=== PATIENT | male | born 1930 | race Caucasian/White ===

== ENCOUNTER 2017-11-06 22:22 | Inpatient (IN) ==
[2017-11-06 22:55] LABS: ABG Base Excess 6 mEq/L (-2 to 3); ABG HCO3 38 mEq/L (21-27); ABG Oxygen Saturation 98 % (95-98); ABG PCO2 87 mmHg (35-45); ABG PH 7.25 pH Units (7.32-7.45); ABG PO2 126 mmHg (85-104); ABG TCO2 40 mEq/L (20-26); Blood Gas PEEP 6 cm H2O
--- NOTE | 2017-11-06 22:56 | Emergency Department Note ---
Disposition Clinical Impression: Acute and chronic respiratory failure with hypercapnia, Elevated troponin CHF exacerbation Qualifiers: Heart failure type: unspecified Qualified Code(s): I50.9 - Heart failure, unspecified Hypotension Qualifiers: Hypotension type: unspecified hypotension type Qualified Code(s): I95.9 - Hypotension, unspecified Disposition: Admitted As Inpatient Condition: Critical Time of Disposition: 02:23 General Adult HPI - General Chief complaint: ED Shortness of Breath/Dyspnea Time Seen by Provider: 11/06/17 22:25 Source: patient, family (Daughter), EMS Limitations: altered mental status Nursing Notes Reviewed: Yes Vital Signs Reviewed: Yes - History of Present Illness HPI Narrative: 87-year-old male presents to the emergency department via EMS for respiratory distress. Patient's daughter and granddaughter are at bedside to assist with history. Patient's a transfer from the [place] for respiratory distress and altered mental status requiring BiPAP. Patient was initially cooperative with the BiPAP. Arterial blood gas 7.2 with a CO2 of 90. Patients currently living with daughter who is present in states that he has been having increased worker breathing over the past 24 hours. Any exertion make some winded. Of note his was admitted yesterday for CHF exacerbation. Per the family patient has history of congestive heart failure but has not been officially diagnosed. No COPD are lung issues noted. 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 On initial valuation patient is hard to arouse but is ventilating well with the BiPAP. His respirations rate is at 8. Family reports no recent fever, cough, fall or trauma. No recent new medications. Pain Scale: 0 - Related Data Home Medications Medication Instructions Recorded Confirmed Aspirin 81 mg PO DAILY 04/09/17 10/26/17 Cholecalciferol (D-3) [Vitamin D] 1,000 unit PO DAILY 04/09/17 10/26/17 Cyanocobalamin (B-12) [Vitamin B12] 1,000 mcg PO DAILY 04/09/17 10/26/17 Donepezil [Aricept] 5 mg PO DAILY 04/09/17 10/26/17 hydroCHLOROthiazide 25 mg PO DAILY 04/09/17 10/26/17 [Hydrochlorothiazide] Previous Rx's Medication Instructions Recorded Amoxicillin/Clavulanate [Augmentin] 500 mg PO TID #32 tablet 10/26/17 Allergies Allergy/AdvReac Type Severity Reaction Status Date / Time No Known Allergies Allergy Verified 10/26/17 18:20 Review of Systems: As Per HPI Limitations: ROS unobtainable due to patients medical condition Past Medical History - Past Medical History Source: old records reviewed, obtained from family Medical history: Reports: CHF, CVA, dementia, hypertension Surgical history: Reports: no surgical history Psychiatric history: Reports: no psych history - Social History Smoking Status: Former smoker Smokeless Tobacco Status: No Alcohol use: Reports: none Drug use: Reports: none Physical Exam - General Limitations: altered mental status General appearance: in distress (respiratory), other (Patient is laying lateral recumbent in a position, he awakens to some stimulation) - Head Head exam: atraumatic, normocephalic, normal inspection - Eye Eye exam: Present: normal appearance, PERRL, EOMI - ENT ENT exam: normal exam, normal oropharynx, mucous membranes dry - Neck Neck exam: Present: normal inspection, full ROM, trachea midline - Chest Chest inspection: Present: normal inspection, symmetric chest wall rise - Respiratory Respiratory exam: Present: respiratory distress, accessory muscle use, prolonged expiratory phase - Cardiovascular Cardiovascular exam: Present: regular rate, normal rhythm, normal heart sounds - Abdominal Exam Abdominal exam: Present: soft, Non-Tender, normal bowel sounds. Absent: tenderness, distention, guarding, rebound, rigidity - Male exam: Present: other (Garcia catheter in place, present on arrival) - Extremities Exam Extremities exam: Present: normal inspection, full ROM, pedal edema (+3 pitting) . Absent: tenderness - Skin Skin exam: Present: warm, dry, intact, normal color. Absent: rash, cyanosis, diaphoresis Course - Reevaluation(s) Reevaluation #1: Repeat ABG shows a respiratory acidosis 7.2 with the elevated CO2 86. Reports of prior pH 7.2 with CO2 of 90 roughly 2 hours ago. Patient has been on BiPAP firm up this time. He will require invasive ventilation intubation. Discussed with family at bedside who are in agreement with this plan. [facility]. Indwelling catheters in place with over 1 L of urine. Patient is fluid overloaded on examination with +3 pitting edema bilaterally. Time: 23:04 Reevaluation #2: His respiratory acidosis has corrected with invasive ventilation. Troponin elevated 0.04 likely secondary to his fluid overload state and demand ischemia. EKG does not reveal any acute ischemic changes. His BNP is significantly elevated 1300 to suggest the picture of CHF exacerbation given his clinical picture of fluid overload. Patients currently being sedated with propofol and fentanyl. His blood pressure continues to be on the hypotensive side. Will continue to cautiously sedate him while monitoring his hemodynamics. No leukocytosis. Chest x-ray shows endotracheal tube in appropriate placement. Lactate 1.4. At this time his respiratory distress is likely secondary to CO2 retention and CHF exacerbation. Patient will require admission to the intensive care unit. Time: 02:18 Reevaluation #3: Suspect hypotension secondary to propofol sedation. After 500 mL normal saline fluid bolus his pressure has minimally increased to systolic 80's. A central line was placed them urgently in the right femoral vein for pressor support. Patient remains in stable condition. - Consultations Consultation #1: Spoke with on-call hospitalist leora Rey to admit to the intensive care unit for acute on chronic hyper [place], respiratory failure, elevated troponin, CHF exacerbation and hypotension.. Patient clinically does not appear like pneumonia since he does not have a leukocytosis or fever. However given his respiratory failure and ICU admission will empirically treated with antibiotics per hospitalist request. Patient has been more hypotensive with propofol sedation of note he is also has put out over 2 L of urine output. Will give him a small 500 mL fluid bolus to help with his blood pressure as we titrate his propofol sedation. Time: 02:36 Vital Signs Temperature 98.4 F 11/06/17 22:25 Pulse Rate 100 11/06/17 22:25 Respiratory Rate 17 11/06/17 22:25 Blood Pressure 105/63 11/06/17 22:25 O2 Sat by Pulse Oximetry 91 11/06/17 22:25 Temperature 98.4 F 11/06/17 22:25 Pulse Rate 70 11/07/17 03:30 Respiratory Rate 18 11/07/17 03:30 Blood Pressure 85/55 11/07/17 03:30 O2 Sat by Pulse Oximetry 100 11/07/17 03:30 Oxygen Delivery Oxygen Delivery Ventilator Procedures - Central Line Placement Right Femoral Central Line Inserted*: Yes Central Line Catheter Replacement*: No Central Line Insertion: emergent Procedural Pause: verify patient name and date of , timeout performed per policy, kayla and assess the site, assemble equipment and verify supplies, perform hand hygiene During the Procedure: clinician is wearing sterile gloves, cap, mask,& gown during insertion, sterile field and sterile technique are maintained, patient's face is covered with drape or mask and wearing a cap, everyone in room is wearing a mask Central Line Prep: Chlorhexidine scrub Prep the Procedure Site: apply chloraprep to the skin using a back and forth scrubbing motion, apply chloraprep for 30 seconds (upper body), 1-2 min ( femoral sites), allow prep to dry, drape the patient with a full body drape Local Anesthetic: lidocaine 1% Amount of anesthesia used (mL): 3 Ultrasound Used for Placement: Yes Central Line Lumen Inserted: triple Post Procedure: sutured in place, good blood return, all ports aspirated, flushed, capped, sterile dressing applied, guide wire removed and visualized, dressing is dated Patient Tolerated Procedure: well, no complications Complications: none Name of Clinician Inserting Central Line: Domenic Mullins, Clinician Assisting/Completing Checklist: Dr. Maximiliano Ontiveros Date: 11/07/17 Time: 03:45 - Intubation Time out performed: Yes sedative: Etomidate Mg Given: 15 paralytic: Rocuronium Mg Given: 50 Laryngoscope: Steph ET Tube Size: 7.5 ET Tube Uncuffed: No Tube Secured Depth (cm): 21 Tube Secured Location: lips Tube Placement Confirmation: visualized tube passing through cords, equal breath sounds bilaterally, no breath sounds over epigastrium, confirmation by capnometry Patient Tolerated Procedure: well, no complications Intubation Complications: none Medical Decision Making - [facility] Narrative Medical decision making narrative: Patient was discussed with my attending physician who agrees with ED management and final disposition. They independently evaluated the patient. Please refer to their attestation to this encounter for additional information. This note was generated by [employer] voice recognition software and as a result grammatical or spelling errors may occur using this program. - Medical Records Medical records reviewed: Yes I reviewed the patient's medical records. - Lab Data Lab results reviewed: Yes I reviewed the patient's lab results. Result diagrams: 11/07/17 00:46 11/06/17 22:51 Lab Results 11/06/17 11/06/17 11/06/17 Range/Units 22:50 22:51 22:51 WBC (4.3-11.1) K/mcL RBC (4.19-5.50) M/mcL Hgb (12.9-16.9) g/dL Hct (37.5-50.1) % MCV (83.0-100.0) fL MCH (28.0-33.3) pg MCHC (31.6-35.5) g/dL RDW (11.5-14.5) % Plt Count (140-400) K/mcL MPV (9.4-12.4) fL Immature Gran % (0-4) % Seg Neutrophils % % Lymphocytes % % Monocytes % % Eosinophils % % Basophils % % Neutrophils # (1.6-8.9) K/mcL Lymphocytes # (0.6-4.6) K/mcL Monocytes # (0.0-1.3) K/mcL Eosinophils # (0.0-0.6) K/mcL Basophils # (0.0-0.2) K/mcL PT 10.3 (9.4-12.1) Seconds INR 1.0 APTT 25.8 L (26.0-36.0) Seconds Sample Site ABG pH 7.25 L (7.32-7.45) pH Units ABG pCO2 87 H* (35-45) mmHg ABG pO2 126 H (85-104) mmHg ABG HCO3 38 H (21-27) mEq/L ABG Total CO2 40 H (20-26) mEq/L ABG O2 Saturation 98 (95-98) % ABG Base Excess 6 H (-2 to 3) mEq/L Respiration Rate O2 Delivery Device BiPAP Blood Gas Modality Inspired O2 50.0 (1-15=lpm [id number]=%) Tidal Volume cc PEEP 6 cm H2O Sodium 145 (136-145) mEq/L Potassium 4.7 (3.5-5.1) mEq/L Chloride 102 (98-107) mEq/L Carbon Dioxide 34 H (23-29) mEq/L BUN 36 H (8-23) mg/dL Creatinine 1.26 (0.70-1.30) mg/dL Est GFR ( Amer) > 60 (> 60) Est GFR (Non-Af Amer) 54 L (> 60) BUN/Creatinine Ratio 29 H (6-26) Glucose 110 H (70-105) mg/dL Calculated Osmolality 309 H (280-300) Lactic Acid (0.5-2.2) mmol/L Calcium 9.9 (8.6-10.3) mg/dL Troponin I 0.05 H* (< 0.04) ng/mL B-Natriuretic Peptide (Less than 100) pg/mL 11/06/17 11/07/17 11/07/17 Range/Units 22:51 00:04 00:44 WBC (4.3-11.1) K/mcL RBC (4.19-5.50) M/mcL Hgb (12.9-16.9) g/dL Hct (37.5-50.1) % MCV (83.0-100.0) fL MCH (28.0-33.3) pg MCHC (31.6-35.5) g/dL RDW (11.5-14.5) % Plt Count (140-400) K/mcL MPV (9.4-12.4) fL Immature Gran % (0-4) % Seg Neutrophils % % Lymphocytes % % Monocytes % % Eosinophils % % Basophils % % Neutrophils # (1.6-8.9) K/mcL Lymphocytes # (0.6-4.6) K/mcL Monocytes # (0.0-1.3) K/mcL Eosinophils # (0.0-0.6) K/mcL Basophils # (0.0-0.2) K/mcL PT (9.4-12.1) Seconds INR APTT (26.0-36.0) Seconds Sample Site R Radial ABG pH 7.51 H D (7.32-7.45) pH Units ABG pCO2 42 D (35-45) mmHg ABG pO2 52 L D (85-104) mmHg ABG HCO3 33 H (21-27) mEq/L ABG Total CO2 34 H (20-26) mEq/L ABG O2 Saturation 89 L (95-98) % ABG Base Excess 9 H (-2 to 3) mEq/L Respiration Rate 18 O2 Delivery Device Adult Vent Blood Gas Modality VC Inspired O2 100.0 (1-15=lpm sn65-620=%) Tidal Volume 450 cc PEEP 5 cm H2O Sodium (136-145) mEq/L Potassium (3.5-5.1) mEq/L Chloride (98-107) mEq/L Carbon Dioxide (23-29) mEq/L BUN (8-23) mg/dL Creatinine (0.70-1.30) mg/dL Est GFR ( Amer) (> 60) Est GFR (Non-Af Amer) (> 60) BUN/Creatinine Ratio (6-26) Glucose (70-105) mg/dL Calculated Osmolality (280-300) Lactic Acid 1.4 (0.5-2.2) mmol/L Calcium (8.6-10.3) mg/dL Troponin I (< 0.04) ng/mL B-Natriuretic Peptide 1353 H (Less than 100) pg/mL 11/07/17 Range/Units 00:46 WBC 7.5 (4.3-11.1) K/mcL RBC 4.95 (4.19-5.50) M/mcL Hgb 13.9 (12.9-16.9) g/dL Hct 46.5 (37.5-50.1) % MCV 93.9 (83.0-100.0) fL MCH 28.1 (28.0-33.3) pg MCHC 29.9 L (31.6-35.5) g/dL RDW 15.2 H (11.5-14.5) % Plt Count 173 (140-400) K/mcL MPV 10.9 (9.4-12.4) fL Immature Gran % 0.4 (0-4) % Seg Neutrophils % 80.9 % Lymphocytes % 8.7 % Monocytes % 8.0 % Eosinophils % 1.3 % Basophils % 0.7 % Neutrophils # 6.1 (1.6-8.9) K/mcL Lymphocytes # 0.7 (0.6-4.6) K/mcL Monocytes # 0.6 (0.0-1.3) K/mcL Eosinophils # 0.1 (0.0-0.6) K/mcL Basophils # 0.1 (0.0-0.2) K/mcL PT (9.4-12.1) Seconds INR APTT (26.0-36.0) Seconds Sample Site ABG pH (7.32-7.45) pH Units ABG pCO2 (35-45) mmHg ABG pO2 (85-104) mmHg ABG HCO3 (21-27) mEq/L ABG Total CO2 (20-26) mEq/L ABG O2 Saturation (95-98) % ABG Base Excess (-2 to 3) mEq/L Respiration Rate O2 Delivery Device Blood Gas Modality Inspired O2 (1-15=lpm ux42-224=%) Tidal Volume cc PEEP cm H2O Sodium (136-145) mEq/L Potassium (3.5-5.1) mEq/L Chloride (98-107) mEq/L Carbon Dioxide (23-29) mEq/L BUN (8-23) mg/dL Creatinine (0.70-1.30) mg/dL Est GFR ( Amer) (> 60) Est GFR (Non-Af Amer) (> 60) BUN/Creatinine Ratio (6-26) Glucose (70-105) mg/dL Calculated Osmolality (280-300) Lactic Acid (0.5-2.2) mmol/L Calcium (8.6-10.3) mg/dL Troponin I (< 0.04) ng/mL B-Natriuretic Peptide (Less than 100) pg/mL - Radiology Data Radiology results reviewed: Yes I reviewed the patient's radiology results. Chest X-Ray 11/06/17 22:51 IMPRESSION: 1. The endotracheal tube tip is 6 cm above the teodoro. 2. Bibasilar atelectasis or pneumonia. D/ / Graeme Tirado MD / Graeme Tirado MD Interpreting Provider: Graeme Tirado MD - EKG Data EKG #1 EKG attestation: Yes I reviewed and interpreted this EKG. EKG results narrative: EKG performed 2258 normal sinus rhythm 94 bpm, right axis deviation with right bundle branch block QRS 138, no ST elevation or depression, T-wave inversion seen through septal leads. Compared to prior EKG performed 10/26/2017 shows similar consistent findings of sinus rhythm with right bundle branch block in T- wave abnormality. No acute ischemic changes.
[2017-11-06] MEDS ORDERED: Lacri-Lube 3.5 GM TUBE BOTH EYES PRN (23:30)
[2017-11-06] MEDS: FentaNYL (PF) 1,000 MCG in 0.9 % Sodium Chloride 80 ML IVC SCH (23:59)
[2017-11-07] MEDS: Lacri-Lube 3.5 GM TUBE BOTH EYES SCH ×8 (00:01→22:25)
[2017-11-07] MEDS ORDERED: *HR* Rocuronium Bromide 50 MG/5 ML VIAL IVP ONE ×2 (00:11→00:19)
[2017-11-07] MEDS ORDERED: *HR* Etomidate 20 MG/10 ML AMPUL IVP ONE (00:19)
[2017-11-07 00:21] LABS: Prothrombin Time 10.3 Seconds (9.4-12.1)
--- NOTE | 2017-11-07 00:22 | Emergency Department Note ---
Disposition Clinical Impression: Acute and chronic respiratory failure with hypercapnia, CHF exacerbation, Elevated troponin, Hypotension Disposition: Admitted As Inpatient Condition: Critical General Adult HPI - General Chief complaint: ED Shortness of Breath/Dyspnea Time Seen by Provider: 11/06/17 22:25 Source: patient, family (Daughter), EMS Limitations: altered mental status Nursing Notes Reviewed: Yes Vital Signs Reviewed: Yes - History of Present Illness Pain Scale: 0 - Related Data Home Medications Medication Instructions Recorded Confirmed Aspirin 81 mg PO DAILY 04/09/17 10/26/17 Cholecalciferol (D-3) [Vitamin D] 1,000 unit PO DAILY 04/09/17 10/26/17 Cyanocobalamin (B-12) [Vitamin B12] 1,000 mcg PO DAILY 04/09/17 10/26/17 Donepezil [Aricept] 5 mg PO DAILY 04/09/17 10/26/17 hydroCHLOROthiazide 25 mg PO DAILY 04/09/17 10/26/17 [Hydrochlorothiazide] Previous Rx's Medication Instructions Recorded Amoxicillin/Clavulanate [Augmentin] 500 mg PO TID #32 tablet 10/26/17 Allergies Allergy/AdvReac Type Severity Reaction Status Date / Time No Known Allergies Allergy Verified 10/26/17 18:20 Past Medical History - Past Medical History Medical history: Reports: CHF, CVA, dementia, hypertension Surgical history: Reports: no surgical history Psychiatric history: Reports: no psych history - Social History Smoking Status: Former smoker Smokeless Tobacco Status: No Alcohol use: Reports: none Drug use: Reports: none Physical Exam - General Limitations: altered mental status General appearance: in distress (respiratory), other (Patient is laying lateral recumbent in a position, he awakens to some stimulation) Course Vital Signs Temperature 98.4 F 11/06/17 22:25 Pulse Rate 100 11/06/17 22:25 Respiratory Rate 17 11/06/17 22:25 Blood Pressure 105/63 11/06/17 22:25 O2 Sat by Pulse Oximetry 91 11/06/17 22:25 Temperature 98.4 F 11/06/17 22:25 Pulse Rate 70 11/07/17 03:30 Respiratory Rate 18 11/07/17 03:30 Blood Pressure 85/55 11/07/17 03:30 O2 Sat by Pulse Oximetry 100 11/07/17 03:30 Oxygen Delivery Oxygen Delivery Ventilator Medical Decision Making - Lab Data Result diagrams: 11/07/17 00:46 11/06/17 22:51 Lab Results 11/06/17 11/06/17 11/06/17 Range/Units 22:50 22:51 22:51 WBC (4.3-11.1) K/mcL RBC (4.19-5.50) M/mcL Hgb (12.9-16.9) g/dL Hct (37.5-50.1) % MCV (83.0-100.0) fL MCH (28.0-33.3) pg MCHC (31.6-35.5) g/dL RDW (11.5-14.5) % Plt Count (140-400) K/mcL MPV (9.4-12.4) fL Immature Gran % (0-4) % Seg Neutrophils % % Lymphocytes % % Monocytes % % Eosinophils % % Basophils % % Neutrophils # (1.6-8.9) K/mcL Lymphocytes # (0.6-4.6) K/mcL Monocytes # (0.0-1.3) K/mcL Eosinophils # (0.0-0.6) K/mcL Basophils # (0.0-0.2) K/mcL PT 10.3 (9.4-12.1) Seconds INR 1.0 APTT 25.8 L (26.0-36.0) Seconds Sample Site ABG pH 7.25 L (7.32-7.45) pH Units ABG pCO2 87 H* (35-45) mmHg ABG pO2 126 H (85-104) mmHg ABG HCO3 38 H (21-27) mEq/L ABG Total CO2 40 H (20-26) mEq/L ABG O2 Saturation 98 (95-98) % ABG Base Excess 6 H (-2 to 3) mEq/L Respiration Rate O2 Delivery Device BiPAP Blood Gas Modality Inspired O2 50.0 (1-15=lpm qi13-334=%) Tidal Volume cc PEEP 6 cm H2O Sodium 145 (136-145) mEq/L Potassium 4.7 (3.5-5.1) mEq/L Chloride 102 (98-107) mEq/L Carbon Dioxide 34 H (23-29) mEq/L BUN 36 H (8-23) mg/dL Creatinine 1.26 (0.70-1.30) mg/dL Est GFR ( Amer) > 60 (> 60) Est GFR (Non-Af Amer) 54 L (> 60) BUN/Creatinine Ratio 29 H (6-26) Glucose 110 H (70-105) mg/dL Calculated Osmolality 309 H (280-300) Lactic Acid (0.5-2.2) mmol/L Calcium 9.9 (8.6-10.3) mg/dL Troponin I 0.05 H* (< 0.04) ng/mL B-Natriuretic Peptide (Less than 100) pg/mL 11/06/17 11/07/17 11/07/17 Range/Units 22:51 00:04 00:44 WBC (4.3-11.1) K/mcL RBC (4.19-5.50) M/mcL Hgb (12.9-16.9) g/dL Hct (37.5-50.1) % MCV (83.0-100.0) fL MCH (28.0-33.3) pg MCHC (31.6-35.5) g/dL RDW (11.5-14.5) % Plt Count (140-400) K/mcL MPV (9.4-12.4) fL Immature Gran % (0-4) % Seg Neutrophils % % Lymphocytes % % Monocytes % % Eosinophils % % Basophils % % Neutrophils # (1.6-8.9) K/mcL Lymphocytes # (0.6-4.6) K/mcL Monocytes # (0.0-1.3) K/mcL Eosinophils # (0.0-0.6) K/mcL Basophils # (0.0-0.2) K/mcL PT (9.4-12.1) Seconds INR APTT (26.0-36.0) Seconds Sample Site R Radial ABG pH 7.51 H D (7.32-7.45) pH Units ABG pCO2 42 D (35-45) mmHg ABG pO2 52 L D (85-104) mmHg ABG HCO3 33 H (21-27) mEq/L ABG Total CO2 34 H (20-26) mEq/L ABG O2 Saturation 89 L (95-98) % ABG Base Excess 9 H (-2 to 3) mEq/L Respiration Rate 18 O2 Delivery Device Adult Vent Blood Gas Modality VC Inspired O2 100.0 (1-15=lpm dr23-316=%) Tidal Volume 450 cc PEEP 5 cm H2O Sodium (136-145) mEq/L Potassium (3.5-5.1) mEq/L Chloride (98-107) mEq/L Carbon Dioxide (23-29) mEq/L BUN (8-23) mg/dL Creatinine (0.70-1.30) mg/dL Est GFR ( Amer) (> 60) Est GFR (Non-Af Amer) (> 60) BUN/Creatinine Ratio (6-26) Glucose (70-105) mg/dL Calculated Osmolality (280-300) Lactic Acid 1.4 (0.5-2.2) mmol/L Calcium (8.6-10.3) mg/dL Troponin I (< 0.04) ng/mL B-Natriuretic Peptide 1353 H (Less than 100) pg/mL 11/07/17 Range/Units 00:46 WBC 7.5 (4.3-11.1) K/mcL RBC 4.95 (4.19-5.50) M/mcL Hgb 13.9 (12.9-16.9) g/dL Hct 46.5 (37.5-50.1) % MCV 93.9 (83.0-100.0) fL MCH 28.1 (28.0-33.3) pg MCHC 29.9 L (31.6-35.5) g/dL RDW 15.2 H (11.5-14.5) % Plt Count 173 (140-400) K/mcL MPV 10.9 (9.4-12.4) fL Immature Gran % 0.4 (0-4) % Seg Neutrophils % 80.9 % Lymphocytes % 8.7 % Monocytes % 8.0 % Eosinophils % 1.3 % Basophils % 0.7 % Neutrophils # 6.1 (1.6-8.9) K/mcL Lymphocytes # 0.7 (0.6-4.6) K/mcL Monocytes # 0.6 (0.0-1.3) K/mcL Eosinophils # 0.1 (0.0-0.6) K/mcL Basophils # 0.1 (0.0-0.2) K/mcL PT (9.4-12.1) Seconds INR APTT (26.0-36.0) Seconds Sample Site ABG pH (7.32-7.45) pH Units ABG pCO2 (35-45) mmHg ABG pO2 (85-104) mmHg ABG HCO3 (21-27) mEq/L ABG Total CO2 (20-26) mEq/L ABG O2 Saturation (95-98) % ABG Base Excess (-2 to 3) mEq/L Respiration Rate O2 Delivery Device Blood Gas Modality Inspired O2 (1-15=lpm yt94-313=%) Tidal Volume cc PEEP cm H2O Sodium (136-145) mEq/L Potassium (3.5-5.1) mEq/L Chloride (98-107) mEq/L Carbon Dioxide (23-29) mEq/L BUN (8-23) mg/dL Creatinine (0.70-1.30) mg/dL Est GFR ( Amer) (> 60) Est GFR (Non-Af Amer) (> 60) BUN/Creatinine Ratio (6-26) Glucose (70-105) mg/dL Calculated Osmolality (280-300) Lactic Acid (0.5-2.2) mmol/L Calcium (8.6-10.3) mg/dL Troponin I (< 0.04) ng/mL B-Natriuretic Peptide (Less than 100) pg/mL Critical Care Time Critical Care Time: Yes Total Critical Care Time: 60 Attestation: Critical care performed: Time is exclusive of separately billable procedures. Time includes: direct patient care, patient reassessment, coordination of patient care, interpretation of data (laboratory data, radiology data, and respiratory data), review of patient's medical records, medical consultation and documentation of patient care. Procedures included in critical care time: Procedures excluded from critical care time: Endotracheal intubation, right femoral central line placement Attestation Statement - Attestation Attestation: I, Maximiliano Ontiveros MD, personally evaluated this patient and discussed their management with the resident physician. I reviewed the resident's note and agree with the documented findings, medical decision making, and plan of care. 87-year-old male transferred from the [facility] urgent care for congestive heart failure. No prior history of CHF. Patient has a history of dementia. He has been living with his daughter for about the past week. His he was also living with the daughter was admitted to the hospital here a few days ago. Apparently patient has not been taking his medications like he is supposed to. Over the past few days and reports he has had marked increased swelling of his feet and ankles and increased shortness of breath, especially with exertion. No complaints of chest pain. No fever. He has had some increased cough. Family apparently took him to the [facility] today for an appointment some lab work and was sent to their urgent care because of an elevated potassium. He was noted to have a low oxygen saturation and was placed on oxygen and afterwards began to become less responsive. He is placed on BiPAP. ABG obtained and showed a pH of 7.24 and PCO2 was unrelieved about 90. On arrival here vital signs are stable. Patient lying on his right side. He does respond to some verbal questions and answers some questions but then at times he does not respond. He will not follow commands. Repeat ABG obtained and showed a persistent hypercapnia with PCO2 of 86. On examination there is no cyanosis or diaphoresis. Breath sounds are decreased bilaterally with some dependent rales. No wheezes noted. Heart regular. Abdomen soft with present bowel sounds. There is 3+ pitting edema of the lower extremities bilaterally. Patient was intubated orally by Dr. Mullins on first attempt without difficulty or complication. After intubation patient developed some hypotension. A right femoral vein central line was placed by Dr. Mullins under my direct supervision without difficulty or complication. The hospitalist, Dr. Hopkins, was consulted and accepted admission of the patient.
[2017-11-07 00:23] LABS: Activated Partial Thrombo Time 25.8 Seconds (26.0-36.0)
[2017-11-07 00:37] LABS: BUN/Creatinine Ratio 29 (6-26); Blood Urea Nitrogen 36 mg/dL (8-23); Calcium 9.9 mg/dL (8.6-10.3); Carbon Dioxide 34 mEq/L (23-29); Chloride 102 mEq/L (98-107); Glucose 110 mg/dL (70-105); Osmolality,Calculated 309 (280-300); Potassium 4.7 mEq/L (3.5-5.1); Sodium 145 mEq/L (136-145); eGFR For African Americans > 60 (> 60); eGFR For Non-African Americans 54 (> 60)
[2017-11-07 00:47] LABS: Troponin I 0.05 ng/mL (< 0.04)
[2017-11-07 00:49] LABS: ABG Base Excess 9 mEq/L (-2 to 3); ABG HCO3 33 mEq/L (21-27); ABG Oxygen Saturation 89 % (95-98); ABG PCO2 42 mmHg (35-45); ABG PH 7.51 pH Units (7.32-7.45); ABG PO2 52 mmHg (85-104); ABG TCO2 34 mEq/L (20-26); Blood Gas Modality VC; Blood Gas PEEP 5 cm H2O; Blood Gas Respiration Rate 18; Blood Gas VT 450 cc
[2017-11-07 00:53] LABS: Basophils # 0.1 K/mcL (0.0-0.2); Basophils % 0.7 %; Eosinophils # 0.1 K/mcL (0.0-0.6); Eosinophils % 1.3 %; Hematocrit 46.5 % (37.5-50.1); Hemoglobin 13.9 g/dL (12.9-16.9); Immature Granulocytes % 0.4 % (0-4); Lymphocytes # 0.7 K/mcL (0.6-4.6); Lymphocytes % 8.7 %; Mean Corpuscular HGB Conc 29.9 g/dL (31.6-35.5); Mean Corpuscular Hemoglobin 28.1 pg (28.0-33.3); Mean Corpuscular Volume 93.9 fL (83.0-100.0); Mean Platelet Volume 10.9 fL (9.4-12.4); Monocytes # 0.6 K/mcL (0.0-1.3); Neutrophils # 6.1 K/mcL (1.6-8.9); Platelet Count 173 K/mcL (140-400); Red Blood Count 4.95 M/mcL (4.19-5.50); Red Cell Distribution Width 15.2 % (11.5-14.5); Segmented Neutrophils % 80.9 %
[2017-11-07] MEDS ORDERED: Aspirin 81 MG TAB.CHEW PO STA (01:23)
[2017-11-07] MEDS ORDERED: Piperacillin/Tazobactam 3.375 GM in Water for inj. (sterile) 20 ML IVP ONE (02:29)
[2017-11-07] MEDS ORDERED: 0.9 % Sodium Chloride 500 ML IVC ONE (02:34)
[2017-11-07] MEDS ORDERED: *HR* Midazolam HCl 2 MG/2 ML VIAL IVP ONE (03:05)
[2017-11-07] MEDS ORDERED: *HR* Midazolam HCl 2 MG/2 ML VIAL ONE (03:06)
[2017-11-07] MEDS: Dexmedetomidine HCl 400 MCG/100 ML MLS IVC SCH ×2 (03:11→05:16)
[2017-11-07] MEDS: Norepinephrine 4 MG in D5% in Water 250 ML IVC SCH (04:39)
[2017-11-07] MEDS ORDERED: Lacri-Lube 3.5 GM TUBE BOTH EYES PRN (04:42)
[2017-11-07] MEDS ORDERED: Naloxone 0.4 MG/ML INJ IVP PRN (04:42)
[2017-11-07] MEDS ORDERED: 0.9 % Sodium Chloride 1,000 ML IVC SCH (04:45)
[2017-11-07] MEDS ORDERED: Vancomycin (wt based) 1,000 MG VIAL IVPB SCH (05:00)
--- NOTE | 2017-11-07 05:07 | Internal Med History&Physical ---
Date of Encounter: 11/07/17 Time of Encounter: 04:58 Internal Medicine - H&P: HPI Chief complaint: respiratory failure Admitted From: Emergency Dept Plans for Post Hospital Care: Home History of present illness: Mr. Doran is a 87 year old male who presents the ER this evening in respiratory distress and respiratory failure. He was sent by the [place] urgent care with respiratory distress and failure. He presented to the urgent care earlier in the evening complaining of shortness of breath, altered mental status , and impending respiratory arrest. He was placed on BiPAP and brought to our ER by squad. Upon arrival to ER, patient was in severe distress and was seen by ER staff immediately. Because of severe respiratory distress and failure, he was intubated emergently and stabilized in the ER. I was then contacted to admit patient to ICU. During my discussion with the ER staff, I noted his blood pressure was rather low and I was concerned about pneumonia and sepsis. ER staff felt the patient likely had CHF. However, he has never had any formal diagnosis of CHF. Given his respiratory acidosis and respiratory failure, I was concerned that he may have developed pneumonia wth subsequent sepsis. Furthermore, he was quite hypotensive when they contacted me. Initial thoughts were that blood pressures was low due to sedation which was certainly possible. Nonetheless, I requested patient be stabilized and started on antibiotics for possible pneumonia and sepsis. Per my request, ER staff did place a central line in the right groin and Levophed was initiated to maintain stable hemodynamics. He was then transferred to the ICU. Upon my assessment of the patient in the ICU, he is sedated and responds to loud vocal stimuli and painful stimuli. History is unobtainable from patient at this time. There are no family members present. [facility]. There is no mention of any cardiac history, especially CHF. According to [place] urgent care notes, he presented there with significant respiratory distress and altered mental status. There are no reports of fevers , chills, vomiting, or diarrhea. No further history could be obtained. Past Med Surg Social Fam HX - Past Medical History Source: old records reviewed, other [facility] Medical history: CVA, dementia, hypertension Psychiatric history: no psych history - Past Surgical History Surgical History: no surgical history - Social History Smoking Status: Former smoker Smokeless Tobacco Status: No Alcohol use: none Drug use: none Current living situation: Home, With Family Activity Level: Independent ambulation - Family History Mother History Unknown: Yes Father History Unknown: Yes Internal Medicine - H&P: Meds Aspirin 81 mg PO DAILY 04/09/17 [History] Cholecalciferol (D-3) [Vitamin D] 1,000 unit PO DAILY 04/09/17 [History] Cyanocobalamin (B-12) [Vitamin B12] 1,000 mcg PO DAILY 04/09/17 [History] Donepezil [Aricept] 10 mg PO DAILY 04/09/17 [History] hydroCHLOROthiazide [Hydrochlorothiazide] 25 mg PO DAILY 04/09/17 [History] Amoxicillin/Clavulanate [Augmentin] 500 mg PO TID #32 tablet 10/26/17 [Rx] Lisinopril [Zestril] 10 mg PO DAILY 11/07/17 [History] 3 Allergy/AdvReac Type Severity Reaction Status Date / Time No Known Allergies Allergy Verified 10/26/17 18:20 ROS unobtainable: due to endotracheal tube - Constitutional Vitals: Temp Pulse Resp BP Pulse Ox 98.4 F 75 18 98/64 98 11/06/17 22:25 11/07/17 04:12 11/07/17 03:58 11/07/17 04:12 11/07/17 04:12 Exam: intubated, sedated, responds to painful and loud vocal stimuli - Head Head exam: Present: atraumatic, normal inspection Additional comments: ETT in place - Eye Eye exam: Present: normal appearance. Absent: scleral icterus - ENT ENT exam: Present: mucous membranes dry, normal exam, normal oropharynx - Neck Neck exam general surgery: Present: full ROM, supple. Absent: lymphadenopathy, tenderness, nuchal rigidity, thyromegaly - Respiratory Respiratory exam: Present: rales (right>left base), respiratory distress, rhonchi, tachypnea. Absent: chest wall tenderness, CTAB, wheezes - Cardiovascular Cardiovascular exam: Present: irregular rhythm, +S1, +S2. Absent: diastolic murmur, JVD, systolic murmur - GI/Abdominal GI/Abdominal exam: Present: normal bowel sounds, soft. Absent: guarding, hepatomegaly, pulsatile mass, rebound, splenomegaly, tenderness - Extremities Exam Extremities exam: Present: full ROM, joint swelling, pedal edema (2-3+), warm, radial pulses palpable and symmetrical. Absent: calf tenderness, cyanotic, normal capillary refill, mottling - Back Exam Back exam: Absent: CVA tenderness (L), CVA tenderness (R) - Neurological Exam Additional comments: sedated; responds to loud verbal and painful stimuli - Psychiatric Additional comments: sedated; unable to assess - Skin Skin exam: Present: dry, warm. Absent: rash Internal Med - H&P Results - Labs CBC & Chem 7: 11/07/17 00:46 11/06/17 22:51 - EKG Data -: EKG Interpreted by Myself - EKG Data Prior EKG available for review: no EKG comments: 11/07/17 05:12 NSR; RBBB; RAD - Diagnostic Studies Chest x-ray Status: image reviewed by me (ETT in place; Bibasilar infiltrates, R > L) - Assessment and plan (1) Acute and chronic respiratory failure with hypercapnia Current Visit: Yes Status: Acute Assessment and plan: 1. Patient intubated and sedated. 2. Mechanical ventilation, repeat ABG in a few hours. 3. Consult Pulmonology to assist with and assume care in the ICU. 4. Will schedule aerosols. Total of 55 minutes thus far assessing and caring for critically ill patient. (2) Sepsis Current Visit: Yes Status: Acute Assessment and plan: 1. Will continue IVF, trend lactate, and monitor hemodynamics closely. 2. Levophed initiated for hemodynamic instability. 3. Lung is most likely source. Will treat with IV Vancomycin, Zosyn, and Levaquin, Qualifiers: Sepsis type: sepsis due to unspecified organism Qualified Code(s): A41.9 - Sepsis, unspecified organism (3) Elevated troponin Current Visit: Yes Status: Acute Assessment and plan: 1. Likely due to demand ischemia from respiratory failure. 2. Will trend troponins, order ECHO, and monitor I/O and fluid balance. 3. Consult cardiology if troponinis climb. (4) DVT prophylaxis Current Visit: Yes Status: Acute Assessment and plan: 1. Heparin SQ.
[2017-11-07] MEDS: Piperacillin/Tazobactam 3.375 GM in 0.9 % Sodium Chloride Mini Bag 100 ML IVPB SCH ×3 (05:13→23:51)
[2017-11-07] MEDS: *HR* Heparin 5,000 UNIT/ML VIAL SQ SCH ×2 (05:18→17:12)
[2017-11-07 05:54] LABS: ABG Base Excess 9 mEq/L (-2 to 3); ABG HCO3 33 mEq/L (21-27); ABG Oxygen Saturation 99 % (95-98); ABG PCO2 43 mmHg (35-45); ABG PO2 145 mmHg (85-104); ABG TCO2 35 mEq/L (20-26); Blood Gas Modality VC; Blood Gas PEEP 5 cm H2O; Blood Gas Respiration Rate 14; Blood Gas VT 450 cc
[2017-11-07] MEDS: Pantoprazole 40 MG VIAL IVP SCH (07:43)
[2017-11-07] MEDS: Aspirin 81 MG TAB.CHEW PO SCH (07:43)
[2017-11-07] MEDS: Levofloxacin 750 MG/150 ML 750 MG/150 ML BAG IVPB SCH (07:43)
[2017-11-07] MEDS: Chlorhexidine Rinse 15 ML MOUTHWASH MM SCH ×2 (07:45→20:05)
[2017-11-07] MEDS ORDERED: Furosemide 20 MG/2 ML VIAL IVP ONE ×2 (07:48→10:08)
--- NOTE | 2017-11-07 07:49 | Pulmonology Progress Note ---
<[email or web address] M - Last Filed: 11/07/17 08:53> Date of Encounter: 11/07/17 Objective PUL Vital signs: Last Vital Signs Temp 98.0 F 11/07/17 07:57 Pulse 84 11/07/17 08:00 Resp 14 11/07/17 08:00 BP 80/51 11/07/17 08:00 Pulse Ox 99 11/07/17 08:00 Ventilator Settings Ventilator Settings: Ventilator Settings, Last 8 Hours Ventilator Mode A/C Ventilator Mode A/C Ventilator Mode A/C Ventilator Mode A/C Ventilator Tidal Volume 450 Setting Ventilator Tidal Volume 450 Setting Ventilator Tidal Volume 450 Setting Ventilator Tidal Volume 450 Setting Ventilator Tidal Volume 450 Setting Ventilator Tidal Volume 450 Setting Ventilator Tidal Volume 450 Setting Ventilator Respiratory Rate 14 Setting Ventilator Respiratory Rate 14 Setting Ventilator Respiratory Rate 14 Setting Ventilator Respiratory Rate 14 Setting Ventilator Respiratory Rate 14 Setting Ventilator Respiratory Rate 18 Setting Ventilator Respiratory Rate 18 Setting Actual Respiratory Rate 14 Actual Respiratory Rate 14 Actual Respiratory Rate 14 Actual Respiratory Rate 18 Positive End Expiratory 5 Pressure Positive End Expiratory 5 Pressure Positive End Expiratory 5 Pressure Positive End Expiratory 5 Pressure Positive End Expiratory 5 Pressure Positive End Expiratory 5 Pressure Positive End Expiratory 5 Pressure Peak Inspiratory Airway 28 Pressure Peak Inspiratory Airway 35 Pressure Peak Inspiratory Airway 37 Pressure Peak Inspiratory Airway 26 Pressure Results - Laboratory Findings CBC and BMP: 11/07/17 00:46 11/06/17 22:51 ABG ABG pH 7.50 pH Units (7.32-7.45) H 11/07/17 08:14 ABG pCO2 47 mmHg (35-45) H 11/07/17 08:14 ABG pO2 93 mmHg (85-104) D 11/07/17 08:14 ABG O2 Saturation 98 % (95-98) 11/07/17 08:14 PT/INR, D-dimer PT 10.3 Seconds (9.4-12.1) 11/06/17 22:51 Abnormal lab findings: Abnormal lab results MCHC 29.9 g/dL (31.6-35.5) L 11/07/17 00:46 RDW 15.2 % (11.5-14.5) H 11/07/17 00:46 APTT 25.8 Seconds (26.0-36.0) L 11/06/17 22:51 ABG pH 7.50 pH Units (7.32-7.45) H 11/07/17 08:14 ABG pCO2 47 mmHg (35-45) H 11/07/17 08:14 ABG HCO3 37 mEq/L (21-27) H 11/07/17 08:14 ABG Total CO2 38 mEq/L (20-26) H 11/07/17 08:14 ABG Base Excess 12 mEq/L (-2 to 3) H 11/07/17 08:14 Carbon Dioxide 34 mEq/L (23-29) H 11/06/17 22:51 BUN 36 mg/dL (8-23) H 11/06/17 22:51 Est GFR (Non-Af Amer) 54 (> 60) L 11/06/17 22:51 BUN/Creatinine Ratio 29 (6-26) H 11/06/17 22:51 Glucose 110 mg/dL (70-105) H 11/06/17 22:51 Calculated Osmolality 309 (280-300) H 11/06/17 22:51 Troponin I 0.06 ng/mL (< 0.04) H* 11/07/17 05:58 B-Natriuretic Peptide 1353 pg/mL (Less than 100) H 11/06/17 22:51 Urine Clarity Cloudy (Clear) A 11/07/17 08:00 Urine Blood Large (Negative) H 11/07/17 08:00 Ur Leukocyte Esterase Large (Negative) H 11/07/17 08:00 Urine Microscopic RBC 30-50 per hpf (0-3) H 11/07/17 08:00 Urine Microscopic WBC 50-100 per hpf (0-3) H 11/07/17 08:00 Ur Squamous Epith Cells Many per lpf (None-Few) H 11/07/17 08:00 - Clinical Findings Intake & Output: Intake & Output 11/06/17 11/07/17 11/07/17 23:59 07:59 15:59 Intake Total 993 / 1051 Output Total 1000 / 1000 Balance - Weight 68.7 kg Consult Discharge Plan - Plan [facility]Primary Care Provider[facility] - - Attending Attestation I examined this patient and my medical decision-making was reviewed with the Resident Physician. I agree with the documented findings, disposition and treatment plan as described except to the extent set forth below. Patient seen and examined. Labs, radiology, chart personally reviewed. Agree with resident's history and physical, assessment, plan with following comments: [employer]: Patient does not follows commands, patient is on sedation and it will be very challenging with his underlying mental status and dementia regarding cooperation with the staff and safety to himself. Pulmonary: Acceptable oxygenation and ventilation. Vent setting was changed due to abnormal ABG and would have follow-up ABG to make sure his alkalosis is being corrected. Cardiovascular: Patient in shock which could be multifactorial, however I feel it is most likely cardiac and reviewed echocardiogram before officially been read by fur sorter and there is evidence of enlarged right ventricle which could be secondary to pulmonary hypertension which I suspect could be group 2 and/or group 3. I feel there is evidence of volume overload and will stop IV and try diuresis. GI: Nutrition per dietary and GI prophylaxis per routine Heme: DVT prophylaxis per routine ID: Continue antibiotics and plan to de-escalation Renal; urine out put and renal funtion reviewed Endorcine: blood glucose is monitored Lines: all lines checked and no evidence of infections Skin: skin care to prevent pressure ulcers per nursing routine care I spent 40 min of Critical Care time with this patient. It involved decision making of high complexity to assess, manipulate, and support vital organ system failure and/or to prevent further life threatening deterioration of the patient' s condition. The time involved in the performance of separately reportable procedures was not counted toward critical care time. <Andrea Quijano - Last Filed: 11/07/17 12:02> Date of Encounter: 11/07/17 Time of Encounter: 07:49 Assessment and Plan (1) Acute and chronic respiratory failure with hypercapnia Current Visit: Yes Status: Acute Etiology is likely multifactorial. Patient has concerning signs symptoms of congestive heart failure. Patient also is a potential for aspiration risk giving his history of dementia. Patient will be treated with broad-spectrum antibiotics and as well as intermittent diuretics as the patient's lactate was not significantly elevated. 1. Patient intubated and sedated-no plans for extubation today. 2. Mechanical ventilation 3. Lasix 20 mg IV 1 and titrate per patient response. May need to escalate pressor requirement 4. Will schedule aerosols. 5. Continue with broad-spectrum antibiotics until patient's respiratory symptoms improved (2) CHF exacerbation Current Visit: Yes Status: Acute Patient's overall clinical exam appears to be fluid overloaded. Review the record showed there is no recent echo. Patient also has an elevated BNP and chest x-ray findings consistent with congestive heart failure. PLAN -Echo pending -Lasix 20mg IV with bolus dosing per patient response -Strict I's and O's Qualifiers: Heart failure type: unspecified Qualified Code(s): I50.9 - Heart failure, unspecified (3) Elevated troponin Current Visit: Yes Status: Acute 1. Likely due to demand ischemia from respiratory failure. 2. Will trend troponins, order ECHO, and monitor I/O and fluid balance. 3. Consult cardiology if troponinis climb. (4) Sepsis Current Visit: Yes Status: Acute Possible source in the lungs, given the patient's respiratory status. Patient is receiving broad-spectrum antibiotics. Patient also has a urine which did not show any evidence of bacteria. 1. Will continue IVF, trend lactate, and monitor hemodynamics closely. 2. Levophed initiated for hemodynamic instability. Lactate is normal. May need to escalate pressor dose given volume overload and fluid status. 3. Lung is most likely source. Will treat with IV Vancomycin, Zosyn, and Levaquin, Qualifiers: Sepsis type: sepsis due to unspecified organism Qualified Code(s): A41.9 - Sepsis, unspecified organism (5) DVT prophylaxis Current Visit: Yes Status: Acute Subcutaneous heparin Subjective Principal diagnosis: Respiratory failure, Congestive heart failure Interval history: Patient was admitted overnight concerns for acute on chronic respiratory failure. Etiology is multifactorial. Patient remains mechanically ventilated. No family at bedside provided history however the family was contacted and appears the patient has not been taking his diuretics. Patient does have a history of baseline dementia. Patient remains on broad-spectrum antibiotics given his respiratory distress and critical illness. Objective PUL Vital signs: Last Vital Signs Temp 98.4 F 11/07/17 05:00 Pulse 60 11/07/17 07:00 Resp 14 11/07/17 07:00 BP 86/51 11/07/17 07:00 Pulse Ox 98 11/07/17 07:00 General appearance: other (Mechanically ventilated, sedated) Eyes: nonicteric ENT: other (Intubation tube in place) Effort: other (Mechanically ventilated) Cardiovascular: regular rate and rhythm Gastrointestinal: normoactive bowel sounds, non-distended Integumentary: normal Extremities: edema, anasarca Musculoskeletal: no deformities unable to assess due to mental status Ventilator Settings Ventilator Settings: Ventilator Settings, Last 8 Hours Ventilator Mode A/C Ventilator Mode A/C Ventilator Mode A/C Ventilator Tidal Volume 450 Setting Ventilator Tidal Volume 450 Setting Ventilator Tidal Volume 450 Setting Ventilator Tidal Volume 450 Setting Ventilator Tidal Volume 450 Setting Ventilator Tidal Volume 450 Setting Ventilator Respiratory Rate 14 Setting Ventilator Respiratory Rate 14 Setting Ventilator Respiratory Rate 14 Setting Ventilator Respiratory Rate 14 Setting Ventilator Respiratory Rate 18 Setting Ventilator Respiratory Rate 18 Setting Actual Respiratory Rate 14 Actual Respiratory Rate 14 Actual Respiratory Rate 18 Positive End Expiratory 5 Pressure Positive End Expiratory 5 Pressure Positive End Expiratory 5 Pressure Positive End Expiratory 5 Pressure Positive End Expiratory 5 Pressure Positive End Expiratory 5 Pressure Peak Inspiratory Airway 35 Pressure Peak Inspiratory Airway 37 Pressure Peak Inspiratory Airway 26 Pressure Results - Laboratory Findings CBC and BMP: 11/07/17 00:46 11/06/17 22:51 ABG ABG pH 7.50 pH Units (7.32-7.45) H 11/07/17 05:51 ABG pCO2 43 mmHg (35-45) 11/07/17 05:51 ABG pO2 145 mmHg (85-104) H D 11/07/17 05:51 ABG O2 Saturation 99 % (95-98) H 11/07/17 05:51 PT/INR, D-dimer PT 10.3 Seconds (9.4-12.1) 11/06/17 22:51 Abnormal lab findings: Abnormal lab results MCHC 29.9 g/dL (31.6-35.5) L 11/07/17 00:46 RDW 15.2 % (11.5-14.5) H 11/07/17 00:46 APTT 25.8 Seconds (26.0-36.0) L 11/06/17 22:51 ABG pH 7.50 pH Units (7.32-7.45) H 11/07/17 05:51 ABG pO2 145 mmHg (85-104) H D 11/07/17 05:51 ABG HCO3 33 mEq/L (21-27) H 11/07/17 05:51 ABG Total CO2 35 mEq/L (20-26) H 11/07/17 05:51 ABG O2 Saturation 99 % (95-98) H 11/07/17 05:51 ABG Base Excess 9 mEq/L (-2 to 3) H 11/07/17 05:51 Carbon Dioxide 34 mEq/L (23-29) H 11/06/17 22:51 BUN 36 mg/dL (8-23) H 11/06/17 22:51 Est GFR (Non-Af Amer) 54 (> 60) L 11/06/17 22:51 BUN/Creatinine Ratio 29 (6-26) H 11/06/17 22:51 Glucose 110 mg/dL (70-105) H 11/06/17 22:51 Calculated Osmolality 309 (280-300) H 11/06/17 22:51 Troponin I 0.06 ng/mL (< 0.04) H* 11/07/17 05:58 B-Natriuretic Peptide 1353 pg/mL (Less than 100) H 11/06/17 22:51 - Diagnostic Findings Chest x-ray: report reviewed, image reviewed - Clinical Findings Intake & Output: Intake & Output 11/06/17 11/06/17 11/07/17 15:59 23:59 07:59 Intake Total 993 / 1051 Output Total 950 / 950 Balance 43 / 101 Weight 68.7 kg
[2017-11-07 08:17] LABS: ABG Base Excess 12 mEq/L (-2 to 3); ABG HCO3 37 mEq/L (21-27); ABG Oxygen Saturation 98 % (95-98); ABG PCO2 47 mmHg (35-45); ABG PO2 93 mmHg (85-104); ABG TCO2 38 mEq/L (20-26); Blood Gas Modality PRVC; Blood Gas PEEP 5 cm H2O; Blood Gas Respiration Rate 14; Blood Gas VT 450 cc
[2017-11-07 08:35] LABS: Bilirubin,Urine Negative (Negative); Blood,Urine Large (Negative); Clarity,Urine Cloudy (Clear); Color,Urine Yellow (Yellow); Glucose,Urine (UA) Normal (Normal); Ketones,Urine Negative (Negative); Leukocyte Esterase,Urine Large (Negative); Nitrite,Urine Negative (Negative); Protein,Urine Trace mg/dL (Neg-Trace); Specific Gravity,Urine 1.025 (1.010-1.025); Urobilinogen,Urine Normal (Normal)
[2017-11-07 08:37] LABS: Bacteria,Urine None Seen per hpf (None-Few); Hyaline Casts,Urine Few per lpf (None-Few); RBC,Urine 30-50 per hpf (0-3); Squamous Epithelial Cell,Urine Many per lpf (None-Few); WBC,Urine 50-100 per hpf (0-3)
[2017-11-07] MEDS ORDERED: Chlorhexidine Rinse 15 ML MOUTHWASH MM SCH (09:00)
[2017-11-07] MEDS: Budesonide/Formoterol 160/4.5 MDI IH SCH ×2 (11:08→19:40)
--- NOTE | 2017-11-07 12:06 | Pulmonology Consult Note ---
<Andrea Quijano - Last Filed: 11/07/17 12:03> Date of Encounter: 11/07/17 Time of Encounter: 07:30 Assessment and Plan (1) Acute and chronic respiratory failure with hypercapnia Current Visit: Yes Status: Acute Etiology is likely multifactorial. Patient has concerning signs symptoms of congestive heart failure. Patient also is a potential for aspiration risk giving his history of dementia. Patient will be treated with broad-spectrum antibiotics and as well as intermittent diuretics as the patient's lactate was not significantly elevated. 1. Patient intubated and sedated-no plans for extubation today. 2. Mechanical ventilation 3. Lasix 20 mg IV 1 and titrate per patient response. May need to escalate pressor requirement 4. Will schedule aerosols. 5. Continue with broad-spectrum antibiotics until patient's respiratory symptoms improved (2) CHF exacerbation Current Visit: Yes Status: Acute Patient's overall clinical exam appears to be fluid overloaded. Review the record showed there is no recent echo. Patient also has an elevated BNP and chest x-ray findings consistent with congestive heart failure. PLAN -Echo pending -Lasix 20mg IV with bolus dosing per patient response -Strict I's and O's Qualifiers: Heart failure type: unspecified Qualified Code(s): I50.9 - Heart failure, unspecified (3) Elevated troponin Current Visit: Yes Status: Acute 1. Likely due to demand ischemia from respiratory failure. 2. Will trend troponins, order ECHO, and monitor I/O and fluid balance. 3. Consult cardiology if troponinis climb. (4) Sepsis Current Visit: Yes Status: Acute Possible source in the lungs, given the patient's respiratory status. Patient is receiving broad-spectrum antibiotics. Patient also has a urine which did not show any evidence of bacteria. 1. Will continue IVF, trend lactate, and monitor hemodynamics closely. 2. Levophed initiated for hemodynamic instability. Lactate is normal. May need to escalate pressor dose given volume overload and fluid status. 3. Lung is most likely source. Will treat with IV Vancomycin, Zosyn, and Levaquin, Qualifiers: Sepsis type: sepsis due to unspecified organism Qualified Code(s): A41.9 - Sepsis, unspecified organism (6) DVT prophylaxis Current Visit: Yes Status: Acute Subcutaneous heparin History of Present Illness Consult date: 05/12/18 Requesting physician: Tank Hopkins Reason for consult: other (Sepsis, ventilator management, pneumonia) Chief complaint: Respiratory distress History of present illness: 87-year-old male persists for evaluation to the ER for concerns of respiratory distress and failure. Patient was seen at the [facility]. Patient does have a history of congestive heart failure. Patient did appear volume overloaded per ER staff however was also secondary concerns of possible pneumonia and sepsis. Patient does have baseline dementia and concerns for aspiration. Patient is not able to provide a history given his current condition. There is no family at bedside. History provided via chart review. Patient was placed on broad- spectrum antibiotics with sepsis protocols initiated. Patient was requiring some vasopressor support. Past Med Surg Social Fam HX - Past Medical History Medical history: CHF, CVA, dementia, hypertension Psychiatric history: no psych history - Past Surgical History Surgical History: no surgical history - Social History Smoking Status: Former smoker Smokeless Tobacco Status: No Alcohol use: none Drug use: none - Family History Mother History Unknown: Yes Father History Unknown: Yes Medications and Allergies Aspirin 81 mg PO DAILY 04/09/17 [History] Cholecalciferol (D-3) [Vitamin D] 1,000 unit PO DAILY 04/09/17 [History] Cyanocobalamin (B-12) [Vitamin B12] 1,000 mcg PO DAILY 04/09/17 [History] Donepezil [Aricept] 10 mg PO DAILY 04/09/17 [History] hydroCHLOROthiazide [Hydrochlorothiazide] 25 mg PO DAILY 04/09/17 [History] Amoxicillin/Clavulanate [Augmentin] 500 mg PO TID #32 tablet 10/26/17 [Rx] Lisinopril [Zestril] 10 mg PO DAILY 11/07/17 [History] 3 Allergy/AdvReac Type Severity Reaction Status Date / Time No Known Allergies Allergy Verified 10/26/17 18:20 ROS unobtainable: due to endotracheal tube, due to mental status All Systems: The remainder of the systems were reviewed and are negative Physical Examination Vital Signs: Vital Signs, Last 4 Hours Pulse Resp BP Pulse Ox 11/07/17 11:00 53 12 90/56 99 11/07/17 10:00 52 12 87/60 98 11/07/17 09:00 55 12 87/60 97 General appearance: other (Sedated and mechanically ventilated, appears comfortable) Eyes: nonicteric ENT: oropharynx moist, other (Endotracheal tube in place) Effort: other (Mechanically ventilated with mechanical breath sounds) Cardiovascular: regular rate and rhythm Gastrointestinal: normoactive bowel sounds, non-distended Integumentary: normal Extremities: edema Musculoskeletal: no deformities unable to assess due to mental status Ventilator Settings Ventilator Settings: Ventilator Settings, Last 8 Hours Ventilator Mode A/C Ventilator Mode A/C Ventilator Mode A/C Ventilator Mode A/C Ventilator Mode A/C Ventilator Mode A/C Ventilator Mode A/C Ventilator Tidal Volume 450 Setting Ventilator Tidal Volume 450 Setting Ventilator Tidal Volume 450 Setting Ventilator Tidal Volume 450 Setting Ventilator Tidal Volume 450 Setting Ventilator Tidal Volume 450 Setting Ventilator Tidal Volume 450 Setting Ventilator Tidal Volume 450 Setting Ventilator Tidal Volume 450 Setting Ventilator Tidal Volume 450 Setting Ventilator Tidal Volume 450 Setting Ventilator Tidal Volume 450 Setting Ventilator Respiratory Rate 12 Setting Ventilator Respiratory Rate 12 Setting Ventilator Respiratory Rate 12 Setting Ventilator Respiratory Rate 12 Setting Ventilator Respiratory Rate 14 Setting Ventilator Respiratory Rate 14 Setting Ventilator Respiratory Rate 14 Setting Ventilator Respiratory Rate 14 Setting Ventilator Respiratory Rate 14 Setting Ventilator Respiratory Rate 14 Setting Ventilator Respiratory Rate 14 Setting Ventilator Respiratory Rate 18 Setting Actual Respiratory Rate 12 Actual Respiratory Rate 12 Actual Respiratory Rate 12 Actual Respiratory Rate 12 Actual Respiratory Rate 14 Actual Respiratory Rate 14 Actual Respiratory Rate 14 Actual Respiratory Rate 14 Positive End Expiratory 5 Pressure Positive End Expiratory 5 Pressure Positive End Expiratory 5 Pressure Positive End Expiratory 5 Pressure Positive End Expiratory 5 Pressure Positive End Expiratory 5 Pressure Positive End Expiratory 5 Pressure Positive End Expiratory 5 Pressure Positive End Expiratory 5 Pressure Positive End Expiratory 5 Pressure Positive End Expiratory 5 Pressure Peak Inspiratory Airway 24 Pressure Peak Inspiratory Airway 25 Pressure Peak Inspiratory Airway 25 Pressure Peak Inspiratory Airway 28 Pressure Peak Inspiratory Airway 28 Pressure Peak Inspiratory Airway 33 Pressure Peak Inspiratory Airway 35 Pressure Peak Inspiratory Airway 37 Pressure Results - Laboratory Findings CBC and BMP: 11/07/17 00:46 11/06/17 22:51 ABG ABG pH 7.50 pH Units (7.32-7.45) H 11/07/17 08:14 ABG pCO2 47 mmHg (35-45) H 11/07/17 08:14 ABG pO2 93 mmHg (85-104) D 11/07/17 08:14 ABG O2 Saturation 98 % (95-98) 11/07/17 08:14 PT/INR, D-dimer PT 10.3 Seconds (9.4-12.1) 11/06/17 22:51 Abnormal lab findings: Abnormal lab results MCHC 29.9 g/dL (31.6-35.5) L 11/07/17 00:46 RDW 15.2 % (11.5-14.5) H 11/07/17 00:46 APTT 25.8 Seconds (26.0-36.0) L 11/06/17 22:51 ABG pH 7.50 pH Units (7.32-7.45) H 11/07/17 08:14 ABG pCO2 47 mmHg (35-45) H 11/07/17 08:14 ABG HCO3 37 mEq/L (21-27) H 11/07/17 08:14 ABG Total CO2 38 mEq/L (20-26) H 11/07/17 08:14 ABG Base Excess 12 mEq/L (-2 to 3) H 11/07/17 08:14 Carbon Dioxide 34 mEq/L (23-29) H 11/06/17 22:51 BUN 36 mg/dL (8-23) H 11/06/17 22:51 Est GFR (Non-Af Amer) 54 (> 60) L 11/06/17 22:51 BUN/Creatinine Ratio 29 (6-26) H 11/06/17 22:51 Glucose 110 mg/dL (70-105) H 11/06/17 22:51 Calculated Osmolality 309 (280-300) H 11/06/17 22:51 Troponin I 0.06 ng/mL (< 0.04) H* 11/07/17 09:50 B-Natriuretic Peptide 1353 pg/mL (Less than 100) H 11/06/17 22:51 Urine Clarity Cloudy (Clear) A 11/07/17 08:00 Urine Blood Large (Negative) H 11/07/17 08:00 Ur Leukocyte Esterase Large (Negative) H 11/07/17 08:00 Urine Microscopic RBC 30-50 per hpf (0-3) H 11/07/17 08:00 Urine Microscopic WBC 50-100 per hpf (0-3) H 11/07/17 08:00 Ur Squamous Epith Cells Many per lpf (None-Few) H 11/07/17 08:00 - Clinical Findings Intake & Output: Intake & Output 11/06/17 11/07/17 11/07/17 23:59 07:59 15:59 Intake Total 993 / 1051 527 / 527 Output Total 1000 / 1000 1050 / 1050 Balance -7 / 51 -523 / -523 Weight 68.7 kg 69.1 kg Consult Discharge Plan - Plan [facility] Care Provider[facility] - <Yousuf Ortega - Last Filed: 11/09/17 08:08> Date of Encounter: 11/09/17 All Systems: The remainder of the systems were reviewed and are negative Physical Examination Vital Signs: Vital Signs, Last 4 Hours Temp Pulse Resp BP Pulse Ox 11/09/17 07:58 23 103/71 92 11/09/17 07:42 98.2 F 11/09/17 07:39 96 34 103/71 92 11/09/17 06:18 28 129/72 96 11/09/17 05:50 61 12 103/49 97 11/09/17 05:00 62 12 108/53 97 Ventilator Settings Ventilator Settings: Ventilator Settings, Last 8 Hours Ventilator Mode VC+ Ventilator Mode VC+ Ventilator Mode VC+ Ventilator Mode VC+ Ventilator Mode VC+ Ventilator Mode VC+ Ventilator Mode VC+ Ventilator Tidal Volume 450 Setting Ventilator Tidal Volume 450 Setting Ventilator Tidal Volume 450 Setting Ventilator Tidal Volume 450 Setting Ventilator Tidal Volume 450 Setting Ventilator Tidal Volume 450 Setting Ventilator Tidal Volume 450 Setting Ventilator Tidal Volume 450 Setting Ventilator Respiratory Rate 12 Setting Ventilator Respiratory Rate 12 Setting Ventilator Respiratory Rate 12 Setting Ventilator Respiratory Rate 12 Setting Ventilator Respiratory Rate 12 Setting Ventilator Respiratory Rate 12 Setting Ventilator Respiratory Rate 12 Setting Ventilator Respiratory Rate 12 Setting Actual Respiratory Rate 29 Actual Respiratory Rate 30 Actual Respiratory Rate 12 Actual Respiratory Rate 12 Actual Respiratory Rate 12 Actual Respiratory Rate 12 Actual Respiratory Rate 12 Actual Respiratory Rate 12 Actual Respiratory Rate 12 Positive End Expiratory 5 Pressure Positive End Expiratory 5 Pressure Positive End Expiratory 5 Pressure Positive End Expiratory 5 Pressure Positive End Expiratory 5 Pressure Positive End Expiratory 5 Pressure Positive End Expiratory 5 Pressure Positive End Expiratory 5 Pressure Positive End Expiratory 5 Pressure Positive End Expiratory 5 Pressure Peak Inspiratory Airway 13 Pressure Peak Inspiratory Airway 13 Pressure Peak Inspiratory Airway 12 Pressure Peak Inspiratory Airway 21 Pressure Peak Inspiratory Airway 21 Pressure Peak Inspiratory Airway 21 Pressure Peak Inspiratory Airway 21 Pressure Peak Inspiratory Airway 21 Pressure Peak Inspiratory Airway 23 Pressure Results - Laboratory Findings CBC and BMP: 11/09/17 03:15 11/09/17 03:15 ABG ABG pH 7.39 pH Units (7.32-7.45) 11/09/17 05:11 ABG pCO2 65 mmHg (35-45) H 11/09/17 05:11 ABG pO2 92 mmHg (85-104) 11/09/17 05:11 ABG O2 Saturation 97 % (95-98) 11/09/17 05:11 PT/INR, D-dimer PT 14.0 Seconds (9.4-12.1) H 11/08/17 04:00 Abnormal lab findings: Abnormal lab results WBC 12.0 K/mcL (4.3-11.1) H 11/09/17 03:15 RBC 4.14 M/mcL (4.19-5.50) L 11/09/17 03:15 Hgb 12.0 g/dL (12.9-16.9) L 11/09/17 03:15 Hct 36.7 % (37.5-50.1) L 11/09/17 03:15 RDW 14.8 % (11.5-14.5) H 11/09/17 03:15 Plt Count 126 K/mcL (140-400) L 11/09/17 03:15 Neutrophils # 10.6 K/mcL (1.6-8.9) H 11/09/17 03:15 Lymphocytes # 0.5 K/mcL (0.6-4.6) L 11/09/17 03:15 PT 14.0 Seconds (9.4-12.1) H 11/08/17 04:00 APTT 25.8 Seconds (26.0-36.0) L 11/06/17 22:51 ABG pCO2 65 mmHg (35-45) H 11/09/17 05:11 ABG HCO3 39 mEq/L (21-27) H 11/09/17 05:11 ABG Total CO2 41 mEq/L (20-26) H 11/09/17 05:11 ABG Base Excess 12 mEq/L (-2 to 3) H 11/09/17 05:11 Potassium 3.4 mEq/L (3.5-5.1) L 11/09/17 03:15 Carbon Dioxide 34 mEq/L (23-29) H 11/09/17 03:15 BUN 26 mg/dL (8-23) H 11/09/17 03:15 Est GFR (Non-Af Amer) 56 (> 60) L 11/09/17 03:15 Calculated Osmolality 304 (280-300) H 11/09/17 03:15 Calcium 8.4 mg/dL (8.6-10.3) L 11/09/17 03:15 Venous Ioniz Calcium 1.07 mmol/L (1.15-1.35) L 11/08/17 10:08 Troponin I 0.06 ng/mL (< 0.04) H* 11/07/17 09:50 B-Natriuretic Peptide 1353 pg/mL (Less than 100) H 11/06/17 22:51 Urine Clarity Cloudy (Clear) A 11/07/17 08:00 Urine Blood Large (Negative) H 11/07/17 08:00 Ur Leukocyte Esterase Large (Negative) H 11/07/17 08:00 Urine Microscopic RBC 30-50 per hpf (0-3) H 11/07/17 08:00 Urine Microscopic WBC 50-100 per hpf (0-3) H 11/07/17 08:00 Ur Squamous Epith Cells Many per lpf (None-Few) H 11/07/17 08:00 Vancomycin Trough 11 mcg/mL (5-10) H 11/09/17 03:15 - Microbiology Findings Microbiology Findings: Microbiology, Last 48 Hours 11/07/17 20:20 Sputum Culture - Preliminary Sputum 11/07/17 06:00 Blood Culture - Preliminary Central Venous Catheter No growth. - Clinical Findings Intake & Output: Intake & Output 11/08/17 11/09/17 11/09/17 23:59 07:59 15:59 Intake Total 497 / 497 300 / 300 Output Total 575 / 575 250 / 250 Balance -78 / -78 50 / 50 Weight 66.8 kg 68.7 kg - Attending Attestation There is a consult and progress note for this patient, this is the consult. I examined this patient and my medical decision-making was reviewed with the Resident Physician. I agree with the documented findings, disposition and treatment plan as described except to the extent set forth below. Patient seen and examined. Labs, radiology, chart personally reviewed. Agree with resident's history and physical, assessment, plan with following comments: PUMPER BREWERY: Patient does not follows commands, patient is on sedation and it will be very challenging with his underlying mental status and dementia regarding cooperation with the staff and safety to himself. Pulmonary: Acceptable oxygenation and ventilation. Vent setting was changed due to abnormal ABG and would have follow-up ABG to make sure his alkalosis is being corrected. Cardiovascular: Patient in shock which could be multifactorial, however I feel it is most likely cardiac and reviewed echocardiogram before officially been read by blood donor unit assistant and there is evidence of enlarged right ventricle which could be secondary to pulmonary hypertension which I suspect could be group 2 and/or group 3. I feel there is evidence of volume overload and will stop IV and try diuresis. GI: Nutrition per dietary and GI prophylaxis per routine Heme: DVT prophylaxis per routine ID: Continue antibiotics and plan to de-escalation Renal; urine out put and renal funtion reviewed Endorcine: blood glucose is monitored Lines: all lines checked and no evidence of infections Skin: skin care to prevent pressure ulcers per nursing routine care I spent 40 min of Critical Care time with this patient. It involved decision making of high complexity to assess, manipulate, and support vital organ system failure and/or to prevent further life threatening deterioration of the patient' s condition. The time involved in the performance of separately reportable procedures was not counted toward critical care time.
[2017-11-07] MEDS: FentaNYL (PF) 1,000 MCG in 0.9 % Sodium Chloride 80 ML IVC SCH (17:29)
[2017-11-07] MEDS ORDERED: *HR* Dextrose 50 % in Water (Syg) 50 ML SYRINGE ONE (23:46)
[2017-11-07] MEDS: *HR* Dextrose 50 % in Water (Syg) 50 ML SYRINGE IVP PRN (23:51)
[2017-11-08] MEDS: Norepinephrine 4 MG in D5% in Water 250 ML IVC SCH ×2 (02:27→21:57)
[2017-11-08 03:35] LABS: Basophils % 0.2 %; Eosinophils # 0.1 K/mcL (0.0-0.6); Eosinophils % 0.3 %; Hematocrit 40.4 % (37.5-50.1); Hemoglobin 12.7 g/dL (12.9-16.9); Immature Granulocytes % 0.6 % (0-4); Immature Platelets 5.5 % (1.1-6.1); Lymphocytes # 0.7 K/mcL (0.6-4.6); Lymphocytes % 3.8 %; Mean Corpuscular HGB Conc 31.4 g/dL (31.6-35.5); Mean Corpuscular Hemoglobin 28.2 pg (28.0-33.3); Mean Corpuscular Volume 89.8 fL (83.0-100.0); Mean Platelet Volume 10.5 fL (9.4-12.4); Monocytes # 0.8 K/mcL (0.0-1.3); Monocytes % 4.6 %; Neutrophils # 15.8 K/mcL (1.6-8.9); Platelet Count 164 K/mcL (140-400); Red Cell Distribution Width 14.7 % (11.5-14.5); Segmented Neutrophils % 90.5 %
[2017-11-08 04:00] LABS: INR 1.3
[2017-11-08 04:10] LABS: BUN/Creatinine Ratio 26 (6-26); Blood Urea Nitrogen 29 mg/dL (8-23); Calcium 8.4 mg/dL (8.6-10.3); Carbon Dioxide 36 mEq/L (23-29); Chloride 103 mEq/L (98-107); Glucose 92 mg/dL (70-105); Magnesium 1.8 mg/dL (1.6-2.6); Osmolality,Calculated 307 (280-300); Potassium 3.6 mEq/L (3.5-5.1); Sodium 146 mEq/L (136-145); eGFR For African Americans > 60 (> 60); eGFR For Non-African Americans > 60 (> 60)
[2017-11-08 04:15] LABS: ABG Base Excess 11 mEq/L (-2 to 3); ABG HCO3 37 mEq/L (21-27); ABG Oxygen Saturation 94 % (95-98); ABG PCO2 58 mmHg (35-45); ABG PH 7.42 pH Units (7.32-7.45); ABG PO2 72 mmHg (85-104); ABG TCO2 39 mEq/L (20-26); Blood Gas Modality ASSIST CONTROL; Blood Gas PEEP 5 cm H2O; Blood Gas Respiration Rate 12; Blood Gas VT 450 cc
[2017-11-08] MEDS: Dexmedetomidine HCl 400 MCG/100 ML MLS IVC SCH ×3 (04:19→10:28)
[2017-11-08] MEDS: Lacri-Lube 3.5 GM TUBE BOTH EYES SCH ×6 (04:19→23:34)
[2017-11-08] MEDS: FentaNYL (PF) 1,000 MCG in 0.9 % Sodium Chloride 80 ML IVC SCH ×2 (04:28→18:33)
[2017-11-08] MEDS: *HR* Heparin 5,000 UNIT/ML VIAL SQ SCH ×2 (04:31→16:59)
--- NOTE | 2017-11-08 06:59 | Pulmonology Progress Note ---
<Andrea Quijano - Last Filed: 11/08/17 10:19> Date of Encounter: 11/08/17 Time of Encounter: 10:19 Assessment and Plan (1) Acute and chronic respiratory failure with hypercapnia Current Visit: Yes Status: Acute Etiology is likely multifactorial. Patient has concerning signs symptoms of congestive heart failure. Patient also is a potential for aspiration risk giving his history of dementia. Patient will be treated with broad-spectrum antibiotics and as well as intermittent diuretics as the patient's lactate was not significantly elevated. Copious secretions noted. Patient was placed on CPAP this morning. Patient was off sedation. Patient is very tachypnea with increasing oxygen requirements. Patient appeared agitated. Given the patient' s work of breathing with pressor requirements patient is not a candidate for extubation at this time. Prior to extubation a more in-depth discussion needs to involve the family regarding goals of care. Patient responded well to bolus dosing of Lasix yesterday. Will continue with bolus dosage of Lasix to keep the patient net negative today. 1. Patient intubated and sedated-no plans for extubation today. 2. Mechanical ventilation 3. Lasix 20 mg IV 1 and titrate per patient response. May need to escalate pressor requirement 4. Will schedule aerosols. 5. Continue with broad-spectrum antibiotics until patient's respiratory symptoms improved 6. Sputum culture as well as blood cultures are pending. (2) CHF exacerbation Current Visit: Yes Status: Acute Echo shows an EF of 55-60% with RV pressure volume overload. Severe pulmonary hypertension. Patient also has an elevated BNP and chest x-ray findings consistent with congestive heart failure. PLAN -respiratory support as above. -Lasix 20mg IV with bolus dosing per patient response -Strict I's and O's Qualifiers: Heart failure type: unspecified Qualified Code(s): I50.9 - Heart failure, unspecified (3) Elevated troponin Current Visit: Yes Status: Acute 1. Likely due to demand ischemia from respiratory failure-adynamic troponins 2. monitor I/O and fluid balance, echo as above 3. Consult cardiology if troponinis climb. (4) Sepsis Current Visit: Yes Status: Acute Possible source in the lungs, given the patient's respiratory status. Patient is receiving broad-spectrum antibiotics. Patient also has a urine which did not show any evidence of bacteria. 1. Patient was fluid resuscitated and now is requiring some intermittent diuresis given the patient's severe RV failure. 2. Levophed initiated for hemodynamic instability. Lactate is normal. May need to escalate pressor dose given volume overload and fluid status. 3. Lung is most likely source. Will treat with IV Vancomycin, Zosyn, and Levaquin-copious secretions Qualifiers: Sepsis type: sepsis due to unspecified organism Qualified Code(s): A41.9 - Sepsis, unspecified organism (5) Leukocytosis Current Visit: Yes Status: Acute White count of 17.5 from 7.5. Likely related the patient's overwhelming sepsis. Patient is on broad-spectrum antibiotics. Patient does not have risk factors for ESBL. Trend for hyper or hypothermia. Qualifiers: Leukocytosis type: unspecified Qualified Code(s): D72.829 - Elevated white blood cell count, unspecified (6) DVT prophylaxis Current Visit: Yes Status: Acute Subcutaneous heparin Subjective Principal diagnosis: Respiratory failure, Congestive heart failure Interval history: Patient was admitted for acute on chronic respiratory failure. Etiology is multifactorial. Patient remains mechanically ventilated. No family at bedside provided history however the family was contacted and appears the patient has not been taking his diuretics. Patient does have a history of baseline dementia. Patient remains on broad-spectrum antibiotics given his respiratory distress and critical illness. Overnight, the patient's pressor requirement had decreased. Patient was given intermittent dosing of Lasix yesterday with that negative urine output for the day. No family at bedside. Patient is off sedation, CPAP, appears alert with tachypnea and agitation. Copious secretions Objective PUL Vital signs: Last Vital Signs Temp 99.1 F 11/08/17 03:30 Pulse 77 11/08/17 06:00 Resp 12 11/08/17 06:00 BP 90/55 11/08/17 06:00 Pulse Ox 92 11/08/17 06:00 General appearance: agitated, other Eyes: nonicteric ENT: oropharynx moist Neck: supple Effort: very labored (Oxidation on CPAP) Auscultation: bilateral: rhonchi Cardiovascular: other (Tachycardic) Gastrointestinal: normoactive bowel sounds, non-distended Integumentary: normal Extremities: no cyanosis Musculoskeletal: no deformities unable to assess due to mental status Ventilator Settings Ventilator Settings: Ventilator Settings, Last 8 Hours Ventilator Mode A/C Ventilator Mode A/C Ventilator Mode VC+ Ventilator Mode A/C Ventilator Mode A/C Ventilator Mode A/C Ventilator Mode A/C Ventilator Mode A/C Ventilator Mode A/C Ventilator Tidal Volume 450 Setting Ventilator Tidal Volume 450 Setting Ventilator Tidal Volume 450 Setting Ventilator Tidal Volume 450 Setting Ventilator Tidal Volume 450 Setting Ventilator Tidal Volume 450 Setting Ventilator Tidal Volume 450 Setting Ventilator Tidal Volume 450 Setting Ventilator Tidal Volume 450 Setting Ventilator Tidal Volume 450 Setting Ventilator Tidal Volume 450 Setting Ventilator Tidal Volume 450 Setting Ventilator Respiratory Rate 12 Setting Ventilator Respiratory Rate 12 Setting Ventilator Respiratory Rate 12 Setting Ventilator Respiratory Rate 12 Setting Ventilator Respiratory Rate 12 Setting Ventilator Respiratory Rate 12 Setting Ventilator Respiratory Rate 12 Setting Ventilator Respiratory Rate 12 Setting Ventilator Respiratory Rate 12 Setting Ventilator Respiratory Rate 12 Setting Ventilator Respiratory Rate 12 Setting Ventilator Respiratory Rate 12 Setting Actual Respiratory Rate 12 Actual Respiratory Rate 12 Actual Respiratory Rate 12 Positive End Expiratory 5 Pressure Positive End Expiratory 5 Pressure Positive End Expiratory 5 Pressure Positive End Expiratory 5 Pressure Positive End Expiratory 5 Pressure Positive End Expiratory 5 Pressure Positive End Expiratory 5 Pressure Positive End Expiratory 5 Pressure Positive End Expiratory 5 Pressure Positive End Expiratory 5 Pressure Positive End Expiratory 5 Pressure Positive End Expiratory 5 Pressure Peak Inspiratory Airway 22 Pressure Peak Inspiratory Airway 27 Pressure Peak Inspiratory Airway 23 Pressure Results - Laboratory Findings CBC and BMP: 11/08/17 03:30 11/08/17 02:45 ABG ABG pH 7.42 pH Units (7.32-7.45) 11/08/17 04:12 ABG pCO2 58 mmHg (35-45) H 11/08/17 04:12 ABG pO2 72 mmHg (85-104) L 11/08/17 04:12 ABG O2 Saturation 94 % (95-98) L 11/08/17 04:12 PT/INR, D-dimer PT 14.0 Seconds (9.4-12.1) H 11/08/17 04:00 Abnormal lab findings: Abnormal lab results WBC 17.5 K/mcL (4.3-11.1) H D 11/08/17 03:30 Hgb 12.7 g/dL (12.9-16.9) L 11/08/17 03:30 MCHC 31.4 g/dL (31.6-35.5) L 11/08/17 03:30 RDW 14.7 % (11.5-14.5) H 11/08/17 03:30 Neutrophils # 15.8 K/mcL (1.6-8.9) H 11/08/17 03:30 PT 14.0 Seconds (9.4-12.1) H 11/08/17 04:00 APTT 25.8 Seconds (26.0-36.0) L 11/06/17 22:51 ABG pCO2 58 mmHg (35-45) H 11/08/17 04:12 ABG pO2 72 mmHg (85-104) L 11/08/17 04:12 ABG HCO3 37 mEq/L (21-27) H 11/08/17 04:12 ABG Total CO2 39 mEq/L (20-26) H 11/08/17 04:12 ABG O2 Saturation 94 % (95-98) L 11/08/17 04:12 ABG Base Excess 11 mEq/L (-2 to 3) H 11/08/17 04:12 Sodium 146 mEq/L (136-145) H 11/08/17 02:45 Carbon Dioxide 36 mEq/L (23-29) H 11/08/17 02:45 BUN 29 mg/dL (8-23) H 11/08/17 02:45 Calculated Osmolality 307 (280-300) H 11/08/17 02:45 Calcium 8.4 mg/dL (8.6-10.3) L 11/08/17 02:45 Troponin I 0.06 ng/mL (< 0.04) H* 11/07/17 09:50 B-Natriuretic Peptide 1353 pg/mL (Less than 100) H 11/06/17 22:51 Urine Clarity Cloudy (Clear) A 11/07/17 08:00 Urine Blood Large (Negative) H 11/07/17 08:00 Ur Leukocyte Esterase Large (Negative) H 11/07/17 08:00 Urine Microscopic RBC 30-50 per hpf (0-3) H 11/07/17 08:00 Urine Microscopic WBC 50-100 per hpf (0-3) H 11/07/17 08:00 Ur Squamous Epith Cells Many per lpf (None-Few) H 11/07/17 08:00 - Microbiology Findings Microbiology Findings: Microbiology, Last 48 Hours 11/07/17 06:00 Blood Culture - Preliminary Central Venous Catheter No growth. 11/07/17 20:20 Sputum Culture - Preliminary Sputum - Clinical Findings Intake & Output: Intake & Output 11/07/17 11/07/17 11/08/17 15:59 23:59 07:59 Intake Total 575 / 575 249 / 249 687 / 687 Output Total 1700 / 1700 900 / 900 230 / 230 Balance -1125 / -1125 -651 / -651 457 / 457 Weight 69.1 kg 67.2 kg Consult Discharge Plan - Plan [facility]errals: [facility] [Primary Care Provider[facility] - <Ailyn Barboza - Last Filed: 11/08/17 22:44> Date of Encounter: 11/08/17 Objective PUL Vital signs: Last Vital Signs Temp 97.7 F 11/08/17 19:17 Pulse 60 11/08/17 21:55 Resp 12 11/08/17 21:57 BP 124/65 11/08/17 21:57 Pulse Ox 98 11/08/17 21:57 Ventilator Settings Ventilator Settings: Ventilator Settings, Last 8 Hours Ventilator Mode VC+ Ventilator Mode VC+ Ventilator Mode VC+ Ventilator Tidal Volume 450 Setting Ventilator Tidal Volume 450 Setting Ventilator Tidal Volume 450 Setting Ventilator Tidal Volume 450 Setting Ventilator Tidal Volume 450 Setting Ventilator Tidal Volume 450 Setting Ventilator Tidal Volume 450 Setting Ventilator Tidal Volume 450 Setting Ventilator Tidal Volume 450 Setting Ventilator Tidal Volume 450 Setting Ventilator Tidal Volume 450 Setting Ventilator Respiratory Rate 12 Setting Ventilator Respiratory Rate 12 Setting Ventilator Respiratory Rate 12 Setting Ventilator Respiratory Rate 12 Setting Ventilator Respiratory Rate 12 Setting Ventilator Respiratory Rate 12 Setting Ventilator Respiratory Rate 12 Setting Ventilator Respiratory Rate 12 Setting Ventilator Respiratory Rate 12 Setting Ventilator Respiratory Rate 12 Setting Ventilator Respiratory Rate 12 Setting Actual Respiratory Rate 12 Actual Respiratory Rate 12 Actual Respiratory Rate 12 Actual Respiratory Rate 12 Actual Respiratory Rate 12 Actual Respiratory Rate 12 Actual Respiratory Rate 12 Actual Respiratory Rate 12 Actual Respiratory Rate 12 Actual Respiratory Rate 12 Actual Respiratory Rate 12 Positive End Expiratory 5 Pressure Positive End Expiratory 5 Pressure Positive End Expiratory 5 Pressure Positive End Expiratory 5 Pressure Positive End Expiratory 5 Pressure Positive End Expiratory 5 Pressure Positive End Expiratory 5 Pressure Positive End Expiratory 5 Pressure Positive End Expiratory 5 Pressure Positive End Expiratory 5 Pressure Positive End Expiratory 5 Pressure Peak Inspiratory Airway 23 Pressure Peak Inspiratory Airway 22 Pressure Peak Inspiratory Airway 22 Pressure Peak Inspiratory Airway 22 Pressure Peak Inspiratory Airway 22 Pressure Peak Inspiratory Airway 26 Pressure Peak Inspiratory Airway 26 Pressure Peak Inspiratory Airway 26 Pressure Peak Inspiratory Airway 24 Pressure Peak Inspiratory Airway 25 Pressure Peak Inspiratory Airway 24 Pressure Results - Laboratory Findings CBC and BMP: 11/08/17 03:30 11/08/17 02:45 ABG ABG pH 7.42 pH Units (7.32-7.45) 11/08/17 04:12 ABG pCO2 58 mmHg (35-45) H 11/08/17 04:12 ABG pO2 72 mmHg (85-104) L 11/08/17 04:12 ABG O2 Saturation 94 % (95-98) L 11/08/17 04:12 PT/INR, D-dimer PT 14.0 Seconds (9.4-12.1) H 11/08/17 04:00 Abnormal lab findings: Abnormal lab results WBC 17.5 K/mcL (4.3-11.1) H D 11/08/17 03:30 Hgb 12.7 g/dL (12.9-16.9) L 11/08/17 03:30 MCHC 31.4 g/dL (31.6-35.5) L 11/08/17 03:30 RDW 14.7 % (11.5-14.5) H 11/08/17 03:30 Neutrophils # 15.8 K/mcL (1.6-8.9) H 11/08/17 03:30 PT 14.0 Seconds (9.4-12.1) H 11/08/17 04:00 APTT 25.8 Seconds (26.0-36.0) L 11/06/17 22:51 ABG pCO2 58 mmHg (35-45) H 11/08/17 04:12 ABG pO2 72 mmHg (85-104) L 11/08/17 04:12 ABG HCO3 37 mEq/L (21-27) H 11/08/17 04:12 ABG Total CO2 39 mEq/L (20-26) H 11/08/17 04:12 ABG O2 Saturation 94 % (95-98) L 11/08/17 04:12 ABG Base Excess 11 mEq/L (-2 to 3) H 11/08/17 04:12 Sodium 146 mEq/L (136-145) H 11/08/17 02:45 Carbon Dioxide 36 mEq/L (23-29) H 11/08/17 02:45 BUN 29 mg/dL (8-23) H 11/08/17 02:45 Calculated Osmolality 307 (280-300) H 11/08/17 02:45 Calcium 8.4 mg/dL (8.6-10.3) L 11/08/17 02:45 Venous Ioniz Calcium 1.07 mmol/L (1.15-1.35) L 11/08/17 10:08 Troponin I 0.06 ng/mL (< 0.04) H* 11/07/17 09:50 B-Natriuretic Peptide 1353 pg/mL (Less than 100) H 11/06/17 22:51 Urine Clarity Cloudy (Clear) A 11/07/17 08:00 Urine Blood Large (Negative) H 11/07/17 08:00 Ur Leukocyte Esterase Large (Negative) H 11/07/17 08:00 Urine Microscopic RBC 30-50 per hpf (0-3) H 11/07/17 08:00 Urine Microscopic WBC 50-100 per hpf (0-3) H 11/07/17 08:00 Ur Squamous Epith Cells Many per lpf (None-Few) H 11/07/17 08:00 - Microbiology Findings Microbiology Findings: Microbiology, Last 48 Hours 11/07/17 06:00 Blood Culture - Preliminary Central Venous Catheter No growth. 11/07/17 20:20 Sputum Culture - Preliminary Sputum - Clinical Findings Intake & Output: Intake & Output 11/08/17 11/08/17 11/08/17 07:59 15:59 23:59 Intake Total 787 / 787 100 / 100 497 / 497 Output Total 230 / 230 625 / 625 450 / 450 Balance 557 / 557 -525 / -525 47 / 47 - Attending Attestation I saw and evaluated this patient and my medical decision-making was reviewed with the Resident Physician. I agree with the documented findings, disposition and treatment plan as described except to the extent set forth below. We independently had [id number] contact with the patient I 35 minutes spent of Critical Care time with this patient. It involved decision making of high complexity to assess, manipulate, and support vital organ system failure and/or to prevent further life threatening deterioration of the patient's condition. The time involved in the performance of separately reportable procedures was not counted toward critical care time. Patient seen and examined at bedside Labs, radiology, chart personally reviewed. Management was reviewed during multidisciplinary critical care rounds. PLUMBING INSTRUCTOR: Patient is intubated and in minimal sedation doesnt follow commands patient has underlying dementia Pulm: Patient has acceptable oxygenation concern for some aspiration pneumonia . Cards:Patient still in shock most likely due to sepsis . ECHO cor pulmonae will need diuresis before extubation . Before diuresis monitor levophed use . FEN-GI: Nutrition per recs Renal:Labs reviewed ID:To continue deescalating broad spectrum antibiotics Heme/Onc:DVT prophylaxis per Endo: Glucose Monitored Integ/MSK: Skin Care per routine ICU Nursing Protocol to prevent ulcers. Lines: All lines examined without evidence of infection : Dispo: Criticaly ill CODE:Full Code
[2017-11-08] MEDS: Aspirin 81 MG TAB.CHEW PO SCH (08:13)
[2017-11-08] MEDS: Piperacillin/Tazobactam 3.375 GM in 0.9 % Sodium Chloride Mini Bag 100 ML IVPB SCH ×3 (08:13→23:34)
[2017-11-08] MEDS: Chlorhexidine Rinse 15 ML MOUTHWASH MM SCH ×2 (08:13→19:57)
[2017-11-08] MEDS: Pantoprazole 40 MG VIAL IVP SCH (08:13)
[2017-11-08 10:12] LABS: VBG Ionized Calcium 1.07 mmol/L (1.15-1.35)
[2017-11-08] MEDS ORDERED: Furosemide 20 MG/2 ML VIAL IVP ONE (10:24)
[2017-11-08 10:28] LABS: Magnesium 1.7 mg/dL (1.6-2.6); Phosphorous 4.3 mg/dL (2.7-4.5)
[2017-11-08] MEDS: Budesonide/Formoterol 160/4.5 MDI IH SCH ×2 (11:38→19:57)
[2017-11-08] MEDS: *HR* Dextrose 50 % in Water (Syg) 50 ML SYRINGE IVP PRN (18:37)
[2017-11-09 03:24] LABS: Basophils % 0.2 %; Eosinophils # 0.2 K/mcL (0.0-0.6); Eosinophils % 1.3 %; Hematocrit 36.7 % (37.5-50.1); Immature Granulocytes % 0.7 % (0-4); Lymphocytes # 0.5 K/mcL (0.6-4.6); Lymphocytes % 4.5 %; Mean Corpuscular HGB Conc 32.7 g/dL (31.6-35.5); Mean Corpuscular Volume 88.6 fL (83.0-100.0); Mean Platelet Volume 10.9 fL (9.4-12.4); Monocytes # 0.6 K/mcL (0.0-1.3); Monocytes % 5.1 %; Neutrophils # 10.6 K/mcL (1.6-8.9); Platelet Count 126 K/mcL (140-400); Red Blood Count 4.14 M/mcL (4.19-5.50); Red Cell Distribution Width 14.8 % (11.5-14.5); Segmented Neutrophils % 88.2 %
[2017-11-09 03:51] LABS: BUN/Creatinine Ratio 21 (6-26); Blood Urea Nitrogen 26 mg/dL (8-23); Calcium 8.4 mg/dL (8.6-10.3); Carbon Dioxide 34 mEq/L (23-29); Chloride 104 mEq/L (98-107); Glucose 89 mg/dL (70-105); Osmolality,Calculated 304 (280-300); Potassium 3.4 mEq/L (3.5-5.1); Sodium 145 mEq/L (136-145); eGFR For African Americans > 60 (> 60); eGFR For Non-African Americans 56 (> 60)
[2017-11-09 03:52] LABS: Phosphorous 4.1 mg/dL (2.7-4.5)
[2017-11-09] MEDS: Lacri-Lube 3.5 GM TUBE BOTH EYES SCH ×6 (04:16→23:45)
[2017-11-09] MEDS: FentaNYL (PF) 1,000 MCG in 0.9 % Sodium Chloride 80 ML IVC SCH ×2 (04:17→17:41)
[2017-11-09 05:14] LABS: ABG Base Excess 12 mEq/L (-2 to 3); ABG HCO3 39 mEq/L (21-27); ABG Oxygen Saturation 97 % (95-98); ABG PCO2 65 mmHg (35-45); ABG PH 7.39 pH Units (7.32-7.45); ABG PO2 92 mmHg (85-104); ABG TCO2 41 mEq/L (20-26); Blood Gas Modality PRVC; Blood Gas PEEP 5 cm H2O; Blood Gas Respiration Rate 12; Blood Gas VT 450 cc
[2017-11-09] MEDS: *HR* Heparin 5,000 UNIT/ML VIAL SQ SCH ×2 (05:15→16:36)
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
[2017-11-09] MEDS: Pantoprazole 40 MG VIAL IVP SCH (07:39)
[2017-11-09] MEDS: Piperacillin/Tazobactam 3.375 GM in 0.9 % Sodium Chloride Mini Bag 100 ML IVPB SCH ×3 (07:39→23:44)
[2017-11-09] MEDS: Levofloxacin 750 MG/150 ML 750 MG/150 ML BAG IVPB SCH (07:39)
[2017-11-09] MEDS: Aspirin 81 MG TAB.CHEW PO SCH (07:40)
[2017-11-09] MEDS: Chlorhexidine Rinse 15 ML MOUTHWASH MM SCH ×2 (07:40→21:06)
[2017-11-09] MEDS: Dexmedetomidine HCl 400 MCG/100 ML MLS IVC SCH ×2 (08:17→23:46)
[2017-11-09] MEDS ORDERED: Aminoglycoside Consult 1 EACH MC ONE (08:21)
[2017-11-09] MEDS ORDERED: *HR* Rocuronium Bromide 100 MG/10 ML VIAL IVC ONE (09:08)
[2017-11-09] MEDS ORDERED: Potassium Chloride Elixir 20 MEQ/15 ML UDC PO PRN (09:30)
--- NOTE | 2017-11-09 11:03 | Palliative - Consult Note ---
Date of Encounter: 11/09/17 Time of Encounter: 11:00 - Assessment and Plan (1) Dyspnea Current Visit: Yes Status: Acute Assessment and plan: Treatment for pneumonia continues with IV atb/brochodilators. Monitor Qualifiers: Dyspnea type: unspecified Qualified Code(s): R06.00 - Dyspnea, unspecified (2) Generalized pain Current Visit: Yes Status: Acute Assessment and plan: On Fentanyl drip per ICU protocol. Monitor. (3) Anxiety Current Visit: Yes Status: Acute Assessment and plan: Propofol had to be restarted, as pt too anxious with Precedex. Titrate per ICU protocol and monitor. (4) Counseling regarding advanced care planning and goals of care Current Visit: Yes Status: Acute Assessment and plan: Met with , who is currently a patient here at hospital. She states they have been for 60 yrs and share 3 daughters. He also has one other daughter from previous relationship. Patient has no advanced directives in place. He is cared for by the Red team at the [place]. Utilized no DME's at home according to . Updated her on 's clinical status, and discussed some decisions that need made in the near future including code status, and when he is extubated, the matter of reintubation if he does poorly. Explained that with his dementia, it is difficult at times to wean off the ventilator. Patient's does not want to make any decisions without discussing with her children. I left my contact information, and she stated she would have her daughter call me to try and set up meeting time. (5) Acute and chronic respiratory failure with hypercapnia Current Visit: Yes Status: Acute (6) CHF exacerbation Current Visit: Yes Status: Acute Qualifiers: Heart failure type: unspecified Qualified Code(s): I50.9 - Heart failure, unspecified Palliative-CN HPI - Data of Consult Requesting Physician: Tank Hopkins MD [facility] Care Provider[facility] - Consult Narrative History of present illness: Mr. Doran is a 87 year old male Who was sent to [place] from the [facility] for increasing respiratory distress and failure. [place] records indicate that he came to ER a few weeks ago and was prescribed antibiotic, however, did not take this medicationt. He is currently intubated and sedated, and no family is present. Information taken from staff and medical records. He is currently receiving treatment for Right Heart failure, possible pneumonia and respiratory failure. Patient has history of dementia. UPon review of [place] records, his [place] is present here is the hospital. He resides in [facility] , and she lives in the house. 3 daughters. I do not see any advanced directives on file. He is on the red team at [place], and does not appear to have service connected disability. Palliative was consulted to assist in goals of care, code status discussion and symptom management. CC: Tank Hopkins MD Past Med Surg Social Fam HX - Past Medical History Medical history: CHF, CVA, dementia, hypertension Psychiatric history: no psych history - Past Surgical History Surgical History: no surgical history - Social History Smoking Status: Former smoker Smokeless Tobacco Status: No Alcohol use: none Drug use: none - Family History Mother History Unknown: Yes Father History Unknown: Yes Medications and Allergies Aspirin 81 mg PO DAILY 04/09/17 [History] Cholecalciferol (D-3) [Vitamin D] 1,000 unit PO DAILY 04/09/17 [History] Cyanocobalamin (B-12) [Vitamin B12] 1,000 mcg PO DAILY 04/09/17 [History] Donepezil [Aricept] 5 mg PO DAILY 04/09/17 [History] hydroCHLOROthiazide [Hydrochlorothiazide] 25 mg PO DAILY 04/09/17 [History] Lisinopril [Zestril] 5 mg PO DAILY 11/07/17 [History] Albuterol Sulfate [Albuterol Inhaler] 2 puff IH QID PRN 11/09/17 [History] 3 Allergy/AdvReac Type Severity Reaction Status Date / Time No Known Allergies Allergy Verified 10/26/17 18:20 ROS unobtainable: due to endotracheal tube Palliative Care-Exam - Constitutional Vitals: Temp Pulse Resp BP Pulse Ox 98.2 F 57 12 129/70 99 11/09/17 07:42 11/09/17 10:11 11/09/17 10:11 11/09/17 10:11 11/09/17 10:11 General appearance: Present: no acute distress - Head Head Exam: Present: normal inspection, normocephalic - Eye Eye exam: Present: normal appearance - Respiratory Additional comments: Breath sounds course. Remains on vent. - Cardiovascular Cardiovascular exam: Present: +S1, +S2 - GI/Abdominal Exam GI/Abdominal exam: Present: normal bowel sounds, soft - Catheter Type: Urethral (Garcia) - Extremities Exam Extremities exam: Present: normal capillary refill, normal inspection Additional comments: Bilateral hands edematous - Neurological Exam Additional comments: Sedated on ventilator - Skin Skin exam: Present: dry, pallor, warm Internal Medicine - CN: Reslt - Labs CBC & Chem 7: 11/09/17 03:15 11/09/17 03:15 Labs: Short CBC 11/09/17 Range/Units 03:15 WBC 12.0 H (4.3-11.1) K/mcL Hgb 12.0 L (12.9-16.9) g/dL Hct 36.7 L (37.5-50.1) % Plt Count 126 L (140-400) K/mcL Neutrophils # 10.6 H (1.6-8.9) K/mcL BMP 11/09/17 03:15 Sodium 145 Potassium 3.4 L Chloride 104 Carbon Dioxide 34 H BUN 26 H Creatinine 1.22 Glucose 89 Calcium 8.4 L - ABG Interpretation ABG results: ABG ABG pH 7.39 pH Units (7.32-7.45) 11/09/17 05:11 ABG pCO2 65 mmHg (35-45) H 11/09/17 05:11 ABG pO2 92 mmHg (85-104) 11/09/17 05:11 ABG O2 Saturation 97 % (95-98) 11/09/17 05:11 PT/INR, D-dimer PT 14.0 Seconds (9.4-12.1) H 11/08/17 04:00 - Impressions Impressions Chest X-Ray 11/08/17 20:32 IMPRESSION: Nasogastric tube tip is proximal to the gastroesophageal junction and must be advanced prior to use. Endotracheal tube tip is in the expected location. Increasing pleuroparenchymal disease the left lung base. D/ / Desmond Rob MD / Desmond Rob MD Interpreting Provider: Desmond Rob MD X-Ray 11/09/17 02:47 IMPRESSION: 1. Enteric tube is in the stomach though has been retracted since the prior exam. The tip lies at the level of the proximal gastric body. 2. Stable left lung base consolidation. D/ / 11/09/2017 07:44:42 Mitch Riddle MD / emilio Interpreting Provider: Mitch Riddle MD Consult Discharge Plan - Plan Referrals: [facility] [Primary Care Provider] - Palliative Quality Palliative Quality: Screen for Code Status: NA (awaiting to speak with family ) , Screen for Goals of Care: NA, Screen for Pain: NA, If Pain Regimen Started, Initiate Bowel Regimen: NA, Screen for Nausea/Vomitting: NA Code Status: 11/07/17 04:42 Resuscitation Status: Active [RES] Routine Comment: Resuscitation Status: Full Code
[2017-11-09] MEDS: predniSONE 20 MG TABLET PO SCH (11:38)
[2017-11-09] MEDS: Budesonide/Formoterol 160/4.5 MDI IH SCH ×2 (11:39→21:53)
--- NOTE | 2017-11-09 13:12 | Electrocardiograph Report ---
[address] [address] Test Date: 2017-11-06 Pat Name: Fred Doran Department: 103 Room: [facility] Gender: M Hand Iii Cutter: LRS : 1930 Requested By: Domenic Mullins Order Number: [id number] Reading MD: Josias Zacarias Measurements Intervals [place] Rate: 94 P: 78 [place]: 169 QRS: 131 QRSD: 138 T: 41 QT: 363 QTc: 415 Interpretive Statements SINUS RHYTHM LEFT ATRIAL ENLARGEMENT MARKED RIGHT AXIS DEVIATION RIGHT BUNDLE BRANCH BLOCK Electronically Signed On 11-09-2017 9:04:21 EDT by Josias Zacarias
[2017-11-09] MEDS: Norepinephrine 4 MG in D5% in Water 250 ML IVC SCH (23:46)
[2017-11-10] MEDS: FentaNYL (PF) 1,000 MCG in 0.9 % Sodium Chloride 80 ML IVC SCH (03:19)
[2017-11-10] MEDS: Lacri-Lube 3.5 GM TUBE BOTH EYES SCH ×3 (03:24→21:28)
[2017-11-10 04:45] LABS: ABG Base Excess 10 mEq/L (-2 to 3); ABG HCO3 36 mEq/L (21-27); ABG Oxygen Saturation 96 % (95-98); ABG PCO2 59 mmHg (35-45); ABG PO2 85 mmHg (85-104); ABG TCO2 38 mEq/L (20-26); Blood Gas Modality VC; Blood Gas PEEP 5 cm H2O; Blood Gas Respiration Rate 12; Blood Gas VT 450 cc
[2017-11-10] MEDS: *HR* Heparin 5,000 UNIT/ML VIAL SQ SCH ×2 (05:24→17:56)
[2017-11-10 05:28] LABS: BUN/Creatinine Ratio 27 (6-26); Blood Urea Nitrogen 28 mg/dL (8-23); Calcium 8.4 mg/dL (8.6-10.3); Carbon Dioxide 32 mEq/L (23-29); Chloride 103 mEq/L (98-107); Glucose 145 mg/dL (70-105); Osmolality,Calculated 302 (280-300); Potassium 3.8 mEq/L (3.5-5.1); Sodium 142 mEq/L (136-145); eGFR For African Americans > 60 (> 60); eGFR For Non-African Americans > 60 (> 60)
[2017-11-10] MEDS: Budesonide/Formoterol 160/4.5 MDI IH SCH ×2 (07:16→20:54)
[2017-11-10] MEDS: Piperacillin/Tazobactam 3.375 GM in 0.9 % Sodium Chloride Mini Bag 100 ML IVPB SCH (08:17)
[2017-11-10] MEDS: Pantoprazole 40 MG VIAL IVP SCH (08:18)
[2017-11-10] MEDS: Chlorhexidine Rinse 15 ML MOUTHWASH MM SCH (08:18)
[2017-11-10] MEDS: Aspirin 81 MG TAB.CHEW PO SCH (08:18)
[2017-11-10] MEDS: predniSONE 20 MG TABLET PO SCH (08:18)
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
--- NOTE | 2017-11-10 10:41 | Palliative Progress Note ---
Date of Encounter: 11/10/17 Time of Encounter: 10:35 - Assessment and plan (1) Dyspnea Current Visit: Yes Status: Acute Assessment and plan: Tolerating CPAP trial this am. Remains on IV atb/bronchodilators. Monitor Qualifiers: Dyspnea type: unspecified Qualified Code(s): R06.00 - Dyspnea, unspecified (2) Generalized pain Current Visit: Yes Status: Acute Assessment and plan: Remains on IV Fentanyl per ICU protocol. (3) Anxiety Current Visit: Yes Status: Acute (4) Counseling regarding advanced care planning and goals of care Current Visit: Yes Status: Acute Assessment and plan: Family to be here this afternoon around 1400 and will be meeting with pt and family in her room. (5) Acute and chronic respiratory failure with hypercapnia Current Visit: Yes Status: Acute (6) CHF exacerbation Current Visit: Yes Status: Acute Qualifiers: Heart failure type: unspecified Qualified Code(s): I50.9 - Heart failure, unspecified - Time Spent With Patient Total time spent is greater than 50% in coordination of care (as documented) at patient's floor/unit and/or counseling patient: - Subjective Interval history: Patient awake and alert, pt sedation is off other than Precedex. He has been tolerating CPAP trial that started around 730 this am. Becomes agitated and restless when disturbed. Does follow simple commands. No family present at my visit, and are expected in this afternoon. - Constitutional Vitals: Abnormal lab results WBC 12.0 K/mcL (4.3-11.1) H 11/09/17 03:15 RBC 4.14 M/mcL (4.19-5.50) L 11/09/17 03:15 Hgb 12.0 g/dL (12.9-16.9) L 11/09/17 03:15 Hct 36.7 % (37.5-50.1) L 11/09/17 03:15 RDW 14.8 % (11.5-14.5) H 11/09/17 03:15 Plt Count 126 K/mcL (140-400) L 11/09/17 03:15 Neutrophils # 10.6 K/mcL (1.6-8.9) H 11/09/17 03:15 Lymphocytes # 0.5 K/mcL (0.6-4.6) L 11/09/17 03:15 PT 14.0 Seconds (9.4-12.1) H 11/08/17 04:00 APTT 25.8 Seconds (26.0-36.0) L 11/06/17 22:51 ABG pCO2 59 mmHg (35-45) H 11/10/17 04:39 ABG HCO3 36 mEq/L (21-27) H 11/10/17 04:39 ABG Total CO2 38 mEq/L (20-26) H 11/10/17 04:39 ABG Base Excess 10 mEq/L (-2 to 3) H 11/10/17 04:39 Carbon Dioxide 32 mEq/L (23-29) H 11/10/17 04:00 BUN 28 mg/dL (8-23) H 11/10/17 04:00 BUN/Creatinine Ratio 27 (6-26) H 11/10/17 04:00 Glucose 145 mg/dL (70-105) H 11/10/17 04:00 POC Glucose 128 mg/dL (70-99) H 11/09/17 23:38 Calculated Osmolality 302 (280-300) H 11/10/17 04:00 Calcium 8.4 mg/dL (8.6-10.3) L 11/10/17 04:00 Venous Ioniz Calcium 1.07 mmol/L (1.15-1.35) L 11/08/17 10:08 Troponin I 0.06 ng/mL (< 0.04) H* 11/07/17 09:50 B-Natriuretic Peptide 1353 pg/mL (Less than 100) H 11/06/17 22:51 Urine Clarity Cloudy (Clear) A 11/07/17 08:00 Urine Blood Large (Negative) H 11/07/17 08:00 Ur Leukocyte Esterase Large (Negative) H 11/07/17 08:00 Urine Microscopic RBC 30-50 per hpf (0-3) H 11/07/17 08:00 Urine Microscopic WBC 50-100 per hpf (0-3) H 11/07/17 08:00 Ur Squamous Epith Cells Many per lpf (None-Few) H 11/07/17 08:00 Vancomycin Trough 11 mcg/mL (5-10) H 11/09/17 03:15 General appearance: Present: no acute distress - Respiratory Additional comments: Breath sounds course. Remains on ventilator. - Cardiovascular Cardiovascular exam: Present: tachycardia - GI/Abdominal GI/Abdominal exam: Present: distended, soft - Extremities Exam Extremities exam: Present: normal capillary refill, normal inspection - Neurological Exam Additional comments: Opens eyes when spoken to. Follows simple commands. Becomes restless and agitated when disturbed. - Psychiatric Psychiatric exam: Present: anxious - Skin Skin exam: Present: dry, pallor, warm Palliative Quality Palliative Quality: Screen for Code Status: NA (awaiting to speak with family ) , Screen for Goals of Care: NA, Screen for Pain: NA, If Pain Regimen Started, Initiate Bowel Regimen: NA, Screen for Nausea/Vomitting: NA Code Status: 11/07/17 04:42 Resuscitation Status: Active [RES] Routine Comment: Resuscitation Status: Full Code - Labs CBC & Chem 7: 11/09/17 03:15 11/10/17 04:00 Labs: Laboratory Results - last 24 hr 11/09/17 11/09/17 11/09/17 11:25 18:13 23:38 Sample Site ABG pH ABG pCO2 ABG pO2 ABG HCO3 ABG Total CO2 ABG O2 Saturation ABG Base Excess Gilson Test Respiration Rate O2 Delivery Device Blood Gas Modality Inspired O2 Tidal Volume PEEP Sodium Potassium Chloride Carbon Dioxide BUN Creatinine Est GFR ( Amer) Est GFR (Non-Af Amer) BUN/Creatinine Ratio Glucose POC Glucose 97 116 H 128 H Calculated Osmolality Calcium 11/10/17 11/10/17 04:00 04:39 Sample Site R Radial ABG pH 7.40 ABG pCO2 59 H ABG pO2 85 ABG HCO3 36 H ABG Total CO2 38 H ABG O2 Saturation 96 ABG Base Excess 10 H Gilson Test N/A Respiration Rate 12 O2 Delivery Device Adult Vent Blood Gas Modality VC Inspired O2 50.0 Tidal Volume 450 PEEP 5 Sodium 142 Potassium 3.8 Chloride 103 Carbon Dioxide 32 H BUN 28 H Creatinine 1.05 Est GFR ( Amer) > 60 Est GFR (Non-Af Amer) > 60 BUN/Creatinine Ratio 27 H Glucose 145 H POC Glucose Calculated Osmolality 302 H Calcium 8.4 L - Impressions Impressions KUB X-Ray 11/09/17 02:47 IMPRESSION: 1. Enteric tube is in the stomach though has been retracted since the prior exam. The tip lies at the level of the proximal gastric body. 2. Stable left lung base consolidation. D/ / 11/09/2017 07:44:42 Mitch Riddle MD / [email or web address] Interpreting Provider: Mitch Riddle MD - ABG Interpretation ABG results: ABG ABG pH 7.40 pH Units (7.32-7.45) 11/10/17 04:39 ABG pCO2 59 mmHg (35-45) H 11/10/17 04:39 ABG pO2 85 mmHg (85-104) 11/10/17 04:39 ABG O2 Saturation 96 % (95-98) 11/10/17 04:39 PT/INR, D-dimer PT 14.0 Seconds (9.4-12.1) H 11/08/17 04:00 Consult Discharge Plan - Plan [facility]errals: [facility] [Primary Care Provider[facility] -
--- NOTE | 2017-11-10 15:10 | Event Note ---
Date of Encounter: 11/10/17 Time of Encounter: 14:50 50 min family meeting with , 4 daughters (Jessica Asencio, Abigail Hernandez, Christal Sutherland, and Mary Doran), 3 grandchildren and sister n law regarding goals of care. Updated on clinical status. Discussed code status at length. , with family support, transitioned to DNRCC-Arrest and desires no CPR/ Defib for cardiac arrest. Discussed reintubation after extubation, and family is divided. Patient's desires to have some time to consider. 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 Family informed that pt may be extubated soon, and unless states otherwise, he would be reintubated. Family verbalized understanding. Some family members asking if his can visit him. Told them they would need to speak with her physician for clearance, that I was not aware of her medical condition and if she was stable enough to leave the room. They verbalized understanding. Above meeting results d/w Dr. Castellano and Dr. Aranda. Will f/u in am.
[2017-11-10] MEDS: Dexmedetomidine HCl 400 MCG/100 ML MLS IVC SCH (23:31)
[2017-11-11 05:05] LABS: Hematocrit 37.6 % (37.5-50.1); Hemoglobin 11.8 g/dL (12.9-16.9); Immature Granulocytes % 0.6 % (0-4); Lymphocytes # 0.4 K/mcL (0.6-4.6); Mean Corpuscular HGB Conc 31.4 g/dL (31.6-35.5); Mean Corpuscular Volume 89.3 fL (83.0-100.0); Mean Platelet Volume 11.6 fL (9.4-12.4); Monocytes # 0.5 K/mcL (0.0-1.3); Monocytes % 6.4 %; Neutrophils # 6.1 K/mcL (1.6-8.9); Platelet Count 130 K/mcL (140-400); Red Blood Count 4.21 M/mcL (4.19-5.50); Red Cell Distribution Width 15.2 % (11.5-14.5)
[2017-11-11] MEDS: *HR* Heparin 5,000 UNIT/ML VIAL SQ SCH ×2 (05:11→18:03)
[2017-11-11] MEDS: Norepinephrine 4 MG in D5% in Water 250 ML IVC SCH (05:11)
[2017-11-11] MEDS: Dexmedetomidine HCl 400 MCG/100 ML MLS IVC SCH (05:11)
[2017-11-11 05:23] LABS: BUN/Creatinine Ratio 31 (6-26); Blood Urea Nitrogen 27 mg/dL (8-23); Calcium 8.8 mg/dL (8.6-10.3); Carbon Dioxide 34 mEq/L (23-29); Chloride 108 mEq/L (98-107); Glucose 115 mg/dL (70-105); Osmolality,Calculated 312 (280-300); Potassium 4.1 mEq/L (3.5-5.1); Sodium 148 mEq/L (136-145); eGFR For African Americans > 60 (> 60); eGFR For Non-African Americans > 60 (> 60)
[2017-11-11] MEDS: Budesonide/Formoterol 160/4.5 MDI IH SCH ×2 (07:39→20:44)
[2017-11-11] MEDS: Pantoprazole 40 MG VIAL IVP SCH (08:36)
[2017-11-11] MEDS: Levofloxacin 750 MG/150 ML 750 MG/150 ML BAG IVPB SCH (08:37)
[2017-11-11] MEDS: predniSONE 20 MG TABLET PO SCH (08:51)
[2017-11-11] MEDS: Aspirin 81 MG TAB.CHEW PO SCH (08:52)
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
[2017-11-11] MEDS: Chlorhexidine Rinse 15 ML MOUTHWASH MM SCH (09:18)
[2017-11-11] MEDS: Lacri-Lube 3.5 GM TUBE BOTH EYES SCH ×2 (09:18→09:27)
[2017-11-11] MEDS ORDERED: predniSONE 10 MG TABLET PO SCH (10:45)
--- NOTE | 2017-11-11 10:56 | Palliative Progress Note ---
Date of Encounter: 11/11/17 Time of Encounter: 09:50 - Assessment and plan (1) Dyspnea Current Visit: Yes Status: Acute Assessment and plan: Extubated and oxygen currently at 4LPM. Continues with treatment for pneumonia. Qualifiers: Dyspnea type: unspecified Qualified Code(s): R06.00 - Dyspnea, unspecified (2) Generalized pain Current Visit: Yes Status: Acute (3) Anxiety Current Visit: Yes Status: Acute Assessment and plan: Remains on precedex per ICU protocol (4) Counseling regarding advanced care planning and goals of care Current Visit: Yes Status: Acute Assessment and plan: D/W [place] who is in 2NE30 this am. She is aware he has been extubated. Re -discussed code status, and she has decided she does not want him reintubated if he fails from respiratory standpoint. Code status transitioned to DNR/DNI. Awaiting speech eval. Delirium an issue. Will continue to follow. (5) Acute and chronic respiratory failure with hypercapnia Current Visit: Yes Status: Acute (6) CHF exacerbation Current Visit: Yes Status: Acute Qualifiers: Heart failure type: unspecified Qualified Code(s): I50.9 - Heart failure, unspecified - Time Spent With Patient Total time spent is greater than 50% in coordination of care (as documented) at patient's floor/unit and/or counseling patient: - Subjective Interval history: Patient successfully extubated yesterday . Was on 10L oxygen - has been weaned down to 4LPM. He was agitated and pulled out central line and IV's last pm. Currently sleeping on Precedex and slept through my assessment. - Constitutional Vitals: Abnormal lab results Hgb 11.8 g/dL (12.9-16.9) L 11/11/17 04:08 MCHC 31.4 g/dL (31.6-35.5) L 11/11/17 04:08 RDW 15.2 % (11.5-14.5) H 11/11/17 04:08 Plt Count 130 K/mcL (140-400) L 11/11/17 04:08 Lymphocytes # 0.4 K/mcL (0.6-4.6) L 11/11/17 04:08 PT 14.0 Seconds (9.4-12.1) H 11/08/17 04:00 APTT 25.8 Seconds (26.0-36.0) L 11/06/17 22:51 ABG pCO2 59 mmHg (35-45) H 11/10/17 04:39 ABG HCO3 36 mEq/L (21-27) H 11/10/17 04:39 ABG Total CO2 38 mEq/L (20-26) H 11/10/17 04:39 ABG Base Excess 10 mEq/L (-2 to 3) H 11/10/17 04:39 Sodium 148 mEq/L (136-145) H 11/11/17 04:08 Chloride 108 mEq/L (98-107) H 11/11/17 04:08 Carbon Dioxide 34 mEq/L (23-29) H 11/11/17 04:08 BUN 27 mg/dL (8-23) H 11/11/17 04:08 BUN/Creatinine Ratio 31 (6-26) H 11/11/17 04:08 Glucose 115 mg/dL (70-105) H 11/11/17 04:08 Calculated Osmolality 312 (280-300) H 11/11/17 04:08 Venous Ioniz Calcium 1.07 mmol/L (1.15-1.35) L 11/08/17 10:08 Troponin I 0.06 ng/mL (< 0.04) H* 11/07/17 09:50 B-Natriuretic Peptide 1353 pg/mL (Less than 100) H 11/06/17 22:51 Urine Clarity Cloudy (Clear) A 11/07/17 08:00 Urine Blood Large (Negative) H 11/07/17 08:00 Ur Leukocyte Esterase Large (Negative) H 11/07/17 08:00 Urine Microscopic RBC 30-50 per hpf (0-3) H 11/07/17 08:00 Urine Microscopic WBC 50-100 per hpf (0-3) H 11/07/17 08:00 Ur Squamous Epith Cells Many per lpf (None-Few) H 11/07/17 08:00 Vancomycin Trough 11 mcg/mL (5-10) H 11/09/17 03:15 General appearance: Present: no acute distress - Respiratory Respiratory exam: Present: decreased breath sounds, CTAB - Cardiovascular Cardiovascular exam: Present: +S1, +S2 - GI/Abdominal GI/Abdominal exam: Present: normal bowel sounds, soft - Additional comments: Garcia with clear yellow urine - Extremities Exam Extremities exam: Present: normal capillary refill, normal inspection - Neurological Exam Additional comments: Currently sedated. - Skin Skin exam: Present: dry, pallor, warm Palliative Quality Palliative Quality: Screen for Code Status: NA (awaiting to speak with family ) , Screen for Goals of Care: NA, Screen for Pain: NA, If Pain Regimen Started, Initiate Bowel Regimen: NA, Screen for Nausea/Vomitting: NA Code Status: 11/07/17 04:42 Resuscitation Status: Active [RES] Routine Comment: Resuscitation Status: DNR-Comfort Care-Arrest Resuscitation Status: Active [RES] Routine Comment: Resuscitation Status: Full Code 11/11/17 09:46 DNR [Resuscitation Status: Active] [RES] Routine Comment: Resuscitation Status: [id number] - Labs CBC & Chem 7: 11/11/17 04:08 11/11/17 04:08 Labs: Laboratory Results - last 24 hr 11/10/17 11/10/17 11/10/17 11:05 17:19 23:30 WBC RBC Hgb Hct MCV MCH MCHC RDW Plt Count MPV Immature Gran % Seg Neutrophils % Lymphocytes % Monocytes % Eosinophils % Basophils % Neutrophils # Lymphocytes # Monocytes # Eosinophils # Basophils # Sodium Potassium Chloride Carbon Dioxide BUN Creatinine Est GFR ( Amer) Est GFR (Non-Af Amer) BUN/Creatinine Ratio Glucose POC Glucose 124 H 116 H 96 Calculated Osmolality Calcium 11/11/17 11/11/17 04:08 04:08 WBC 7.0 RBC 4.21 Hgb 11.8 L Hct 37.6 MCV 89.3 MCH 28.0 MCHC 31.4 L RDW 15.2 H Plt Count 130 L MPV 11.6 Immature Gran % 0.6 Seg Neutrophils % 87.0 Lymphocytes % 6.0 Monocytes % 6.4 Eosinophils % 0.0 Basophils % 0.0 Neutrophils # 6.1 Lymphocytes # 0.4 L Monocytes # 0.5 Eosinophils # 0.0 Basophils # 0.0 Sodium 148 H Potassium 4.1 Chloride 108 H Carbon Dioxide 34 H BUN 27 H Creatinine 0.86 Est GFR ( Amer) > 60 Est GFR (Non-Af Amer) > 60 BUN/Creatinine Ratio 31 H Glucose 115 H POC Glucose Calculated Osmolality 312 H Calcium 8.8 - ABG Interpretation ABG results: ABG ABG pH 7.40 pH Units (7.32-7.45) 11/10/17 04:39 ABG pCO2 59 mmHg (35-45) H 11/10/17 04:39 ABG pO2 85 mmHg (85-104) 11/10/17 04:39 ABG O2 Saturation 96 % (95-98) 11/10/17 04:39 PT/INR, D-dimer PT 14.0 Seconds (9.4-12.1) H 11/08/17 04:00 Consult Discharge Plan - Plan [facility]errals: [facility] [Primary Care Provider] -
[2017-11-11] MEDS ORDERED: Potassium Chloride Elixir 20 MEQ/15 ML UDC PO PRN (15:15)
[2017-11-11] MEDS ORDERED: *HR* Dextrose 50 % in Water (Syg) 50 ML SYRINGE IVP PRN (15:15)
[2017-11-11] MEDS ORDERED: Naloxone 0.4 MG/ML INJ IVP PRN (15:15)
[2017-11-12 05:15] LABS: Eosinophils # 0.1 K/mcL (0.0-0.6); Eosinophils % 1.9 %; Hematocrit 37.7 % (37.5-50.1); Hemoglobin 11.8 g/dL (12.9-16.9); Immature Granulocytes % 0.4 % (0-4); Lymphocytes # 0.7 K/mcL (0.6-4.6); Lymphocytes % 14.2 %; Mean Corpuscular HGB Conc 31.3 g/dL (31.6-35.5); Mean Corpuscular Hemoglobin 28.4 pg (28.0-33.3); Mean Corpuscular Volume 90.6 fL (83.0-100.0); Mean Platelet Volume 11.1 fL (9.4-12.4); Monocytes # 0.5 K/mcL (0.0-1.3); Monocytes % 10.9 %; Neutrophils # 3.5 K/mcL (1.6-8.9); Platelet Count 134 K/mcL (140-400); Red Blood Count 4.16 M/mcL (4.19-5.50); Red Cell Distribution Width 14.9 % (11.5-14.5); Segmented Neutrophils % 72.6 %
[2017-11-12] MEDS: *HR* Heparin 5,000 UNIT/ML VIAL SQ SCH ×2 (05:21→18:40)
[2017-11-12 05:36] LABS: BUN/Creatinine Ratio 31 (6-26); Blood Urea Nitrogen 26 mg/dL (8-23); Calcium 8.9 mg/dL (8.6-10.3); Carbon Dioxide 36 mEq/L (23-29); Chloride 104 mEq/L (98-107); Glucose 84 mg/dL (70-105); Osmolality,Calculated 300 (280-300); Potassium 3.8 mEq/L (3.5-5.1); Sodium 143 mEq/L (136-145); eGFR For African Americans > 60 (> 60); eGFR For Non-African Americans > 60 (> 60)
[2017-11-12] MEDS ORDERED: Pantoprazole 40 MG VIAL IVP SCH (09:00)
[2017-11-12] MEDS ORDERED: Levofloxacin 750 MG/150 ML 750 MG/150 ML BAG IVPB SCH (09:00)
--- NOTE | 2017-11-12 09:07 | Palliative Progress Note ---
Date of Encounter: 11/12/17 Time of Encounter: 09:00 - Assessment and plan (1) Dyspnea Current Visit: Yes Status: Acute Assessment and plan: Improved with treatment for pneumonia. Continue with supportive oxygen/aerosols /antibiotics. Qualifiers: Dyspnea type: unspecified Qualified Code(s): R06.00 - Dyspnea, unspecified (2) Generalized pain Current Visit: Yes Status: Acute (3) Anxiety Current Visit: Yes Status: Acute (4) Counseling regarding advanced care planning and goals of care Current Visit: Yes Status: Acute Assessment and plan: Patient mentation greatly improved. Assisted up in chair with assistance. Ate 100% of breakfast. May still benefit from rehab - , is in hospital. They were staying with daughter prior to admission. REGAN Watson following. (5) Acute and chronic respiratory failure with hypercapnia Current Visit: Yes Status: Acute (6) CHF exacerbation Current Visit: Yes Status: Acute Qualifiers: Heart failure type: unspecified Qualified Code(s): I50.9 - Heart failure, unspecified - Time Spent With Patient Total time spent is greater than 50% in coordination of care (as documented) at patient's floor/unit and/or counseling patient: - Subjective Interval history: Patient much more alert and oriented today. Appropriate with conversations - spoke with his daughter on phone. Knows his is in hospital and wants to go visit her. Denies pain, states he is breathing ok but some cyanosis noted with exertion. Oxygen currently at 4LPM. Has attempted to pull workman out multiple times and feels need to void. - Constitutional Vitals: Abnormal lab results RBC 4.16 M/mcL (4.19-5.50) L 11/12/17 04:51 Hgb 11.8 g/dL (12.9-16.9) L 11/12/17 04:51 MCHC 31.3 g/dL (31.6-35.5) L 11/12/17 04:51 RDW 14.9 % (11.5-14.5) H 11/12/17 04:51 Plt Count 134 K/mcL (140-400) L 11/12/17 04:51 PT 14.0 Seconds (9.4-12.1) H 11/08/17 04:00 APTT 25.8 Seconds (26.0-36.0) L 11/06/17 22:51 ABG pCO2 59 mmHg (35-45) H 11/10/17 04:39 ABG HCO3 36 mEq/L (21-27) H 11/10/17 04:39 ABG Total CO2 38 mEq/L (20-26) H 11/10/17 04:39 ABG Base Excess 10 mEq/L (-2 to 3) H 11/10/17 04:39 Carbon Dioxide 36 mEq/L (23-29) H 11/12/17 04:51 BUN 26 mg/dL (8-23) H 11/12/17 04:51 BUN/Creatinine Ratio 31 (6-26) H 11/12/17 04:51 POC Glucose 108 mg/dL (70-99) H 11/11/17 11:55 Venous Ioniz Calcium 1.07 mmol/L (1.15-1.35) L 11/08/17 10:08 Troponin I 0.06 ng/mL (< 0.04) H* 11/07/17 09:50 B-Natriuretic Peptide 1353 pg/mL (Less than 100) H 11/06/17 22:51 Urine Clarity Cloudy (Clear) A 11/07/17 08:00 Urine Blood Large (Negative) H 11/07/17 08:00 Ur Leukocyte Esterase Large (Negative) H 11/07/17 08:00 Urine Microscopic RBC 30-50 per hpf (0-3) H 11/07/17 08:00 Urine Microscopic WBC 50-100 per hpf (0-3) H 11/07/17 08:00 Ur Squamous Epith Cells Many per lpf (None-Few) H 11/07/17 08:00 Vancomycin Trough 11 mcg/mL (5-10) H 11/09/17 03:15 General appearance: Present: no acute distress - Respiratory Respiratory exam: Present: decreased breath sounds - Cardiovascular Cardiovascular exam: Present: irregular rhythm, tachycardia - GI/Abdominal GI/Abdominal exam: Present: normal bowel sounds, soft - Extremities Exam Additional comments: Cyanosis noted with exertion. - Neurological Exam Neurological exam: Present: alert Additional comments: Oriented to name and place. - Skin Skin exam: Present: dry, warm Palliative Quality Palliative Quality: Screen for Code Status: NA (awaiting to speak with family ) , Screen for Goals of Care: NA, Screen for Pain: NA, If Pain Regimen Started, Initiate Bowel Regimen: NA, Screen for Nausea/Vomitting: NA Code Status: 11/07/17 04:42 Resuscitation Status: Active [RES] Routine Comment: Resuscitation Status: DNR-Comfort Care-Arrest Resuscitation Status: Active [RES] Routine Comment: Resuscitation Status: Full Code 11/11/17 09:46 DNR [Resuscitation Status: Active] [RES] Routine Comment: Resuscitation Status: [id number] - Labs CBC & Chem 7: 11/12/17 04:51 11/12/17 04:51 Labs: Laboratory Results - last 24 hr 11/11/17 11/11/17 11/12/17 06:02 11:55 04:51 WBC 4.9 RBC 4.16 L Hgb 11.8 L Hct 37.7 MCV 90.6 MCH 28.4 MCHC 31.3 L RDW 14.9 H Plt Count 134 L MPV 11.1 Immature Gran % 0.4 Seg Neutrophils % 72.6 Lymphocytes % 14.2 Monocytes % 10.9 Eosinophils % 1.9 Basophils % 0.0 Neutrophils # 3.5 Lymphocytes # 0.7 Monocytes # 0.5 Eosinophils # 0.1 Basophils # 0.0 Sodium Potassium Chloride Carbon Dioxide BUN Creatinine Est GFR ( Amer) Est GFR (Non-Af Amer) BUN/Creatinine Ratio Glucose POC Glucose 103 H 108 H Calculated Osmolality Calcium 11/12/17 04:51 WBC RBC Hgb Hct MCV MCH MCHC RDW Plt Count MPV Immature Gran % Seg Neutrophils % Lymphocytes % Monocytes % Eosinophils % Basophils % Neutrophils # Lymphocytes # Monocytes # Eosinophils # Basophils # Sodium 143 Potassium 3.8 Chloride 104 Carbon Dioxide 36 H BUN 26 H Creatinine 0.84 Est GFR ( Amer) > 60 Est GFR (Non-Af Amer) > 60 BUN/Creatinine Ratio 31 H Glucose 84 POC Glucose Calculated Osmolality 300 Calcium 8.9 - ABG Interpretation ABG results: ABG ABG pH 7.40 pH Units (7.32-7.45) 11/10/17 04:39 ABG pCO2 59 mmHg (35-45) H 11/10/17 04:39 ABG pO2 85 mmHg (85-104) 11/10/17 04:39 ABG O2 Saturation 96 % (95-98) 11/10/17 04:39 PT/INR, D-dimer PT 14.0 Seconds (9.4-12.1) H 11/08/17 04:00 Consult Discharge Plan - Plan [facility]errals: [facility] [Primary Care Provider] -
[2017-11-12] MEDS: Budesonide/Formoterol 160/4.5 MDI IH SCH ×2 (11:02→19:42)
[2017-11-12] MEDS: predniSONE 10 MG TABLET PO SCH (11:26)
[2017-11-12] MEDS: Aspirin 81 MG TAB.CHEW PO SCH (11:26)
[2017-11-12] MEDS: levoFLOXacin 500 MG TABLET PO SCH (13:12)
--- NOTE | 2017-11-12 15:49 | Internal Med Progress Note ---
Date of Encounter: 11/12/17 Time of Encounter: 12:00 - Assessment and plan (1) Sepsis Current Visit: Yes Status: Acute Assessment and plan: Due to PNA improved switched to PO abx Qualifiers: Sepsis type: sepsis due to unspecified organism Qualified Code(s): A41.9 - Sepsis, unspecified organism (2) Pneumonia Current Visit: Yes Status: Acute Assessment and plan: Mostly bacterial cont empirical abx Qualifiers: Pneumonia type: due to unspecified organism Laterality: bilateral Qualified Code(s): J18.9 - Pneumonia, unspecified organism (3) COPD exacerbation Current Visit: Yes Status: Acute (4) Acute and chronic respiratory failure with hypercapnia Current Visit: Yes Status: Acute Assessment and plan: s/p extubation on 11/10/17 Currently doing well on 4 lit NC O2 He does have acute on chronic hypoxic resp failure too cont Duoneb PRN Cont tapering steroids (5) Acute and chronic respiratory failure with hypoxia Current Visit: Yes Status: Acute (6) Elevated troponin Current Visit: Yes Status: Acute Assessment and plan: Likely due to demand ischemia with respiratory failure resolved Reviewed 2 D Echo (7) Acute pulmonary edema Current Visit: Yes Status: Acute Assessment and plan: due to PNA resolved (8) DVT prophylaxis Current Visit: Yes Status: Acute Assessment and plan: on SQ Heparin (9) Physical deconditioning Current Visit: Yes Status: Acute Assessment and plan: PT /OT eval done recommend ECF transfer will d/c to SNF in AM - Time Spent With Patient Total time spent is greater than 50% in coordination of care (as documented) at patient's floor/unit and/or counseling patient: - Subjective Interval history: Mr. Doran is a 87 year old male who presents the [place] urgent care with SOB, CRONIN and respiratory failure. He presented to the urgent care earlier in the evening complaining of shortness of breath, altered mental status, and impending respiratory arrest. He was placed on BiPAP and brought to our ER by squad. Upon arrival to ER, because of severe respiratory distress and failure, he was intubated and stabilized in the ER. Pt was admitted into ICU initially and started him on empirical abx. he was also required vasopressors initially. He got extubated on 11/10/17. He was continued on abx Levaquin and steroids. Pt was transferred to [facility] for further care. Now pt is alert, awake,demented and oriented to self only. Denied any CP. Currently on 4 lit O2. - Constitutional Vitals: Temp Pulse Resp BP Pulse Ox 98.7 F 102 18 107/62 98 11/12/17 12:31 11/12/17 12:31 11/12/17 12:31 11/12/17 12:31 11/12/17 12:31 General appearance: Present: A&O X 1, no acute distress, answers questions appropriately - Head Head exam: Present: atraumatic, normal inspection - Respiratory Respiratory exam: Present: decreased breath sounds, wheezes (mild). Absent: rales, respiratory distress, rhonchi - Cardiovascular Cardiovascular exam: Present: RRR, +S1, +S2. Absent: tachycardia - GI/Abdominal GI/Abdominal exam: Present: normal bowel sounds, soft. Absent: rebound, rigid, tenderness - Extremities Exam Extremities exam: Absent: calf tenderness, pedal edema, tenderness - Back Exam Back exam: Absent: CVA tenderness (L), CVA tenderness (R) - Neurological Exam Neurological exam: Present: alert, oriented X3 - Psychiatric Additional comments: demented Internal Medicine: Result - Labs CBC & Chem 7: 11/12/17 04:51 11/12/17 04:51 Labs: Short CBC 11/12/17 Range/Units 04:51 WBC 4.9 (4.3-11.1) K/mcL Hgb 11.8 L (12.9-16.9) g/dL Hct 37.7 (37.5-50.1) % Plt Count 134 L (140-400) K/mcL Neutrophils # 3.5 (1.6-8.9) K/mcL BMP 11/12/17 04:51 Sodium 143 Potassium 3.8 Chloride 104 Carbon Dioxide 36 H BUN 26 H Creatinine 0.84 Glucose 84 Calcium 8.9 - ABG Interpretation ABG results: ABG ABG pH 7.40 pH Units (7.32-7.45) 11/10/17 04:39 ABG pCO2 59 mmHg (35-45) H 11/10/17 04:39 ABG pO2 85 mmHg (85-104) 11/10/17 04:39 ABG O2 Saturation 96 % (95-98) 11/10/17 04:39 PT/INR, D-dimer PT 14.0 Seconds (9.4-12.1) H 11/08/17 04:00 Consult Discharge Plan - Plan [facility]errals: [facility] [Primary Care Provider] - (working on a placement)
[2017-11-13 05:29] LABS: Basophils % 0.2 %; Eosinophils % 0.2 %; Hematocrit 34.9 % (37.5-50.1); Hemoglobin 11.2 g/dL (12.9-16.9); Immature Granulocytes % 0.5 % (0-4); Lymphocytes # 0.5 K/mcL (0.6-4.6); Lymphocytes % 12.3 %; Mean Corpuscular HGB Conc 32.1 g/dL (31.6-35.5); Mean Corpuscular Hemoglobin 29.2 pg (28.0-33.3); Mean Corpuscular Volume 91.1 fL (83.0-100.0); Mean Platelet Volume 11.3 fL (9.4-12.4); Monocytes # 0.5 K/mcL (0.0-1.3); Monocytes % 10.8 %; Neutrophils # 3.2 K/mcL (1.6-8.9); Platelet Count 124 K/mcL (140-400); Red Blood Count 3.83 M/mcL (4.19-5.50); Red Cell Distribution Width 14.9 % (11.5-14.5)
[2017-11-13 05:45] LABS: BUN/Creatinine Ratio 31 (6-26); Blood Urea Nitrogen 25 mg/dL (8-23); Calcium 8.6 mg/dL (8.6-10.3); Carbon Dioxide 36 mEq/L (23-29); Chloride 107 mEq/L (98-107); Glucose 110 mg/dL (70-105); Osmolality,Calculated 309 (280-300); Sodium 147 mEq/L (136-145); eGFR For African Americans > 60 (> 60); eGFR For Non-African Americans > 60 (> 60)
[2017-11-13] MEDS: *HR* Heparin 5,000 UNIT/ML VIAL SQ SCH ×2 (06:31→19:10)
[2017-11-13] MEDS: Budesonide/Formoterol 160/4.5 MDI IH SCH ×2 (07:40→20:45)
[2017-11-13] MEDS: Aspirin 81 MG TAB.CHEW PO SCH (10:57)
[2017-11-13] MEDS: predniSONE 10 MG TABLET PO SCH (10:57)
[2017-11-13] MEDS: levoFLOXacin 500 MG TABLET PO SCH (10:57)
--- NOTE | 2017-11-13 10:57 | Palliative Progress Note ---
Date of Encounter: 11/13/17 Time of Encounter: 10:15 - Assessment and plan (1) Dyspnea Current Visit: Yes Status: Acute Assessment and plan: Improved with treating pneumonia. Oxygen saturation 98% on 3L NC. Continue supportive oxygen and antibiotics. Patient is now on PO Levaquin. Qualifiers: Dyspnea type: unspecified Qualified Code(s): R06.00 - Dyspnea, unspecified (2) Sepsis Current Visit: Yes Status: Acute Assessment and plan: WBC decreased to 4.2. VSS. Patient on Levaquin PO. Qualifiers: Sepsis type: sepsis due to unspecified organism Qualified Code(s): A41.9 - Sepsis, unspecified organism (3) Counseling regarding advanced care planning and goals of care Current Visit: Yes Status: Acute Assessment and plan: Patient mentation greatly improved. Ate 65% of dinner and the majority of breakfast, during assessment. PT/OT recommend SNF for continued rehab at discharge. remains admitted to hospital at this time. Patient and family wished for patient to be transferred to [facility] on discharge; however, [facility] refused d/t insurance criteria issue. REGAN Ford working to resolve placement issue. (4) Generalized pain Current Visit: Yes Status: Acute (5) Anxiety Current Visit: Yes Status: Acute Assessment and plan: Patient denies anxiety during assessment; no overt s/s of anxiety present. (6) Acute and chronic respiratory failure with hypercapnia Current Visit: Yes Status: Acute - Time Spent With Patient Total time spent is greater than 50% in coordination of care (as documented) at patient's floor/unit and/or counseling patient: - Subjective Interval history: Patient sitting up in bed eating breakfast upon arrival. Patient is alert and oriented to person only. Denies pain, anxiety, nausea, and dyspnea during assessment. No vomiting reported. Patient reports he spilled some of his yogurt ; assisted Primary RN to change patient's brief. Patient was unable to remember patient's admitted to hospital. - Constitutional Vitals: Abnormal lab results WBC 4.2 K/mcL (4.3-11.1) L 11/13/17 05:10 RBC 3.83 M/mcL (4.19-5.50) L 11/13/17 05:10 Hgb 11.2 g/dL (12.9-16.9) L 11/13/17 05:10 Hct 34.9 % (37.5-50.1) L 11/13/17 05:10 RDW 14.9 % (11.5-14.5) H 11/13/17 05:10 Plt Count 124 K/mcL (140-400) L 11/13/17 05:10 Lymphocytes # 0.5 K/mcL (0.6-4.6) L 11/13/17 05:10 PT 14.0 Seconds (9.4-12.1) H 11/08/17 04:00 APTT 25.8 Seconds (26.0-36.0) L 11/06/17 22:51 ABG pCO2 59 mmHg (35-45) H 11/10/17 04:39 ABG HCO3 36 mEq/L (21-27) H 11/10/17 04:39 ABG Total CO2 38 mEq/L (20-26) H 11/10/17 04:39 ABG Base Excess 10 mEq/L (-2 to 3) H 11/10/17 04:39 Sodium 147 mEq/L (136-145) H 11/13/17 05:10 Carbon Dioxide 36 mEq/L (23-29) H 11/13/17 05:10 BUN 25 mg/dL (8-23) H 11/13/17 05:10 BUN/Creatinine Ratio 31 (6-26) H 11/13/17 05:10 Glucose 110 mg/dL (70-105) H 11/13/17 05:10 POC Glucose 108 mg/dL (70-99) H 11/11/17 11:55 Calculated Osmolality 309 (280-300) H 11/13/17 05:10 Venous Ioniz Calcium 1.07 mmol/L (1.15-1.35) L 11/08/17 10:08 Troponin I 0.06 ng/mL (< 0.04) H* 11/07/17 09:50 B-Natriuretic Peptide 1353 pg/mL (Less than 100) H 11/06/17 22:51 Urine Clarity Cloudy (Clear) A 11/07/17 08:00 Urine Blood Large (Negative) H 11/07/17 08:00 Ur Leukocyte Esterase Large (Negative) H 11/07/17 08:00 Urine Microscopic RBC 30-50 per hpf (0-3) H 11/07/17 08:00 Urine Microscopic WBC 50-100 per hpf (0-3) H 11/07/17 08:00 Ur Squamous Epith Cells Many per lpf (None-Few) H 11/07/17 08:00 Vancomycin Trough 11 mcg/mL (5-10) H 11/09/17 03:15 General appearance: Present: cooperative, no acute distress - Head Head exam: Present: atraumatic, normal inspection - Eye Eye exam: Present: EOMI, normal appearance, PERRL. Absent: periorbital swelling , periorbital tenderness Pupils: Present: normal accommodation, PERRL - ENT ENT exam: Present: mucous membranes moist, normal external ear exam - Neck Neck exam: Present: full ROM, normal inspection - Respiratory Respiratory exam: Present: CTAB. Absent: accessory muscle use, respiratory distress - Cardiovascular Cardiovascular exam: Present: +S1, +S2 - GI/Abdominal GI/Abdominal exam: Present: normal bowel sounds, soft. Absent: tenderness - Rectal Rectal exam: Present: normal inspection - exam: Present: normal inspection. Absent: circumcision - Extremities Exam Extremities exam: Present: normal capillary refill, normal inspection. Absent: pedal edema - Neurological Exam Neurological exam: Present: alert, altered, strengths equal and symetr throughout. Absent: oriented X3 - Psychiatric Psychiatric exam: Present: normal affect, normal mood - Skin Skin exam: Present: dry, intact, normal color Palliative Quality Palliative Quality: Screen for Code Status: Yes (Established), Screen for Goals of Care: Yes (Plan to d/c to rehab), Screen for Pain: Yes, If Pain Regimen Started, Initiate Bowel Regimen: NA, Screen for Nausea/Vomitting: Yes Code Status: 11/07/17 04:42 Resuscitation Status: Active [RES] Routine Comment: Resuscitation Status: DNR-Comfort Care-Arrest Resuscitation Status: Active [RES] Routine Comment: Resuscitation Status: Full Code 11/11/17 09:46 DNR [Resuscitation Status: Active] [RES] Routine Comment: Resuscitation Status: [id number]-[id number]-[id number] - Labs CBC & Chem 7: 11/13/17 05:10 11/13/17 05:10 Labs: Laboratory Results - last 24 hr 11/13/17 11/13/17 05:10 05:10 WBC 4.2 L RBC 3.83 L Hgb 11.2 L Hct 34.9 L MCV 91.1 MCH 29.2 MCHC 32.1 RDW 14.9 H Plt Count 124 L MPV 11.3 Immature Gran % 0.5 Seg Neutrophils % 76.0 Lymphocytes % 12.3 Monocytes % 10.8 Eosinophils % 0.2 Basophils % 0.2 Neutrophils # 3.2 Lymphocytes # 0.5 L Monocytes # 0.5 Eosinophils # 0.0 Basophils # 0.0 Sodium 147 H Potassium 4.0 Chloride 107 Carbon Dioxide 36 H BUN 25 H Creatinine 0.81 Est GFR ( Amer) > 60 Est GFR (Non-Af Amer) > 60 BUN/Creatinine Ratio 31 H Glucose 110 H Calculated Osmolality 309 H Calcium 8.6 - ABG Interpretation ABG results: ABG ABG pH 7.40 pH Units (7.32-7.45) 11/10/17 04:39 ABG pCO2 59 mmHg (35-45) H 11/10/17 04:39 ABG pO2 85 mmHg (85-104) 11/10/17 04:39 ABG O2 Saturation 96 % (95-98) 11/10/17 04:39 PT/INR, D-dimer PT 14.0 Seconds (9.4-12.1) H 11/08/17 04:00 Consult Discharge Plan - Plan [facility]errals: [facility] [Primary Care Provider] - (working on a placement)
[2017-11-13] MEDS ORDERED: D5% in Water 1,000 ML IVC SCH (15:15)
--- NOTE | 2017-11-13 15:16 | Internal Med Progress Note ---
Date of Encounter: 11/13/17 Time of Encounter: 15:09 - Assessment and plan (1) Sepsis Current Visit: Yes Status: Acute Assessment and plan: Due to PNA improved switched to PO abx Qualifiers: Sepsis type: sepsis due to unspecified organism Qualified Code(s): A41.9 - Sepsis, unspecified organism (2) Pneumonia Current Visit: Yes Status: Acute Assessment and plan: Mostly bacterial cont empirical abx Qualifiers: Pneumonia type: due to unspecified organism Laterality: bilateral Qualified Code(s): J18.9 - Pneumonia, unspecified organism (3) Hypernatremia Current Visit: Yes Status: Acute Assessment and plan: Slightly elevated Na noticed mostly due to dehydration will give 1 lit D5 Water @ 75cc/hr (4) COPD exacerbation Current Visit: Yes Status: Acute Assessment and plan: started tapering steroids (5) Acute and chronic respiratory failure with hypercapnia Current Visit: Yes Status: Acute Assessment and plan: s/p extubation on 11/10/17 Currently doing well on 3 lit NC O2 He does have acute on chronic hypoxic resp failure too cont Duoneb PRN Cont tapering steroids (6) Acute and chronic respiratory failure with hypoxia Current Visit: Yes Status: Acute (7) Elevated troponin Current Visit: Yes Status: Acute Assessment and plan: Likely due to demand ischemia with respiratory failure resolved Reviewed 2 D Echo (8) Acute pulmonary edema Current Visit: Yes Status: Acute Assessment and plan: due to PNA resolved (9) DVT prophylaxis Current Visit: Yes Status: Acute Assessment and plan: on SQ Heparin (10) Physical deconditioning Current Visit: Yes Status: Acute Assessment and plan: PT /OT eval done recommend ECF transfer However family refused to send him to ECF wanted to take him home with home health services - Time Spent With Patient Total time spent is greater than 50% in coordination of care (as documented) at patient's floor/unit and/or counseling patient: - Subjective Interval history: Mr. Doran is a 87 year old male who presents the [place] urgent care with SOB, CRONIN and respiratory failure. He presented to the urgent care earlier in the evening complaining of shortness of breath, altered mental status, and impending respiratory arrest. He was placed on BiPAP and brought to our ER by squad. Upon arrival to ER, because of severe respiratory distress and failure, he was intubated and stabilized in the ER. Pt was admitted into ICU initially and started him on empirical abx. he was also required vasopressors initially. He got extubated on 11/10/17. He was continued on abx Levaquin and steroids. Pt was transferred to [facility] for further care. Now pt is alert, awake,demented and oriented to self only. Denied any CP. Currently on 3 lit O2. - Constitutional Vitals: Temp Pulse Resp BP Pulse Ox 97.7 F 103 16 139/83 91 11/13/17 11:04 11/13/17 11:04 11/13/17 11:04 11/13/17 11:04 11/13/17 11:04 General appearance: Present: A&O X 1, no acute distress, answers questions appropriately - Head Head exam: Present: atraumatic, normal inspection - Neck Neck exam general surgery: Present: supple - Respiratory Respiratory exam: Present: decreased breath sounds. Absent: rales, respiratory distress, rhonchi, wheezes - Cardiovascular Cardiovascular exam: Present: RRR, +S1, +S2. Absent: tachycardia - GI/Abdominal GI/Abdominal exam: Present: normal bowel sounds, soft. Absent: rebound, rigid, tenderness - Extremities Exam Extremities exam: Absent: calf tenderness, pedal edema, tenderness - Back Exam Back exam: Absent: CVA tenderness (L), CVA tenderness (R) - Neurological Exam Neurological exam: Present: alert, oriented X3 - Psychiatric Psychiatric exam: Present: normal affect, normal mood - Skin Skin exam: Absent: rash Internal Medicine: Result - Labs CBC & Chem 7: 11/13/17 05:10 11/13/17 05:10 Labs: Short CBC 11/13/17 Range/Units 05:10 WBC 4.2 L (4.3-11.1) K/mcL Hgb 11.2 L (12.9-16.9) g/dL Hct 34.9 L (37.5-50.1) % Plt Count 124 L (140-400) K/mcL Neutrophils # 3.2 (1.6-8.9) K/mcL BMP 11/13/17 05:10 Sodium 147 H Potassium 4.0 Chloride 107 Carbon Dioxide 36 H BUN 25 H Creatinine 0.81 Glucose 110 H Calcium 8.6 - ABG Interpretation ABG results: ABG ABG pH 7.40 pH Units (7.32-7.45) 11/10/17 04:39 ABG pCO2 59 mmHg (35-45) H 11/10/17 04:39 ABG pO2 85 mmHg (85-104) 11/10/17 04:39 ABG O2 Saturation 96 % (95-98) 11/10/17 04:39 PT/INR, D-dimer PT 14.0 Seconds (9.4-12.1) H 11/08/17 04:00 Consult Discharge Plan - Plan Referrals: [facility] [Primary Care Provider] - (working on a placement)
[2017-11-14] MEDS: *HR* Heparin 5,000 UNIT/ML VIAL SQ SCH (05:28)
[2017-11-14 06:05] LABS: BUN/Creatinine Ratio 33 (6-26); Blood Urea Nitrogen 23 mg/dL (8-23); Calcium 8.7 mg/dL (8.6-10.3); Carbon Dioxide 35 mEq/L (23-29); Chloride 106 mEq/L (98-107); Glucose 103 mg/dL (70-105); Magnesium 2.4 mg/dL (1.6-2.6); Osmolality,Calculated 300 (280-300); Sodium 143 mEq/L (136-145); eGFR For African Americans > 60 (> 60); eGFR For Non-African Americans > 60 (> 60)
[2017-11-14] MEDS: Budesonide/Formoterol 160/4.5 MDI IH SCH (07:58)
[2017-11-14] MEDS: Aspirin 81 MG TAB.CHEW PO SCH (08:32)
[2017-11-14] MEDS: predniSONE 10 MG TABLET PO SCH (08:32)
[2017-11-14] MEDS: levoFLOXacin 500 MG TABLET PO SCH (08:32)
--- NOTE | 2017-11-14 11:07 | Discharge Summary ---
- NOTES TO OUTPATIENT PROVIDER Notes to Outpatient Provider: f/u with PCP in one week. Stop taking HCTZ Date of Encounter: 11/14/17 Time of Encounter: 11:05 - Discharge Diagnosis (1) Sepsis Priority: Primary Status: Acute Qualifiers: Sepsis type: sepsis due to unspecified organism Qualified Code(s): A41.9 - Sepsis, unspecified organism (2) Pneumonia Priority: Primary Status: Acute Qualifiers: Pneumonia type: due to unspecified organism Laterality: bilateral Qualified Code(s): J18.9 - Pneumonia, unspecified organism (3) Hypernatremia Priority: Secondary Status: Acute (4) COPD exacerbation Priority: Secondary Status: Acute (5) Acute and chronic respiratory failure with hypercapnia Priority: Secondary Status: Acute (6) Acute and chronic respiratory failure with hypoxia Priority: Secondary Status: Acute (7) Elevated troponin Priority: Secondary Status: Acute (8) Acute pulmonary edema Priority: Secondary Status: Acute (9) DVT prophylaxis Priority: Secondary Status: Acute (10) Physical deconditioning Priority: Secondary Status: Acute Hospital course: Mr. Doran is a 87 year old male who presents the [place] urgent care with SOB, CRONIN and respiratory failure. He presented to the urgent care earlier in the evening complaining of shortness of breath, altered mental status, and impending respiratory arrest. He was placed on BiPAP and brought to our ER by squad. Upon arrival to ER, because of severe respiratory distress and failure, he was intubated and stabilized in the ER. Pt was admitted into ICU initially and started him on empirical abx. he was also required vasopressors initially. He got extubated on 11/10/17. He was continued on abx Levaquin and steroids. Pt was transferred to [facility] for further care. Now pt is alert, awake,demented and oriented to self only. Denied any CP. Currently on 3 lit O2. He was evaluated by PT / OT who recommend ECF placement, however pt's family do not want to send him to ECF for PT / OT. They wanted to take him with home health services. So will d/c him home in stable condition today. - Time Spent with Patient Total time spent providing and/or coordinating discharge services: - Discharge Medications Prescriptions: Budesonide/Formoterol 160/4.5 [Symbicort 160/4.5] 2 puff IH BIDR #1 inhaler predniSONE [PredniSONE] 20 mg PO DAILY #6 tablet Home Medications: Aspirin 81 mg PO DAILY 04/09/17 [History] Cholecalciferol (D-3) [Vitamin D] 1,000 unit PO DAILY 04/09/17 [History] Cyanocobalamin (B-12) [Vitamin B12] 1,000 mcg PO DAILY 04/09/17 [History] Donepezil [Aricept] 5 mg PO DAILY 04/09/17 [History] Lisinopril [Zestril] 5 mg PO DAILY 11/07/17 [History] Albuterol Sulfate [Albuterol Inhaler] 2 puff IH QID PRN 11/09/17 [History] Budesonide/Formoterol 160/4.5 [Symbicort 160/4.5] 2 puff IH BIDR #1 inhaler [Rx] Omeprazole [PriLOSEC] 40 mg PO DAILY@0730 capsule. 11/14/17 [Rx] predniSONE [PredniSONE] 20 mg PO DAILY #6 tablet 11/14/17 [Rx] Allergies/Adverse Reactions: 3 Allergy/AdvReac Type Severity Reaction Status Date / Time No Known Allergies Allergy Verified 10/26/17 18:20 Date of admission: 11/07/17 02:50 Primary care physician: PCP MEEK Consults: 11/07/17 05:23 Consult to Pulmonology [CONS] Routine Consulting Provider: [facility] Reason for Consult: ICU care Call Completed: No 11/09/17 10:32 Consult to Palliative Care [CONS] Routine Comment: Consulting Provider: Palliative Care Sherrie Reason for Consult: goals of care Call Completed: Yes 11/12/17 09:17 Consult to Occupational Therapy [CONS] Routine Comment: Evaluate, develop and implement POC Reason for Consult: eval for rehab Does patient have active BEDREST order?: No Is patient medically & hemodynamically stable?: Yes Consult to Physical Therapy [CONS] Routine Comment: Evaluate, develop and implement POC Reason for Consult: eval for rehab Does patient have active BEDREST order?: No Is patient medically & hemodynamically stable?: Yes - Constitutional Vitals: Temp Pulse Resp BP Pulse Ox 98.1 F 93 16 120/71 95 11/14/17 07:20 11/14/17 07:20 11/14/17 07:20 11/14/17 07:20 11/14/17 10:41 General appearance: Present: A&O X 1, no acute distress, answers questions appropriately - Head Head exam: Present: atraumatic, normal inspection - Neck Neck exam general surgery: Present: supple - Respiratory Respiratory exam: Present: decreased breath sounds. Absent: rales, respiratory distress, rhonchi, wheezes - Cardiovascular Cardiovascular exam: Present: RRR, +S1, +S2. Absent: tachycardia - GI/Abdominal GI/Abdominal exam: Present: normal bowel sounds, soft. Absent: rebound, rigid, tenderness - Extremities Exam Extremities exam: Absent: calf tenderness, pedal edema, tenderness - Back Exam Back exam: Absent: CVA tenderness (L), CVA tenderness (R) - Neurological Exam Neurological exam: Present: alert - Psychiatric Additional comments: Demented - Patient Status Disposition: Home Health Service Condition: Good Overall status at discharge: patient is back to baseline - Discharge Instructions Follow Up With: [facility] [[facility] Care Provider[facility] - (working on a placement) - Diet and Activity Activity: increase activity as tolerated, wear oxygen at all times (3 lit) Diet: low salt diet
[2017-11-14 11:11] VITALS: BP 144/79
== END 2017-11-14 14:25 | disposition home health service (06) | DRG 871 ==
LOC: EMEROO 22:22 → ICNU 11-07 02:50 → 2ANU 11-11 20:27
PROVIDERS: ADMIT Pediatrics; ATTEND Pediatrics

== ENCOUNTER 2018-04-28 22:04 | Inpatient (IN) ==
[2018-04-28] MEDS ORDERED: Isovue-370 500 ML INFUS..BTL IV ONE (22:12)
[2018-04-28 22:46] LABS: Basophils % 0.5 %; Eosinophils # 0.4 K/mcL (0.0-0.6); Eosinophils % 4.3 %; Hematocrit 42.2 % (37.5-50.1); Hemoglobin 12.7 g/dL (12.9-16.9); Immature Granulocytes % 0.4 % (0-4); Lymphocytes # 1.2 K/mcL (0.6-4.6); Lymphocytes % 14.9 %; Mean Corpuscular HGB Conc 30.1 g/dL (31.6-35.5); Mean Corpuscular Hemoglobin 29.2 pg (28.0-33.3); Monocytes # 1.2 K/mcL (0.0-1.3); Monocytes % 14.8 %; Neutrophils # 5.4 K/mcL (1.6-8.9); Platelet Count 214 K/mcL (140-400); Red Blood Count 4.35 M/mcL (4.19-5.50); Red Cell Distribution Width 12.6 % (11.5-14.5); Segmented Neutrophils % 65.1 %
[2018-04-28 23:09] LABS: Calcium 9.2 mg/dL (8.6-10.3); Potassium 4.9 mEq/L (3.5-5.1)
[2018-04-28 23:14] LABS: Troponin I 0.05 ng/mL (< 0.04)
--- NOTE | 2018-04-28 23:37 | Emergency Department Note ---
Disposition Clinical Impression: Pneumonia, Tachycardia, Sepsis Disposition: Admitted As Inpatient Condition: Fair General Adult HPI - General Chief complaint: ED Chest Pain Stated complaint: high heart rate Time Seen by Provider: 04/28/18 22:12 Source: patient, EMS Limitations: no limitations - History of Present Illness Pain Scale: 0 - Related Data Home Medications Medication Instructions Recorded Confirmed RX: Aspirin 81 mg PO DAILY 04/09/17 04/29/18 RX: Cholecalciferol (D-3) [Vitamin 1,000 unit PO DAILY 04/09/17 04/29/18 D] RX: Cyanocobalamin (B-12) [Vitamin 1,000 mcg PO DAILY 04/09/17 04/29/18 B12] RX: Donepezil [Aricept] 5 mg PO DAILY 04/09/17 04/29/18 RX: Lisinopril [Zestril] 5 mg PO DAILY 11/07/17 04/29/18 RX: Albuterol Sulfate [Albuterol 2 puff IH QID PRN 11/09/17 04/29/18 Inhaler] Ipratropium/Albuterol Neb [Duoneb] 3 ml IH Q6HR PRN 04/29/18 04/29/18 Isosorbide MONOnitrate (24 HR) 30 mg PO DAILY 04/29/18 04/29/18 [Imdur] Melatonin [Melatin] 9 mg PO HS 04/29/18 04/29/18 Potassium Chloride [Klor-Con 10] 10 meq PO BID 04/29/18 04/29/18 RX: Terazosin [Hytrin] 1 mg PO HS 04/29/18 04/29/18 RX: hydroCHLOROthiazide 25 mg PO DAILY 04/29/18 04/29/18 [Hydrochlorothiazide] Previous Rx's Medication Instructions Recorded RX: Budesonide/Formoterol 160/4.5 2 puff IH BIDR #1 inhaler 11/14/17 [Symbicort 160/4.5] Furosemide [Lasix] 40 mg PO DAILY #5 tablet 11/15/17 Allergies Allergy/AdvReac Type Severity Reaction Status Date / Time No Known Allergies Allergy Verified 04/29/18 13:33 Past Medical History - Past Medical History Medical history: Reports: CHF, CVA, dementia, hypertension Surgical history: Reports: no surgical history Psychiatric history: Reports: no psych history - Social History Smoking Status: Former smoker Smokeless Tobacco Status: No Alcohol use: Reports: none Drug use: Reports: none Physical Exam - General Limitations: no limitations Course Vital Signs Temperature 98.3 F 04/28/18 22:05 Pulse Rate 133 04/28/18 22:05 Respiratory Rate 24 04/28/18 22:05 Blood Pressure 104/61 04/28/18 22:05 O2 Sat by Pulse Oximetry 94 04/28/18 22:05 Temperature 98.3 F 04/28/18 22:05 Pulse Rate 129 04/29/18 04:42 Respiratory Rate 22 04/29/18 04:42 Blood Pressure 97/55 04/29/18 04:42 O2 Sat by Pulse Oximetry 96 04/29/18 04:42 Oxygen Delivery Oxygen Delivery Nasal Cannula Medical Decision Making - Lab Data Result diagrams: 04/30/18 00:43 04/30/18 00:43 Lab Results 04/28/18 04/28/18 04/28/18 Range/Units 21:25 21:25 21:25 WBC 8.3 (4.3-11.1) K/mcL RBC 4.35 (4.19-5.50) M/mcL Hgb 12.7 L (12.9-16.9) g/dL Hct 42.2 (37.5-50.1) % MCV 97.0 (83.0-100.0) fL MCH 29.2 (28.0-33.3) pg MCHC 30.1 L (31.6-35.5) g/dL RDW 12.6 (11.5-14.5) % Plt Count 214 (140-400) K/mcL MPV 11.0 (9.4-12.4) fL Immature Gran % 0.4 (0-4) % Seg Neutrophils % 65.1 % Lymphocytes % 14.9 % Monocytes % 14.8 % Eosinophils % 4.3 % Basophils % 0.5 % Neutrophils # 5.4 (1.6-8.9) K/mcL Lymphocytes # 1.2 (0.6-4.6) K/mcL Monocytes # 1.2 (0.0-1.3) K/mcL Eosinophils # 0.4 (0.0-0.6) K/mcL Basophils # 0.0 (0.0-0.2) K/mcL Sodium 139 (136-145) mEq/L Potassium 4.9 (3.5-5.1) mEq/L Chloride 97 L (98-107) mEq/L Carbon Dioxide 33 H (23-29) mEq/L BUN 26 H (8-23) mg/dL Creatinine 1.67 H (0.70-1.30) mg/dL Est GFR ( Amer) 48 L (> 60) Est GFR (Non-Af Amer) 39 L (> 60) BUN/Creatinine Ratio 16 (6-26) Glucose 89 (70-105) mg/dL Calculated Osmolality 292 (280-300) Lactic Acid 2.0 (0.5-2.2) mmol/L Calcium 9.2 (8.6-10.3) mg/dL Troponin I 0.05 H* (< 0.04) ng/mL B-Natriuretic Peptide (Less than 100) pg/mL Urine Color (Yellow) Urine Clarity (Clear) Urine pH (5.0-8.0) pH Units Ur Specific [place] (1.010-1.025) Urine Protein (Neg-Trace) mg/dL Urine Glucose (UA) (Normal) mg/dL Urine Ketones (Negative) mg/dL Urine Blood (Negative) Urine Nitrite (Negative) Urine Bilirubin (Negative) Urine Urobilinogen (Normal) mg/dL Ur Leukocyte Esterase (Negative) Urine Microscopic RBC (0-3) per hpf Urine Microscopic WBC (0-3) per hpf Ur Squamous Epith Cells (None-Few) per lpf Urine Bacteria (None-Few) per hpf WBC Casts (None Seen) per lpf Ur Culture Indicated? (NO) 04/28/18 04/29/18 04/29/18 Range/Units 21:25 00:22 00:59 WBC (4.3-11.1) K/mcL RBC (4.19-5.50) M/mcL Hgb (12.9-16.9) g/dL Hct (37.5-50.1) % MCV (83.0-100.0) fL MCH (28.0-33.3) pg MCHC (31.6-35.5) g/dL RDW (11.5-14.5) % Plt Count (140-400) K/mcL MPV (9.4-12.4) fL Immature Gran % (0-4) % Seg Neutrophils % % Lymphocytes % % Monocytes % % Eosinophils % % Basophils % % Neutrophils # (1.6-8.9) K/mcL Lymphocytes # (0.6-4.6) K/mcL Monocytes # (0.0-1.3) K/mcL Eosinophils # (0.0-0.6) K/mcL Basophils # (0.0-0.2) K/mcL Sodium (136-145) mEq/L Potassium (3.5-5.1) mEq/L Chloride (98-107) mEq/L Carbon Dioxide (23-29) mEq/L BUN (8-23) mg/dL Creatinine (0.70-1.30) mg/dL Est GFR ( Amer) (> 60) Est GFR (Non-Af Amer) (> 60) BUN/Creatinine Ratio (6-26) Glucose (70-105) mg/dL Calculated Osmolality (280-300) Lactic Acid 1.8 (0.5-2.2) mmol/L Calcium (8.6-10.3) mg/dL Troponin I (< 0.04) ng/mL B-Natriuretic Peptide 134 H (Less than 100) pg/mL Urine Color Dark Yellow (Yellow) Urine Clarity Cloudy A (Clear) Urine pH 5.5 (5.0-8.0) pH Units Ur Specific [place] 1.006 L (1.010-1.025) Urine Protein 100 H (Neg-Trace) mg/dL Urine Glucose (UA) Normal (Normal) mg/dL Urine Ketones Trace H (Negative) mg/dL Urine Blood Small H (Negative) Urine Nitrite Negative (Negative) Urine Bilirubin Small H (Negative) Urine Urobilinogen Normal (Normal) mg/dL Ur Leukocyte Esterase Negative (Negative) Urine Microscopic RBC 5-15 H (0-3) per hpf Urine Microscopic WBC 5-15 H (0-3) per hpf Ur Squamous Epith Cells Many H (None-Few) per lpf Urine Bacteria None Seen (None-Few) per hpf WBC Casts Moderate H (None Seen) per lpf Ur Culture Indicated? NO (NO) Attestation Statement - Attestation Attestation: I examined this patient and my medical decision-making was reviewed with the Resident Physician. I agree with the documented findings, disposition and treatment plan as described except to the extent set forth below. Findings consistent with possible pulmonary embolism. Despite the somewhat low GFR and acute kidney injury and I do have a strong gestalt for pulmonary embolism given hypoxia, tachycardia, right bundle branch block on EKG, elevated cardiac biomarkers as well as elevated BNP. The patient will undergo CT scan, IV hydration, admission the hospital for further management. Due to patient compliance we cannot obtain a CAT scan. He was not able to sit still. We will get Haldol and proceed with getting the CAT scan. Despite findings of acute kidney injury in moderate we low GFR would proceed with CAT scan and IV hydration as he does have right bundle-branch block as well as heart strain and erratic findings on laboratory analyses. I cannot exclude pulmonary embolus him. We will proceed with treatment of possible pneumonitis given findings on chest x-ray. Antibiotics as well as blood cultures will be sent. I would continue with gentle hydration in the event this does represent sepsis. Lactate was checked and was normal. Patient will be signed out to Dr. Morales and subsequently admitted to the hospital. If CAT scan cannot be obtained and will be discussion with the hospitalist him about empiric heparinization.
[2018-04-29] MEDS ORDERED: Haloperidol Lactate 5 MG/ML VIAL IVP ONE (00:49)
[2018-04-29] MEDS ORDERED: Cefepime HCl 2,000 MG in 0.9 % Sodium Chloride Mini Bag 100 ML IVPB STA (00:50)
[2018-04-29] MEDS ORDERED: Levofloxacin 750 MG/150 ML 750 MG/150 ML BAG IVPB ONE (00:51)
--- NOTE | 2018-04-29 00:54 | Emergency Department Note ---
Disposition Clinical Impression: Tachycardia Pneumonia Qualifiers: Pneumonia type: due to unspecified organism Laterality: left Lung location: lower lobe of lung Qualified Code(s): J18.1 - Lobar pneumonia, unspecified organism Sepsis Qualifiers: Sepsis type: sepsis due to unspecified organism Qualified Code(s): A41.9 - Sepsis, unspecified organism Disposition: Admitted As Inpatient Condition: Fair General Adult HPI - General Chief complaint: ED Chest Pain Stated complaint: high heart rate Time Seen by Provider: 04/28/18 22:12 Source: patient, EMS Mode of arrival: EMS Limitations: no limitations Nursing Notes Reviewed: Yes Vital Signs Reviewed: Yes - History of Present Illness HPI Narrative: Patient is an 87-year-old male that was transferred from the NH for evaluation of tachycardia, hypotension, hypoxia as well as an elevated d-dimer. Patient has a past medical history of COPD, dementia, TIA, CVA, and hypertension. On arrival the patient is sitting up in bed very talkative denies any complaints at this time. No family present at this time to obtain further history. Patient has a history of dementia therefore history obtained is not completely reliable. According to squad patient received 1.5L normal saline en route. Pain Scale: 0 - Related Data Home Medications Medication Instructions Recorded Confirmed Aspirin 81 mg PO DAILY 04/09/17 04/29/18 Cholecalciferol (D-3) [Vitamin D] 1,000 unit PO DAILY 04/09/17 04/29/18 Cyanocobalamin (B-12) [Vitamin B12] 1,000 mcg PO DAILY 04/09/17 04/29/18 Donepezil [Aricept] 5 mg PO DAILY 04/09/17 04/29/18 Lisinopril [Zestril] 5 mg PO DAILY 11/07/17 04/29/18 Albuterol Sulfate [Albuterol 2 puff IH QID PRN 11/09/17 04/29/18 Inhaler] Ipratropium/Albuterol Neb [Duoneb] 3 ml IH Q6HR PRN 04/29/18 04/29/18 Isosorbide MONOnitrate (24 HR) 30 mg PO DAILY 04/29/18 04/29/18 [Imdur] Melatonin [Melatin] 9 mg PO HS 04/29/18 04/29/18 Potassium Chloride [Klor-Con 10] 10 meq PO BID 04/29/18 04/29/18 Terazosin [Hytrin] 1 mg PO HS 04/29/18 04/29/18 hydroCHLOROthiazide 25 mg PO DAILY 04/29/18 04/29/18 [Hydrochlorothiazide] Previous Rx's Medication Instructions Recorded Budesonide/Formoterol 160/4.5 2 puff IH BIDR #1 inhaler 11/14/17 [Symbicort 160/4.5] Furosemide [Lasix] 40 mg PO DAILY #5 tablet 11/15/17 Allergies Allergy/AdvReac Type Severity Reaction Status Date / Time No Known Allergies Allergy Verified 04/29/18 13:33 Limitations: ROS unobtainable due to patients medical condition Past Medical History - Past Medical History Medical history: Reports: CHF, CVA, dementia, hypertension Surgical history: Reports: no surgical history Psychiatric history: Reports: no psych history - Social History Smoking Status: Former smoker Smokeless Tobacco Status: No Alcohol use: Reports: none Drug use: Reports: none Physical Exam - General Limitations: no limitations, altered mental status (Dementia. Alert and talkative, pleasant, answers to questions are inconsistent. ) General appearance: alert, in no apparent distress - Head Head exam: atraumatic, normocephalic, normal inspection - Eye Eye exam: Present: normal appearance - ENT ENT exam: normal exam, normal oropharynx, mucous membranes dry - Neck Neck exam: Present: normal inspection, full ROM, trachea midline - Chest Chest inspection: Present: normal inspection, symmetric chest wall rise. Absent: tenderness - Respiratory Respiratory exam: Present: normal lung sounds bilaterally. Absent: respiratory distress, wheezes, accessory muscle use - Cardiovascular Cardiovascular exam: Present: normal rhythm, tachycardia, normal heart sounds, +S1, +S2 - Abdominal Exam Abdominal exam: Present: soft, Non-Tender, normal bowel sounds - Extremities Exam Extremities exam: Present: normal inspection, full ROM, normal capillary refill. Absent: tenderness, pedal edema, calf tenderness - Back Exam Back exam: Present: normal inspection. Absent: full ROM, tenderness - Neurological Exam Neurological exam: Present: alert - Psychiatric Psychiatric exam: Present: normal affect, normal mood - Skin Skin exam: Present: warm, dry, intact, normal color Course Course Narrative: Arrival the patient is sitting up and very talkative in his bed and appears to be in good spirits. He is tachycardic in the 130s and blood pressure is diffic ult to obtain however when obtained appropriately his BP was normotensive at 107/72. Saturation is 1 her percent on 3 L. The family is now present at bedside and they state that he has a history of COPD in which she is on 4 L chronically at home. Suspected the patient is hypoxic at this time. Given his elevated d-dimer and his tachycardia plan is time is for him to undergo evaluation for a pulmonary embolism in which we will obtain basic labs and patient will have a CT of the chest. According to the patient's family he is also been having increased productive cough with sputum production. Family states that the patient has CHF and is on a Lasix pill twice a day. Due to the patient has not been complaining of any shortness of breath or chest pain, however they state that the patient has been acting more confused than his normal baseline. Denies any fevers. Patient will also undergo workup for possible infection concerning signs for possible pneumonia causing the patient to have worsening mental status and tachycardia. - Reevaluation(s) Reevaluation #1: Patient's lab work is returned she does have a very mild elevation in his troponin at 0.05 as well as an elevation of his creatinine at 1.6. Possibly due to poor renal perfusion secondary to infection versus ulnar embolism. Patient had blood cultures taken and he will be initiated on empiric coverage for pneumonia. We attempted CTA of the chest, however the patient was not remaining still for the study so he required 5 mg of Haldol. We will attempt to CT the patient's chest additional time and search for pulmonary embolism. The meantime he will be signed out to the night team which plan at this time is to obtain the CTA of the chest and if that is unobtainable then patient will be admitted and treated empirically for pulmonary embolism as well as pneumonia. Patient r eceived 1.5L normal saline prior to arrival. Considering patient has Hx of CHF and is on lasix we will judiciously hydrate the patient. Will give him one more 500ml bolus at this time. Time: 01:20 Vital Signs Temperature 98.3 F 04/28/18 22:05 Pulse Rate 133 04/28/18 22:05 Respiratory Rate 24 04/28/18 22:05 Blood Pressure 104/61 04/28/18 22:05 O2 Sat by Pulse Oximetry 94 10/31/18 22:05 Temperature 97.8 F 05/01/18 12:31 Pulse Rate 134 05/01/18 15:28 Respiratory Rate 18 05/01/18 12:31 Blood Pressure 110/66 05/01/18 15:28 O2 Sat by Pulse Oximetry 90 05/01/18 15:28 Oxygen Delivery Oxygen Delivery Room Air Medical Decision Making - Medical Records Medical records reviewed: Yes I reviewed the patient's medical records. - Lab Data Lab results reviewed: Yes I reviewed the patient's lab results. Result diagrams: 04/30/18 00:43 04/30/18 00:43 Lab Results 04/28/18 04/28/18 04/28/18 Range/Units 21:25 21:25 21:25 WBC 8.3 (4.3-11.1) K/mcL RBC 4.35 (4.19-5.50) M/mcL Hgb 12.7 L (12.9-16.9) g/dL Hct 42.2 (37.5-50.1) % MCV 97.0 (83.0-100.0) fL MCH 29.2 (28.0-33.3) pg MCHC 30.1 L (31.6-35.5) g/dL RDW 12.6 (11.5-14.5) % Plt Count 214 (140-400) K/mcL MPV 11.0 (9.4-12.4) fL Immature Gran % 0.4 (0-4) % Seg Neutrophils % 65.1 % Lymphocytes % 14.9 % Monocytes % 14.8 % Eosinophils % 4.3 % Basophils % 0.5 % Neutrophils # 5.4 (1.6-8.9) K/mcL Lymphocytes # 1.2 (0.6-4.6) K/mcL Monocytes # 1.2 (0.0-1.3) K/mcL Eosinophils # 0.4 (0.0-0.6) K/mcL Basophils # 0.0 (0.0-0.2) K/mcL Sodium 139 (136-145) mEq/L Potassium 4.9 (3.5-5.1) mEq/L Chloride 97 L (98-107) mEq/L Carbon Dioxide 33 H (23-29) mEq/L BUN 26 H (8-23) mg/dL Creatinine 1.67 H (0.70-1.30) mg/dL Est GFR ( Amer) 48 L (> 60) Est GFR (Non-Af Amer) 39 L (> 60) BUN/Creatinine Ratio 16 (6-26) Glucose 89 (70-105) mg/dL Calculated Osmolality 292 (280-300) Lactic Acid 2.0 (0.5-2.2) mmol/L Calcium 9.2 (8.6-10.3) mg/dL Troponin I 0.05 H* (< 0.04) ng/mL B-Natriuretic Peptide (Less than 100) pg/mL Urine Color (Yellow) Urine Clarity (Clear) Urine pH (5.0-8.0) pH Units Ur Specific [place] (1.010-1.025) Urine Protein (Neg-Trace) mg/dL Urine Glucose (UA) (Normal) mg/dL Urine Ketones (Negative) mg/dL Urine Blood (Negative) Urine Nitrite (Negative) Urine Bilirubin (Negative) Urine Urobilinogen (Normal) mg/dL Ur Leukocyte Esterase (Negative) Urine Microscopic RBC (0-3) per hpf Urine Microscopic WBC (0-3) per hpf Ur Squamous Epith Cells (None-Few) per lpf Urine Bacteria (None-Few) per hpf WBC Casts (None Seen) per lpf Ur Culture Indicated? (NO) 04/28/18 04/29/18 04/29/18 Range/Units 21:25 00:22 00:59 WBC (4.3-11.1) K/mcL RBC (4.19-5.50) M/mcL Hgb (12.9-16.9) g/dL Hct (37.5-50.1) % MCV (83.0-100.0) fL MCH (28.0-33.3) pg MCHC (31.6-35.5) g/dL RDW (11.5-14.5) % Plt Count (140-400) K/mcL MPV (9.4-12.4) fL Immature Gran % (0-4) % Seg Neutrophils % % Lymphocytes % % Monocytes % % Eosinophils % % Basophils % % Neutrophils # (1.6-8.9) K/mcL Lymphocytes # (0.6-4.6) K/mcL Monocytes # (0.0-1.3) K/mcL Eosinophils # (0.0-0.6) K/mcL Basophils # (0.0-0.2) K/mcL Sodium (136-145) mEq/L Potassium (3.5-5.1) mEq/L Chloride (98-107) mEq/L Carbon Dioxide (23-29) mEq/L BUN (8-23) mg/dL Creatinine (0.70-1.30) mg/dL Est GFR ( Amer) (> 60) Est GFR (Non-Af Amer) (> 60) BUN/Creatinine Ratio (6-26) Glucose (70-105) mg/dL Calculated Osmolality (280-300) Lactic Acid 1.8 (0.5-2.2) mmol/L Calcium (8.6-10.3) mg/dL Troponin I (< 0.04) ng/mL B-Natriuretic Peptide 134 H (Less than 100) pg/mL Urine Color Dark Yellow (Yellow) Urine Clarity Cloudy A (Clear) Urine pH 5.5 (5.0-8.0) pH Units Ur Specific [place] 1.006 L (1.010-1.025) Urine Protein 100 H (Neg-Trace) mg/dL Urine Glucose (UA) Normal (Normal) mg/dL Urine Ketones Trace H (Negative) mg/dL Urine Blood Small H (Negative) Urine Nitrite Negative (Negative) Urine Bilirubin Small H (Negative) Urine Urobilinogen Normal (Normal) mg/dL Ur Leukocyte Esterase Negative (Negative) Urine Microscopic RBC 5-15 H (0-3) per hpf Urine Microscopic WBC 5-15 H (0-3) per hpf Ur Squamous Epith Cells Many H (None-Few) per lpf Urine Bacteria None Seen (None-Few) per hpf WBC Casts Moderate H (None Seen) per lpf Ur Culture Indicated? NO (NO) - Radiology Data Radiology results reviewed: Yes I reviewed the patient's radiology results. Chest CT 04/29/18 04:43 IMPRESSION: 1. Severely limited study. 2. No central or proximal segmental pulmonary embolus. Beyond this level the study is considered nondiagnostic. 3. Left lower lobe atelectasis or pneumonia. 4. Right upper lobe pulmonary nodule. Recommended follow-up: In a low-risk patient, no routine follow-up. In a high-risk patient, optional CT at 12 months. D/ / Graeme Tirado MD / Graeme Tirado MD Interpreting Provider: Graeme Tirado MD Echocardiogram 04/29/18 07:20 Impressions: LVEF 55%. Normal LV chamber size, wall thickness and function. Atypical septal motion consistent with bundle branch block. Indeterminate diastolic function. Dilated right ventricle with normal function. Severely dilated right atrium. Moderate tricuspid regurgitation. Severe pulmonary hypertension. Estimated RVSP is 74 mmHg. Left Ventricular Wall Motion: Rest Echo Findings All wall segments showed normal motion. Findings: Study Quality * Technically adequate exam. ECG Findings * Atrial flutter, BBB, with RVR. Left Ventricle * LVEF 55%. * Normal LV chamber size, wall thickness and function. * Atypical septal motion consistent with bundle branch block. * Indeterminate diastolic function. Right Ventricle * Dilated right ventricle with normal function. Left Atrium * Moderately dilated left atrium. Right Atrium * Severely dilated right atrium. Aortic Valve * Trileaflet aortic valve. * Mildly sclerotic aortic valve leaflets. * No aortic regurgitation. * No aortic stenosis. Mitral Valve * Mild mitral annular calcification * Trace mitral regurgitation. * No mitral stenosis. Tricuspid Valve * Normal tricuspid valve structure. * Moderate tricuspid regurgitation. * Severe pulmonary hypertension. * Estimated RVSP is 74 mmHg. * Estimated RA pressure is 5 mmHg. Pulmonic Valve * Normal pulmonic valve structure and function. * Trace pulmonic regurgitation. Aorta * Normally sized aortic root. Pericardium * The pericardium appears normal. IVC * Normal IVC dimensions and inspiratory collapse. Pulmonary Artery * Normal visualized portions of the main pulmonary artery. Retroperitoneum Ultrasound 04/29/18 09:00 IMPRESSION: 1.Unremarkable ultrasound of the kidneys. D/ / Louie Epstein MD / Louie Epstein MD Interpreting Provider: Louie Epstein MD Chest CTA 04/29/18 22:13 IMPRESSION: 1. Severely limited study. 2. No central or proximal segmental pulmonary embolus. Beyond this level the study is considered nondiagnostic. 3. Left lower lobe atelectasis or pneumonia. 4. Right upper lobe pulmonary nodule. Recommended follow-up: In a low-risk patient, no routine follow-up. In a high-risk patient, optional CT at 12 months. D/ / Graeme Tiardo MD / Graeme Tirado MD Interpreting Provider: Graeme Tirado MD Head CT 04/29/18 23:55 IMPRESSION: Nondiagnostic study. D/ / Graeme Tirado MD / Graeme Tirado MD Interpreting Provider: Graeme Tirado MD Chest X-Ray 05/01/18 08:15 IMPRESSION: Airspace opacity at the left lung base, may be related to atelectasis versus pneumonia. Mild left pleural effusion. Increased lung markings bilaterally, may be related to bronchitis, mild pulmonary edema versus pneumonia. D/ / Tano Taylor MD / Tano Taylor MD Interpreting Provider: Tano Taylor MD - EKG Data EKG #1 EKG attestation: Yes I reviewed and interpreted this EKG. EKG results narrative: EKG done at 22:11 shows sinus tachycardia rate of 134 bpm. Normal axis. MI interval is within normal limits, QRS is slightly increased at 132. QT is 346. Patient does have a right bundle branch block. No signs of ST elevation or ischemia at this time.
--- NOTE | 2018-04-29 01:04 | Emergency Department Note ---
START Narrative - START START: Pt signed out to me by dr tomas. plan to f/u w/ CTA chest and admit update: Patient was difficult to do any imaging on in the CAT scan due to him fighting us due to his dementia. He was initially given Haldol but that did not help and they were unable to get the scans they sent him back to the emergency room. We then elected to give him some ketamine as his blood pressure was in the 90 range. The family state his blood pressure was normal for him. I did not want to give him any other medicine that would drop his blood pressure for sedation purposes. Therefore, we elected to use ketamine. We rolled to get better images at that time. They did not see any obvious pulmonary embolus on the CT of the chest that there was a lot of motion artifact. He does have a left lower lobe pneumonia. CT of the head was nonacute as well. This was difficult to visualize but there is no signs of any intra-cranial pathology with his motion artifact. We have chased his elevated heart rate the entire visit. He was given enough IV fluids. He was given over 3 L of fluid total. Given vancomycin and Zosyn earlier. He has no complaints of any chest pain. His white count was not significant. He was slightly dry with an elevated of his creatinine. His EKGs have consistently demonstrated a sinus tachycardia. His last EKG still shows evidence of a right bundle-branch block. It is very regular and to me appears as though it is more of a sinus tachycardia. I do not feel this is atrial fibrillation. Heart rate is in the 120s. I do not feel this is in A. flutter with a 2-1 block. Family again states this is a normal blood pressure for him. I do not feel he needs anymore IV fluids as he does have a history of CHF. The hospitalist did accept the patient. Patient will need further evaluated for his elevated heart rate. He was covered for possible pneumonia earlier with antibiotics. Critical care time of 60 minutes spent in medical management of the patient's dementia causing problems with imaging as well as tachycardia and concerns for initially for low blood pressures.
[2018-04-29 01:08] LABS: Bilirubin,Urine Small (Negative); Blood,Urine Small (Negative); Clarity,Urine Cloudy (Clear); Color,Urine Dark Yellow (Yellow); Glucose,Urine (UA) Normal (Normal); Ketones,Urine Trace mg/dL (Negative); Leukocyte Esterase,Urine Negative (Negative); Nitrite,Urine Negative (Negative); PH,Urine 5.5 pH Units (5.0-8.0); Protein,Urine 100 mg/dL (Neg-Trace); Specific Gravity,Urine 1.006 (1.010-1.025); Urobilinogen,Urine Normal (Normal)
[2018-04-29 01:09] LABS: Bacteria,Urine None Seen per hpf (None-Few); Squamous Epithelial Cell,Urine Many per lpf (None-Few)
[2018-04-29] MEDS ORDERED: 0.9 % Sodium Chloride 500 ML IVC ONE (01:22)
[2018-04-29 01:32] LABS: White Blood Cell Casts,Urine Moderate per lpf (None Seen)
[2018-04-29] MEDS ORDERED: 0.9 % Sodium Chloride 1,000 ML IVC ONE ×2 (03:32→04:10)
[2018-04-29] MEDS ORDERED: 0.9 % Sodium Chloride 1,000 ML ONE ×2 (03:33→04:17)
--- NOTE | 2018-04-29 04:50 | Emergency Department Note ---
Disposition Clinical Impression: Tachycardia Pneumonia Qualifiers: Pneumonia type: due to unspecified organism Laterality: left Lung location: lower lobe of lung Qualified Code(s): J18.1 - Lobar pneumonia, unspecified organism Sepsis Qualifiers: Sepsis type: sepsis due to unspecified organism Qualified Code(s): A41.9 - Sepsis, unspecified organism Disposition: Admitted As Inpatient Condition: Fair Time of Disposition: 05:51 General Adult HPI - General Chief complaint: ED Chest Pain Stated complaint: high heart rate Time Seen by Provider: 04/28/18 22:12 Source: patient, EMS Mode of arrival: EMS Limitations: no limitations - History of Present Illness Pain Scale: 0 - Related Data Home Medications Medication Instructions Recorded Confirmed RX: Aspirin 81 mg PO DAILY 04/09/17 12/19/17 RX: Cholecalciferol (D-3) [Vitamin 1,000 unit PO DAILY 04/09/17 12/19/17 D] RX: Cyanocobalamin (B-12) [Vitamin 1,000 mcg PO DAILY 04/09/17 12/19/17 B12] RX: Donepezil [Aricept] 5 mg PO DAILY 04/09/17 12/19/17 RX: Lisinopril [Zestril] 5 mg PO DAILY 11/07/17 12/19/17 RX: Albuterol Sulfate [Albuterol 2 puff IH QID PRN 11/09/17 12/19/17 Inhaler] Previous Rx's Medication Instructions Recorded RX: Budesonide/Formoterol 160/4.5 2 puff IH BIDR #1 inhaler 11/14/17 [Symbicort 160/4.5] RX: Omeprazole [PriLOSEC] 40 mg PO DAILY@0730 capsule.dr 11/14/17 Furosemide [Lasix] 40 mg PO DAILY #5 tablet 11/15/17 RX: Potassium Chloride [K-Tab ER] 8 meq PO BID #6 tablet.er 11/15/17 Azithromycin [Zithromax Tri-Félix] 500 mg PO DAILY #3 tablet 12/19/17 Allergies Allergy/AdvReac Type Severity Reaction Status Date / Time No Known Allergies Allergy Verified 01/18/18 14:07 Past Medical History - Past Medical History Medical history: Reports: CHF, CVA, dementia, hypertension Surgical history: Reports: no surgical history Psychiatric history: Reports: no psych history - Social History Smoking Status: Former smoker Smokeless Tobacco Status: No Alcohol use: Reports: none Drug use: Reports: none Physical Exam - General Limitations: no limitations General appearance: alert, in no apparent distress Course Vital Signs Temperature 98.3 F 04/28/18 22:05 Pulse Rate 133 04/28/18 22:05 Respiratory Rate 24 04/28/18 22:05 Blood Pressure 104/61 04/28/18 22:05 O2 Sat by Pulse Oximetry 94 04/28/18 22:05 Temperature 98.3 F 04/28/18 22:05 Pulse Rate 129 04/29/18 04:42 Respiratory Rate 22 04/29/18 04:42 Blood Pressure 97/55 04/29/18 04:42 O2 Sat by Pulse Oximetry 96 04/29/18 04:42 Oxygen Delivery Oxygen Delivery Nasal Cannula Medical Decision Making - MDM Narrative Medical decision making narrative: Patient was received in sign out from Dr. Adan and Dr. Foster. Please see their documentation for history of present illness, physical exam and initial medical decision making. Patient was combative with going to CT so the day team initially had given the patient 5 of Haldol. Patient remained combative and would not cooperate with CT scan so the patient was given ketamine at the CT scanner. CT scans were obtained. Studies were somewhat limited but there is no significant evidence of central or segmental PE. Family stated that the patient's blood pressure his baseline systolic in the 90s. There is concern for possible pneumonia on the CT scan of the chest. Patient is ready been given antibiotics and fluids. Patient does meet sepsis criteria. Patient does not have an elevated lactic at this time. Patient was started on broad-spectrum antibiotics we will need admission to the hospital. I called and spoke with the admitting hospitalist Dr. Hopkins and he has accepted the patient to their service. Patient be admitted to the hospital at this time for further evaluation and management. - Medical Records Medical records reviewed: Yes I reviewed the patient's medical records. - Lab Data Lab results reviewed: Yes I reviewed the patient's lab results. Result diagrams: 04/28/18 21:25 04/28/18 21:25 Lab Results 04/28/18 04/28/18 04/28/18 Range/Units 21:25 21:25 21:25 WBC 8.3 (4.3-11.1) K/mcL RBC 4.35 (4.19-5.50) M/mcL Hgb 12.7 L (12.9-16.9) g/dL Hct 42.2 (37.5-50.1) % MCV 97.0 (83.0-100.0) fL MCH 29.2 (28.0-33.3) pg MCHC 30.1 L (31.6-35.5) g/dL RDW 12.6 (11.5-14.5) % Plt Count 214 (140-400) K/mcL MPV 11.0 (9.4-12.4) fL Immature Gran % 0.4 (0-4) % Seg Neutrophils % 65.1 % Lymphocytes % 14.9 % Monocytes % 14.8 % Eosinophils % 4.3 % Basophils % 0.5 % Neutrophils # 5.4 (1.6-8.9) K/mcL Lymphocytes # 1.2 (0.6-4.6) K/mcL Monocytes # 1.2 (0.0-1.3) K/mcL Eosinophils # 0.4 (0.0-0.6) K/mcL Basophils # 0.0 (0.0-0.2) K/mcL Sodium 139 (136-145) mEq/L Potassium 4.9 (3.5-5.1) mEq/L Chloride 97 L (98-107) mEq/L Carbon Dioxide 33 H (23-29) mEq/L BUN 26 H (8-23) mg/dL Creatinine 1.67 H (0.70-1.30) mg/dL Est GFR ( Amer) 48 L (> 60) Est GFR (Non-Af Amer) 39 L (> 60) BUN/Creatinine Ratio 16 (6-26) Glucose 89 (70-105) mg/dL Calculated Osmolality 292 (280-300) Lactic Acid 2.0 (0.5-2.2) mmol/L Calcium 9.2 (8.6-10.3) mg/dL Troponin I 0.05 H* (< 0.04) ng/mL B-Natriuretic Peptide (Less than 100) pg/mL Urine Color (Yellow) Urine Clarity (Clear) Urine pH (5.0-8.0) pH Units Ur Specific [place] (1.010-1.025) Urine Protein (Neg-Trace) mg/dL Urine Glucose (UA) (Normal) mg/dL Urine Ketones (Negative) mg/dL Urine Blood (Negative) Urine Nitrite (Negative) Urine Bilirubin (Negative) Urine Urobilinogen (Normal) mg/dL Ur Leukocyte Esterase (Negative) Urine Microscopic RBC (0-3) per hpf Urine Microscopic WBC (0-3) per hpf Ur Squamous Epith Cells (None-Few) per lpf Urine Bacteria (None-Few) per hpf WBC Casts (None Seen) per lpf Ur Culture Indicated? (NO) 04/28/18 04/29/18 04/29/18 Range/Units 21:25 00:22 00:59 WBC (4.3-11.1) K/mcL RBC (4.19-5.50) M/mcL Hgb (12.9-16.9) g/dL Hct (37.5-50.1) % MCV (83.0-100.0) fL MCH (28.0-33.3) pg MCHC (31.6-35.5) g/dL RDW (11.5-14.5) % Plt Count (140-400) K/mcL MPV (9.4-12.4) fL Immature Gran % (0-4) % Seg Neutrophils % % Lymphocytes % % Monocytes % % Eosinophils % % Basophils % % Neutrophils # (1.6-8.9) K/mcL Lymphocytes # (0.6-4.6) K/mcL Monocytes # (0.0-1.3) K/mcL Eosinophils # (0.0-0.6) K/mcL Basophils # (0.0-0.2) K/mcL Sodium (136-145) mEq/L Potassium (3.5-5.1) mEq/L Chloride (98-107) mEq/L Carbon Dioxide (23-29) mEq/L BUN (8-23) mg/dL Creatinine (0.70-1.30) mg/dL Est GFR ( Amer) (> 60) Est GFR (Non-Af Amer) (> 60) BUN/Creatinine Ratio (6-26) Glucose (70-105) mg/dL Calculated Osmolality (280-300) Lactic Acid 1.8 (0.5-2.2) mmol/L Calcium (8.6-10.3) mg/dL Troponin I (< 0.04) ng/mL B-Natriuretic Peptide 134 H (Less than 100) pg/mL Urine Color Dark Yellow (Yellow) Urine Clarity Cloudy A (Clear) Urine pH 5.5 (5.0-8.0) pH Units Ur Specific [place] 1.006 L (1.010-1.025) Urine Protein 100 H (Neg-Trace) mg/dL Urine Glucose (UA) Normal (Normal) mg/dL Urine Ketones Trace H (Negative) mg/dL Urine Blood Small H (Negative) Urine Nitrite Negative (Negative) Urine Bilirubin Small H (Negative) Urine Urobilinogen Normal (Normal) mg/dL Ur Leukocyte Esterase Negative (Negative) Urine Microscopic RBC 5-15 H (0-3) per hpf Urine Microscopic WBC 5-15 H (0-3) per hpf Ur Squamous Epith Cells Many H (None-Few) per lpf Urine Bacteria None Seen (None-Few) per hpf WBC Casts Moderate H (None Seen) per lpf Ur Culture Indicated? NO (NO) - Radiology Data Radiology results reviewed: Yes I reviewed the patient's radiology results. Chest X-Ray 04/28/18 22:13 IMPRESSION: Nonspecific prominence of the pulmonary vascular/interstitial markings can be seen in setting of mild vascular congestion, chronic interstitial change and/or atypical pneumonitis. Findings appear to be superimposed on a background of emphysematous changes. No focal airspace consolidation. D/ / Murphy Wilcox / Murphy Wilcox Interpreting Provider: Murphy Wilcox Chest CT 04/29/18 04:43 IMPRESSION: 1. Severely limited study. 2. No central or proximal segmental pulmonary embolus. Beyond this level the study is considered nondiagnostic. 3. Left lower lobe atelectasis or pneumonia. 4. Right upper lobe pulmonary nodule. Recommended follow-up: In a low-risk patient, no routine follow-up. In a high-risk patient, optional CT at 12 months. D/ / Graeme Tirado MD / Graeme Tirado MD Interpreting Provider: Graeme Tirado MD Chest CTA 04/29/18 22:13 IMPRESSION: 1. Severely limited study. 2. No central or proximal segmental pulmonary embolus. Beyond this level the study is considered nondiagnostic. 3. Left lower lobe atelectasis or pneumonia. 4. Right upper lobe pulmonary nodule. Recommended follow-up: In a low-risk patient, no routine follow-up. In a high-risk patient, optional CT at 12 months. D/ / Graeme Tirado MD / Graeme Tirado MD Interpreting Provider: Graeme Tirado MD Head CT 04/29/18 23:55 IMPRESSION: Nondiagnostic study. D/ / Graeme Tirado MD / Graeme Tirado MD Interpreting Provider: Graeme Tirado MD - EKG Data EKG #1 EKG attestation: Yes I reviewed and interpreted this EKG. EKG results narrative: EKG shows a sinus rhythm at a rate of 130 bpm, NH interval 80, Q christianity of 146, QTc of 540. No evidence of STEMI on EKG. Critical Care Time Critical Care Time: Yes Total Critical Care Time: 60 Attestation: CC time of 60 min Spent in medical management of possible sepsis with tachycardia and dementia. Attestation Statement - Attestation Attestation: I examined this patient and my medical decision-making was reviewed with the Resident Physician. I agree with the documented findings, disposition and treatment plan as described except to the extent set forth below. I, Dr. Morales, follow along with the care of this patient along with Dr. Alvarenga. This patient was signed out to us from the other physicians, Dr. Foster.
[2018-04-29] MEDS ORDERED: Naloxone 0.4 MG/ML INJ IVP PRN (08:14)
--- NOTE | 2018-04-29 08:26 | Internal Med History&Physical ---
Date of Encounter: 04/29/18 Time of Encounter: 07:25 Internal Medicine - H&P: HPI Chief complaint: palpitations Admitted From: Home Plans for Post Hospital Care: Home History of present illness: Mr. Doran is a 87 year old male with history of COPD on home oxygen, heart failure, dementia and recent admission for respiratory failure in October 2017 presented to the emergency department with shortness of breath. History is limited as patient has dementia and alert and oriented 1. as per family patient has developed progressively worsening SOB as of 7 days ago, that is associated with cough along with productive sputum at times they deny blood in sputum. they deny sick contacts however they report that he had similar symptoms in october and was intubated for respiratory failure. they deny patient complaining of fever or chills however he did complain of chest pain so they checked his HR and BP at home and report that his HR was in the 130s and BP in the low 90s so they decided to come to the ED.family nor patient can recall alleviating or aggravating factors. no recent Abx use or travel or sick contacts. they do report that the patient has been less active for the past few days and laying bed not ambulating much at all. currently patient denies fever, chills, N/V/D, dysuria, palpitations, chest pain, fever chills. in the ED he was tachypnic, tachycardic. EKG with RBBB and there were concerns for PE so CTPA performed which was suboptimal for PE but suspicious for possible left lower lobe pneumonia. He was endorsed for admission for further management of above Past Med Surg Social Fam HX - Past Medical History Medical history: CHF, CVA, dementia, hypertension Psychiatric history: no psych history - Past Surgical History Surgical History: no surgical history - Social History Smoking Status: Former smoker Smokeless Tobacco Status: No Alcohol use: none Drug use: none Internal Medicine - H&P: Meds Aspirin 81 mg PO DAILY 04/09/17 [History] Cholecalciferol (D-3) [Vitamin D] 1,000 unit PO DAILY 04/09/17 [History] Cyanocobalamin (B-12) [Vitamin B12] 1,000 mcg PO DAILY 04/09/17 [History] Donepezil [Aricept] 5 mg PO DAILY 04/09/17 [History] Lisinopril [Zestril] 5 mg PO DAILY 11/07/17 [History] Albuterol Sulfate [Albuterol Inhaler] 2 puff IH QID PRN 11/09/17 [History] Budesonide/Formoterol 160/4.5 [Symbicort 160/4.5] 2 puff IH BIDR #1 inhaler 11/14/17 [Rx] Furosemide [Lasix] 40 mg PO DAILY #5 tablet 11/15/17 [Rx] Ipratropium/Albuterol Neb [Duoneb] 3 ml IH Q6HR PRN 04/29/18 [History] Isosorbide MONOnitrate (24 HR) [Imdur] 30 mg PO DAILY 04/29/18 [History] Melatonin [Melatin] 9 mg PO HS 04/29/18 [History] Potassium Chloride [Klor-Con 10] 10 meq PO BID 04/29/18 [History] Terazosin [Hytrin] 1 mg PO HS 04/29/18 [History] hydroCHLOROthiazide [Hydrochlorothiazide] 25 mg PO DAILY 04/29/18 [History] Allergy/AdvReac Type Severity Reaction Status Date / Time No Known Allergies Allergy Verified 04/29/18 13:33 All Systems PM: limited due to mental status- review of systems was performed and is negative for pertinent findings except as documented above in the HPI. - Constitutional Vitals: Temp Pulse Resp BP Pulse Ox 97.9 F 131 18 105/63 94 04/29/18 06:57 04/29/18 06:57 04/29/18 06:57 04/29/18 06:57 04/29/18 06:57 Exam: General: Patient is alert, orientedx 1 ( baseline) , laying supine in bed Head: atraumatic, normocephalic, Eye: normal appearance, PERRL, no scleral icterus, no conjunctival injection ENT: mucous membranes dry, normal external ear exam Neck: normal inspection, trachea midline, full ROM, no carotid bruits Chest: normal inspection, symmetric chest rise Respiratory: Good respiratory effort. decreased breath sounds bilaterarily, no wheezing, crackles in toney posterior lung griffin Cardiovascular: tachycardic, s1 and s2 No clicks, rubs, gallops, or murmors. Abdomen: Bowel sounds present normoactive x-4 quadrants. Abdomen is soft, nondistended. no Epigastric tenderness. No guarding or rebound. No organomegaly noted musculoskeletal: Spontaneously moving all extremities. no edema, no calf tenderness Skin: warm, dry, intact. Neuro: Alert and oriented x1 Sensation light touch intact. Cranial nerves 2- 12 is intact. Not aphasic, rapid hand movements intact, [id number] intact Psych: Patient's affect is normal Internal Med - H&P Results - Labs CBC & Chem 7: 04/28/18 21:25 04/28/18 21:25 Labs: Short CBC 04/28/18 Range/Units 21:25 WBC 8.3 (4.3-11.1) K/mcL Hgb 12.7 L (12.9-16.9) g/dL Hct 42.2 (37.5-50.1) % Plt Count 214 (140-400) K/mcL Neutrophils # 5.4 (1.6-8.9) K/mcL BMP 04/28/18 21:25 Sodium 139 Potassium 4.9 Chloride 97 L Carbon Dioxide 33 H BUN 26 H Creatinine 1.67 H Glucose 89 Calcium 9.2 Cardiac Enzymes 04/28/18 Range/Units 21:25 Troponin I 0.05 H* (< 0.04) ng/mL Urine 04/29/18 Range/Units 00:59 Urine Color Dark Yellow (Yellow) Urine Clarity Cloudy A (Clear) Urine pH 5.5 (5.0-8.0) pH Units Ur Specific [place] 1.006 L (1.010-1.025) Urine Protein 100 H (Neg-Trace) mg/dL Urine Glucose (UA) Normal (Normal) mg/dL - EKG Data -: EKG Interpreted by Myself (sinus tachycardia, RBBB, non-specific ST-T changes ) - Impressions ITS Impressions Chest X-Ray 04/28/18 22:13 IMPRESSION: Nonspecific prominence of the pulmonary vascular/interstitial markings can be seen in setting of mild vascular congestion, chronic interstitial change and/or atypical pneumonitis. Findings appear to be superimposed on a background of emphysematous changes. No focal airspace consolidation. D/ / Murphy Wilcox / Murphy Wilcox Interpreting Provider: Murphy Wilcox Chest CT 04/29/18 04:43 IMPRESSION: 1. Severely limited study. 2. No central or proximal segmental pulmonary embolus. Beyond this level the study is considered nondiagnostic. 3. Left lower lobe atelectasis or pneumonia. 4. Right upper lobe pulmonary nodule. Recommended follow-up: In a low-risk patient, no routine follow-up. In a high-risk patient, optional CT at 12 months. D/ / Graeme Tirado MD / Graeme Tirado MD Interpreting Provider: Graeme Tirado MD Chest CTA 04/29/18 22:13 IMPRESSION: 1. Severely limited study. 2. No central or proximal segmental pulmonary embolus. Beyond this level the study is considered nondiagnostic. 3. Left lower lobe atelectasis or pneumonia. 4. Right upper lobe pulmonary nodule. Recommended follow-up: In a low-risk patient, no routine follow-up. In a high-risk patient, optional CT at 12 months. D/ / Graeme Tirado MD / Graeme Tirado MD Interpreting Provider: Graeme Tirado MD Head CT 04/29/18 23:55 IMPRESSION: Nondiagnostic study. D/ / Graeme Tirado MD / Graeme Tirado MD Interpreting Provider: Graeme Tirado MD - Assessment and plan (1) Acute and chronic respiratory failure with hypoxia Current Visit: No Status: Acute Assessment and plan: ?chest pain, hypoxia, tachycardia rule out PE vs PNA and COPD exacerbation wells criteria 6 ( prolonged immobilization, HR>100, PE likely) elevated troponin 0.05, elevated BNP 134 CTPA performed in the ED- sub optimal will start heparin drip for now will hold off of V/Q scan for now as he has abnormal CXR TTE Oxygen via nasal cannula keep sats >92% Abx as below Duo-nebs will trend troponins Q6H along with EKG palliative consult for goals of care (2) CAP (community acquired pneumonia) Current Visit: Yes Status: Acute Assessment and plan: started on zithromax and ceftriaxone - will deescalate as per cx Urine antigens Blood cultures respiratory viral panel Sputum cultures gentle hydration with NS - watch for overload CTA chest : IMPRESSION: 1. Severely limited study. 2. No central or proximal segmental pulmonary embolus. Beyond this level the study is considered nondiagnostic. 3. Left lower lobe atelectasis or pneumonia. 4. Right upper lobe pulmonary nodule. Recommended follow-up: In a low-risk patient, no routine follow-up. In a high-risk patient, optional CT at 12 months. Qualifiers: Laterality: unspecified laterality Qualified Code(s): J18.9 - Pneumonia, unspecified organism (3) Acute renal failure (ARF) Current Visit: Yes Status: Acute Assessment and plan: most likely secondary to dehydration rule out obstruction Renal ultrasound Avoid nephrotoxic drugs Strict intake and output We will continue gentle hydration watch for overload Qualifiers: Acute renal failure type: unspecified Qualified Code(s): N17.9 - Acute kidney failure, unspecified (4) Elevated troponin Current Visit: Yes Status: Acute Assessment and plan: Most likely secondary to supply versus demand mismatch ( tachycardic) cannot rule out underlying CAD We will follow serial troponins every 6 hours along with EKG Currently on heparin drip to rule out PE Continue with aspirin Impressions: LVEF 55-60%. D shaped ventricle throughout cardiac cycle corresponds with RV pressure/volume overload and distal-apical anteroseptum diastolic flattening from RV overload Severe pulmonary hypertension, systemic pulmonary pressures (systolic PAP approximately 110) Mild left ventricular diastolic dysfunction. Severe tricuspid regurgitation. Severly dilated right ventricle. Severe right ventricular hypokinesis. Severely dilated right atrium. (5) COPD (chronic obstructive pulmonary disease) Current Visit: Yes Status: Acute Assessment and plan: Not in acute exacerbation Continue nasal cannula We will continue duo nebs Qualifiers: Emphysema type: unspecified Qualified Code(s): J43.9 - Emphysema, unspecified (6) Dementia Current Visit: Yes Status: Acute Assessment and plan: continue home medications CT head: Nondiagnostic study. Qualifiers: Dementia behavioral disturbance: without behavioral disturbance Qualified Code(s): F03.90 - Unspecified dementia without behavioral disturbance (7) DVT prophylaxis Current Visit: Yes Status: Acute Assessment and plan: on heparin drip - Time Spent With Patient Total time spent is greater than 50% in coordination of care (as documented) at patient's floor/unit and/or counseling patient:
[2018-04-29] MEDS ORDERED: *HR* Heparin 5,000 UNIT/ML VIAL IVP ONE (08:31)
[2018-04-29] MEDS ORDERED: *HR* Heparin 5,000 UNIT/ML VIAL IVP PRN ×2 (08:31)
[2018-04-29] MEDS ORDERED: Heparin 25,000 UNIT/500 ML D5W 25,000 UNIT/500 ML BAG IVC SCH (08:45)
[2018-04-29] MEDS ORDERED: Azithromycin 500 MG in D5% in Water 250 ML IVPB SCH (09:00)
[2018-04-29 09:09] LABS: Troponin I 0.07 ng/mL (< 0.04)
[2018-04-29 09:22] LABS: Thyroid Stimulating Hormone 2.443 mcIU/mL (0.340-5.600)
[2018-04-29] MEDS: Ipratropium/Albuterol Neb 3 ML IH SCH ×4 (11:48→23:45)
[2018-04-29] MEDS: 0.9 % Sodium Chloride 1,000 ML IVC SCH (12:22)
[2018-04-29] MEDS: cefTRIAXone 2,000 MG in Water for inj. (sterile) 20 ML 20 ML IVP SCH (12:28)
--- NOTE | 2018-04-29 13:56 | Palliative - Consult Note ---
Date of Encounter: 04/29/18 Time of Encounter: 13:40 - Assessment and Plan (1) Dyspnea Current Visit: No Status: Acute Assessment and plan: Continues with treatment of pneumonia per hospitalist with bronchodilators, symbicort, iv atb, supportive oxygen. Does not appear to be any stress at this time. Monitor. Qualifiers: Dyspnea type: unspecified Qualified Code(s): R06.00 - Dyspnea, unspecified (2) Counseling regarding advanced care planning and goals of care Current Visit: No Status: Acute Assessment and plan: Palliative care had worked with this patient and his last October. They were both in hospital at same time, he was intubated and was successfully extubated. She was diagnosed with AML, deteriorated very quickly, and went home with hospice care, a few days after. Patient lives with daughter Mary Doran, and her family - they provide his care. I spoke with her at length by phone as no family here during my visit. She states after left hospital last October, they had [place] home [facility] until visits ran out. States he has done fairly well and actually gained some weight. Discussed code status - last October, his had transitioned him to DNR/DNI, however, daughters were not all in agreement with this. Now, she has and will try and reach family to confirm. Mary and her daughters would like to continue the DNR/DNI, and either desire home care or hospice on discharge, but there is no power of contracts attorney in place, so will have to make and effort to reach out to all 4 daughters. Discussed with Mary that patient does not meet 7C criteria for dementia and if respiratory status improves, may not quite qualify for hospice care at this time. Will continue to get in touch with family and follow clinical course. (3) Pneumonia Current Visit: Yes Status: Acute Qualifiers: Pneumonia type: due to unspecified organism Laterality: left Lung location: lower lobe of lung Qualified Code(s): J18.1 - Lobar pneumonia, unspecified organism (4) COPD exacerbation Current Visit: No Status: Acute (5) Dementia Current Visit: Yes Status: Acute Assessment and plan: Continues with Aricept. Qualifiers: Dementia behavioral disturbance: without behavioral disturbance Qualified Code(s): F03.90 - Unspecified dementia without behavioral disturbance Palliative-CN HPI - Data of Consult Consult date: 04/29/18 Requesting Physician: Tank Hopkins MD [facility] - Consult Narrative History of present illness: Mr. Doran is a 87 year old male with a history of dementia, whose family brought him to ED after high heart rate found at home. He was admitted and suspected for PE, however, CT chest did not demonstrate this. Possible LLL infiltrate. I met this pt/family last spring when he was intubated and in ICU. Other pertinent medical history includes CHF. Patient pleasantly confused, and no family present so history obtained from chart review. Patient had developed progressively worsening SOB as of 7 days ago, that is associated with cough along with productive sputum at times they deny blood in sputum. He complained of some chest pain, and family checked his pulse and was in the 130's. Has been less active. Upon my visit, no family present. He has sitter at bedside. Oriented to name only, cannot tell me accurate information regarding any social/family history. Moist cough noted, does not appear to be in respiratory distress. Taking po with some assistance. Denies any pain or discomfort. States he is in [place] and lives with his mother. States he has 7 children (only has 4), and gives me names for them that is not accurate. CC: Tank Hopkins MD - Time Spent with Patient Time: Total time spent is greater than 50% in coordination of care (as documented) at patient's floor/unit and/or counseling patient: Past Med Surg Social Fam HX - Past Medical History Medical history: CHF, CVA, dementia, hypertension Psychiatric history: no psych history - Past Surgical History Surgical History: no surgical history - Social History Smoking Status: Former smoker Smokeless Tobacco Status: No Alcohol use: none Drug use: none Medications and Allergies Aspirin 81 mg PO DAILY 04/09/17 [History] Cholecalciferol (D-3) [Vitamin D] 1,000 unit PO DAILY 04/09/17 [History] Cyanocobalamin (B-12) [Vitamin B12] 1,000 mcg PO DAILY 04/09/17 [History] Donepezil [Aricept] 5 mg PO DAILY 04/09/17 [History] Lisinopril [Zestril] 5 mg PO DAILY 11/07/17 [History] Albuterol Sulfate [Albuterol Inhaler] 2 puff IH QID PRN 11/09/17 [History] Budesonide/Formoterol 160/4.5 [Symbicort 160/4.5] 2 puff IH BIDR #1 inhaler 11/14/17 [Rx] Omeprazole [PriLOSEC] 40 mg PO DAILY@0730 capsule. 11/14/17 [Rx] Furosemide [Lasix] 40 mg PO DAILY #5 tablet 11/15/17 [Rx] Potassium Chloride [K-Tab ER] 8 meq PO BID #6 tablet.er 11/15/17 [Rx] Azithromycin [Zithromax Tri-Félix] 500 mg PO DAILY #3 tablet 12/19/17 [Rx] Allergy/AdvReac Type Severity Reaction Status Date / Time No Known Allergies Allergy Verified 04/29/18 13:33 ROS unobtainable: due to mental status Palliative Care-Exam - Constitutional Vitals: Temp Pulse Resp BP Pulse Ox 98.0 F 125 18 130/70 98 04/29/18 12:12 04/29/18 12:12 04/29/18 12:43 04/29/18 12:12 04/29/18 12:43 General appearance: Present: average body habitus, no acute distress - Head Head Exam: Present: normal inspection - Eye Eye exam: Present: normal appearance, PERRL - Respiratory Additional comments: Rhonchi noted throughout all lung griffin. Moist cough. O2 at 3L - Cardiovascular Cardiovascular exam: Present: tachycardia - GI/Abdominal Exam GI/Abdominal exam: Present: normal bowel sounds, soft - Extremities Exam Extremities exam: Present: normal capillary refill, normal inspection - Neurological Exam Neurological exam: Present: alert, strengths equal and symetr throughout Additional comments: Oriented to name only, pleasantly confused. Can follow simple one step commands. NEAL. - Skin Skin exam: Present: dry, pallor, warm Internal Medicine - CN: Reslt - Labs CBC & Chem 7: 04/28/18 21:25 04/28/18 21:25 Labs: Short CBC 04/28/18 Range/Units 21:25 WBC 8.3 (4.3-11.1) K/mcL Hgb 12.7 L (12.9-16.9) g/dL Hct 42.2 (37.5-50.1) % Plt Count 214 (140-400) K/mcL Neutrophils # 5.4 (1.6-8.9) K/mcL BMP 04/28/18 21:25 Sodium 139 Potassium 4.9 Chloride 97 L Carbon Dioxide 33 H BUN 26 H Creatinine 1.67 H Glucose 89 Calcium 9.2 Cardiac Enzymes 04/28/18 04/29/18 Range/Units 21:25 08:30 Troponin I 0.05 H* 0.07 H* (< 0.04) ng/mL Urine 04/29/18 Range/Units 00:59 Urine Color Dark Yellow (Yellow) Urine Clarity Cloudy A (Clear) Urine pH 5.5 (5.0-8.0) pH Units Ur Specific [place] 1.006 L (1.010-1.025) Urine Protein 100 H (Neg-Trace) mg/dL Urine Glucose (UA) Normal (Normal) mg/dL - Impressions Impressions Chest X-Ray 04/28/18 22:13 IMPRESSION: Nonspecific prominence of the pulmonary vascular/interstitial markings can be seen in setting of mild vascular congestion, chronic interstitial change and/or atypical pneumonitis. Findings appear to be superimposed on a background of emphysematous changes. No focal airspace consolidation. D/ / Murphy Wilcox / Murphy Wilcox Interpreting Provider: Murphy Wilcox Chest CT 04/29/18 04:43 IMPRESSION: 1. Severely limited study. 2. No central or proximal segmental pulmonary embolus. Beyond this level the study is considered nondiagnostic. 3. Left lower lobe atelectasis or pneumonia. 4. Right upper lobe pulmonary nodule. Recommended follow-up: In a low-risk patient, no routine follow-up. In a high-risk patient, optional CT at 12 months. D/ / Graeme Tirado MD / Graeme Tirado MD Interpreting Provider: Graeme Tirado MD Retroperitoneum Ultrasound 04/29/18 09:00 IMPRESSION: 1.Unremarkable ultrasound of the kidneys. D/ / Louie Epstein MD / Louie Epstein MD Interpreting Provider: Louie Epstein MD Chest CTA 04/29/18 22:13 IMPRESSION: 1. Severely limited study. 2. No central or proximal segmental pulmonary embolus. Beyond this level the study is considered nondiagnostic. 3. Left lower lobe atelectasis or pneumonia. 4. Right upper lobe pulmonary nodule. Recommended follow-up: In a low-risk patient, no routine follow-up. In a high-risk patient, optional CT at 12 months. D/ / Graeme Tirado MD / Graeme Tirado MD Interpreting Provider: Graeme Tirado MD Head CT 04/29/18 23:55 IMPRESSION: Nondiagnostic study. D/ / Graeme Tirado MD / Graeme Tirado MD Interpreting Provider: Graeme Tirado MD Consult Discharge Plan - Plan [facility]errals: [facility] [Primary Care Provider] - Palliative Quality Palliative Quality: Screen for Code Status: Yes, Screen for Goals of Care: Yes, Screen for Pain: Yes, If Pain Regimen Started, Initiate Bowel Regimen: NA, Screen for Nausea/Vomitting: Yes Code Status: 04/29/18 08:14 Resuscitation Status: Active [RES] Routine Comment: Resuscitation Status: Full Code
[2018-04-29] MEDS ORDERED: *HR* Heparin 5,000 UNIT/ML VIAL SQ SCH (14:00)
--- NOTE | 2018-04-29 14:14 | Cardiology Consult Note ---
<Yuko Hernandez - Last Filed: 04/29/18 15:03> Date of Encounter: 04/29/18 Time of Encounter: 14:00 Assessment and Plan (1) CAP (community acquired pneumonia) Current Visit: Yes Status: Acute Per cardiology: -Admitted with pneumonia. -Per reports had worsening shortness of breath and productive cough at home. -On ATB. -Management per primary service. (2) GALINDO (acute kidney injury) Current Visit: Yes Status: Acute Per cardiology: -GALINDO noted. -Creatinine 1.67 today. -Normal baseline creatinine 0.6-0.9. -Management per primary service. (3) Tachycardia Current Visit: Yes Status: Acute Per cardiology: -Patient is tachycardic, sinus in the setting of pnuemonia, GALINDO. -Suspect tachycardia will improved as other conditions improve. -Can consider addition of BB, if BP will tolerate. (4) Elevated troponin Current Visit: No Status: Acute Per cardiology: -Troponins 0.05, 0.07 in the setting of pneumonia, GALINDO. -Denies chest pain. -No acute ischemic ECG changes noted. -Last TTE 10/2017 with LVEF preserved, no segmental wall motion abnormalities noted. -ON asa, statin, heparin drip. -Repeat TTE ordered. -Troponins currently flat, adynamic in the setting of pneumonia, GALINDO. Demand ischemia related to above. No cardiac rehab consult warranted at this time. -Continue to trend troponins. -Agree with repeat TTE. If no significant change on TTE, can stop heparin drip and anticipate cardiology sign off. -OF note, palliative care consult pending also. (5) Tricuspid regurgitation Current Visit: Yes Status: Chronic Per cardiology: -TTE 10/2017 with LVEF 55-60%, D shaped ventricle corresponds to RV pressure/volume overload. Severe pulmonary HTN, mild diastolic dysfunction, severe TR, severely dilated RV with severe RV hypokinesis, severely dilated RA, no segmental wall motion abnormalities noted. -Repeat TTE pending. -Recommend cautious fluid management. Discussion w patient/family: The assessment and plan as outlined above was discussed with the patient who expressed understanding and agreement. All questions were answered. Thank you for involving us in the care of your patient. Please call with any questions. Discussed and reviewed with History of Present Illness Consult date: 04/29/18 Requesting physician: Mae Kathleen Consult reason: elevated troponin, CHF, tachycardia Chief complaint: shortness of breath History of present illness: Mr. Doran is a 87 year old male with a relevant past medical history of dementia, CHF, COPD, CVA, HTN, chronic respiratory failure. Patient seen and examined on floor, no family at bedside. Patient is confused. Most of HPI obtained from chart. Per note, patient was taken to [facility] for shortness of breath and productive cough noted per family. No reported chest pain. Patient states his breathing is about his baseline. Patient denies chest pain. Patient denies palpitations or fluttering. Past Med Surg Social Fam HX - Past Medical History Attestation: Yes The following information was validated with the patient. Source: patient, old records reviewed Medical history: CHF, CVA, dementia, hypertension Psychiatric history: no psych history - Past Surgical History Surgical History: no surgical history - Social History Smoking Status: Former smoker Smokeless Tobacco Status: No Alcohol use: none Drug use: none Medications and Allergies Aspirin 81 mg PO DAILY 04/09/17 [History] Cholecalciferol (D-3) [Vitamin D] 1,000 unit PO DAILY 04/09/17 [History] Cyanocobalamin (B-12) [Vitamin B12] 1,000 mcg PO DAILY 04/09/17 [History] Donepezil [Aricept] 5 mg PO DAILY 04/09/17 [History] Lisinopril [Zestril] 5 mg PO DAILY 11/07/17 [History] Albuterol Sulfate [Albuterol Inhaler] 2 puff IH QID PRN 11/09/17 [History] Budesonide/Formoterol 160/4.5 [Symbicort 160/4.5] 2 puff IH BIDR #1 inhaler 11/14/17 [Rx] Furosemide [Lasix] 40 mg PO DAILY #5 tablet 11/15/17 [Rx] Ipratropium/Albuterol Neb [Duoneb] 3 ml IH Q6HR PRN 04/29/18 [History] Isosorbide MONOnitrate (24 HR) [Imdur] 30 mg PO DAILY 04/29/18 [History] Melatonin [Melatin] 9 mg PO HS 04/29/18 [History] Potassium Chloride [Klor-Con 10] 10 meq PO BID 04/29/18 [History] Terazosin [Hytrin] 1 mg PO HS 04/29/18 [History] hydroCHLOROthiazide [Hydrochlorothiazide] 25 mg PO DAILY 04/29/18 [History] Allergy/AdvReac Type Severity Reaction Status Date / Time No Known Allergies Allergy Verified 04/29/18 13:33 All Systems Review: The remainder of the systems were reviewed and are negative - Cardiovascular Cardiovascular: as per HPI, dyspnea at rest, dyspnea on exertion - Respiratory Respiratory: cough Physical Examination Vital Signs, Last 4 Hours Temp Pulse Resp BP Pulse Ox 04/29/18 12:43 18 98 04/29/18 12:12 98.0 F 125 32 130/70 93 General: Conversant, No Apparent Distress HEENT: Atraumatic, Normocephaly, Mucus Membranes Moist Neck: No JVD, Normal carotid pulses Cardiac: Normal S1 and S2, No Murmur, Other (Tachycardic. Diastolic murmur noted. ) Lungs: Other (Lung sounds diminished throughout. ) Neuro: Alert and responsive, No focal deficits noted Abdomen: Soft, Non-Tender Skin: No rashes noted on visualized skin Musculoskeletal: No Chest Wall Tenderness Extremities: No Clubbing, No Cyanosis, No Edema, Normal Pulses Results 04/28/18 21:25 04/28/18 21:25 Lab Results Impressions Chest X-Ray 04/28/18 22:13 IMPRESSION: Nonspecific prominence of the pulmonary vascular/interstitial markings can be seen in setting of mild vascular congestion, chronic interstitial change and/or atypical pneumonitis. Findings appear to be superimposed on a background of emphysematous changes. No focal airspace consolidation. D/ / Murphy Wilcox / Murphy Wilcox Interpreting Provider: Murphy Wilcox Chest CT 04/29/18 04:43 IMPRESSION: 1. Severely limited study. 2. No central or proximal segmental pulmonary embolus. Beyond this level the study is considered nondiagnostic. 3. Left lower lobe atelectasis or pneumonia. 4. Right upper lobe pulmonary nodule. Recommended follow-up: In a low-risk patient, no routine follow-up. In a high-risk patient, optional CT at 12 months. D/ / Graeme Tirado MD / Graeme Tirado MD Interpreting Provider: Graeme Tirado MD Retroperitoneum Ultrasound 04/29/18 09:00 IMPRESSION: 1.Unremarkable ultrasound of the kidneys. D/ / Louie Epstein MD / Louie Epstein MD Interpreting Provider: Louie Epstein MD Chest CTA 04/29/18 22:13 IMPRESSION: 1. Severely limited study. 2. No central or proximal segmental pulmonary embolus. Beyond this level the study is considered nondiagnostic. 3. Left lower lobe atelectasis or pneumonia. 4. Right upper lobe pulmonary nodule. Recommended follow-up: In a low-risk patient, no routine follow-up. In a high-risk patient, optional CT at 12 months. D/ / Graeme Tirado MD / Graeme Tirado MD Interpreting Provider: Graeme Tirado MD Head CT 04/29/18 23:55 IMPRESSION: Nondiagnostic study. D/ / Graeme Tirado MD / Graeme Tirado MD Interpreting Provider: Graeme Tiardo MD Active Medications Albuterol/Ipratropium (Duoneb) 3 ml IH [id number] [facility] Stop: 10/29/18 12:01 Last Admin: 04/29/18 11:48 Dose: Not Given Aspirin (Aspirin) 81 mg PO DAILY ANDREA Stop: 10/29/18 11:16 Budesonide/Formoterol Fumarate (Symbicort) 2 puff IH BIDR ADNREA; Protocol Stop: 10/29/18 22:01 Cyanocobalamin (Vitamin B12) 1,000 mcg PO DAILY ANDREA Stop: 10/29/18 11:16 Diltiazem HCl (Cardizem) 30 mg PO Q12H [facility] Stop: 10/29/18 12:01 Donepezil HCl (Aricept) 5 mg PO DAILY [facility] Stop: 10/29/18 11:16 Heparin Sodium (Porcine) (Heparin) 4,700 unit 70 unit/kg (4700 unit) IVP Q6HR PRN PRN Reason: SEE COMMENTS Stop: 10/29/18 08:32 Heparin Sodium (Porcine) (Heparin) 2,300 unit 35 unit/kg (2300 unit) IVP Q6H PRN PRN Reason: SEE COMMENTS Stop: 10/29/18 08:32 Sodium Chloride (0.9 % Sodium Chloride) 1,000 mls @ 80 mls/hr IVC .[id number] [facility] Stop: 04/30/18 09:14 Last Admin: 04/29/18 12:22 Dose: 80 mls/hr Azithromycin 500 mg/ Dextrose 250 mls @ 252 mls/hr IVPB Q24H [facility] Stop: 10/29/18 09:01 Last Admin: 04/29/18 12:28 Dose: 252 mls/hr Ceftriaxone Sodium 2,000 mg/ (Sterile Water) 20 mls @ 600 mls/hr IVP Q24H [facility] Stop: 10/29/18 09:01 Last Admin: 04/29/18 12:28 Dose: 600 mls/hr Heparin Sodium/Dextrose (Heparin 25,000 Unit/500 Ml D5w) 25,000 unit in 500 mls @ 18.733 mls/hr IVC .Q24H [facility]; Protocol Stop: 10/29/18 08:46 Last Admin: 04/29/18 12:26 Dose: 14 unit/kg/hr, 18.733 mls/hr Naloxone HCl (Narcan) 0.4 mg IVP Q2MIN PRN PRN Reason: SEE COMMENTS Stop: 10/29/18 08:15 Omeprazole (Prilosec) 40 mg PO DAILY@0730 [facility]; Protocol Stop: 10/30/18 07:31 Vitamin D (Vitamin D) 1,000 unit PO DAILY [facility] Stop: 10/29/18 11:16 Laboratory Tests 01/18/18 04/28/18 04/28/18 14:42 21:25 21:25 Hgb 12.7 L Creatinine 0.98 1.67 H Troponin I 0.05 H* B-Natriuretic Peptide 04/28/18 04/29/18 21:25 08:30 Hgb Creatinine Troponin I 0.07 H* B-Natriuretic Peptide 134 H - Imaging and Cardiology Chest Xray: report reviewed Echo: report reviewed - EKG Interpretation EKG results cardiology: personally reviewed (ECG with ST, HR 130. RBBB noted.), other Consult Discharge Plan - Plan [facility]errals: [facility] [Primary Care Provider] - <Tonio Mustafa - Last Filed: 04/29/18 18:30> Date of Encounter: 04/29/18 - Attending Attestation Patient was seen and evaluated independently by me. Findings, assessment and plan were discussed at length with patient, questions answered. Agree with nurse practitioner's/resident's documentation. 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 P.w productive cough w/ dyspnea w/o cp. Imp CAP, GALINDO. Consulted for mild trop elevation flat. HD stable, SR occ S tach, + LLL crackles. BNP 134. A: Mild trop elevation, demand ischemia likely COPD exacerbation, CAP Chronic RV failure, pul HTN, close to euvolemia GALINDO P: TTE avoid aggressive diuresi, keep I/O even Tonio Mustafa MD, PhD Assessment and Plan Discussion w patient/family: The assessment and plan as outlined above was discussed with the patient and/or family members who expressed understanding and agreement. All questions were answered. Thank you for involving us in the care of your patient. Please call with any questions. History of Present Illness History of present illness: Mr. Doran is a 87 year old male All Systems Review: The remainder of the systems were reviewed and are negative Physical Examination Vital Signs, Last 4 Hours Temp Pulse Resp BP Pulse Ox 04/29/18 16:31 16 99 04/29/18 15:57 97.8 F 97 27 106/60 97 Results 04/28/18 21:25 04/28/18 21:25 Lab Results 04/28/18 04/28/18 04/28/18 21:25 21:25 21:25 WBC 8.3 Hgb 12.7 L Hct 42.2 Plt Count 214 Sodium 139 Potassium 4.9 Chloride 97 L Carbon Dioxide 33 H BUN 26 H Creatinine 1.67 H Glucose 89 Calcium 9.2 Troponin I 0.05 H* B-Natriuretic Peptide 134 H TSH 04/29/18 08:30 WBC Hgb Hct Plt Count Sodium Potassium Chloride Carbon Dioxide BUN Creatinine Glucose Calcium Troponin I 0.07 H* B-Natriuretic Peptide TSH 2.443
[2018-04-29] MEDS: Cyanocobalamin (B-12) 1,000 MCG TABLET PO SCH (14:56)
[2018-04-29] MEDS: Aspirin 81 MG TAB.CHEW PO SCH (14:56)
[2018-04-29] MEDS: Cholecalciferol (D-3) 1,000 UNIT TABLET PO SCH (14:56)
--- NOTE | 2018-04-29 20:51 | Electrocardiograph Report ---
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
--- NOTE | 2018-04-29 21:14 | Electrocardiograph Report ---
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
[2018-04-29] MEDS: Budesonide/Formoterol 160/4.5 1 PUFF INH IH SCH (23:22)
[2018-04-30 01:06] LABS: Basophils % 0.6 %; Eosinophils # 0.4 K/mcL (0.0-0.6); Immature Granulocytes % 0.4 % (0-4); Lymphocytes # 0.9 K/mcL (0.6-4.6); Lymphocytes % 16.9 %; Mean Corpuscular HGB Conc 30.8 g/dL (31.6-35.5); Mean Corpuscular Hemoglobin 29.5 pg (28.0-33.3); Mean Corpuscular Volume 95.7 fL (83.0-100.0); Mean Platelet Volume 11.4 fL (9.4-12.4); Monocytes # 0.6 K/mcL (0.0-1.3); Monocytes % 10.9 %; Neutrophils # 3.4 K/mcL (1.6-8.9); Platelet Count 177 K/mcL (140-400); Red Blood Count 3.76 M/mcL (4.19-5.50); Red Cell Distribution Width 12.8 % (11.5-14.5); Segmented Neutrophils % 64.2 %
[2018-04-30 01:10] LABS: Hemoglobin 11.1 g/dL (12.9-16.9)
[2018-04-30 01:16] LABS: BUN/Creatinine Ratio 18 (6-26); Blood Urea Nitrogen 23 mg/dL (8-23); Carbon Dioxide 35 mEq/L (23-29); Chloride 101 mEq/L (98-107); Chol/HDL Ratio 2.8 (0-4.9); Cholesterol 117 mg/dL (< 200); Glucose 107 mg/dL (70-105); HDL Cholesterol 42 mg/dL (40-59); LDL Cholesterol,Calculated 63 mg/dL (0-99); Magnesium 2.1 mg/dL (1.6-2.6); Osmolality,Calculated 292 (280-300); Phosphorous 3.1 mg/dL (2.7-4.5); Potassium 4.6 mEq/L (3.5-5.1); Sodium 139 mEq/L (136-145); Triglycerides 58 mg/dL (< 150); eGFR For Non-African Americans 54 (> 60)
[2018-04-30] MEDS: 0.9 % Sodium Chloride 1,000 ML IVC SCH (02:17)
[2018-04-30] MEDS: Ipratropium/Albuterol Neb 3 ML IH SCH ×5 (03:51→22:33)
[2018-04-30] MEDS: Budesonide/Formoterol 160/4.5 1 PUFF INH IH SCH ×2 (07:21→22:33)
[2018-04-30] MEDS: Cholecalciferol (D-3) 1,000 UNIT TABLET PO SCH (09:10)
[2018-04-30] MEDS: Aspirin 81 MG TAB.CHEW PO SCH (09:11)
[2018-04-30] MEDS: Cyanocobalamin (B-12) 1,000 MCG TABLET PO SCH (09:11)
[2018-04-30] MEDS: cefTRIAXone 2,000 MG in Water for inj. (sterile) 20 ML 20 ML IVP SCH (09:36)
--- NOTE | 2018-04-30 10:27 | Palliative Progress Note ---
Date of Encounter: 04/30/18 Time of Encounter: 10:00 - Assessment and plan (1) Dyspnea Current Visit: No Status: Acute Assessment and plan: Continued treatment with IV atb, aerosols, supportive oxygen currently at 4LPM. Monitor. Qualifiers: Dyspnea type: unspecified Qualified Code(s): R06.00 - Dyspnea, unspecified (2) Counseling regarding advanced care planning and goals of care Current Visit: No Status: Acute Assessment and plan: I have spoken with all four of patients daughters. They are divided as far as their goals of care for him, and there is no power of immigration attorney. Daughters Abigail/Christal insist that he stay a full code, and Mary/Jessica would prefer DNR/DNI. They have volatile relationship and have a difficult time agreeing on most matters. I did discuss with all of them, they need to try and come together for their father's best interest, and with his age, comorbid conditions, and advanced dementia, heroic measures would not improve his quality of life, could increase his suffering, and he may not survive to leave hospital. I also discussed that at some point, he is likely to lose ability to eat and drink safely, and may begin to aspirate. I encouraged them to meet, however, they stated no likely that all of them can get together. Complex family situation. His code status remains full at this time. D/W Dr. Arauz. Mary, daughter who cares for pt at home, would like home health support on discharge. Will f/u Thursday. (3) Pneumonia Current Visit: Yes Status: Acute Qualifiers: Pneumonia type: due to unspecified organism Laterality: left Lung location: lower lobe of lung Qualified Code(s): J18.1 - Lobar pneumonia, unspecified organism (4) COPD exacerbation Current Visit: No Status: Acute (5) Dementia Current Visit: Yes Status: Acute Qualifiers: Dementia behavioral disturbance: without behavioral disturbance Qualified Code(s): F03.90 - Unspecified dementia without behavioral disturbance - Time Spent With Patient Total time spent is greater than 50% in coordination of care (as documented) at patient's floor/unit and/or counseling patient: 25 - 35 minutes - Subjective Interval history: Patient awake and alert, sitter at bedside. Appears in no distress. Remains tachycardic this am. Cultures pending. Afebrile. Labs stable, Acute kidney injury has improved. - Constitutional Vitals: Abnormal lab results RBC 3.76 M/mcL (4.19-5.50) L 04/30/18 00:43 Hgb 11.1 g/dL (12.9-16.9) L D 04/30/18 00:43 Hct 36.0 % (37.5-50.1) L 04/30/18 00:43 MCHC 30.8 g/dL (31.6-35.5) L 04/30/18 00:43 APTT 61.4 Seconds (26.0-36.0) H 04/30/18 05:07 Carbon Dioxide 35 mEq/L (23-29) H 04/30/18 00:43 Est GFR (Non-Af Amer) 54 (> 60) L 04/30/18 00:43 Glucose 107 mg/dL (70-105) H 04/30/18 00:43 Troponin I 0.07 ng/mL (< 0.04) H* 04/29/18 08:30 B-Natriuretic Peptide 134 pg/mL (Less than 100) H 04/28/18 21:25 Urine Clarity Cloudy (Clear) A 04/29/18 00:59 Ur Specific [place] 1.006 (1.010-1.025) L 04/29/18 00:59 Urine Protein 100 mg/dL (Neg-Trace) H 04/29/18 00:59 Urine Ketones Trace mg/dL (Negative) H 04/29/18 00:59 Urine Blood Small (Negative) H 04/29/18 00:59 Urine Bilirubin Small (Negative) H 04/29/18 00:59 Urine Microscopic RBC 5-15 per hpf (0-3) H 04/29/18 00:59 Urine Microscopic WBC 5-15 per hpf (0-3) H 04/29/18 00:59 Ur Squamous Epith Cells Many per lpf (None-Few) H 04/29/18 00:59 WBC Casts Moderate per lpf (None Seen) H 04/29/18 00:59 General appearance: Present: no acute distress - GI/Abdominal GI/Abdominal exam: Present: normal bowel sounds, soft - Extremities Exam Extremities exam: Present: normal capillary refill, normal inspection - Neurological Exam Neurological exam: Present: alert Additional comments: Oriented to name only. Can follow one step commands. NEAL - Skin Skin exam: Present: dry, pallor, warm Palliative Quality Palliative Quality: Screen for Code Status: Yes, Screen for Goals of Care: Yes, Screen for Pain: Yes, If Pain Regimen Started, Initiate Bowel Regimen: NA, Screen for Nausea/Vomitting: Yes Code Status: 04/29/18 08:14 Resuscitation Status: Active [RES] Routine Comment: Resuscitation Status: Full Code - Labs CBC & Chem 7: 04/30/18 00:43 04/30/18 00:43 Labs: Laboratory Results - last 24 hr 04/29/18 04/29/18 04/30/18 11:35 18:23 00:43 WBC 5.3 RBC 3.76 L Hgb 11.1 L D Hct 36.0 L MCV 95.7 MCH 29.5 MCHC 30.8 L RDW 12.8 Plt Count 177 MPV 11.4 Immature Gran % 0.4 Seg Neutrophils % 64.2 Lymphocytes % 16.9 Monocytes % 10.9 Eosinophils % 7.0 Basophils % 0.6 Neutrophils # 3.4 Lymphocytes # 0.9 Monocytes # 0.6 Eosinophils # 0.4 Basophils # 0.0 APTT Heparin Anti-Xa, Unfract 0.02 L 0.44 Sodium Potassium Chloride Carbon Dioxide BUN Creatinine Est GFR ( Amer) Est GFR (Non-Af Amer) BUN/Creatinine Ratio Glucose Calculated Osmolality Calcium Phosphorus Magnesium Triglycerides Cholesterol LDL Cholesterol, Calc VLDL Cholesterol, Calc HDL Cholesterol Cholesterol/HDL Ratio 04/30/18 04/30/18 04/30/18 00:43 00:43 05:07 WBC RBC Hgb Hct MCV MCH MCHC RDW Plt Count MPV Immature Gran % Seg Neutrophils % Lymphocytes % Monocytes % Eosinophils % Basophils % Neutrophils # Lymphocytes # Monocytes # Eosinophils # Basophils # APTT 61.4 H Heparin Anti-Xa, Unfract 0.39 Sodium 139 Potassium 4.6 Chloride 101 Carbon Dioxide 35 H BUN 23 Creatinine 1.27 Est GFR ( Amer) > 60 Est GFR (Non-Af Amer) 54 L BUN/Creatinine Ratio 18 Glucose 107 H Calculated Osmolality 292 Calcium 9.0 Phosphorus 3.1 Magnesium 2.1 Triglycerides 58 Cholesterol 117 LDL Cholesterol, Calc 63 VLDL Cholesterol, Calc 12 HDL Cholesterol 42 Cholesterol/HDL Ratio 2.8 Consult Discharge Plan - Plan [facility]errals: [facility] [Primary Care Provider] -
--- NOTE | 2018-04-30 13:21 | Event Note ---
Date of Encounter: 04/30/18 Time of Encounter: 13:20 - Cardiology Event Note TTE reviewed with LVEF preserved, no wall motion abnormalities noted. Moderate TR, severe PH, known. Cardiology will sign off. Will arrange outpatient follow up.
--- NOTE | 2018-04-30 13:39 | Internal Med Progress Note ---
<Kimberly Justin N - Last Filed: 04/30/18 14:48> Hospitalist Progress Note - Encounter Date of Encounter: 04/30/18 Time of Encounter: 08:00 - Subjective Interval History: Fred Doran is a 87 year old male with a PMHx of CHF, dementia, HTN, COPD, pulmonary HTN who was admitted for worsening SOB x7 days, productive cough, tac hycardia, and hypotension. This AM, pt denies any pain or discomfort. Denies CP, palpitations, N/V, abdominal pain, SOB, cough. ROS limited by pt's dementia. Pt seen and examined by himself without family present. - Exam Vitals: Temp Pulse Resp BP Pulse Ox 98.6 F 134 28 105/66 99 04/30/18 11:50 04/30/18 11:50 04/30/18 11:50 04/30/18 11:50 04/30/18 11:50 Exam: General: patient is pleasantly confused, alert, oriented to self but not place or year, NAD Respiratory: decreased breath sounds, rhonchi heard in left posterior base. No wheezing Cardiovascular: tachycardic, S1 and S2 normal, could not appreciate any murmurs due to tachycardia Abdomen: normal BS. soft, nondistended, nontender. No peritoneal signs present Neuro: alert and oriented x1. cranial nerves 2-12 grossly intact. can follow simple commands. Resting tremor noted in left upper extremity that diminished with purposeful movement Extremities: spontaneously moving all extremities. No lower extremity edema or cyanosis - Assessment and Plan (1) Acute and chronic respiratory failure with hypoxia Current Visit: No Status: Acute Assessment and Plan: Most likely from CAP CT angio chest sub-optimal and could not rule out PE Plan: -repeat TTE -switch duonebs q4hrs to q6hrs because of tachycardia -heparin gtt -continue Ceftriaxone day -discontinuing Azithromycin and starting Doxycycline because of his QT prolongation -palliative care consulted for goals of care and code status resolution with family (2) Elevated troponin Current Visit: Yes Status: Acute Assessment and Plan: Troponins 0.05 and 0.07 in setting of Pneumonia and GALINDO -pt denies CP -EKG without acute ischemic changes -cardiology consulted and did not see any significant changes in TTE ECHO 04/30/18: LVEF 55%. Indeterminate diastolic function. Moderate TR with severely dilated right atrium. Severe pulmonary HTN Plan: -continue ASA -cardiology recommended stopping heparin gtt -follow troponins and EKG q6hrs -diltiazem stopped and 25 metoprolol XL daily started (3) CAP (community acquired pneumonia) Current Visit: Yes Status: Acute Assessment and Plan: Unclear organism Meets 2/4 SIRS criteria: tachycardia and tachypnea CTA chest : IMPRESSION: 1. Severely limited study. 2. No central or proximal segmental pulmonary embolus. Beyond this level the study is considered nondiagnostic. 3. Left lower lobe atelectasis or pneumonia. 4. Right upper lobe pulmonary nodule. Recommended follow-up: In a low-risk patient, no routine follow-up. In a high-risk patient, optional CT at 12 months. Plan: -switched Zithromax to Doxycycline today -continue Ceftriaxone day 2 -urine antigens, blood cultures, sputum cultures, respiratory viral panel ordered and plending -duonebs switched from q4hrs to q6hrs because of tachycardia -cautious fluid management per cardiology (4) Acute renal failure (ARF) Current Visit: Yes Status: Acute Assessment and Plan: Most likely due to prerenal causes to dehydration Plan: -avoid nephrotoxic drugs -renal u/s ordered -strict I&O's -avoid fluid overload with hydration (5) DVT prophylaxis Current Visit: Yes Status: Acute Assessment and Plan: heparin gtt changed to subQ heparin (6) Dementia Current Visit: Yes Status: Acute Assessment and Plan: CT in ED was nondiagnostic -continue home medications -continue supportive care (7) Lung nodule Current Visit: Yes Status: Acute Assessment and Plan: Lung nodules found CT -smoking hx could not be obtained by patient due to dementia -risk stratification could not be evaluated -recommend outpatient follow-up - (8) COPD (chronic obstructive pulmonary disease) Current Visit: Yes Status: Acute Assessment and Plan: Not in exacerbation -change duonebs q4hrs to q6hrs for tachycardia -keep oxygen saturations above 90 - Time Spent with Patient Total time spent is greater than 50% in coordination of care (as documented) at patient's floor/unit and/or counseling patient: Internal Medicine: Result - Labs CBC & Chem 7: 04/30/18 00:43 04/30/18 00:43 Labs: Short CBC 04/30/18 Range/Units 00:43 WBC 5.3 (4.3-11.1) K/mcL Hgb 11.1 L D (12.9-16.9) g/dL Hct 36.0 L (37.5-50.1) % Plt Count 177 (140-400) K/mcL Neutrophils # 3.4 (1.6-8.9) K/mcL BMP 04/30/18 00:43 Sodium 139 Potassium 4.6 Chloride 101 Carbon Dioxide 35 H BUN 23 Creatinine 1.27 Glucose 107 H Calcium 9.0 - Impressions Impressions Echocardiogram 04/29/18 07:20 Impressions: LVEF 55%. Normal LV chamber size, wall thickness and function. Atypical septal motion consistent with bundle branch block. Indeterminate diastolic function. Dilated right ventricle with normal function. Severely dilated right atrium. Moderate tricuspid regurgitation. Severe pulmonary hypertension. Estimated RVSP is 74 mmHg. Left Ventricular Wall Motion: Rest Echo Findings All wall segments showed normal motion. Findings: Study Quality * Technically adequate exam. ECG Findings * Atrial flutter, BBB, with RVR. Left Ventricle * LVEF 55%. * Normal LV chamber size, wall thickness and function. * Atypical septal motion consistent with bundle branch block. * Indeterminate diastolic function. Right Ventricle * Dilated right ventricle with normal function. Left Atrium * Moderately dilated left atrium. Right Atrium * Severely dilated right atrium. Aortic Valve * Trileaflet aortic valve. * Mildly sclerotic aortic valve leaflets. * No aortic regurgitation. * No aortic stenosis. Mitral Valve * Mild mitral annular calcification * Trace mitral regurgitation. * No mitral stenosis. Tricuspid Valve * Normal tricuspid valve structure. * Moderate tricuspid regurgitation. * Severe pulmonary hypertension. * Estimated RVSP is 74 mmHg. * Estimated RA pressure is 5 mmHg. Pulmonic Valve * Normal pulmonic valve structure and function. * Trace pulmonic regurgitation. Aorta * Normally sized aortic root. Pericardium * The pericardium appears normal. IVC * Normal IVC dimensions and inspiratory collapse. Pulmonary Artery * Normal visualized portions of the main pulmonary artery. Consult Discharge Plan - Plan [facility]errals: [facility] [Primary Care Provider] - <Gen Forrester - Last Filed: 04/30/18 16:06> Hospitalist Progress Note - Encounter Date of Encounter: 04/30/18 - Subjective Interval History: I have re-performed and reviewed the history documented by the medical student, and I confirm its accuracy except as noted below - Exam Vitals: Temp Pulse Resp BP Pulse Ox 98.6 F 134 28 105/66 99 04/30/18 11:50 04/30/18 11:50 04/30/18 11:50 04/30/18 11:50 04/30/18 11:50 Exam: General: pleasantly demented, sleeping but easily arousable, no acute distress. HEENT: normaocephalic, atraumatic, eyes anicteric, mucus membranes dry, neck supple Cardiovascular: tachycardia, s1 and s2 present. Resp: decreased breath sounds, bibasilar rhonchi Abd: BS+, soft, nontender, nondistended Ext: nontender, no erythema, no edema Neuro: can follow simple commands and answer basic questions. Not oriented to situation or place. - Assessment and Plan (1) Acute and chronic respiratory failure with hypoxia Current Visit: No Status: Acute (2) Acute renal failure (ARF) Current Visit: Yes Status: Acute (3) CAP (community acquired pneumonia) Current Visit: Yes Status: Acute (4) COPD (chronic obstructive pulmonary disease) Current Visit: Yes Status: Acute (5) Dementia Current Visit: Yes Status: Acute (6) Elevated troponin Current Visit: No Status: Acute Assessment and Plan: Troponins 0.05 and 0.07 in setting of Pneumonia and GALINDO -pt denies CP -EKG without acute ischemic changes -cardiology consulted and did not see any significant changes in TTE ECHO 04/30/18: LVEF 55%. Indeterminate diastolic function. Moderate TR with severely dilated right atrium. Severe pulmonary HTN Plan: -continue ASA -cardiology recommended stopping heparin gtt -follow troponins and EKG q6hrs -diltiazem stopped and 25 metoprolol XL daily started (7) Lung nodule Current Visit: Yes Status: Acute (8) DVT prophylaxis Current Visit: Yes Status: Acute - Time Spent with Patient Total time spent is greater than 50% in coordination of care (as documented) at patient's floor/unit and/or counseling patient: less than 15 minutes Plan of Care Discussed with: family Internal Medicine: Result - Labs CBC & Chem 7: 04/30/18 00:43 04/30/18 00:43 Labs: Short CBC 04/30/18 Range/Units 00:43 WBC 5.3 (4.3-11.1) K/mcL Hgb 11.1 L D (12.9-16.9) g/dL Hct 36.0 L (37.5-50.1) % Plt Count 177 (140-400) K/mcL Neutrophils # 3.4 (1.6-8.9) K/mcL BMP 04/30/18 00:43 Sodium 139 Potassium 4.6 Chloride 101 Carbon Dioxide 35 H BUN 23 Creatinine 1.27 Glucose 107 H Calcium 9.0 - Impressions Impressions Echocardiogram 04/29/18 07:20 Impressions: LVEF 55%. Normal LV chamber size, wall thickness and function. Atypical septal motion consistent with bundle branch block. Indeterminate diastolic function. Dilated right ventricle with normal function. Severely dilated right atrium. Moderate tricuspid regurgitation. Severe pulmonary hypertension. Estimated RVSP is 74 mmHg. Left Ventricular Wall Motion: Rest Echo Findings All wall segments showed normal motion. Findings: Study Quality * Technically adequate exam. ECG Findings * Atrial flutter, BBB, with RVR. Left Ventricle * LVEF 55%. * Normal LV chamber size, wall thickness and function. * Atypical septal motion consistent with bundle branch block. * Indeterminate diastolic function. Right Ventricle * Dilated right ventricle with normal function. Left Atrium * Moderately dilated left atrium. Right Atrium * Severely dilated right atrium. Aortic Valve * Trileaflet aortic valve. * Mildly sclerotic aortic valve leaflets. * No aortic regurgitation. * No aortic stenosis. Mitral Valve * Mild mitral annular calcification * Trace mitral regurgitation. * No mitral stenosis. Tricuspid Valve * Normal tricuspid valve structure. * Moderate tricuspid regurgitation. * Severe pulmonary hypertension. * Estimated RVSP is 74 mmHg. * Estimated RA pressure is 5 mmHg. Pulmonic Valve * Normal pulmonic valve structure and function. * Trace pulmonic regurgitation. Aorta * Normally sized aortic root. Pericardium * The pericardium appears normal. IVC * Normal IVC dimensions and inspiratory collapse. Pulmonary Artery * Normal visualized portions of the main pulmonary artery. <Ciro Arauz - Last Filed: 04/30/18 16:50> Hospitalist Progress Note - Encounter Date of Encounter: 04/30/18 Time of Encounter: 09:55 - Exam Vitals: Temp Pulse Resp BP Pulse Ox 98.6 F 134 28 105/66 99 04/30/18 11:50 04/30/18 11:50 04/30/18 11:50 04/30/18 11:50 04/30/18 11:50 - Assessment and Plan (1) Acute and chronic respiratory failure with hypoxia Current Visit: No Status: Acute (2) CAP (community acquired pneumonia) Current Visit: Yes Status: Acute (3) Acute renal failure (ARF) Current Visit: Yes Status: Acute (4) COPD (chronic obstructive pulmonary disease) Current Visit: Yes Status: Acute (5) DVT prophylaxis Current Visit: Yes Status: Acute (6) Dementia Current Visit: Yes Status: Acute (7) Elevated troponin Current Visit: Yes Status: Acute - Time Spent with Patient Total time spent is greater than 50% in coordination of care (as documented) at patient's floor/unit and/or counseling patient: Internal Medicine: Result - Labs CBC & Chem 7: 04/30/18 00:43 04/30/18 00:43 Labs: Short CBC 04/30/18 Range/Units 00:43 WBC 5.3 (4.3-11.1) K/mcL Hgb 11.1 L D (12.9-16.9) g/dL Hct 36.0 L (37.5-50.1) % Plt Count 177 (140-400) K/mcL Neutrophils # 3.4 (1.6-8.9) K/mcL BMP 04/30/18 00:43 Sodium 139 Potassium 4.6 Chloride 101 Carbon Dioxide 35 H BUN 23 Creatinine 1.27 Glucose 107 H Calcium 9.0 - Impressions Impressions Echocardiogram 04/29/18 07:20 Impressions: LVEF 55%. Normal LV chamber size, wall thickness and function. Atypical septal motion consistent with bundle branch block. Indeterminate diastolic function. Dilated right ventricle with normal function. Severely dilated right atrium. Moderate tricuspid regurgitation. Severe pulmonary hypertension. Estimated RVSP is 74 mmHg. Left Ventricular Wall Motion: Rest Echo Findings All wall segments showed normal motion. Findings: Study Quality * Technically adequate exam. ECG Findings * Atrial flutter, BBB, with RVR. Left Ventricle * LVEF 55%. * Normal LV chamber size, wall thickness and function. * Atypical septal motion consistent with bundle branch block. * Indeterminate diastolic function. Right Ventricle * Dilated right ventricle with normal function. Left Atrium * Moderately dilated left atrium. Right Atrium * Severely dilated right atrium. Aortic Valve * Trileaflet aortic valve. * Mildly sclerotic aortic valve leaflets. * No aortic regurgitation. * No aortic stenosis. Mitral Valve * Mild mitral annular calcification * Trace mitral regurgitation. * No mitral stenosis. Tricuspid Valve * Normal tricuspid valve structure. * Moderate tricuspid regurgitation. * Severe pulmonary hypertension. * Estimated RVSP is 74 mmHg. * Estimated RA pressure is 5 mmHg. Pulmonic Valve * Normal pulmonic valve structure and function. * Trace pulmonic regurgitation. Aorta * Normally sized aortic root. Pericardium * The pericardium appears normal. IVC * Normal IVC dimensions and inspiratory collapse. Pulmonary Artery * Normal visualized portions of the main pulmonary artery. - Attending Attestation I saw evaluated and examined this patient and my medical decision-making was reviewed with the Resident Physician, Gen Forrester. I agree with the documented findings, disposition and treatment plan as described except to any changes set forth below. We independently had [id number] contact with the patient. Patient with history of dementia, COPD, CHF and hypertension was hospitalized here with acute on chronic respiratory failure with hypoxia and possible underlying cognitive) pneumonia. Started on azithromycin and ceftriaxone. Today he is sitting up in bed. Appears comfortable. In mild distress. Denies chest pain or palpitations. No abdominal pain nausea or vomiting reported. Has not had any fevers. Remains tachycardic. On exam, patient is awake and alert. Tachycardic. S1 and S2 are normal. Having mild end expiratory wheezing bilaterally. No pedal edema. Acute respiratory failure with hypoxia: Due to pneumonia/COPD. Continue O2 supplementation. Patient has already been weaned down to 4 L O2. Continue treating underlying conditions. Pneumonia: Community-acquired bacterial pneumonia. Continue ceftriaxone. Change erythromycin to doxycycline. Awaiting respiratory infection panel results. Acute kidney injury: Now resolved Elevated troponin: Cardiology following. Recommend stopping IV heparin. 2-D echocardiogram does not show any significant changes compared to his prior echo. No further workup planned. COPD: On bronchodilators. Will change to when necessary dosing. Dementia: Continue Aricept. Moderate risk for complications. <Kimberly Justin - Last Filed: 04/30/18 14:48> (3) CAP (community acquired pneumonia) Qualifiers: Laterality: unspecified laterality Qualified Code(s): J18.9 - Pneumonia, unspecified organism (4) Acute renal failure (ARF) Qualifiers: Acute renal failure type: unspecified Qualified Code(s): N17.9 - Acute kidney failure, unspecified (6) Dementia Qualifiers: Dementia behavioral disturbance: without behavioral disturbance Qualified Code(s): F03.90 - Unspecified dementia without behavioral disturbance (8) COPD (chronic obstructive pulmonary disease) Qualifiers: Emphysema type: unspecified Qualified Code(s): J43.9 - Emphysema, unspecified <Gen Forrester - Last Filed: 04/30/18 16:06> (2) Acute renal failure (ARF) Qualifiers: Acute renal failure type: unspecified Qualified Code(s): N17.9 - Acute kidney failure, unspecified (3) CAP (community acquired pneumonia) Qualifiers: Laterality: unspecified laterality Qualified Code(s): J18.9 - Pneumonia, unspecified organism (4) COPD (chronic obstructive pulmonary disease) Qualifiers: Emphysema type: unspecified Qualified Code(s): J43.9 - Emphysema, unspecified (5) Dementia Qualifiers: Dementia behavioral disturbance: without behavioral disturbance Qualified Cod e(s): F03.90 - Unspecified dementia without behavioral disturbance <Ciro Arauz - Last Filed: 04/30/18 16:50> (2) CAP (community acquired pneumonia) Qualifiers: Laterality: unspecified laterality Qualified Code(s): J18.9 - Pneumonia, unspecified organism (3) Acute renal failure (ARF) Qualifiers: Acute renal failure type: unspecified Qualified Code(s): N17.9 - Acute kidney failure, unspecified (4) COPD (chronic obstructive pulmonary disease) Qualifiers: Emphysema type: unspecified Qualified Code(s): J43.9 - Emphysema, unspecified (6) Dementia Qualifiers: Dementia behavioral disturbance: without behavioral disturbance Qualified Code(s): F03.90 - Unspecified dementia without behavioral disturbance
[2018-04-30] MEDS: *HR* Heparin 5,000 UNIT/ML VIAL SQ SCH ×2 (17:31→21:48)
[2018-04-30] MEDS: Doxycycline 100 MG CAPSULE PO SCH (21:48)
[2018-04-30] MEDS: Melatonin 3 MG TABLET PO SCH (21:48)
[2018-05-01] MEDS: Ipratropium/Albuterol Neb 3 ML IH SCH ×2 (04:21→09:55)
[2018-05-01] MEDS: *HR* Heparin 5,000 UNIT/ML VIAL SQ SCH ×3 (04:31→20:25)
[2018-05-01 08:54] LABS: Adenovirus Not Detected (Not Detect); Bordetella Pertussis Not Detected (Not Detect); Chlamydophila pneumoniae Not Detected (Not Detect); Coronavirus 229E Not Detected (Not Detect); Coronavirus HKU1 Not Detected (Not Detect); Coronavirus NL63 Not Detected (Not Detect); Coronavirus OC43 Not Detected (Not Detect); Human Metapneumovirus Not Detected (Not Detect); Human Rhinovirus/Enterovirus Not Detected (Not Detect); Influenza A Subtype 2009 H1 Not Detected (Not Detect); Influenza A Untypeable Not Detected (Not Detect); Influenza B Not Detected (Not Detect); Mycoplasma pneumoniae Not Detected (Not Detect); Parainfluenza Virus 1 Not Detected (Not Detect); Parainfluenza Virus 2 Not Detected (Not Detect); Parainfluenza Virus 3 Not Detected (Not Detect); Parainfluenza Virus 4 Not Detected (Not Detect); Respiratory Syncytial Virus Not Detected (Not Detect)
[2018-05-01] MEDS ORDERED: Metoprolol XL (24 HR) Succ 25 MG TAB.ER.24H PO SCH (09:00)
[2018-05-01] MEDS: cefTRIAXone 2,000 MG in Water for inj. (sterile) 20 ML 20 ML IVP SCH (09:13)
--- NOTE | 2018-05-01 09:20 | Internal Med Progress Note ---
<Bony Dailey S - Last Filed: 05/01/18 09:16> Hospitalist Progress Note - Encounter Date of Encounter: 05/01/18 Time of Encounter: 09:16 - Subjective Interval History: Mr. Doran is an 87yo male with PMH of COPD on home O2, heart failure, dementia, GERD, viamin D deficinecy, HTN, and BPH, dementia. The pt was recently here in for SOB and respiratory failure. The pt is a poor historian with limited insight into his medical problems. He is unable to tell me why he came to the hospital. He is unsure of what hospital he is at, what month/year it is, or who the president is. He is unsure of who brought him to the hospital. As per the chart, the pt family brought him to the hospital after having SOB for 7 days and had associated cough with sputum. The family stated there was no blood in the sputum, denied sick contacts. The pt didn't report any fevers/chills to the family, however, the family reports he complained of chest pain and had fast HR and low BP. Currently the pt has no complaints. Nurse reports no overngiht events. In the ER the pt had tacycardia/tacypnia. EKG showed RBBB and there was concern for PE. CTA of the chest was suboptimal but showed a possible pneumonia. The pt has been on ceftriaxone and doxycycline for tx. - Exam Vitals: Temp Pulse Resp BP Pulse Ox 97.7 F 129 18 129/88 96 05/01/18 07:31 05/01/18 07:31 05/01/18 07:31 05/01/18 07:31 05/01/18 07:31 Exam: General: pleasantly demented, sleeping but easily arousable, no acute distress. HEENT: normaocephalic, atraumatic, eyes anicteric, mucus membranes dry Cardiovascular: tachycardia, s1 and s2 present. Resp: decreased breath sounds, bibasilar rhonchi Abd: BS+, soft, nontender, nondistended, thin Ext: nontender, no erythema, no edema Neuro: can follow simple commands and answer basic questions. Not oriented to situation or place, no FND - Assessment and Plan (1) Acute and chronic respiratory failure with hypoxia Current Visit: No Status: Acute Assessment and Plan: ?chest pain, hypoxia, tachycardia rule out PE vs PNA and COPD exacerbation wells criteria 6 ( prolonged immobilization, HR>100, PE likely) elevated troponin 0.05, elevated BNP 134 CTPA performed in the ED- sub optimal will start heparin drip for now will hold off of V/Q scan for now as he has abnormal CXR TTE Oxygen via nasal cannula keep sats >92% Abx as below Duo-nebs will trend troponins Q6H along with EKG palliative consult for goals of care (2) CAP (community acquired pneumonia) Current Visit: Yes Status: Acute Assessment and Plan: CTA chest showed LLL atelectasis vs pneumonia - right upper lobe pulmonary nodule Leginella antigen negative Respiratory panel negative Plan: - on O2 2L - doxycyline day 2 and rocephin day 3 - blood cx pending - sputum cx pending - continue duonebs (3) Acute renal failure (ARF) Current Visit: Yes Status: Acute Assessment and Plan: Resolved. Most likely prerenal and secondary to dehydration Retroperitoneal US unremarkable Creatinine on admission 1.67, today 1.27 - baseline appears to be around 1.1 to 1.2 Plan: - I&O strict - avoid neprhotoxins - fluids's d/c - montor renal fxn (4) COPD (chronic obstructive pulmonary disease) Current Visit: Yes Status: Acute Assessment and Plan: Not in acute exacerbation - see plan for pneumonia as above (5) DVT prophylaxis Current Visit: Yes Status: Acute Assessment and Plan: heparin SQ (6) Dementia Current Visit: Yes Status: Acute Assessment and Plan: On donepezil - chronic (7) Elevated troponin Current Visit: Yes Status: Acute Assessment and Plan: Most likely a type 2 SC secondary to demand mismatch - troponin 0.07 ---> 0.05 ECHO showed LVEF 55-60%, D shaped ventriple corresponding with RV pressure/volume overload and distal-apical anteroseptum diastolic flattening from RV overload - severe pHTN - severe TR - severly dilated RV Plan: - continue home aspirin - heparin drip d/c - cardiology consulted, has signed off and will arrange outpt follow up (8) Hypertension Current Visit: No Status: Chronic Assessment and Plan: On Zestril - continue home meds - BP 129/88 , well controlled (9) GERD (gastroesophageal reflux disease) Current Visit: No Status: Chronic Assessment and Plan: On prilosec - chronic (10) BPH (benign prostatic hyperplasia) Current Visit: No Status: Chronic Assessment and Plan: On Terazosin - chronic, continue home meds - Time Spent with Patient Total time spent is greater than 50% in coordination of care (as documented) at patient's floor/unit and/or counseling patient: Internal Medicine: Result - Labs CBC & Chem 7: 04/30/18 00:43 04/30/18 00:43 - Impressions Impressions Echocardiogram 04/29/18 07:20 Impressions: LVEF 55%. Normal LV chamber size, wall thickness and function. Atypical septal motion consistent with bundle branch block. Indeterminate diastolic function. Dilated right ventricle with normal function. Severely dilated right atrium. Moderate tricuspid regurgitation. Severe pulmonary hypertension. Estimated RVSP is 74 mmHg. Left Ventricular Wall Motion: Rest Echo Findings All wall segments showed normal motion. Findings: Study Quality * Technically adequate exam. ECG Findings * Atrial flutter, BBB, with RVR. Left Ventricle * LVEF 55%. * Normal LV chamber size, wall thickness and function. * Atypical septal motion consistent with bundle branch block. * Indeterminate diastolic function. Right Ventricle * Dilated right ventricle with normal function. Left Atrium * Moderately dilated left atrium. Right Atrium * Severely dilated right atrium. Aortic Valve * Trileaflet aortic valve. * Mildly sclerotic aortic valve leaflets. * No aortic regurgitation. * No aortic stenosis. Mitral Valve * Mild mitral annular calcification * Trace mitral regurgitation. * No mitral stenosis. Tricuspid Valve * Normal tricuspid valve structure. * Moderate tricuspid regurgitation. * Severe pulmonary hypertension. * Estimated RVSP is 74 mmHg. * Estimated RA pressure is 5 mmHg. Pulmonic Valve * Normal pulmonic valve structure and function. * Trace pulmonic regurgitation. Aorta * Normally sized aortic root. Pericardium * The pericardium appears normal. IVC * Normal IVC dimensions and inspiratory collapse. Pulmonary Artery * Normal visualized portions of the main pulmonary artery. Chest X-Ray 05/01/18 08:15 IMPRESSION: Airspace opacity at the left lung base, may be related to atelectasis versus pneumonia. Mild left pleural effusion. Increased lung markings bilaterally, may be related to bronchitis, mild pulmonary edema versus pneumonia. D/ / Tano Taylor MD / Tano Taylor MD Interpreting Provider: Tano Taylor MD Consult Discharge Plan - Plan [facility]errals: [facility]Primary Care Provider[facility] - <Ciro Arauz - Last Filed: 05/01/18 10:42> Hospitalist Progress Note - Encounter Date of Encounter: 05/01/18 Time of Encounter: 09:50 - Exam Vitals: Temp Pulse Resp BP Pulse Ox 97.7 F 129 18 129/88 96 05/01/18 07:31 05/01/18 07:31 05/01/18 07:31 05/01/18 07:31 05/01/18 07:31 - Assessment and Plan (1) Acute and chronic respiratory failure with hypoxia Current Visit: Yes Status: Acute (2) CAP (community acquired pneumonia) Current Visit: Yes Status: Acute (3) Acute renal failure (ARF) Current Visit: Yes Status: Acute (4) COPD (chronic obstructive pulmonary disease) Current Visit: Yes Status: Acute (5) DVT prophylaxis Current Visit: Yes Status: Acute (6) Dementia Current Visit: Yes Status: Acute (7) Elevated troponin Current Visit: Yes Status: Acute (8) Hypertension Current Visit: No Status: Chronic (9) GERD (gastroesophageal reflux disease) Current Visit: No Status: Chronic (10) BPH (benign prostatic hyperplasia) Current Visit: No Status: Chronic - Time Spent with Patient Total time spent is greater than 50% in coordination of care (as documented) at patient's floor/unit and/or counseling patient: Internal Medicine: Result - Labs CBC & Chem 7: 04/30/18 00:43 04/30/18 00:43 - Impressions Impressions Echocardiogram 04/29/18 07:20 Impressions: LVEF 55%. Normal LV chamber size, wall thickness and function. Atypical septal motion consistent with bundle branch block. Indeterminate diastolic function. Dilated right ventricle with normal function. Severely dilated right atrium. Moderate tricuspid regurgitation. Severe pulmonary hypertension. Estimated RVSP is 74 mmHg. Left Ventricular Wall Motion: Rest Echo Findings All wall segments showed normal motion. Findings: Study Quality * Technically adequate exam. ECG Findings * Atrial flutter, BBB, with RVR. Left Ventricle * LVEF 55%. * Normal LV chamber size, wall thickness and function. * Atypical septal motion consistent with bundle branch block. * Indeterminate diastolic function. Right Ventricle * Dilated right ventricle with normal function. Left Atrium * Moderately dilated left atrium. Right Atrium * Severely dilated right atrium. Aortic Valve * Trileaflet aortic valve. * Mildly sclerotic aortic valve leaflets. * No aortic regurgitation. * No aortic stenosis. Mitral Valve * Mild mitral annular calcification * Trace mitral regurgitation. * No mitral stenosis. Tricuspid Valve * Normal tricuspid valve structure. * Moderate tricuspid regurgitation. * Severe pulmonary hypertension. * Estimated RVSP is 74 mmHg. * Estimated RA pressure is 5 mmHg. Pulmonic Valve * Normal pulmonic valve structure and function. * Trace pulmonic regurgitation. Aorta * Normally sized aortic root. Pericardium * The pericardium appears normal. IVC * Normal IVC dimensions and inspiratory collapse. Pulmonary Artery * Normal visualized portions of the main pulmonary artery. Chest X-Ray 05/01/18 08:15 IMPRESSION: Airspace opacity at the left lung base, may be related to atelectasis versus pneumonia. Mild left pleural effusion. Increased lung markings bilaterally, may be related to bronchitis, mild pulmonary edema versus pneumonia. D/ / Tano Taylor MD / Tano Taylor MD Interpreting Provider: Tano Taylor MD - Attending Attestation I saw evaluated and examined this patient and my medical decision-making was reviewed with the Resident Physician,Bony Dailey. I agree with the documented findings, disposition and treatment plan as described except to any changes set forth below. We independently had [id number] contact with the patient. Patient is sitting up in chair. Denies any chest pain or palpitations. Currently on 3 L O2 supplementation via nasal cannula. Has tolerated breakfast well. No nausea or vomiting. No acute issues reported overnight. On exam, patient is awake and alert. He remains tachycardic. S1 and S2 are normal. Having mild end expiratory wheezing bilaterally. No pedal edema. Acute respiratory failure with hypoxia: Due to pneumonia/COPD. CT angiogram of the chest did not show any PE. Venous Dopplers also negative for DVT. Continue O2 supplementation. Continue to wean FiO2 as tolerated. On ceftriaxone and doxycycline for pneumonia. Pneumonia: Community-acquired bacterial pneumonia. On ceftriaxone and doxycycline. Legionella and strep antigens have been negative. Blood Cultures are also negative. Acute kidney injury: Now resolved Elevated troponin: Cardiology following. IV heparin has been stopped. No further workup recommended. COPD: On bronchodilators. Will change to when necessary dosing. Dementia: Continue Aricept. Moderate risk for complications. <Bony Dailey - Last Filed: 05/01/18 09:16> (2) CAP (community acquired pneumonia) Qualifiers: Laterality: unspecified laterality Qualified Code(s): J18.9 - Pneumonia, unspecified organism (3) Acute renal failure (ARF) Qualifiers: Acute renal failure type: unspecified Qualified Code(s): N17.9 - Acute kidney failure, unspecified (4) COPD (chronic obstructive pulmonary disease) Qualifiers: Emphysema type: unspecified Qualified Code(s): J43.9 - Emphysema, unspecified (6) Dementia Qualifiers: Dementia behavioral disturbance: without behavioral disturbance Qualified Code(s): F03.90 - Unspecified dementia without behavioral disturbance (8) Hypertension Qualifiers: Hypertension type: essential hypertension Qualified Code(s): I10 - Essential (primary) hypertension (9) GERD (gastroesophageal reflux disease) Qualifiers: Esophagitis presence: esophagitis presence not specified Qualified Code(s): K21.9 - Gastro-esophageal reflux disease without esophagitis (10) BPH (benign prostatic hyperplasia) Qualifiers: Lower urinary tract symptom presence: unspecified whether lower urinary tract symptoms present Qualified Code(s): N40.0 - Benign prostatic hyperplasia without lower urinary tract symptoms <Ciro Arauz - Last Filed: 05/01/18 10:42> (2) CAP (community acquired pneumonia) Qualifiers: Laterality: unspecified laterality Qualified Code(s): J18.9 - Pneumonia, unspecified organism (3) Acute renal failure (ARF) Qualifiers: Acute renal failure type: unspecified Qualified Code(s): N17.9 - Acute kidney failure, unspecified (4) COPD (chronic obstructive pulmonary disease) Qualifiers: Emphysema type: unspecified Qualified Code(s): J43.9 - Emphysema, unspecified (6) Dementia Qualifiers: Dementia behavioral disturbance: without behavioral disturbance Qualified Code(s): F03.90 - Unspecified dementia without behavioral disturbance (8) Hypertension Qualifiers: Hypertension type: essential hypertension Qualified Code(s): I10 - Essential (primary) hypertension (9) GERD (gastroesophageal reflux disease) Qualifiers: Esophagitis presence: esophagitis presence not specified Qualified Code(s): K21.9 - Gastro-esophageal reflux disease without esophagitis (10) BPH (benign prostatic hyperplasia) Qualifiers: Lower urinary tract symptom presence: unspecified whether lower urinary tract symptoms present Qualified Code(s): N40.0 - Benign prostatic hyperplasia without lower urinary tract symptoms
[2018-05-01] MEDS: Cholecalciferol (D-3) 1,000 UNIT TABLET PO SCH (09:23)
[2018-05-01] MEDS: Aspirin 81 MG TAB.CHEW PO SCH (09:23)
[2018-05-01] MEDS: Doxycycline 100 MG CAPSULE PO SCH ×2 (09:23→20:24)
[2018-05-01] MEDS: Cyanocobalamin (B-12) 1,000 MCG TABLET PO SCH (09:23)
[2018-05-01] MEDS: Budesonide/Formoterol 160/4.5 1 PUFF INH IH SCH ×2 (09:58→20:51)
[2018-05-01] MEDS ORDERED: Ipratropium/Albuterol Neb 3 ML IH PRN (10:41)
[2018-05-01] MEDS ORDERED: Albuterol 2.5 MG/3 ML NEBULIZER IH PRN (11:25)
[2018-05-01] MEDS: Melatonin 3 MG TABLET PO SCH (20:25)
[2018-05-02] MEDS: *HR* Heparin 5,000 UNIT/ML VIAL SQ SCH (05:56)
[2018-05-02 06:29] LABS: Basophils % 0.3 %; Eosinophils # 0.2 K/mcL (0.0-0.6); Eosinophils % 4.1 %; Hematocrit 32.7 % (37.5-50.1); Hemoglobin 10.1 g/dL (12.9-16.9); Immature Granulocytes % 0.3 % (0-4); Lymphocytes # 0.9 K/mcL (0.6-4.6); Lymphocytes % 16.1 %; Mean Corpuscular HGB Conc 30.9 g/dL (31.6-35.5); Mean Corpuscular Hemoglobin 29.2 pg (28.0-33.3); Mean Corpuscular Volume 94.5 fL (83.0-100.0); Monocytes # 0.6 K/mcL (0.0-1.3); Monocytes % 10.1 %; Platelet Count 168 K/mcL (140-400); Red Blood Count 3.46 M/mcL (4.19-5.50); Red Cell Distribution Width 13.5 % (11.5-14.5); Segmented Neutrophils % 69.1 %
[2018-05-02 06:47] LABS: BUN/Creatinine Ratio 21 (6-26); Blood Urea Nitrogen 22 mg/dL (8-23); Calcium 9.4 mg/dL (8.6-10.3); Carbon Dioxide 35 mEq/L (23-29); Chloride 101 mEq/L (98-107); Glucose 94 mg/dL (70-105); Osmolality,Calculated 291 (280-300); Potassium 4.4 mEq/L (3.5-5.1); Sodium 139 mEq/L (136-145); eGFR For Non-African Americans > 60 (> 60)
[2018-05-02] MEDS: Cholecalciferol (D-3) 1,000 UNIT TABLET PO SCH (08:32)
[2018-05-02] MEDS: Metoprolol XL (24 HR) Succ 50 MG TAB.ER.24H PO SCH (08:33)
[2018-05-02] MEDS: Doxycycline 100 MG CAPSULE PO SCH ×2 (08:33→19:50)
[2018-05-02] MEDS: Cyanocobalamin (B-12) 1,000 MCG TABLET PO SCH (08:33)
[2018-05-02] MEDS: cefTRIAXone 2,000 MG in Water for inj. (sterile) 20 ML 20 ML IVP SCH (08:33)
[2018-05-02] MEDS: Aspirin 81 MG TAB.CHEW PO SCH (08:33)
--- NOTE | 2018-05-02 09:27 | Internal Med Progress Note ---
<Bony Dailey S - Last Filed: 05/02/18 11:53> Hospitalist Progress Note - Encounter Date of Encounter: 05/02/18 Time of Encounter: 09:23 - Subjective Interval History: Mr. Doran is an 87yo male with PMH of COPD on home O2, heart failure, dementia, GERD, viamin D deficinecy, HTN, and BPH, dementia. The pt was recently here in for SOB and respiratory failure. The pt is a poor historian with limited insight into his medical problems. He is unable to tell me why he came to the hospital. He is unsure of what hospital he is at, what month/year it is, or who the president is. He is unsure of who brought him to the hospital. As per the chart, the pt family brought him to the hospital after having SOB for 7 days and had associated cough with sputum. The family stated there was no blood in the sputum, denied sick contacts. The pt didn't report any fevers/chills to the family, however, the family reports he complained of chest pain and had fast HR and low BP. In the ER the pt had tacycardia/tacypnia. EKG showed RBBB and there was concern for PE. CTA of the chest was suboptimal but showed a possible pneumonia. The pt has been on ceftriaxone and doxycycline for tx. Currently the pt denies chest pain, SOB, abd pain, or N/V. He does c/o groin pain and there appears to be some reddened areas. - nursing reports no overnight events - Exam Vitals: Temp Pulse Resp BP Pulse Ox 98.5 F 106 20 110/70 92 05/02/18 07:38 05/02/18 07:38 05/02/18 07:38 05/02/18 07:38 05/02/18 08:30 Exam: General: pleasantly demented, sleeping but easily arousable, no acute distress. HEENT: normaocephalic, atraumatic, eyes anicteric, mucus membranes dry Cardiovascular: tachycardia, s1 and s2 present. Resp: decreased breath sounds, bibasilar rhonchi Abd: BS+, soft, nontender, nondistended, thin Ext: nontender, no erythema, no edema Neuro: can follow simple commands and answer basic questions. Not oriented to situation or place, no FND : reddened area,erythematous around the genital area - Assessment and Plan (1) Acute and chronic respiratory failure with hypoxia Current Visit: Yes Status: Acute Assessment and Plan: Resolved. Pt currently on 92% O2 on 3 NC - pt had a high suspicion for PE versus penumonia - Wells score of 6 for prolonged immobilization, HR>100 CTA in the ER was suboptimal CXR 05/01 - Airspace opacity at the left lung base, may be related to atelectasis versus pneumonia. - Mild left pleural effusion. - Increased lung markings bilaterally, may be related to bronchitis, mild pulmonary edema versus pneumonia. Plan: - repeat troponins as plan below for tachycardia - pt was started on heparin drip, which has seen been d/c - duonebs have been d/c due to tachycardia (2) CAP (community acquired pneumonia) Current Visit: Yes Status: Acute Assessment and Plan: CTA chest showed LLL atelectasis vs pneumonia - right upper lobe pulmonary nodule Leginella antigen negative Respiratory panel negative Pt does not meet sepsis criteria - HR 140 - RR 15 - BP stable - afebrile - no WBC count - O2 sat 92% on 4L Plan: - continue oxygen, wean as tolerated - doxycyline day 3 and rocephin day 4 - blood cx pending - sputum cx pending - duonebs and atrovent d/c , pt remains tacycardia - dispo: HR controlled to normal rate, breathing status continues to improve (3) Acute renal failure (ARF) Current Visit: Yes Status: Acute Assessment and Plan: Resolved. Most likely prerenal and secondary to dehydration Retroperitoneal US unremarkable Creatinine on admission 1.67, 05/01 1.27 - baseline appears to be around 1.1 to 1.2 - 05/02: creatinine 1.06 Plan: - I&O strict - avoid neprhotoxins - fluids's d/c - montor renal fxn - bladder scan pending (4) COPD (chronic obstructive pulmonary disease) Current Visit: Yes Status: Acute Assessment and Plan: Not in acute exacerbation - see plan for pneumonia as above (5) DVT prophylaxis Current Visit: Yes Status: Acute Assessment and Plan: heparin SQ (6) Dementia Current Visit: No Status: Chronic Assessment and Plan: On donepezil - chronic (7) Elevated troponin Current Visit: Yes Status: Acute Assessment and Plan: Most likely a type 2 WA secondary to demand mismatch - troponin 0.07 ---> 0.05 ECHO showed LVEF 55-60%, D shaped ventriple corresponding with RV pressure/volume overload and distal-apical anteroseptum diastolic flattening from RV overload - severe pHTN - severe TR - severly dilated RV Plan: - continue home aspirin - heparin drip d/c - cardiology consulted, has signed off and will arrange outpt follow up Re-consulted cardio, they recommend doing a work up for tacycardia, including re-checking troponins (8) Hypertension Current Visit: No Status: Chronic Assessment and Plan: On Zestril, troprol - continue home meds - BP 110/70 , well controlled (9) GERD (gastroesophageal reflux disease) Current Visit: No Status: Chronic Assessment and Plan: On prilosec - chronic (10) BPH (benign prostatic hyperplasia) Current Visit: No Status: Chronic Assessment and Plan: On Terazosin - chronic, continue home meds (11) Tachycardia Current Visit: Yes Status: Acute Assessment and Plan: HR this morning 140, most likely secondary to pneumonia TSH is within normal limits Concern for DVT is low, (-) Anna's sign and there is no s/s of erythema Pt remains afebrile EKG showed HR 139 ?a flutter, ?RVR Plan: - increased toprol to 25mg PO BID, duonebs/beta agonists held - cardiology consulted they recommend working up tacycardia, including checking troponins again - EKG ordered , 10mg cardizem was given and HR decreased to 105 - continue to monitor on telemetry - Time Spent with Patient Total time spent is greater than 50% in coordination of care (as documented) at patient's floor/unit and/or counseling patient: less than 15 minutes Plan of Care Discussed with: patient Internal Medicine: Result - Labs CBC & Chem 7: 05/02/18 06:02 05/02/18 06:02 Labs: Short CBC 05/02/18 Range/Units 06:02 WBC 5.8 (4.3-11.1) K/mcL Hgb 10.1 L (12.9-16.9) g/dL Hct 32.7 L (37.5-50.1) % Plt Count 168 (140-400) K/mcL Neutrophils # 4.0 (1.6-8.9) K/mcL BMP 05/02/18 06:02 Sodium 139 Potassium 4.4 Chloride 101 Carbon Dioxide 35 H BUN 22 Creatinine 1.06 Glucose 94 Calcium 9.4 Consult Discharge Plan - Plan [facility]: [facility]Primary Care Provider[facility] - <Ciro Arauz - Last Filed: 05/02/18 14:30> Hospitalist Progress Note - Encounter Date of Encounter: 05/02/18 Time of Encounter: 14:26 - Exam Vitals: Temp Pulse Resp BP Pulse Ox 97.4 F L 139 20 122/112 94 05/02/18 11:58 05/02/18 11:58 05/02/18 11:58 05/02/18 13:33 05/02/18 11:58 - Assessment and Plan (1) Acute and chronic respiratory failure with hypoxia Current Visit: Yes Status: Acute (2) CAP (community acquired pneumonia) Current Visit: Yes Status: Acute (3) Acute renal failure (ARF) Current Visit: Yes Status: Acute (4) COPD (chronic obstructive pulmonary disease) Current Visit: Yes Status: Acute (5) DVT prophylaxis Current Visit: Yes Status: Acute (6) Dementia Current Visit: No Status: Chronic (7) Elevated troponin Current Visit: Yes Status: Acute (8) Hypertension Current Visit: No Status: Chronic (9) GERD (gastroesophageal reflux disease) Current Visit: No Status: Chronic (10) BPH (benign prostatic hyperplasia) Current Visit: No Status: Chronic (11) Tachycardia Current Visit: Yes Status: Acute - Time Spent with Patient Total time spent is greater than 50% in coordination of care (as documented) at patient's floor/unit and/or counseling patient: Internal Medicine: Result - Labs CBC & Chem 7: 05/02/18 06:02 05/02/18 06:02 Labs: Short CBC 05/02/18 Range/Units 06:02 WBC 5.8 (4.3-11.1) K/mcL Hgb 10.1 L (12.9-16.9) g/dL Hct 32.7 L (37.5-50.1) % Plt Count 168 (140-400) K/mcL Neutrophils # 4.0 (1.6-8.9) K/mcL BMP 05/02/18 06:02 Sodium 139 Potassium 4.4 Chloride 101 Carbon Dioxide 35 H BUN 22 Creatinine 1.06 Glucose 94 Calcium 9.4 Cardiac Enzymes 05/02/18 Range/Units 09:49 Troponin I 0.04 H* (< 0.04) ng/mL - Attending Attestation I saw evaluated and examined this patient and my medical decision-making was re viewed with the Resident Physician,Bony Dailey. I agree with the documented findings, disposition and treatment plan as described except to any changes set forth below. We independently had [id number] contact with the patient. Patient was complaining of suprapubic and groin pain. Bladder scan was done showed no significant amount of urine in his bladder. Denies abdominal pain. No chest pain or palpitations. No fever or chills reported overnight. On exam, patient is awake and alert. Patient is tachycardic. S1 and S2 are normal. Abdomen is soft nontender. Patient does have erythema in his inguinal region. No pedal edema noted. Patient does have mild wheezing bilaterally but significantly improved air entry bilaterally. Acute respiratory failure with hypoxia: Continue O2 supplementation. Patient currently on 2 L O2. Pneumonia: Cultures have been negative. Will transition to oral antibiotics. Acute kidney injury: Now resolved Elevated troponin: Continue aspirin, beta serge. No further workup needed. Atrial fibrillation with RVR: Patient has been tachycardic. EKG shows a flutter with RVR. Started on Cardizem drip per cardiology recommendations. On subcutaneous Lovenox for anticoagulation. COPD: On bronchodilators. Continue Symbicort. Dementia: Continue Aricept. Will consult physical therapy for evaluation for home safety and possible placement Moderate risk for complications. <Bony Dailey S - Last Filed: 05/02/18 11:53> (2) CAP (community acquired pneumonia) Qualifiers: Laterality: unspecified laterality Qualified Code(s): J18.9 - Pneumonia, unspecified organism (3) Acute renal failure (ARF) Qualifiers: Acute renal failure type: unspecified Qualified Code(s): N17.9 - Acute kidney failure, unspecified (4) COPD (chronic obstructive pulmonary disease) Qualifiers: Emphysema type: unspecified Qualified Code(s): J43.9 - Emphysema, unspecified (6) Dementia Qualifiers: Dementia type: Alzheimer's disease Alzheimer's disease onset: unspecified onset Dementia behavioral disturbance: without behavioral disturbance Qualified Code(s): G30.9 - Alzheimer's disease, unspecified; F02.80 - Dementia in other diseases classified elsewhere without behavioral disturbance (8) Hypertension Qualifiers: Hypertension type: essential hypertension Qualified Code(s): I10 - Essential (primary) hypertension (9) GERD (gastroesophageal reflux disease) Qualifiers: Esophagitis presence: esophagitis presence not specified Qualified Code(s): K21.9 - Gastro-esophageal reflux disease without esophagitis (10) BPH (benign prostatic hyperplasia) Qualifiers: Lower urinary tract symptom presence: unspecified whether lower urinary tract symptoms present Qualified Code(s): N40.0 - Benign prostatic hyperplasia without lower urinary tract symptoms <Ciro Arauz - Last Filed: 05/02/18 14:30> (2) CAP (community acquired pneumonia) Qualifiers: Laterality: unspecified laterality Qualified Code(s): J18.9 - Pneumonia, unspecified organism (3) Acute renal failure (ARF) Qualifiers: Acute renal failure type: unspecified Qualified Code(s): N17.9 - Acute kidney failure, unspecified (4) COPD (chronic obstructive pulmonary disease) Qualifiers: Emphysema type: unspecified Qualified Code(s): J43.9 - Emphysema, unspecified (6) Dementia Qualifiers: Dementia type: Alzheimer's disease Alzheimer's disease onset: unspecified onset Dementia behavioral disturbance: without behavioral disturbance Qu alified Code(s): G30.9 - Alzheimer's disease, unspecified; F02.80 - Dementia in other diseases classified elsewhere without behavioral disturbance (8) Hypertension Qualifiers: Hypertension type: essential hypertension Qualified Code(s): I10 - Essential (primary) hypertension (9) GERD (gastroesophageal reflux disease) Qualifiers: Esophagitis presence: esophagitis presence not specified Qualified Code(s): K21.9 - Gastro-esophageal reflux disease without esophagitis (10) BPH (benign prostatic hyperplasia) Qualifiers: Lower urinary tract symptom presence: unspecified whether lower urinary tract symptoms present Qualified Code(s): N40.0 - Benign prostatic hyperplasia without lower urinary tract symptoms
--- NOTE | 2018-05-02 10:04 | Electrocardiograph Report ---
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
[2018-05-02] MEDS: Budesonide/Formoterol 160/4.5 1 PUFF INH IH SCH ×2 (10:57→21:14)
[2018-05-02] MEDS: Nystatin Cream 15 GM TUBE TP SCH ×2 (11:00→22:36)
--- NOTE | 2018-05-02 12:10 | Cardiology Progress Note ---
Addendum entered and electronically signed by Zuhair Dasilva MD 05/02/18 12:53: I have personally performed a face to face evaluation on this patient. I have reviewed and agree with the care plan as documented by the LABOR AND DELIVERY NURSE. History and Exam by me shows: 87-year-old male with history of dementia, admitted for COPD exacerbation. Noted to be in atrial fibrillation with RVR this morning. Echo shows EF of 55%. Recommend rate control with IV Cardizem. Unclear if p mendoza's has had falls in the past. Need to discuss with family risk verses benefits of long-term anticoagulation. Agree with medication recommendations below. Further recommendations to follow. Thanks, Zuhair Dasilva MD Original Note: Date of Encounter: 05/02/18 Time of Encounter: 11:30 Assessment and Plan (1) Atrial fibrillation with RVR Current Visit: Yes Status: Acute Cardiology reconsulted today, 05/02/18 due to concern of persistent tachycardia. ECG's telemetry review, appears to be atrial fib/flutter with RVR. Patient initially admitted with worsening shortness of breath, found to have CAP. CTA poor quality study to motion artifact. TSH normal, no acute electrolyte abnormality. TTE 04/29/18: LVEF 55%, dilated RV with normal function, severely dilated RA, moderate TR, severe PH (est RVSP=74 mmHg) with normal wall motion. HR's 130-140's at bedside, discussed with Dr. Dasilva, will start IV cardizem gtt, titrate to keep HR less than 100. Continue BB. CHAD2S Vasc= 5 (age, HTN, prior CVA); high risk for CVA. Discussed with Dr. Dasilva, will start therapeutic lovenox. Ideally, will start assisted AC given elevated risk of CVA. However, he is noted to have dementia (alert to self only) and family not present at bedside to further discuss history or frequency of falls. Recommend social work consult for DC planning; if he would be d/c'ed to SNF or live with family, would recommend continuation of anticoagulation. Discussion w patient/family: The assessment and plan as outlined above was discussed with the patient and/or family members who expressed understanding and agreement. All questions were answered. Thank you for involving us in the care of your patient. Please call with any questions. The patient was discussed and reviewed with Dr. Dasilva. Subjective Principal diagnosis: Afib/flutter Interval history: Seen and examined. Reconsulted today due to concern of persistent tachycardia. Initial admitted with CAP--see full Cardiology consult note. Alert to self only. No complaints upon exam. 1:1 sitter at bedside. Objective Vital Signs, Last 4 Hours Resp Pulse Ox 05/02/18 10:58 20 92 05/02/18 08:30 92 General: Conversant, No Apparent Distress, Other (confused) HEENT: Atraumatic, Normocephaly Cardiac: Other (irergularly irregular) Lungs: Normal Breath Sounds Neuro: Alert and responsive (to self only. ) Abdomen: Soft Skin: No rashes noted on visualized skin Musculoskeletal: No Chest Wall Tenderness Extremities: No Edema, Normal Pulses Results 05/02/18 06:02 05/02/18 06:02 Lab Results 05/02/18 05/02/18 05/02/18 06:02 06:02 09:49 WBC 5.8 Hgb 10.1 L Hct 32.7 L Plt Count 168 Sodium 139 Potassium 4.4 Chloride 101 Carbon Dioxide 35 H BUN 22 Creatinine 1.06 Glucose 94 Calcium 9.4 Troponin I 0.04 H* Active Medications Aspirin (Aspirin) 81 mg PO DAILY [facility] Stop: 10/29/18 11:16 Last Admin: 05/02/18 08:33 Dose: 81 mg Budesonide/Formoterol Fumarate (Symbicort) 2 puff IH BIDR [facility]; Protocol Stop: 10/29/18 22:01 Last Admin: 05/02/18 10:57 Dose: 2 puff Cyanocobalamin (Vitamin B12) 1,000 mcg PO DAILY [facility] Stop: 10/29/18 11:16 Last Admin: 05/02/18 08:33 Dose: 1,000 mcg Donepezil HCl (Aricept) 5 mg PO DAILY [facility] Stop: 10/29/18 11:16 Last Admin: 05/02/18 08:33 Dose: 5 mg Doxycycline Hyclate (Doxycycline) 100 mg PO BID [facility] Stop: 10/30/18 21:01 Last Admin: 05/02/18 08:33 Dose: 100 mg Enoxaparin Sodium (Lovenox *Pharmacy Wt Based*) 70 mg 1 mg/kg (70 mg) SQ Q12HR [facility]; Protocol Stop: 11/01/18 18:01 Ceftriaxone Sodium 2,000 mg/ (Sterile Water) 20 mls @ 600 mls/hr IVP Q24H [facility] Stop: 10/29/18 09:01 Last Admin: 05/02/18 08:33 Dose: 600 mls/hr Diltiazem HCl 50 mg/ Sodium (Chloride) 50 mls @ 5 mls/hr IVC .Q10H [facility]; Protocol Stop: 11/01/18 12:16 Melatonin (Melatonin) 9 mg PO [facility] Stop: 10/30/18 21:01 Last Admin: 05/01/18 20:25 Dose: 9 mg Metoprolol Succinate (Toprol Xl) 50 mg PO DAILY [facility] Stop: 11/01/18 07:46 Last Admin: 05/02/18 08:33 Dose: 50 mg Naloxone HCl (Narcan) 0.4 mg IVP Q2MIN PRN PRN Reason: SEE COMMENTS Stop: 10/29/18 08:15 Nystatin (Mycostatin Cream) 1 appl TP BID [facility] Stop: 11/01/18 09:01 Last Admin: 05/02/18 11:00 Dose: 1 appl Omeprazole (Prilosec) 40 mg PO DAILY@0730 [facility]; Protocol Stop: 10/30/18 07:31 Last Admin: 05/02/18 08:33 Dose: 40 mg Terazosin HCl (Hytrin) 1 mg PO HS [facility] Stop: 10/31/18 22:46 Last Admin: 05/01/18 23:02 Dose: 1 mg Vitamin D (Vitamin D) 1,000 unit PO DAILY [facility] Stop: 10/29/18 11:16 Last Admin: 05/02/18 08:32 Dose: 1,000 unit - Imaging and Cardiology Echo: report reviewed - EKG Interpretation EKG results cardiology: personally reviewed Consult Discharge Plan - Plan [facility]errals: [facility] [Primary Care Provider] -
[2018-05-02] MEDS: *HR* Enoxaparin 80 MG/0.8 ML SYRINGE SQ SCH (17:34)
[2018-05-02] MEDS: Cefdinir 300 MG CAPSULE PO SCH (19:49)
[2018-05-02] MEDS: Melatonin 3 MG TABLET PO SCH (19:50)
[2018-05-03] MEDS: *HR* Enoxaparin 80 MG/0.8 ML SYRINGE SQ SCH ×2 (04:47→17:13)
[2018-05-03 05:08] LABS: Basophils % 0.7 %; Eosinophils % 5.1 %; Hematocrit 33.8 % (37.5-50.1); Hemoglobin 10.3 g/dL (12.9-16.9); Immature Granulocytes % 0.4 % (0-4); Lymphocytes % 15.2 %; Mean Corpuscular HGB Conc 30.5 g/dL (31.6-35.5); Mean Corpuscular Volume 95.2 fL (83.0-100.0); Mean Platelet Volume 11.3 fL (9.4-12.4); Monocytes % 9.8 %; Platelet Count 164 K/mcL (140-400); Red Blood Count 3.55 M/mcL (4.19-5.50); Red Cell Distribution Width 13.3 % (11.5-14.5); Segmented Neutrophils % 68.8 %
[2018-05-03 05:09] LABS: Eosinophils # 0.3 K/mcL (0.0-0.6); Lymphocytes # 0.9 K/mcL (0.6-4.6); Monocytes # 0.6 K/mcL (0.0-1.3); Neutrophils # 3.9 K/mcL (1.6-8.9)
[2018-05-03 05:27] LABS: BUN/Creatinine Ratio 23 (6-26); Blood Urea Nitrogen 23 mg/dL (8-23); Calcium 9.3 mg/dL (8.6-10.3); Carbon Dioxide 35 mEq/L (23-29); Chloride 101 mEq/L (98-107); Glucose 92 mg/dL (70-105); Osmolality,Calculated 293 (280-300); Potassium 4.3 mEq/L (3.5-5.1); Sodium 140 mEq/L (136-145); eGFR For Non-African Americans > 60 (> 60)
[2018-05-03] MEDS: Budesonide/Formoterol 160/4.5 1 PUFF INH IH SCH ×2 (07:47→20:13)
[2018-05-03] MEDS: Aspirin 81 MG TAB.CHEW PO SCH (08:27)
[2018-05-03] MEDS: Metoprolol XL (24 HR) Succ 50 MG TAB.ER.24H PO SCH (08:27)
[2018-05-03] MEDS: Doxycycline 100 MG CAPSULE PO SCH ×2 (08:27→21:40)
[2018-05-03] MEDS: Cyanocobalamin (B-12) 1,000 MCG TABLET PO SCH (08:27)
[2018-05-03] MEDS: Cholecalciferol (D-3) 1,000 UNIT TABLET PO SCH (08:27)
[2018-05-03] MEDS: Cefdinir 300 MG CAPSULE PO SCH ×2 (08:31→21:38)
[2018-05-03] MEDS: Nystatin Cream 15 GM TUBE TP SCH ×2 (08:33→21:40)
[2018-05-03] MEDS ORDERED: Haloperidol Lactate 5 MG/ML VIAL IVP ONE (08:46)
--- NOTE | 2018-05-03 09:11 | Internal Med Progress Note ---
<Bony Dailey S - Last Filed: 05/03/18 10:55> Hospitalist Progress Note - Encounter Date of Encounter: 05/03/18 Time of Encounter: 09:08 - Subjective Interval History: Mr. Doran is an 87yo male with PMH of COPD on home O2, heart failure, dementia, GERD, viamin D deficinecy, HTN, and BPH, dementia. The pt was recently here in for SOB and respiratory failure. The pt is a poor historian with limited insight into his medical problems. He is unable to tell me why he came to the hospital. He is unsure of what hospital he is at, what month/year it is, or who the president is. He is unsure of who brought him to the hospital. As per the chart, the pt family brought him to the hospital after having SOB for 7 days and had associated cough with sputum. The family stated there was no blood in the sputum, denied sick contacts. The pt didn't report any fevers/chills to the family, however, the family reports he complained of chest pain and had fast HR and low BP. In the ER the pt had tacycardia/tacypnia. EKG showed RBBB and there was concern for PE. CTA of the chest was suboptimal but showed a possible pneumonia. The pt has been on ceftriaxone and doxycycline for tx. Currently the pt denies chest pain, SOB, abd pain, or N/V. He is extremely confused and disoritneted this morning. Threatens to hit nurse. Says he has no get out of here so he can go see his parents. The pt doesn't know how he got to the hospital and is convinced he was at [facility] last night. The pt is unsure of the year or who the president is. Nursing reports increased agitation since last night and reports that he didn't sleep at all last night. - Exam Vitals: Temp Pulse Resp BP Pulse Ox 98.0 F 89 16 114/67 94 05/03/18 08:47 05/03/18 08:47 05/03/18 08:47 05/03/18 08:47 05/03/18 08:47 Exam: General: demented, agitated, slightly distressed, aox0 HEENT: normaocephalic, atraumatic, eyes anicteric, mucus membranes dry Cardiovascular: tachycardia, s1 and s2 present. Resp: decreased breath sounds, bibasilar rhonchi Abd: BS+, soft, nontender, nondistended, thin Ext: nontender, no erythema, no edema Neuro: can follow simple commands and answer basic questions. Not oriented to situation or place, no FND : reddened area,erythematous around the genital area - Assessment and Plan (1) Acute and chronic respiratory failure with hypoxia Current Visit: Yes Status: Resolved Assessment and Plan: Resolved. Pt currently on 94% O2 on 3 NC - pt had a high suspicion for PE versus penumonia - Wells score of 6 for prolonged immobilization, HR>100 CTA in the ER was suboptimal CXR 05/01 - Airspace opacity at the left lung base, may be related to atelectasis versus pneumonia. - Mild left pleural effusion. - Increased lung markings bilaterally, may be related to bronchitis, mild pulmonary edema versus pneumonia. Plan: - repeat troponins as plan below for tachycardia, troponin 0.04 - pt was started on heparin drip, which has seen been d/c - duonebs have been d/c due to tachycardia (2) Tachycardia Current Visit: Yes Status: Acute Assessment and Plan: HR this morning 140, most likely secondary to pneumonia - pt was in A fib with RVR - cardiology saw and started on Cardizem drip TSH is within normal limits Concern for DVT is low, (-) Anna's sign and there is no s/s of erythema Pt remains afebrile EKG showed HR 139 (05/02) ?a flutter, ?RVR HR this morning 89 Plan: - increased toprol to 25mg PO BID, duonebs/beta agonists held - cardiology consulted they started a cardizem drip yesterday transitioned to PO cardizem today as per cardiology - continue to monitor on telemetry (3) CAP (community acquired pneumonia) Current Visit: Yes Status: Acute Assessment and Plan: CTA chest showed LLL atelectasis vs pneumonia - right upper lobe pulmonary nodule Leginella antigen negative Respiratory panel negative Pt does not meet sepsis criteria - HR 140 - RR 15 - BP stable - afebrile - no WBC count - O2 sat 92% on 4L Plan: - continue oxygen, wean as tolerated - doxycyline day 4 and omnicef day 2; rocephin d/c on 05/02 - blood cx pending - sputum cx pending - duonebs and atrovent d/c - dispo: HR controlled to normal rate, breathing status continues to improve (4) Acute renal failure (ARF) Current Visit: Yes Status: Acute Assessment and Plan: Resolved. Most likely prerenal and secondary to dehydration Retroperitoneal US unremarkable Creatinine on admission 1.67, 05/01 1.27 - baseline appears to be around 1.1 to 1.2 - 05/02: creatinine 1.06 Plan: - I&O strict - avoid neprhotoxins - fluids's d/c - montor renal fxn - bladder scan pending (5) COPD (chronic obstructive pulmonary disease) Current Visit: Yes Status: Acute Assessment and Plan: Not in acute exacerbation - see plan for pneumonia as above (6) DVT prophylaxis Current Visit: Yes Status: Acute Assessment and Plan: heparin SQ (7) Dementia Current Visit: No Status: Chronic Assessment and Plan: On donepezil - chronic Pt has increasing agitation - Haldol 5mg IVP once (8) Elevated troponin Current Visit: Yes Status: Acute Assessment and Plan: Most likely a type 2 LA secondary to demand mismatch - troponin 0.07 ---> 0.05 ECHO showed LVEF 55-60%, D shaped ventriple corresponding with RV pressure/volume overload and distal-apical anteroseptum diastolic flattening from RV overload - severe pHTN - severe TR - severly dilated RV Plan: - continue home aspirin - heparin drip d/c - cardiology consulted, has signed off and will arrange outpt follow up Re-consulted cardio, see plan as above for tacycardia (9) Hypertension Current Visit: No Status: Chronic Assessment and Plan: On Zestril, troprol - continue home meds - BP 114/67, well controlled (10) GERD (gastroesophageal reflux disease) Current Visit: No Status: Chronic Assessment and Plan: On prilosec - chronic (11) BPH (benign prostatic hyperplasia) Current Visit: No Status: Chronic Assessment and Plan: On Terazosin - chronic, continue home meds (12) Atrial fibrillation with RVR Current Visit: Yes Status: Resolved Assessment and Plan: See plan as above for tacycardia - resolved (13) Agitation Current Visit: Yes Status: Acute Assessment and Plan: Nursing staff reports increased agitation - pt reportedly didn't sleep last night at all - threatening to hit nursing staff - pt continuing to try to get up - AOx0, very difficult to reorient Plan: - haldol 5mg IVP once - gentle re-orientation - fall precautions - continue sitter with pt - Time Spent with Patient Total time spent is greater than 50% in coordination of care (as documented) at patient's floor/unit and/or counseling patient: Internal Medicine: Result - Labs CBC & Chem 7: 05/03/18 04:48 05/03/18 04:48 Labs: Short CBC 05/03/18 Range/Units 04:48 WBC 5.6 (4.3-11.1) K/mcL Hgb 10.3 L (12.9-16.9) g/dL Hct 33.8 L (37.5-50.1) % Plt Count 164 (140-400) K/mcL Neutrophils # 3.9 (1.6-8.9) K/mcL BMP 05/03/18 04:48 Sodium 140 Potassium 4.3 Chloride 101 Carbon Dioxide 35 H BUN 23 Creatinine 0.99 Glucose 92 Calcium 9.3 Cardiac Enzymes 05/02/18 Range/Units 09:49 Troponin I 0.04 H* (< 0.04) ng/mL Consult Discharge Plan - Plan [facility]errals: [facility]Primary Care Provider[facility] - <Ciro Arauz - Last Filed: 05/03/18 13:19> Hospitalist Progress Note - Encounter Date of Encounter: 05/03/18 Time of Encounter: 13:16 - Exam Vitals: Temp Pulse Resp BP Pulse Ox 98.0 F 89 16 114/67 94 05/03/18 08:47 05/03/18 08:47 05/03/18 08:47 05/03/18 08:47 05/03/18 08:47 - Assessment and Plan (1) Acute and chronic respiratory failure with hypoxia Current Visit: Yes Status: Resolved (2) CAP (community acquired pneumonia) Current Visit: Yes Status: Acute (3) Acute renal failure (ARF) Current Visit: Yes Status: Acute (4) COPD (chronic obstructive pulmonary disease) Current Visit: Yes Status: Acute (5) DVT prophylaxis Current Visit: Yes Status: Acute (6) Dementia Current Visit: No Status: Chronic (7) Elevated troponin Current Visit: Yes Status: Acute (8) Hypertension Current Visit: No Status: Chronic (9) GERD (gastroesophageal reflux disease) Current Visit: No Status: Chronic (10) BPH (benign prostatic hyperplasia) Current Visit: No Status: Chronic (11) Tachycardia Current Visit: Yes Status: Acute (12) Atrial fibrillation with RVR Current Visit: Yes Status: Resolved (13) Agitation Current Visit: Yes Status: Acute - Time Spent with Patient Total time spent is greater than 50% in coordination of care (as documented) at patient's floor/unit and/or counseling patient: Internal Medicine: Result - Labs CBC & Chem 7: 05/03/18 04:48 05/03/18 04:48 Labs: Short CBC 05/03/18 Range/Units 04:48 WBC 5.6 (4.3-11.1) K/mcL Hgb 10.3 L (12.9-16.9) g/dL Hct 33.8 L (37.5-50.1) % Plt Count 164 (140-400) K/mcL Neutrophils # 3.9 (1.6-8.9) K/mcL BMP 05/03/18 04:48 Sodium 140 Potassium 4.3 Chloride 101 Carbon Dioxide 35 H BUN 23 Creatinine 0.99 Glucose 92 Calcium 9.3 - Attending Attestation I saw evaluated and examined this patient and my medical decision-making was rev iewed with the Resident Physician,Bony Dailey. I agree with the documented findings, disposition and treatment plan as described except to any changes set forth below. We independently had [id number] contact with the patient. Evaluated patient earlier today. Was lying down in bed. Complains of pain over his right inguinal region where there is some redness present. He denies any chest pain or palpitations. According to nursing staff, patient was more agitated this morning. He seemed to have, now and is answering questions appropriately. On exam, patient is awake and alert. Heart rate has improved. S1 and S2 are normal. Abdomen is soft, nontender. No suprapubic tenderness. Patient does have right inguinal region dermatitis. No pedal edema noted. Respiratory exam shows prolonged expiratory phase. Mild wheezing. Acute respiratory failure with hypoxia: Continue O2 supplementation. Wean as tolerated. Pneumonia: Continue Omnicef and doxycycline. Acute kidney injury: Now resolved Elevated troponin: Continue aspirin, beta serge. No further workup needed. Atrial fibrillation with RVR: Weaned off Cardizem drip. Transition to oral medications. Will monitor closely. On aspirin 325 mg daily for anticoagulation given his poor overall functional status and comorbidities. COPD: On bronchodilators. Continue Symbicort. Dementia: Continue Aricept. Patient having intermittent episodes of agitation. Will redirect and minimize environmental stimuli. He daily recommends placement to skilled rehabilitation. Moderate risk for complications. <Ciro Arauz - Last Filed: 05/03/18 13:19> (2) CAP (community acquired pneumonia) Qualifiers: Laterality: unspecified laterality Qualified Code(s): J18.9 - Pneumonia, unspecified organism (3) Acute renal failure (ARF) Qualifiers: Acute renal failure type: unspecified Qualified Code(s): N17.9 - Acute kidney failure, unspecified (4) COPD (chronic obstructive pulmonary disease) Qualifiers: Emphysema type: unspecified Qualified Code(s): J43.9 - Emphysema, unspecified (6) Dementia Qualifiers: Dementia type: Alzheimer's disease Alzheimer's disease onset: unspecified onset Dementia behavioral disturbance: without behavioral disturbance Qualified Code(s): G30.9 - Alzheimer's disease, unspecified; F02.80 - Dementia in other diseases classified elsewhere without behavioral disturbance (8) Hypertension Qualifiers: Hypertension type: essential hypertension Qualified Code(s): I10 - Essential (primary) hypertension (9) GERD (gastroesophageal reflux disease) Qualifiers: Esophagitis presence: esophagitis presence not specified Qualified Code(s): K21.9 - Gastro-esophageal reflux disease without esophagitis (10) BPH (benign prostatic hyperplasia) Qualifiers: Lower urinary tract symptom presence: unspecified whether lower urinary tract symptoms present Qualified Code(s): N40.0 - Benign prostatic hyperplasia without lower urinary tract symptoms
--- NOTE | 2018-05-03 09:54 | Cardiology Progress Note ---
Addendum entered and electronically signed by Young Benitez DO 05/03/18 12:23: I have personally performed a face to face evaluation on this patient. I have reviewed and agree with the care plan. History and Exam by me shows: Patient independent recently seen and examined. Agree with findings, impressions, and plan as outlined below. Atrial fibrillation appears to be better rate controlled. Agree with transition to oral Cardizem. Continue beta serge. Despite elevated CHADS-VASc score, patient represents a poor long-term candidate for anticoagulation. Recommend aspirin 325 mg daily. No further inpatient cardiogenic recommendations. We will sign off. Please call with any questions or concerns. Thanks, Young Benitez DO, [facility] Original Note: Date of Encounter: 05/03/18 Time of Encounter: 09:53 Assessment and Plan (1) Atrial fibrillation with RVR Current Visit: Yes Status: Resolved Cardiology reconsulted 05/02/18 due to concern of persistent tachycardia. ECG's telemetry review, appears to be atrial fib/flutter with RVR. Patient initially admitted with worsening shortness of breath, found to have CAP. CTA poor quality study to motion artifact. TSH normal. K 3.1 today--replace. TTE 04/29/18: LVEF 55%, dilated RV with normal function, severely dilated RA, mo derate TR, severe PH (est RVSP=74 mmHg) with normal wall motion. Currently on cardizem gtt at 9.5mg/hr. 12 hr tele AVG HR 87, A-Fib/Flutter. Transition to PO Cardizem CD 240mg daily. Continue BB. CHAD2S Vasc= 5 (age, HTN, prior CVA); high risk for CVA. Was started on therapeutic lovenox yesterday. Ideally would recommend phlebotomist lab assistant AC given elevated risk of CVA. However, he is noted to have dementia (alert to self only) appears frail and to be a high falls risk--currently has a sitter at bedside. Recommend ASA only for AC. Discussed with Dr. Benitez, recommends 325mg ASA daily. Cardiology signing off. Reconsult PRN. Will coordinate outpt follow-up in 2-3 weeks. Discussion w patient/family: The assessment and plan as outlined above was discussed with the patient and/or family members who expressed understanding and agreement. All questions were answered. Thank you for involving us in the care of your patient. Please call with any questions. I will discuss all the above with Dr. Benitez and make changes as necessary. Subjective Principal diagnosis: Afib/flutter Interval history: 12 hr tele AVG HR 87, A-Fib. On Cardizem gtt at 9.5mg/hr. Pt confused, but denies acute complaints. Objective Vital Signs, Last 4 Hours Temp Pulse Resp BP Pulse Ox 05/03/18 08:47 98.0 F 89 16 114/67 94 05/03/18 07:47 16 96 Vital Signs Temp Pulse Resp BP Pulse Ox 05/03/18 08:47 98.0 F 89 16 114/67 94 05/03/18 07:47 16 96 05/03/18 02:47 97.6 F 72 19 114/63 93 05/03/18 00:03 97.8 F 72 19 106/41 91 05/02/18 21:14 18 94 05/02/18 19:53 94 05/02/18 19:37 97.9 F 94 20 105/70 90 05/02/18 14:35 97.9 F 112 20 120/79 93 05/02/18 13:33 122/112 05/02/18 11:58 97.4 F L 139 20 107/72 94 05/02/18 10:58 20 92 Intake and Output 05/02/18 05/03/18 05/03/18 23:59 07:59 15:59 Intake Total 80 / 80 50 / 50 240 / 240 Output Total 325 / 325 450 / 450 Balance -245 / -245 -400 / -400 240 / 240 Intake: IV Fluids 80 / 80 50 / 50 Cardizem 50 MG In 0.9 % Sodium 80 / 80 50 / 50 Chloride 40 ML @ 5 MG/HR 5 mls/ hr IVC .Q10H [facility] Rx#:[id number] Oral 240 / 240 Output: Urine 325 / 325 450 / 450 Other: Meal Dinner Breakfast Percent of Meal Consumed 75% 100% Stool Size Small Stool Consistency formed Stool Color Brown # Voids 1 # Bowel Movements 1 General: Conversant, No Apparent Distress HEENT: Atraumatic, Normocephaly, Mucus Membranes Moist Neck: No JVD, Normal carotid pulses Cardiac: Other (irregularly irregular) Lungs: Normal Breath Sounds, No Wheeze, Rales, Rhonchi Neuro: Other (confused) Abdomen: Soft, Non-Tender Skin: No rashes noted on visualized skin Musculoskeletal: No Chest Wall Tenderness Extremities: No Clubbing, No Cyanosis, No Edema, Normal Pulses Results 05/03/18 04:48 05/03/18 04:48 Lab Results 05/02/18 05/03/18 05/03/18 09:49 04:48 04:48 WBC 5.6 Hgb 10.3 L Hct 33.8 L Plt Count 164 Sodium 140 Potassium 4.3 Chloride 101 Carbon Dioxide 35 H BUN 23 Creatinine 0.99 Glucose 92 Calcium 9.3 Troponin I 0.04 H* Short CBC 05/03/18 Range/Units 04:48 WBC 5.6 (4.3-11.1) K/mcL Hgb 10.3 L (12.9-16.9) g/dL Hct 33.8 L (37.5-50.1) % Plt Count 164 (140-400) K/mcL Neutrophils # 3.9 (1.6-8.9) K/mcL BMP 05/03/18 Range/Units 04:48 Sodium 140 (136-145) mEq/L Potassium 4.3 (3.5-5.1) mEq/L Chloride 101 (98-107) mEq/L Carbon Dioxide 35 H (23-29) mEq/L BUN 23 (8-23) mg/dL Creatinine 0.99 (0.70-1.30) mg/dL Glucose 92 (70-105) mg/dL Calcium 9.3 (8.6-10.3) mg/dL Cardiac Enzymes 05/02/18 Range/Units 09:49 Troponin I 0.04 H* (< 0.04) ng/mL Active Medications Aspirin (Aspirin) 81 mg PO DAILY [facility] Stop: 10/29/18 11:16 Last Admin: 05/03/18 08:27 Dose: 81 mg Budesonide/Formoterol Fumarate (Symbicort) 2 puff IH BIDR [facility]; Protocol Stop: 10/29/18 22:01 Last Admin: 05/03/18 07:47 Dose: 2 puff Cefdinir (Omnicef) 300 mg PO BID [facility]; Protocol Stop: 11/01/18 21:01 Last Admin: 05/03/18 08:31 Dose: 300 mg Cyanocobalamin (Vitamin B12) 1,000 mcg PO DAILY [facility] Stop: 10/29/18 11:16 Last Admin: 05/03/18 08:27 Dose: 1,000 mcg Donepezil HCl (Aricept) 5 mg PO DAILY [facility] Stop: 10/29/18 11:16 Last Admin: 05/03/18 08:27 Dose: 5 mg Doxycycline Hyclate (Doxycycline) 100 mg PO BID [facility] Stop: 10/30/18 21:01 Last Admin: 05/03/18 08:27 Dose: 100 mg Enoxaparin Sodium (Lovenox) 70 mg 1 mg/kg (70 mg) SQ Q12HR [facility]; Protocol Stop: 11/01/18 18:01 Last Admin: 05/03/18 04:47 Dose: 70 mg Diltiazem HCl 50 mg/ Sodium (Chloride) 50 mls @ 5 mls/hr IVC .Q10H [facility]; Protocol Stop: 11/01/18 12:16 Last Admin: 05/03/18 04:48 Dose: 9.5 mg/hr, 9.5 mls/hr Melatonin (Melatonin) 9 mg PO HS [facility] Stop: 10/30/18 21:01 Last Admin: 05/02/18 19:50 Dose: 9 mg Metoprolol Succinate (Toprol Xl) 50 mg PO DAILY [facility] Stop: 11/01/18 07:46 Last Admin: 05/03/18 08:27 Dose: 50 mg Naloxone HCl (Narcan) 0.4 mg IVP Q2MIN PRN PRN Reason: SEE COMMENTS Stop: 10/29/18 08:15 Nystatin (Mycostatin Cream) 1 appl TP BID [facility] Stop: 11/01/18 09:01 Last Admin: 05/02/18 22:36 Dose: 1 appl Omeprazole (Prilosec) 40 mg PO DAILY@0730 [facility]; Protocol Stop: 10/30/18 07:31 Last Admin: 05/03/18 08:27 Dose: 40 mg Terazosin HCl (Hytrin) 1 mg PO HS [facility] Stop: 10/31/18 22:46 Last Admin: 05/02/18 19:49 Dose: 1 mg Vitamin D (Vitamin D) 1,000 unit PO DAILY [facility] Stop: 10/29/18 11:16 Last Admin: 05/03/18 08:27 Dose: 1,000 unit - Imaging and Cardiology Echo: report reviewed - EKG Interpretation EKG results cardiology: other (12 hr tele AVG HR 87, A-Fib) Consult Discharge Plan - Plan Referrals: [facility] [Primary Care Provider] -
--- NOTE | 2018-05-03 10:56 | Palliative Progress Note ---
Date of Encounter: 05/03/18 Time of Encounter: 10:35 - Assessment and plan (1) Dyspnea Current Visit: No Status: Acute Assessment and plan: Appears to remain dyspneic with exertion, but not at rest as on admission. Continues with treatment for pneumonia - now on po atb. Qualifiers: Dyspnea type: unspecified Qualified Code(s): R06.00 - Dyspnea, unspecified (2) Atrial fibrillation with RVR Current Visit: Yes Status: Resolved Assessment and plan: On Cardizem drip currently. Cardiology following. (3) Counseling regarding advanced care planning and goals of care Current Visit: No Status: Acute Assessment and plan: D/W daughter Mary and granddaughter Dory over phone (pt caregivers) that PT recommending placement, and he was very weak - took therapy x2 to get him out of bed. They will be here later this afternoon and will consider. They are aware of Afib/cardizem and decision will need made whether to anticoagulate him or not r/t risk of falls vs stroke. Dory states that 3 of 4 daughters desire DNR- Arrest - all desire short term intubation if needed, BUT daughter Abigail insists on him remaining full code. There is no POA established and that cannot be done now related to pt dementia. D/W Dr. Arauz, shut off worker Argelia and CM Whitley. Will continue to follow. (4) Pneumonia Current Visit: Yes Status: Acute Qualifiers: Pneumonia type: due to unspecified organism Laterality: left Lung location: lower lobe of lung Qualified Code(s): J18.1 - Lobar pneumonia, unspecified organism (5) COPD exacerbation Current Visit: No Status: Acute (6) Dementia Current Visit: No Status: Chronic Qualifiers: Dementia type: Alzheimer's disease Alzheimer's disease onset: unspecified onset Dementia behavioral disturbance: without behavioral disturbance Qualified Code(s): G30.9 - Alzheimer's disease, unspecified; F02.80 - Dementia in other diseases classified elsewhere without behavioral disturbance - Time Spent With Patient Total time spent is greater than 50% in coordination of care (as documented) at patient's floor/unit and/or counseling patient: - Subjective Interval history: Patient awake and alert - pleasantly confused. Sitter at bedside. PT in room and pt very weak but did get up and ambulate around room with walker. Up in chair at present. Denies pain, states "I get short of breath easily". PO intake has been good. Cardiology noted reviewed - now on cardizem drip for afib/rvr and possible need for anticoagulation. No family present. - Constitutional Vitals: Abnormal lab results RBC 3.55 M/mcL (4.19-5.50) L 05/03/18 04:48 Hgb 10.3 g/dL (12.9-16.9) L 05/03/18 04:48 Hct 33.8 % (37.5-50.1) L 05/03/18 04:48 MCHC 30.5 g/dL (31.6-35.5) L 05/03/18 04:48 APTT 61.4 Seconds (26.0-36.0) H 04/30/18 05:07 Heparin Anti-Xa, Unfract 0.08 IU/mL (0.30-0.70) L 05/01/18 00:55 Carbon Dioxide 35 mEq/L (23-29) H 05/03/18 04:48 Troponin I 0.04 ng/mL (< 0.04) H* 05/02/18 09:49 B-Natriuretic Peptide 134 pg/mL (Less than 100) H 04/28/18 21:25 Urine Clarity Cloudy (Clear) A 04/29/18 00:59 Ur Specific [place] 1.006 (1.010-1.025) L 04/29/18 00:59 Urine Protein 100 mg/dL (Neg-Trace) H 04/29/18 00:59 Urine Ketones Trace mg/dL (Negative) H 04/29/18 00:59 Urine Blood Small (Negative) H 04/29/18 00:59 Urine Bilirubin Small (Negative) H 04/29/18 00:59 Urine Microscopic RBC 5-15 per hpf (0-3) H 04/29/18 00:59 Urine Microscopic WBC 5-15 per hpf (0-3) H 04/29/18 00:59 Ur Squamous Epith Cells Many per lpf (None-Few) H 04/29/18 00:59 WBC Casts Moderate per lpf (None Seen) H 04/29/18 00:59 General appearance: Present: no acute distress - Respiratory Additional comments: Rhonchi noted posteriorly to R&L lower lobes - Cardiovascular Cardiovascular exam: Present: irregular rhythm - GI/Abdominal GI/Abdominal exam: Present: normal bowel sounds, soft - Extremities Exam Extremities exam: Present: normal capillary refill, normal inspection - Neurological Exam Neurological exam: Present: alert Additional comments: Follows one step commands well. NEAL and strength equal. Only oriented to name. - Skin Skin exam: Present: dry, warm Palliative Quality Palliative Quality: Screen for Code Status: Yes, Screen for Goals of Care: Yes, Screen for Pain: Yes, If Pain Regimen Started, Initiate Bowel Regimen: NA, Screen for Nausea/Vomitting: Yes Code Status: 04/29/18 08:14 Resuscitation Status: Active [RES] Routine Comment: Resuscitation Status: Full Code - Labs CBC & Chem 7: 05/03/18 04:48 05/03/18 04:48 Labs: Laboratory Results - last 24 hr 05/03/18 05/03/18 04:48 04:48 WBC 5.6 RBC 3.55 L Hgb 10.3 L Hct 33.8 L MCV 95.2 MCH 29.0 MCHC 30.5 L RDW 13.3 Plt Count 164 MPV 11.3 Immature Gran % 0.4 Seg Neutrophils % 68.8 Lymphocytes % 15.2 Monocytes % 9.8 Eosinophils % 5.1 Basophils % 0.7 Neutrophils # 3.9 Lymphocytes # 0.9 Monocytes # 0.6 Eosinophils # 0.3 Basophils # 0.0 Sodium 140 Potassium 4.3 Chloride 101 Carbon Dioxide 35 H BUN 23 Creatinine 0.99 Est GFR ( Amer) > 60 Est GFR (Non-Af Amer) > 60 BUN/Creatinine Ratio 23 Glucose 92 Calculated Osmolality 293 Calcium 9.3 Consult Discharge Plan - Plan [facility]: [facility] [Primary Care Provider[facility] -
[2018-05-03] MEDS: Diltiazem CD (24hr) 240 MG CAPSULE PO SCH (13:20)
[2018-05-03] MEDS: Melatonin 3 MG TABLET PO SCH (21:39)
[2018-05-04 05:18] LABS: Basophils % 0.5 %; Eosinophils # 0.3 K/mcL (0.0-0.6); Eosinophils % 5.3 %; Hemoglobin 10.3 g/dL (12.9-16.9); Immature Granulocytes % 0.7 % (0-4); Lymphocytes # 0.7 K/mcL (0.6-4.6); Lymphocytes % 12.4 %; Mean Corpuscular HGB Conc 30.3 g/dL (31.6-35.5); Mean Corpuscular Volume 95.8 fL (83.0-100.0); Mean Platelet Volume 11.1 fL (9.4-12.4); Monocytes # 0.5 K/mcL (0.0-1.3); Monocytes % 9.1 %; Neutrophils # 4.2 K/mcL (1.6-8.9); Platelet Count 178 K/mcL (140-400); Red Blood Count 3.55 M/mcL (4.19-5.50); Red Cell Distribution Width 13.4 % (11.5-14.5)
[2018-05-04 05:36] LABS: BUN/Creatinine Ratio 21 (6-26); Blood Urea Nitrogen 19 mg/dL (8-23); Calcium 9.3 mg/dL (8.6-10.3); Carbon Dioxide 35 mEq/L (23-29); Chloride 103 mEq/L (98-107); Glucose 95 mg/dL (70-105); Osmolality,Calculated 294 (280-300); Potassium 4.9 mEq/L (3.5-5.1); Sodium 141 mEq/L (136-145); eGFR For Non-African Americans > 60 (> 60)
[2018-05-04] MEDS: *HR* Enoxaparin 80 MG/0.8 ML SYRINGE SQ SCH (06:15)
[2018-05-04] MEDS ORDERED: Furosemide 20 MG/2 ML VIAL IVP ONE (07:31)
--- NOTE | 2018-05-04 07:46 | Internal Med Progress Note ---
<Bony Dailey S - Last Filed: 05/04/18 11:36> Hospitalist Progress Note - Encounter Date of Encounter: 05/04/18 Time of Encounter: 07:44 - Subjective Interval History: Mr. Doran is an 87yo male with PMH of COPD on home O2, heart failure, dementia, GERD, viamin D deficinecy, HTN, and BPH, dementia. The pt was recently here in for SOB and respiratory failure. The pt is a poor historian with limited insight into his medical problems. He is unable to tell me why he came to the hospital. He is unsure of what hospital he is at, what month/year it is, or who the president is. He is unsure of who brought him to the hospital. As per the chart, the pt family brought him to the hospital after having SOB for 7 days and had associated cough with sputum. The family stated there was no blood in the sputum, denied sick contacts. The pt didn't report any fevers/chills to the family, however, the family reports he complained of chest pain and had fast HR and low BP. In the ER the pt had tacycardia/tacypnia. EKG showed RBBB and there was concern for PE. CTA of the chest was suboptimal but showed a possible pneumonia. The pt has been on ceftriaxone and doxycycline for tx. Currently the pt denies chest pain, SOB, abd pain, or N/V. He is very sleepy this morning - pt family was in last night and they want him to have ECF placement - pt is currently inpatient day 2, will need to have no sitter for 24hrs - pt continues to get very agitated and disoriented, especially when his family leaves - Exam Vitals: Temp Pulse Resp BP Pulse Ox 97.9 F 85 19 118/68 93 05/04/18 07:24 05/04/18 07:24 05/04/18 07:24 05/04/18 07:24 05/04/18 07:24 Exam: General: demented, agitated, slightly distressed, aox0 HEENT: normaocephalic, atraumatic, eyes anicteric, mucus membranes dry Cardiovascular: tachycardia, s1 and s2 present. Resp: decreased breath sounds, bibasilar rhonchi increasing since yesterday Abd: BS+, soft, nontender, nondistended, thin Ext: nontender, no erythema, no edema Neuro: can follow simple commands and answer basic questions. Not oriented to situation or place, no FND : reddened area,erythematous around the genital area - Assessment and Plan (1) Acute and chronic respiratory failure with hypoxia Current Visit: Yes Status: Resolved Assessment and Plan: Resolved. Pt currently on 93% on 4L NC - pt had a high suspicion for PE versus penumonia - Wells score of 6 for prolonged immobilization, HR>100 CTA in the ER was suboptimal CXR 05/01 - Airspace opacity at the left lung base, may be related to atelectasis versus pneumonia. - Mild left pleural effusion. - Increased lung markings bilaterally, may be related to bronchitis, mild pulmonary edema versus pneumonia. Plan: - repeat troponins as plan below for tachycardia, troponin 0.04 on repeat - pt was started on heparin drip, which has seen been d/c - duonebs have been d/c due to tachycardia - one time dose of lasix IVP this morning - repeat cxr (2) Tachycardia Current Visit: Yes Status: Resolved Assessment and Plan: HR this morning 85, most likely secondary to pneumonia - pt was in A fib with RVR - cardiology saw and started on Cardizem drip TSH is within normal limits Concern for DVT is low, (-) Anna's sign and there is no s/s of erythema Pt remains afebrile EKG showed HR 139 (05/02) ?a flutter, ?RVR Plan: - increased toprol to 25mg PO BID, duonebs/beta agonists held - cardiology consulted they started a cardizem drip yesterday transitioned to PO cardizem today as per cardiology ASA 325mg PO daily as per cardiology pt is a high risk for falls/bleeding events, long term care administrator anticoagulation not recommended - continue to monitor on telemetry (3) CAP (community acquired pneumonia) Current Visit: Yes Status: Acute Assessment and Plan: CTA chest showed LLL atelectasis vs pneumonia - right upper lobe pulmonary nodule Leginella antigen negative Respiratory panel negative Pt does not meet sepsis criteria - HR 85 - RR 19 - BP stable - afebrile - no WBC count Plan: - continue oxygen, wean as tolerated - doxycyline day 5 and omnicef day 3; rocephin d/c on 05/02 - blood cx pending - sputum cx pending - duonebs and atrovent d/c - one time dose of lasix IVP this morning, repeat CXR - dispo: HR controlled to normal rate, breathing status continues to improve Pt needs to be inpatient for 3 nights to meet criteria for ECF placement and w/o sitter for 24hr (4) Acute renal failure (ARF) Current Visit: Yes Status: Resolved Assessment and Plan: Resolved. Most likely prerenal and secondary to dehydration Retroperitoneal US unremarkable Creatinine on admission 1.67, 05/01 1.27 - baseline appears to be around 1.1 to 1.2 - 05/02: creatinine 1.06 - 05/04: creatinine 0.89 Plan: - I&O strict - avoid neprhotoxins - fluids's d/c - montor renal fxn - bladder scan pending (5) COPD (chronic obstructive pulmonary disease) Current Visit: Yes Status: Acute Assessment and Plan: Not in acute exacerbation - see plan for pneumonia as above (6) DVT prophylaxis Current Visit: Yes Status: Acute Assessment and Plan: heparin SQ (7) Dementia Current Visit: No Status: Chronic Assessment and Plan: On donepezil - chronic Pt has increasing agitation - Haldol 5mg given one time yesterday (8) Elevated troponin Current Visit: Yes Status: Acute Assessment and Plan: Most likely a type 2 MD secondary to demand mismatch - troponin 0.07 ---> 0.05 ECHO showed LVEF 55-60%, D shaped ventriple corresponding with RV pressure/volume overload and distal-apical anteroseptum diastolic flattening from RV overload - severe pHTN - severe TR - severly dilated RV Plan: - continue home aspirin - heparin drip d/c - cardiology consulted, has signed off and will arrange outpt follow up Re-consulted cardio, see plan as above for tacycardia (9) Hypertension Current Visit: No Status: Chronic Assessment and Plan: On Zestril, troprol - continue home meds - BP 118/68, well controlled (10) GERD (gastroesophageal reflux disease) Current Visit: No Status: Chronic Assessment and Plan: On prilosec - chronic (11) BPH (benign prostatic hyperplasia) Current Visit: No Status: Chronic Assessment and Plan: On Terazosin - chronic, continue home meds (12) Atrial fibrillation with RVR Current Visit: Yes Status: Resolved Assessment and Plan: See plan as above for tacycardia - resolved (13) Agitation Current Visit: Yes Status: Acute Assessment and Plan: Nursing staff reports increased agitation - threatening to hit nursing staff yesterday - pt continuing to try to get up - AOx0, very difficult to reorient Plan: - haldol 5mg IVP given one time yesterday - gentle re-orientation - fall precautions - continue sitter with pt pt will need to have no sitter for 24hrs before ecf placement - start seroquel 25mg PO BID - Time Spent with Patient Total time spent is greater than 50% in coordination of care (as documented) at patient's floor/unit and/or counseling patient: less than 15 minutes Plan of Care Discussed with: patient Internal Medicine: Result - Labs CBC & Chem 7: 05/04/18 05:04 05/04/18 05:04 Labs: Short CBC 05/04/18 Range/Units 05:04 WBC 5.8 (4.3-11.1) K/mcL Hgb 10.3 L (12.9-16.9) g/dL Hct 34.0 L (37.5-50.1) % Plt Count 178 (140-400) K/mcL Neutrophils # 4.2 (1.6-8.9) K/mcL BMP 05/04/18 05:04 Sodium 141 Potassium 4.9 Chloride 103 Carbon Dioxide 35 H BUN 19 Creatinine 0.89 Glucose 95 Calcium 9.3 Consult Discharge Plan - Plan [facility]errals: [facility] [Primary Care Provider] - <Maida Moore - Last Filed: 05/04/18 14:51> Hospitalist Progress Note - Encounter Date of Encounter: 05/04/18 - Exam Vitals: Temp Pulse Resp BP Pulse Ox 98.6 F 94 18 96/62 94 05/04/18 12:02 05/04/18 12:02 05/04/18 12:02 05/04/18 12:02 05/04/18 12:02 - Assessment and Plan (1) Acute and chronic respiratory failure with hypoxia Current Visit: Yes Status: Resolved (2) CAP (community acquired pneumonia) Current Visit: Yes Status: Acute (3) Acute renal failure (ARF) Current Visit: Yes Status: Resolved (4) COPD (chronic obstructive pulmonary disease) Current Visit: Yes Status: Acute (5) DVT prophylaxis Current Visit: Yes Status: Acute (6) Dementia Current Visit: No Status: Chronic (7) Elevated troponin Current Visit: Yes Status: Acute (8) Hypertension Current Visit: No Status: Chronic (9) GERD (gastroesophageal reflux disease) Current Visit: No Status: Chronic (10) BPH (benign prostatic hyperplasia) Current Visit: No Status: Chronic (11) Tachycardia Current Visit: Yes Status: Resolved (12) Atrial fibrillation with RVR Current Visit: Yes Status: Resolved (13) Agitation Current Visit: Yes Status: Acute - Time Spent with Patient Total time spent is greater than 50% in coordination of care (as documented) at patient's floor/unit and/or counseling patient: Internal Medicine: Result - Labs CBC & Chem 7: 05/04/18 05:04 05/04/18 05:04 Labs: Short CBC 05/04/18 Range/Units 05:04 WBC 5.8 (4.3-11.1) K/mcL Hgb 10.3 L (12.9-16.9) g/dL Hct 34.0 L (37.5-50.1) % Plt Count 178 (140-400) K/mcL Neutrophils # 4.2 (1.6-8.9) K/mcL BMP 05/04/18 05:04 Sodium 141 Potassium 4.9 Chloride 103 Carbon Dioxide 35 H BUN 19 Creatinine 0.89 Glucose 95 Calcium 9.3 - Attending Attestation I saw and assessed this patient and agree with resident plan as above Plan Acute hypoxic respiratory failure likely 2/2 to community acquired pneumonia. Continue antibiotics. Continue oxygen supplementation Afib with RVR. Rate control. continue cardizem and beta blockers. On aspirin for anticoagulation DIsposition. awaiting discharge to rehab <Bony Dailey S - Last Filed: 05/04/18 11:36> (3) CAP (community acquired pneumonia) Qualifiers: Laterality: unspecified laterality Qualified Code(s): J18.9 - Pneumonia, unspecified organism (4) Acute renal failure (ARF) Qualifiers: Acute renal failure type: unspecified Qualified Code(s): N17.9 - Acute kidney failure, unspecified (5) COPD (chronic obstructive pulmonary disease) Qualifiers: Emphysema type: unspecified Qualified Code(s): J43.9 - Emphysema, unspecified (7) Dementia Qualifiers: Dementia type: Alzheimer's disease Alzheimer's disease onset: unspecified onset Dementia behavioral disturbance: without behavioral disturbance Qualified Code(s): G30.9 - Alzheimer's disease, unspecified; F02.80 - Dementia in other diseases classified elsewhere without behavioral disturbance (9) Hypertension Qualifiers: Hypertension type: essential hypertension Qualified Code(s): I10 - Essential (primary) hypertension (10) GERD (gastroesophageal reflux disease) Qualifiers: Esophagitis presence: esophagitis presence not specified Qualified Code(s): K21.9 - Gastro-esophageal reflux disease without esophagitis (11) BPH (benign prostatic hyperplasia) Qualifiers: Lower urinary tract symptom presence: unspecified whether lower urinary tract symptoms present Qualified Code(s): N40.0 - Benign prostatic hyperplasia without lower urinary tract symptoms <Folmahin,Maida A - Last Filed: 05/04/18 14:51> (2) CAP (community acquired pneumonia) Qualifiers: Laterality: unspecified laterality Qualified Code(s): J18.9 - Pneumonia, uns pecified organism (3) Acute renal failure (ARF) Qualifiers: Acute renal failure type: unspecified Qualified Code(s): N17.9 - Acute kidney failure, unspecified (4) COPD (chronic obstructive pulmonary disease) Qualifiers: Emphysema type: unspecified Qualified Code(s): J43.9 - Emphysema, unspecified (6) Dementia Qualifiers: Dementia type: Alzheimer's disease Alzheimer's disease onset: unspecified onset Dementia behavioral disturbance: without behavioral disturbance Qualified Code(s): G30.9 - Alzheimer's disease, unspecified; F02.80 - Dementia in other diseases classified elsewhere without behavioral disturbance (8) Hypertension Qualifiers: Hypertension type: essential hypertension Qualified Code(s): I10 - Essential (primary) hypertension (9) GERD (gastroesophageal reflux disease) Qualifiers: Esophagitis presence: esophagitis presence not specified Qualified Code(s): K21.9 - Gastro-esophageal reflux disease without esophagitis (10) BPH (benign prostatic hyperplasia) Qualifiers: Lower urinary tract symptom presence: unspecified whether lower urinary tract symptoms present Qualified Code(s): N40.0 - Benign prostatic hyperplasia without lower urinary tract symptoms
[2018-05-04] MEDS: Budesonide/Formoterol 160/4.5 1 PUFF INH IH SCH ×2 (07:52→21:02)
[2018-05-04] MEDS: Diltiazem CD (24hr) 240 MG CAPSULE PO SCH (10:22)
[2018-05-04] MEDS: Cefdinir 300 MG CAPSULE PO SCH ×2 (10:22→21:41)
[2018-05-04] MEDS: Aspirin 325 MG TABLET PO SCH (10:22)
[2018-05-04] MEDS: Cholecalciferol (D-3) 1,000 UNIT TABLET PO SCH (10:22)
[2018-05-04] MEDS: Doxycycline 100 MG CAPSULE PO SCH ×2 (10:22→21:41)
[2018-05-04] MEDS: Cyanocobalamin (B-12) 1,000 MCG TABLET PO SCH (10:22)
[2018-05-04] MEDS: Metoprolol XL (24 HR) Succ 50 MG TAB.ER.24H PO SCH (10:23)
[2018-05-04] MEDS: Nystatin Cream 15 GM TUBE TP SCH ×2 (10:24→21:42)
--- NOTE | 2018-05-04 10:47 | Palliative Progress Note ---
Date of Encounter: 05/04/18 Time of Encounter: 09:30 - Assessment and plan (1) Dyspnea Current Visit: No Status: Acute Assessment and plan: Patient breathing calm at time of assessment. No signs of dyspnea present. Continue treatment for Pneumonia by primary team. Qualifiers: Dyspnea type: unspecified Qualified Code(s): R06.00 - Dyspnea, unspecified (2) Pneumonia Current Visit: Yes Status: Acute Assessment and plan: Patient receiving Omnicef. Qualifiers: Pneumonia type: due to unspecified organism Laterality: left Lung location: lower lobe of lung Qualified Code(s): J18.1 - Lobar pneumonia, unspecified organism (3) COPD exacerbation Current Visit: No Status: Acute (4) Physical deconditioning Current Visit: No Status: Acute Assessment and plan: PT/OT recommend ECF placement at discharge. Per note from primary team, family is in agreement. Continue PT/OT while inpatient. (5) Dementia Current Visit: Yes Status: Acute (6) Agitation Current Visit: Yes Status: Acute Assessment and plan: Patient remains agitated when family initially departs. Continue to provide reassurance. Aricept has been continued. (7) Counseling regarding advanced care planning and goals of care Current Visit: No Status: Acute Assessment and plan: Upon reviewing primary team note, family agreeable to ECF placement at discharge. Called and left message for Mary (Daughter) to discuss placement location of preference, no answer, VM left. Spoke with nurse Fischer regarding sitter; patient will have to be without a sitter 24 hours prior to placement acceptance. Trial release of Sitter with bed alarm in place to transition to being without sitter. Received phone call back from Mary Doran (Patient's daughter). Family choice of ECF 1) [facility] and 2) [facility]. - Time Spent With Patient Total time spent is greater than 50% in coordination of care (as documented) at patient's floor/unit and/or counseling patient: less than 15 minutes - Subjective Interval history: Patient resting in bed with eyes closed upon arrival for assessment. No family present. Sitter at bedside. Patient had just fallen asleep upon arrival for assessment. Patient aroused easily with tactile and verbal stimulations. No complaints during assessment. Patient remains confused and gets upset at times of family departure per report from sitter. - Constitutional Vitals: Abnormal lab results RBC 3.55 M/mcL (4.19-5.50) L 05/04/18 05:04 Hgb 10.3 g/dL (12.9-16.9) L 05/04/18 05:04 Hct 34.0 % (37.5-50.1) L 05/04/18 05:04 MCHC 30.3 g/dL (31.6-35.5) L 05/04/18 05:04 APTT 61.4 Seconds (26.0-36.0) H 04/30/18 05:07 Heparin Anti-Xa, Unfract 0.08 IU/mL (0.30-0.70) L 05/01/18 00:55 Carbon Dioxide 35 mEq/L (23-29) H 05/04/18 05:04 Troponin I 0.04 ng/mL (< 0.04) H* 05/02/18 09:49 B-Natriuretic Peptide 134 pg/mL (Less than 100) H 04/28/18 21:25 Urine Clarity Cloudy (Clear) A 04/29/18 00:59 Ur Specific [place] 1.006 (1.010-1.025) L 04/29/18 00:59 Urine Protein 100 mg/dL (Neg-Trace) H 04/29/18 00:59 Urine Ketones Trace mg/dL (Negative) H 04/29/18 00:59 Urine Blood Small (Negative) H 04/29/18 00:59 Urine Bilirubin Small (Negative) H 04/29/18 00:59 Urine Microscopic RBC 5-15 per hpf (0-3) H 04/29/18 00:59 Urine Microscopic WBC 5-15 per hpf (0-3) H 04/29/18 00:59 Ur Squamous Epith Cells Many per lpf (None-Few) H 04/29/18 00:59 WBC Casts Moderate per lpf (None Seen) H 04/29/18 00:59 General appearance: Present: cooperative, no acute distress - Head Head exam: Present: atraumatic, normal inspection - Eye Eye exam: Present: normal appearance - ENT ENT exam: Present: mucous membranes moist - Neck Neck exam: Present: full ROM, normal inspection - Respiratory Respiratory exam: Present: CTAB. Absent: respiratory distress - Cardiovascular Cardiovascular exam: Present: +S1, +S2 - GI/Abdominal GI/Abdominal exam: Present: normal bowel sounds - Rectal Rectal exam: Present: deferred - Extremities Exam Extremities exam: Present: normal inspection. Absent: pedal edema - Neurological Exam Neurological exam: Present: alert, altered - Psychiatric Psychiatric exam: Present: flat affect - Skin Skin exam: Present: dry, intact, warm Palliative Quality Palliative Quality: Screen for Code Status: Yes, Screen for Goals of Care: Yes, Screen for Pain: Yes, If Pain Regimen Started, Initiate Bowel Regimen: NA, Screen for Nausea/Vomitting: Yes Code Status: 04/29/18 08:14 Resuscitation Status: Active [RES] Routine Comment: Resuscitation Status: Full Code - Labs CBC & Chem 7: 05/04/18 05:04 05/04/18 05:04 Labs: Laboratory Results - last 24 hr 05/04/18 05/04/18 05:04 05:04 WBC 5.8 RBC 3.55 L Hgb 10.3 L Hct 34.0 L MCV 95.8 MCH 29.0 MCHC 30.3 L RDW 13.4 Plt Count 178 MPV 11.1 Immature Gran % 0.7 Seg Neutrophils % 72.0 Lymphocytes % 12.4 Monocytes % 9.1 Eosinophils % 5.3 Basophils % 0.5 Neutrophils # 4.2 Lymphocytes # 0.7 Monocytes # 0.5 Eosinophils # 0.3 Basophils # 0.0 Sodium 141 Potassium 4.9 Chloride 103 Carbon Dioxide 35 H BUN 19 Creatinine 0.89 Est GFR ( Amer) > 60 Est GFR (Non-Af Amer) > 60 BUN/Creatinine Ratio 21 Glucose 95 Calculated Osmolality 294 Calcium 9.3 Consult Discharge Plan - Plan [facility]errals: [facility] [Primary Care Provider] -
[2018-05-04] MEDS: Melatonin 3 MG TABLET PO SCH (21:41)
[2018-05-05 05:45] LABS: Basophils % 0.6 %; Eosinophils # 0.3 K/mcL (0.0-0.6); Eosinophils % 6.3 %; Hematocrit 32.2 % (37.5-50.1); Hemoglobin 9.7 g/dL (12.9-16.9); Immature Granulocytes % 0.4 % (0-4); Lymphocytes # 0.8 K/mcL (0.6-4.6); Lymphocytes % 15.6 %; Mean Corpuscular HGB Conc 30.1 g/dL (31.6-35.5); Mean Corpuscular Volume 96.1 fL (83.0-100.0); Mean Platelet Volume 11.5 fL (9.4-12.4); Monocytes # 0.5 K/mcL (0.0-1.3); Monocytes % 9.7 %; Neutrophils # 3.3 K/mcL (1.6-8.9); Platelet Count 166 K/mcL (140-400); Red Blood Count 3.35 M/mcL (4.19-5.50); Red Cell Distribution Width 13.4 % (11.5-14.5); Segmented Neutrophils % 67.4 %
[2018-05-05 06:09] LABS: BUN/Creatinine Ratio 22 (6-26); Blood Urea Nitrogen 20 mg/dL (8-23); Calcium 9.3 mg/dL (8.6-10.3); Carbon Dioxide 38 mEq/L (23-29); Chloride 100 mEq/L (98-107); Glucose 98 mg/dL (70-105); Osmolality,Calculated 297 (280-300); Potassium 4.2 mEq/L (3.5-5.1); Sodium 142 mEq/L (136-145); eGFR For Non-African Americans > 60 (> 60)
--- NOTE | 2018-05-05 09:04 | Discharge Summary ---
<DaileyBony S - Last Filed: 05/05/18 11:29> - NOTES TO OUTPATIENT PROVIDER Notes to Outpatient Provider: Follow up with PCP in 1 wk. Ensure return to baseline for breathing. Dicuss with PCP to restart LAYLA and HCTZ. Will need refills for cardizem, toprol and seroquel. Orders not resulted at time of discharge: Pending orders 04/29/18 08:49 Culture,Sputum with Gram Stain [RM] Stat 04/29/18 09:13 Culture,Sputum with Gram Stain [RM] Stat Date of Encounter: 05/05/18 Time of Encounter: 09:00 - Discharge Diagnosis (1) CAP (community acquired pneumonia) Priority: Primary Status: Acute Qualifiers: Laterality: unspecified laterality Qualified Code(s): J18.9 - Pneumonia, unspecified organism (2) Acute and chronic respiratory failure with hypoxia Priority: Secondary Status: Resolved (3) Agitation Priority: Secondary Status: Acute (4) Tachycardia Priority: Secondary Status: Resolved (5) Acute renal failure (ARF) Priority: Secondary Status: Resolved Qualifiers: Acute renal failure type: unspecified Qualified Code(s): N17.9 - Acute kidney failure, unspecified (6) COPD (chronic obstructive pulmonary disease) Priority: Secondary Status: Acute Qualifiers: Emphysema type: unspecified Qualified Code(s): J43.9 - Emphysema, unspecified (7) DVT prophylaxis Priority: Secondary Status: Acute (8) Dementia Priority: Secondary Status: Chronic Qualifiers: Dementia type: Alzheimer's disease Alzheimer's disease onset: unspecified onset Dementia behavioral disturbance: without behavioral disturbance Qualified Code(s): G30.9 - Alzheimer's disease, unspecified; F02.80 - Dementia in other diseases classified elsewhere without behavioral disturbance (9) Elevated troponin Priority: Secondary Status: Acute (10) Hypertension Priority: Secondary Status: Chronic Qualifiers: Hypertension type: essential hypertension Qualified Code(s): I10 - Essential (primary) hypertension (11) GERD (gastroesophageal reflux disease) Priority: Secondary (2) Status: Chronic Qualifiers: Esophagitis presence: esophagitis presence not specified Qualified Code(s): K21.9 - Gastro-esophageal reflux disease without esophagitis (12) BPH (benign prostatic hyperplasia) Priority: Secondary Status: Chronic Qualifiers: Lower urinary tract symptom presence: unspecified whether lower urinary tract symptoms present Qualified Code(s): N40.0 - Benign prostatic hyperplasia without lower urinary tract symptoms (13) Atrial fibrillation with RVR Priority: Secondary Status: Resolved Hospital course: Mr. Doran is an 87yo male with PMH of COPD on home O2, heart failure, dementia, GERD, viamin D deficinecy, HTN, and BPH, dementia. The pt was recently here in 11/13 for SOB and respiratory failure. The pt is a poor historian with limited insight into his medical problems. He is unable to tell me why he came to the hospital. He is unsure of what hospital he is at, what month/year it is, or who the president is. He is unsure of who brought him to the hospital. As per the chart, the pt family brought him to the hospital after having SOB for 7 days and had associated cough with sputum. The family stated there was no blood in the sputum, denied sick contacts. The pt didn't report any fevers/chills to the family, however, the family reports he complained of chest pain and had fast HR and low BP. In the ER the pt had tacycardia/tacypnia. EKG showed RBBB and there was concern for PE. CTA of the chest was suboptimal but showed a possible pneumonia. The pt was treated for CAP - legionella antigen negative, respiatory panel negative - azithromycin was d/c due to QTc prolongation -omnicef and doxycyline was used for treatment - pt responded well clinically and imrpoved CXR 05/01 - Airspace opacity at the left lung base, may be related to atelectasis versus pneumonia. - Mild left pleural effusion. - Increased lung markings bilaterally, may be related to bronchitis, mild pulmonary edema versus pneumonia. Pt went into a fib with RVR on 05/02 - seen by cardiology - transitioned to ASA 325mg PO daily and cardizem drip to a PO daily pill - ECHO showed LVEF 55-60%, D shaped ventriple corresponding with RV pressure/volume overload and distal-apical anteroseptum diastolic flattening from RV overload - severe pHTN - severe TR - severly dilated RV Agitation and hard to reorient at night - pt did very well with Seroquel and was easier to re-orient and keep calm - will d/c the pt with a 1 mo supply of seroquel Currently the pt denies chest pain, SOB, abd pain, or N/V. He is very sleepy this morning - pt family wishes for him to have ECF placement - pt has been here for three midnights, will be placed to [facility] pending no sitter for 24hrs and bed placement - d/c with toprol 50mg, caridzem 240mg, seroquel - ASA 325mg PO daily as per cardiology recommendations - the pt is clinically stable for discharge at this time Discharge discussed with: nurse, social work Time spent discussing smoking cessation with patient: 3 to 10 minutes - Time Spent with Patient Total time spent providing and/or coordinating discharge services: Less than 30 minutes - Discharge Medications Prescriptions: Diltiazem CD (24hr) [Cardizem CD] 240 mg PO DAILY 30 Days #30 cap.er.24h Metoprolol XL (24 HR) Succ [Toprol Xl] 50 mg PO DAILY 30 Days #30 tab.er.24h Quetiapine Fumarate [Seroquel] 25 mg PO BID 30 Days #60 tablet Home Medications: Aspirin 81 mg PO DAILY 04/09/17 [History] Cholecalciferol (D-3) [Vitamin D] 1,000 unit PO DAILY 04/09/17 [History] Cyanocobalamin (B-12) [Vitamin B12] 1,000 mcg PO DAILY 04/09/17 [History] Donepezil [Aricept] 5 mg PO DAILY 04/09/17 [History] Albuterol Sulfate [Albuterol Inhaler] 2 puff IH QID PRN 11/09/17 [History] Budesonide/Formoterol 160/4.5 [Symbicort 160/4.5] 2 puff IH BIDR #1 inhaler 11/14/17 [Rx] Ipratropium/Albuterol Neb [Duoneb] 3 ml IH Q6HR PRN 04/29/18 [History] Isosorbide MONOnitrate (24 HR) [Imdur] 30 mg PO DAILY 04/29/18 [History] Melatonin [Melatin] 9 mg PO HS 04/29/18 [History] Terazosin [Hytrin] 1 mg PO HS 04/29/18 [History] Diltiazem CD (24hr) [Cardizem CD] 240 mg PO DAILY 30 Days #30 cap.er.24h 05/05/18 [Rx] Metoprolol XL (24 HR) Succ [Toprol Xl] 50 mg PO DAILY 30 Days #30 tab.er.24h 05/05/18 [Rx] Quetiapine Fumarate [Seroquel] 25 mg PO BID 30 Days #60 tablet 05/05/18 [Rx] Allergies/Adverse Reactions: Allergy/AdvReac Type Severity Reaction Status Date / Time No Known Allergies Allergy Verified 04/29/18 13:33 Date of admission: 05/02/18 16:34 [facility] care physician: [facility] Consults: 04/29/18 10:22 Consult to Palliative Care [CONS] Routine Comment: Consulting Provider: Palliative Care [facility] Reason for Consult: goals of care Call Completed: No 04/29/18 11:50 Consult to Cardiology [CONS] Routine Comment: Consulting Provider: Cardiology [place] Reason for Consult: tachycardia, HFpef, elevated troponins Call Completed: No 04/29/18 15:24 Consult to Senior Analyst Programmer [CONS] Routine Reason for SW Consult: discharge needs, poss lacement 04/30/18 11:08 Consult to Speech Therapy [CONS] Routine Comment: Evaluate, develop and implement POC Reason for Consult: swallow eval Call Completed: No 05/02/18 13:40 Consult to Occupational Therapy [CONS] Routine Comment: Evaluate, develop and implement POC Reason for Consult: PTOT eval Does patient have active BEDREST order?: No Is patient medically & hemodynamically stable?: Yes Patient assessed for mobility or mobilized this visit?: No Consult to Physical Therapy [CONS] Routine Comment: Evaluate, develop and implement POC Reason for Consult: ptot eval Does patient have active BEDREST order?: No Is patient medically & hemodynamically stable?: Yes Patient assessed for mobility or mobilized this visit?: No Discharging clinician: Bony Dailey Anticipated date of discharge: 05/05/18 - Constitutional Vitals: Temp Pulse Resp BP Pulse Ox 97.8 F 89 15 115/56 92 05/05/18 06:33 05/05/18 06:33 05/05/18 06:33 05/05/18 06:21 05/05/18 06:33 Exam: General: demented, agitated, slightly distressed, aox0 HEENT: normaocephalic, atraumatic, eyes anicteric, mucus membranes dry Cardiovascular: tachycardia, s1 and s2 present. Resp: decreased breath sounds, bibasilar rhonchi increasing since yesterday Abd: BS+, soft, nontender, nondistended, thin Ext: nontender, no erythema, no edema Neuro: can follow simple commands and answer basic questions. Not oriented to situation or place, no FND : reddened area,erythematous around the genital area - Patient Status Disposition: Transfer SNF Condition: Fair Functional capacity at discharge: uses cane/walker Overall status at discharge: patient is progressing back to baseline - Discharge Instructions Instructions: Metoprolol (By mouth), Diltiazem (By mouth), Quetiapine (By mouth), Heart Failure (DC), Atrial Fibrillation (DC), Acute Respiratory Distress Syndrome (DC), Acute Kidney Injury (DC), Chronic Obstructive Pulmonary Disease (DC), Sepsis (DC), Chronic Hypertension (DC), Pneumonia (DC) Follow [facility] With: [facility] [Primary Care Provider] - - Diet and Activity Activity: as per physical therapy, increase activity as tolerated Diet: low fat, low cholesterol, low salt diet <Maida Moore - Last Filed: 05/05/18 12:54> Orders not resulted at time of discharge: Pending orders 04/29/18 08:49 Culture,Sputum with Gram Stain [] Stat 04/29/18 09:13 Culture,Sputum with Gram Stain [] Stat Date of Encounter: 05/05/18 - Discharge Diagnosis (1) Acute and chronic respiratory failure with hypoxia Status: Resolved (2) CAP (community acquired pneumonia) Status: Acute Qualifiers: Laterality: unspecified laterality Qualified Code(s): J18.9 - Pneumonia, unspecified organism (3) Acute renal failure (ARF) Status: Resolved Qualifiers: Acute renal failure type: unspecified Qualified Code(s): N17.9 - Acute kidney failure, unspecified (4) COPD (chronic obstructive pulmonary disease) Status: Acute Qualifiers: Emphysema type: unspecified Qualified Code(s): J43.9 - Emphysema, unspecified (5) DVT prophylaxis Status: Acute (6) Dementia Status: Chronic Qualifiers: Dementia type: Alzheimer's disease Alzheimer's disease onset: unspecified onset Dementia behavioral disturbance: without behavioral disturbance Qualified Code(s): G30.9 - Alzheimer's disease, unspecified; F02.80 - Dementia in other diseases classified elsewhere without behavioral disturbance (7) Elevated troponin Status: Acute (8) Hypertension Status: Chronic Qualifiers: Hypertension type: essential hypertension Qualified Code(s): I10 - Essential (primary) hypertension (9) GERD (gastroesophageal reflux disease) Status: Chronic Qualifiers: Esophagitis presence: esophagitis presence not specified Qualified Code(s): K21.9 - Gastro-esophageal reflux disease without esophagitis (10) BPH (benign prostatic hyperplasia) Status: Chronic Qualifiers: Lower urinary tract symptom presence: unspecified whether lower urinary tract symptoms present Qualified Code(s): N40.0 - Benign prostatic hyperplasia without lower urinary tract symptoms (11) Tachycardia Status: Resolved (12) Atrial fibrillation with RVR Status: Resolved (13) Agitation Status: Acute Hospital course: Mr. Doran is a 87 year old male - Time Spent with Patient Total time spent providing and/or coordinating discharge services: Date of admission: 05/02/18 16:34 [facility] care physician: [facility] Consults: 04/29/18 10:22 Consult to Palliative Care [CONS] Routine Comment: Consulting Provider: Palliative Care Sherrie Reason for Consult: goals of care Call Completed: No 04/29/18 11:50 Consult to Cardiology [CONS] Routine Comment: Consulting Provider: Cardiology [place] Reason for Consult: tachycardia, HFpef, elevated troponins Call Completed: No 04/29/18 15:24 Consult to Senior Analyst Programmer [CONS] Routine Reason for SW Consult: discharge needs, poss lacement 04/30/18 11:08 Consult to Speech Therapy [CONS] Routine Comment: Evaluate, develop and implement POC Reason for Consult: swallow eval Call Completed: No 05/02/18 13:40 Consult to Occupational Therapy [CONS] Routine Comment: Evaluate, develop and implement POC Reason for Consult: PTOT eval Does patient have active BEDREST order?: No Is patient medically & hemodynamically stable?: Yes Patient assessed for mobility or mobilized this visit?: No Consult to Physical Therapy [CONS] Routine Comment: Evaluate, develop and implement POC Reason for Consult: ptot eval Does patient have active BEDREST order?: No Is patient medically & hemodynamically stable?: Yes Patient assessed for mobility or mobilized this visit?: No - Constitutional Vitals: Temp Pulse Resp BP Pulse Ox 97.9 F 91 16 118/52 94 05/05/18 10:57 05/05/18 10:57 05/05/18 10:57 05/05/18 10:57 05/05/18 10:57 - Attending Attestation I saw and assessed this patient and agree with discharge summary as above Gen - Awake, alert, oriented x 3, no acute distress HEENT - NCAT, PERRLA, EOMI, hearing grossly intact, oropharynx benign CV - RRR, normal S1 and S2, no M/R/G, no BLE edema Resp - Normal WOB, CTAB, no W/R/R GI - Soft, NT/ND, no masses, normal bowel sounds, Skin - Warm, dry, no rashes/lesions/ulcers Psych - Normal mood and affect, no depression or anxiety Plan Acute hypoxic respiratory failure likely 2/2 to community acquired pneumonia. Completed course of antibiotics. Continue oxygen supplementation Afib with RVR. Rate control. continue cardizem and beta blockers. On aspirin for anticoagulation per cardio recs DIsposition. Discharge to rehab today
--- NOTE | 2018-05-05 09:12 | Physician Discharge Referral ---
ExtendedCare Referral Info Transfer To: [facility] Provider in Charge after Transfer: PCP Institutional Level of Care: Skilled - Diagnosis (1) CAP (community acquired pneumonia) Priority: Primary Status: Acute (2) Acute and chronic respiratory failure with hypoxia Priority: Secondary Status: Resolved (3) Agitation Priority: Secondary Status: Acute (4) Tachycardia Priority: Secondary Status: Resolved (5) Acute renal failure (ARF) Priority: Secondary Status: Resolved (6) COPD (chronic obstructive pulmonary disease) Priority: Secondary Status: Acute (7) DVT prophylaxis Priority: Secondary Status: Acute (8) Dementia Priority: Secondary Status: Chronic (9) Elevated troponin Priority: Secondary Status: Acute (10) Hypertension Priority: Secondary Status: Chronic (11) GERD (gastroesophageal reflux disease) Priority: Secondary Status: Chronic (12) BPH (benign prostatic hyperplasia) Priority: Secondary Status: Chronic (13) Atrial fibrillation with RVR Priority: Secondary Status: Resolved Prognosis: Good Aware of Diagnosis: Family Aware of Prognosis: Family - Transfer Medications Prescriptions: Diltiazem CD (24hr) [Cardizem CD] 240 mg PO DAILY 30 Days #30 cap.er.24h Metoprolol XL (24 HR) Succ [Toprol Xl] 50 mg PO DAILY 30 Days #30 tab.er.24h Quetiapine Fumarate [Seroquel] 25 mg PO BID 30 Days #60 tablet Home Medications: Aspirin 81 mg PO DAILY 04/09/17 [History] Cholecalciferol (D-3) [Vitamin D] 1,000 unit PO DAILY 04/09/17 [History] Cyanocobalamin (B-12) [Vitamin B12] 1,000 mcg PO DAILY 04/09/17 [History] Donepezil [Aricept] 5 mg PO DAILY 04/09/17 [History] Albuterol Sulfate [Albuterol Inhaler] 2 puff IH QID PRN 11/09/17 [History] Budesonide/Formoterol 160/4.5 [Symbicort 160/4.5] 2 puff IH BIDR #1 inhaler 11/14/17 [Rx] Ipratropium/Albuterol Neb [Duoneb] 3 ml IH Q6HR PRN 04/29/18 [History] Isosorbide MONOnitrate (24 HR) [Imdur] 30 mg PO DAILY 04/29/18 [History] Melatonin [Melatin] 9 mg PO HS 04/29/18 [History] Terazosin [Hytrin] 1 mg PO HS 04/29/18 [History] Diltiazem CD (24hr) [Cardizem CD] 240 mg PO DAILY 30 Days #30 cap.er.24h 05/05/18 [Rx] Metoprolol XL (24 HR) Succ [Toprol Xl] 50 mg PO DAILY 30 Days #30 tab.er.24h 05/05/18 [Rx] Quetiapine Fumarate [Seroquel] 25 mg PO BID 30 Days #60 tablet 05/05/18 [Rx] Allergies/Adverse Reactions: Allergy/AdvReac Type Severity Reaction Status Date / Time No Known Allergies Allergy Verified 04/29/18 13:33 - Respiratory Orders Oxygen / L per min Smoking Cessation: Smoking cessation has been advised. For more information, call the [employer] Tobacco Quit Line at 7-894-QCWN-NOW. - Ancillary Orders May use pressure relief devices daily prn - Advance Directives Code Status: Full Code - Mobility Orders Chair - Rehabiliation Orders Rehab Potential: Fair Rehab Orders: ROM Exercises, Evaluation for Physical Therapy, Evaluation for Occupational Therapy - Diet Orders Cardiac CERTIFICATION: I certify that the transfer of the above named patient to an Extended Care Facility is necessary for the continuing treatment of the diagnosis listed. The above information is true and accurate reflection of patient's current condition. Confidential - Redisclosure prohibited without a patient's written consent.
[2018-05-05] MEDS: Nystatin Cream 15 GM TUBE TP SCH ×2 (09:57→21:12)
[2018-05-05] MEDS: Doxycycline 100 MG CAPSULE PO SCH ×2 (09:57→21:11)
[2018-05-05] MEDS: Aspirin 325 MG TABLET PO SCH (09:57)
[2018-05-05] MEDS: Cefdinir 300 MG CAPSULE PO SCH ×2 (09:58→21:12)
[2018-05-05] MEDS: Cholecalciferol (D-3) 1,000 UNIT TABLET PO SCH (09:58)
[2018-05-05] MEDS: Cyanocobalamin (B-12) 1,000 MCG TABLET PO SCH (09:58)
[2018-05-05] MEDS: Budesonide/Formoterol 160/4.5 1 PUFF INH IH SCH ×2 (10:17→22:32)
[2018-05-05] MEDS: Diltiazem CD (24hr) 240 MG CAPSULE PO SCH (11:04)
[2018-05-05] MEDS: Metoprolol XL (24 HR) Succ 50 MG TAB.ER.24H PO SCH (11:04)
--- NOTE | 2018-05-05 11:07 | Event Note ---
Date of Encounter: 05/05/18 Time of Encounter: 10:30 Patient sitting up at bedside upon arrival. No complaints. Chart review completed. Patient ready for discharge to [facility] once accepted. SW updated with patient's family's desires for placement. Patient's family should file for guardianship of patient upon placement. Palliative care signing off.
[2018-05-05] MEDS ORDERED: Furosemide 40 MG TABLET PO ONE (13:56)
[2018-05-05] MEDS ORDERED: Furosemide 40 MG/4 ML VIAL IVP ONE (14:45)
[2018-05-05] MEDS ORDERED: Furosemide 20 MG/2 ML VIAL IVP ONE (15:32)
--- NOTE | 2018-05-05 17:35 | Event Note ---
Date of Encounter: 05/05/18 Time of Encounter: 17:00 Patient became hypoxic on ambulating and desaturated to 4L on oxygen on ambulating. CXR showed bilateral effusions Will start on lasix BID. Hold discharge
[2018-05-05 17:44] LABS: ABG Base Excess 11 mEq/L (-2 to 3); ABG HCO3 39 mEq/L (21-27); ABG Oxygen Saturation 93 % (95-98); ABG PCO2 70 mmHg (35-45); ABG PH 7.35 pH Units (7.32-7.45); ABG PO2 75 mmHg (85-104); ABG TCO2 41 mEq/L (20-26)
[2018-05-05] MEDS ORDERED: *HR* LORazepam 2 MG/ML VIAL IVP SCH (20:00)
[2018-05-05] MEDS ORDERED: *HR* LORazepam 2 MG/ML VIAL IVP PRN (20:06)
[2018-05-05] MEDS: Melatonin 3 MG TABLET PO SCH (21:11)
[2018-05-05] MEDS: Furosemide 40 MG/4 ML VIAL IVP SCH (21:13)
[2018-05-06] MEDS ORDERED: Furosemide 20 MG TABLET PO SCH (08:00)
[2018-05-06] MEDS: Budesonide/Formoterol 160/4.5 1 PUFF INH IH SCH ×2 (08:02→20:48)
[2018-05-06] MEDS: Ipratropium/Albuterol Neb 3 ML IH SCH ×5 (08:02→23:27)
[2018-05-06 08:49] LABS: Prothrombin Time 11.4 Seconds (9.4-12.1)
[2018-05-06] MEDS: Metoprolol XL (24 HR) Succ 50 MG TAB.ER.24H PO SCH (09:55)
[2018-05-06] MEDS: Nystatin Cream 15 GM TUBE TP SCH ×2 (09:55→20:27)
[2018-05-06] MEDS: Diltiazem CD (24hr) 240 MG CAPSULE PO SCH (09:55)
[2018-05-06] MEDS: Furosemide 40 MG/4 ML VIAL IVP SCH ×2 (09:55→18:01)
[2018-05-06] MEDS: Cyanocobalamin (B-12) 1,000 MCG TABLET PO SCH (09:55)
[2018-05-06] MEDS: Cholecalciferol (D-3) 1,000 UNIT TABLET PO SCH (09:55)
[2018-05-06] MEDS: Aspirin 325 MG TABLET PO SCH (09:55)
--- NOTE | 2018-05-06 10:34 | Internal Med Progress Note ---
<Etta Fischer - Last Filed: 05/06/18 16:47> Hospitalist Progress Note - Encounter Date of Encounter: 05/06/18 Time of Encounter: 10:26 - Subjective Interval History: Pt seen and examined at bedside resting comfortably in no acute distress. Currently stable on 4L O2. Was planned to be discharged to [facility] yesterday, but patient desaturated while ambulating. CXR showed bilateral effusions and pt was started on Lasix BID. Repeat CXR this morning showed stable bilateral pleural effusions. Consult was placed to IR for bilateral therapeutic paracentesis - however, Chest U/S did not reveal enough fluid to be drained. Pt currently denies headache, chest pain, SOB, congestion, abdominal pain. - Exam Vitals: Temp Pulse Resp BP Pulse Ox 97.7 F 62 18 104/50 98 05/06/18 07:48 05/06/18 07:48 05/06/18 08:08 05/06/18 07:48 05/06/18 08:08 Exam: GEN: AOx3, NAD HEENT: Atraumatic, Normocephalic, EOMI CARDIO: RRR, No murmurs, rubs, gallups PULM: CTAB, no wheezes, rales, rhonchi ABD: Soft, non-tender, non-distended NEURO: CN 2-12; No focal deficits EXT: No lower ext edema b/l - Assessment and Plan (1) Acute and chronic respiratory failure with hypercapnia Current Visit: Yes Status: Acute Assessment and Plan: Resolved. Pt currently on 96% on 4L NC - pt had a high suspicion for PE versus Pneumonia CXR 05/01 - Airspace opacity at the left lung base, may be related to atelectasis versus pneumonia. - Mild left pleural effusion. - Increased lung markings bilaterally, may be related to bronchitis, mild pu lmonary edema versus pneumonia. Pt was going to be discharged yesterday; however, upon walking walking, patient began to desat CXR - revealed b/l pleural effusions Pt was started on Lasix BID Repeat CXR this morning - showed similar b/l pleural effusions IR paracentesis was planned - but unable to find sufficient pleural effusion so did not do Plan: Cont Lasix BID Monitor vitals - monitor BP Plan to discharge tomorrow (2) Tachycardia Current Visit: Yes Status: Resolved Assessment and Plan: HR today = 84 Plan: Cont toprol Monitor vitals (3) CAP (community acquired pneumonia) Current Visit: Yes Status: Resolved Assessment and Plan: Stable on 4L O2 Afebrile Plan: Continue oxygen, wean as tolerated Blood culture negative Antibiotics D/C (4) Acute renal failure (ARF) Current Visit: Yes Status: Resolved Assessment and Plan: Most likely prerenal and secondary to dehydration Retroperitoneal US unremarkable Creatinine on admission 1.67, 05/01 1.27 baseline appears to be around 1.1 to 1.2 05/02: creatinine 1.06 05/04: creatinine 0.89 Plan: I&O strict avoid neprhotoxins fluids's d/c Monitor UO Monitor renal function (5) COPD (chronic obstructive pulmonary disease) Current Visit: Yes Status: Acute Assessment and Plan: Not currently in exacerbation Cont Duonebs, symbicort Cont O2 4L via NC Monitor O2 sat (6) DVT prophylaxis Current Visit: No Status: Acute (7) Dementia Current Visit: No Status: Chronic Assessment and Plan: Cont Donepizil (8) Elevated troponin Current Visit: Yes Status: Acute Assessment and Plan: Most likely a type 2 NH secondary to demand mismatch troponin 0.07 ---> 0.05 ECHO showed LVEF 55-60%, D shaped ventriple corresponding with RV pressure/volume overload and distal-apical anteroseptum diastolic flattening from RV overload - severe pHTN - severe TR - severly dilated RV Plan: Continue home aspirin F/U [facility]Utpatient Cardio (9) Hypertension Current Visit: No Status: Chronic Assessment and Plan: BP = 94/56 s/p lasix BID for diuresis W/ Systolic BP < 90, will give albumin Cont toprol, diltiazem, lasix (10) GERD (gastroesophageal reflux disease) Current Visit: No Status: Chronic Assessment and Plan: Cont Prilosec (11) BPH (benign prostatic hyperplasia) Current Visit: No Status: Chronic Assessment and Plan: Cont Terazosin (12) Atrial fibrillation with RVR Current Visit: Yes Status: Resolved Assessment and Plan: Cont Toprol (13) Agitation Current Visit: Yes Status: Acute Assessment and Plan: Cont Seroquel - Time Spent with Patient Total time spent is greater than 50% in coordination of care (as documented) at patient's floor/unit and/or counseling patient: less than 15 minutes Plan of Care Discussed with: patient Internal Medicine: Result - Labs CBC & Chem 7: 05/05/18 04:53 05/05/18 04:53 - ABG Interpretation ABG results: ABG ABG pH 7.35 pH Units (7.32-7.45) 05/05/18 17:39 ABG pCO2 70 mmHg (35-45) H* 05/05/18 17:39 ABG pO2 75 mmHg (85-104) L 05/05/18 17:39 ABG O2 Saturation 93 % (95-98) L 05/05/18 17:39 PT/INR, D-dimer PT 11.4 Seconds (9.4-12.1) 05/06/18 08:07 - Impressions Impressions Chest X-Ray 05/05/18 14:04 IMPRESSION: 1. Persistent bilateral pleural effusions with bibasilar atelectasis or pneumonia. 2. Interstitial fibrosis. D/ / 05/05/2018 14:34:18 Jevon Sanchez MD / tiffany Interpreting Provider: Jevon Sanchez MD Chest X-Ray 05/06/18 08:15 IMPRESSION: Stable chest. Bibasilar atelectasis or infiltrates with bilateral pleural effusions. Process the interstitial markings which could be in part chronic. Follow up to resolution is suggested. D/ / 05/06/2018 08:50:05 Cassidy Harper MD / [email or web address] Interpreting Provider: Cassidy Harper MD Consult Discharge Plan - Plan Instructions: Metoprolol (By mouth), Diltiazem (By mouth), Quetiapine (By mouth), Heart Failure (DC), Atrial Fibrillation (DC), Acute Respiratory Distress Syndrome (DC), Acute Kidney Injury (DC), Chronic Obstructive Pulmonary Disease (DC), Sepsis (DC), Chronic Hypertension (DC), Pneumonia (DC) [facility]: [facility] [Primary Care Provider[facility] - Prescriptions: Diltiazem CD (24hr) [Cardizem CD] 240 mg PO DAILY 30 Days #30 cap.er.24h Furosemide [Lasix] 20 mg PO BID 30 Days #60 tablet Lisinopril [Zestril] 5 mg PO DAILY 30 Days #30 tablet Metoprolol XL (24 HR) Succ [Toprol Xl] 50 mg PO DAILY 30 Days #30 tab.er.24h Quetiapine Fumarate [Seroquel] 25 mg PO BID 30 Days #60 tablet <Maida Moore - Last Filed: 05/06/18 18:36> Hospitalist Progress Note - Encounter Date of Encounter: 05/06/18 - Exam Vitals: Temp Pulse Resp BP Pulse Ox 97.8 F 78 18 94/53 96 05/06/18 17:27 05/06/18 17:27 05/06/18 17:27 05/06/18 17:27 05/06/18 17:27 - Assessment and Plan (1) Acute and chronic respiratory failure with hypoxia Current Visit: Yes Status: Resolved (2) CAP (community acquired pneumonia) Current Visit: Yes Status: Acute (3) Acute renal failure (ARF) Current Visit: Yes Status: Resolved (4) COPD (chronic obstructive pulmonary disease) Current Visit: Yes Status: Acute (5) DVT prophylaxis Current Visit: No Status: Acute (6) Dementia Current Visit: No Status: Chronic (7) Elevated troponin Current Visit: Yes Status: Acute (8) Hypertension Current Visit: No Status: Chronic (9) GERD (gastroesophageal reflux disease) Current Visit: No Status: Chronic (10) BPH (benign prostatic hyperplasia) Current Visit: No Status: Chronic (11) Tachycardia Current Visit: Yes Status: Resolved (12) Atrial fibrillation with RVR Current Visit: Yes Status: Resolved (13) Agitation Current Visit: Yes Status: Acute - Time Spent with Patient Total time spent is greater than 50% in coordination of care (as documented) at patient's floor/unit and/or counseling patient: Internal Medicine: Result - Labs CBC & Chem 7: 05/05/18 04:53 05/05/18 04:53 - ABG Interpretation ABG results: ABG ABG pH 7.35 pH Units (7.32-7.45) 05/05/18 17:39 ABG pCO2 70 mmHg (35-45) H* 05/05/18 17:39 ABG pO2 75 mmHg (85-104) L 05/05/18 17:39 ABG O2 Saturation 93 % (95-98) L 05/05/18 17:39 PT/INR, D-dimer PT 11.4 Seconds (9.4-12.1) 05/06/18 08:07 - Impressions Impressions Chest X-Ray 05/06/18 08:15 IMPRESSION: Stable chest. Bibasilar atelectasis or infiltrates with bilateral pleural effusions. Process the interstitial markings which could be in part chronic. Follow up to resolution is suggested. D/ / 05/06/2018 08:50:05 Cassidy Harper MD / bcarter Interpreting Provider: Cassidy Harper MD - Attending Attestation I saw and assessed this patient and agree with resident plan as above Plan Acute hypoxic respiratory failure likely 2/2 to community acquired pneumonia, wo rsening COPD and acute worsening of chronic diastolic CHF. Pt desaturating on ambulating on 4L nasal cannula. Continue IV lasix. Continue antibiotics. Continue oxygen supplementation. Round the clock nebs. Patient refusing BIPAP even though he has significant CO2 retention. Afib with RVR. Rate control. continue cardizem and beta blockers. On aspirin for anticoagulation DIsposition. awaiting discharge to rehab <Etta Fischer - Last Filed: 05/06/18 16:47> (3) CAP (community acquired pneumonia) Qualifiers: Laterality: unspecified laterality Qualified Code(s): J18.9 - Pneumonia, unspecified organism (4) Acute renal failure (ARF) Qualifiers: Acute renal failure type: unspecified Qualified Code(s): N17.9 - Acute kidney failure, unspecified (5) COPD (chronic obstructive pulmonary disease) Qualifiers: Emphysema type: unspecified Qualified Code(s): J43.9 - Emphysema, unspecified (7) Dementia Qualifiers: Dementia type: Alzheimer's disease Alzheimer's disease onset: unspecified onset Dementia behavioral disturbance: without behavioral disturbance Qualified Code(s): G30.9 - Alzheimer's disease, unspecified; F02.80 - Dementia in other diseases classified elsewhere without behavioral disturbance (9) Hypertension Qualifiers: Hypertension type: essential hypertension Qualified Code(s): I10 - Essential (primary) hypertension (10) GERD (gastroesophageal reflux disease) Qualifiers: Esophagitis presence: esophagitis presence not specified Qualified Code(s): K21.9 - Gastro-esophageal reflux disease without esophagitis (11) BPH (benign prostatic hyperplasia) Qualifiers: Lower urinary tract symptom presence: unspecified whether lower urinary tract symptoms present Qualified Code(s): N40.0 - Benign prostatic hyperplasia without lower urinary tract symptoms <Maida Moore - Last Filed: 05/06/18 18:36> (2) CAP (community acquired pneumonia) Qualifiers: Laterality: unspecified laterality Qualified Code(s): J18.9 - Pneumonia, unspecified organism (3) Acute renal failure (ARF) Qualifiers: Acute renal failure type: unspecified Qualified Code(s): N17.9 - Acute kidney failure, unspecified (4) COPD (chronic obstructive pulmonary disease) Qualifiers: Emphysema type: unspecified Qualified Code(s): J43.9 - Emphysema, unspecified (6) Dementia Qualifiers: Dementia type: Alzheimer's disease Alzheimer's disease onset: unspecified onset Dementia behavioral disturbance: without behavioral disturbance Qualified Code(s): G30.9 - Alzheimer's disease, unspecified; F02.80 - Dementia in other diseases classified elsewhere without behavioral disturbance (8) Hypertension Qualifiers: Hypertension type: essential hypertension Qualified Code(s): I10 - Essential (primary) hypertension (9) GERD (gastroesophageal reflux disease) Qualifiers: Esophagitis presence: esophagitis presence not specified Qualified Code(s): K21.9 - Gastro-esophageal reflux disease without esophagitis (10) BPH (benign prostatic hyperplasia) Qualifiers: Lower urinary tract symptom presence: unspecified whether lower urinary tract symptoms present Qualified Code(s): N40.0 - Benign prostatic hyperplasia without lower urinary tract symptoms
[2018-05-06] MEDS: *HR* Heparin 5,000 UNIT/ML VIAL SQ SCH (18:36)
[2018-05-06] MEDS: Melatonin 3 MG TABLET PO SCH (20:23)
[2018-05-07] MEDS ORDERED: Haloperidol Lactate 5 MG/ML VIAL IM ONE (00:06)
[2018-05-07] MEDS ORDERED: Haloperidol Lactate 5 MG/ML VIAL ONE (00:15)
[2018-05-07] MEDS ORDERED: Haloperidol Lactate 5 MG/ML VIAL IVP ONE (02:47)
[2018-05-07] MEDS: Ipratropium/Albuterol Neb 3 ML IH SCH ×3 (03:38→11:11)
[2018-05-07] MEDS: *HR* Heparin 5,000 UNIT/ML VIAL SQ SCH (05:36)
[2018-05-07] MEDS: Budesonide/Formoterol 160/4.5 1 PUFF INH IH SCH (07:36)
[2018-05-07] MEDS: Furosemide 40 MG/4 ML VIAL IVP SCH (09:48)
[2018-05-07] MEDS: Cholecalciferol (D-3) 1,000 UNIT TABLET PO SCH (09:48)
[2018-05-07] MEDS: Aspirin 325 MG TABLET PO SCH (09:49)
[2018-05-07] MEDS: Nystatin Cream 15 GM TUBE TP SCH (09:51)
[2018-05-07] MEDS: Diltiazem CD (24hr) 240 MG CAPSULE PO SCH (09:51)
[2018-05-07] MEDS: Cyanocobalamin (B-12) 1,000 MCG TABLET PO SCH (09:55)
[2018-05-07] MEDS: Metoprolol XL (24 HR) Succ 50 MG TAB.ER.24H PO SCH (09:55)
[2018-05-07 13:03] VITALS: BP 119/75
--- NOTE | 2018-05-07 14:21 | Discharge Summary ---
<Etta Fischer - Last Filed: 05/07/18 14:19> - NOTES TO OUTPATIENT PROVIDER Notes to Outpatient Provider: Follow up with PCP in 1 wk. Ensure return to baseline for breathing. Dicuss with PCP to restart LAYLA and HCTZ. Will need refills for cardizem, toprol and seroquel. Orders not resulted at time of discharge: Pending orders 04/29/18 08:49 Culture,Sputum with Gram Stain [RM] Stat 04/29/18 09:13 Culture,Sputum with Gram Stain [RM] Stat Date of Encounter: 05/07/18 Time of Encounter: 14:19 - Discharge Diagnosis (1) Acute and chronic respiratory failure with hypercapnia Priority: Primary Status: Acute (2) Tachycardia Priority: Secondary Status: Resolved (3) CAP (community acquired pneumonia) Priority: Secondary Status: Resolved Qualifiers: Laterality: unspecified laterality Qualified Code(s): J18.9 - Pneumonia, unspecified organism (4) Acute renal failure (ARF) Priority: Secondary Status: Resolved Qualifiers: Acute renal failure type: unspecified Qualified Code(s): N17.9 - Acute kidney failure, unspecified (5) COPD (chronic obstructive pulmonary disease) Priority: Secondary Status: Acute Qualifiers: Emphysema type: unspecified Qualified Code(s): J43.9 - Emphysema, unspecified (6) DVT prophylaxis Priority: Secondary Status: Acute (7) Dementia Priority: Secondary Status: Chronic Qualifiers: Dementia type: Alzheimer's disease Alzheimer's disease onset: unspecified onset Dementia behavioral disturbance: without behavioral disturbance Qualified Code(s): G30.9 - Alzheimer's disease, unspecified; F02.80 - Dementia in other diseases classified elsewhere without behavioral disturbance (8) Elevated troponin Priority: Secondary Status: Acute (9) Hypertension Priority: Secondary Status: Chronic Qualifiers: Hypertension type: essential hypertension Qualified Code(s): I10 - Essential (primary) hypertension (10) GERD (gastroesophageal reflux disease) Priority: Secondary Status: Chronic Qualifiers: Esophagitis presence: esophagitis presence not specified Qualified Code(s): K21.9 - Gastro-esophageal reflux disease without esophagitis (11) BPH (benign prostatic hyperplasia) Priority: Secondary Status: Chronic Qualifiers: Lower urinary tract symptom presence: unspecified whether lower urinary tract symptoms present Qualified Code(s): N40.0 - Benign prostatic hyperplasia without lower urinary tract symptoms (12) Atrial fibrillation with RVR Priority: Secondary Status: Resolved (13) Agitation Priority: Secondary Status: Acute Hospital course: Mr. Doran is an 87yo male with PMH of COPD on home O2, heart failure, dementia, GERD, viamin D deficinecy, HTN, and BPH, dementia. The pt was recently here in 11/13 for SOB and respiratory failure. The pt is a poor historian with limited insight into his medical problems. He is unable to tell me why he came to the hospital. He is unsure of what hospital he is at, what month/year it is, or who the president is. He is unsure of who brought him to the hospital. As per the chart, the pt family brought him to the hospital after having SOB for 7 days and had associated cough with sputum. The family stated there was no blood in the sputum, denied sick contacts. The pt didn't report any fevers/chills to the family, however, the family reports he complained of chest pain and had fast HR and low BP. In the ER the pt had tachycardia/tachypnia. EKG showed RBBB and there was concern for PE. CTA of the chest was suboptimal but showed a possible pneumonia. The pt was treated for CAP - legionella antigen negative, respiatory panel negative - azithromycin was d/c due to QTc prolongation -omnicef and doxycyline was used for treatment - pt responded well clinically and imrpoved CXR 05/01 - Airspace opacity at the left lung base, may be related to atelectasis versus pneumonia. - Mild left pleural effusion. - Increased lung markings bilaterally, may be related to bronchitis, mild pulmonary edema versus pneumonia. Pt went into a fib with RVR on 05/02 - seen by cardiology - transitioned to ASA 325mg PO daily and cardizem drip to a PO daily pill - ECHO showed LVEF 55-60%, D shaped ventriple corresponding with RV pressure/volume overload and distal-apical anteroseptum diastolic flattening from RV overload - severe pHTN - severe TR - severly dilated RV Agitation and hard to reorient at night - pt did very well with Seroquel and was easier to re-orient and keep calm - will d/c the pt with a 1 mo supply of seroquel At time of discharge two days ago, pt became hypoxic while ambulating. CXR showed pleural effusions. Pt was diuresed with lasix and responded well. Pt currently denying bipap. Will d/c patient with facemask due to refusal of bipap leading to chronic hypercapnia and hypoxemia. Currently the pt denies chest pain, SOB, abd pain, or N/V. He is very sleepy this morning - pt family wishes for him to have ECF placement - pt with be placed to [facility] - d/c with toprol 50mg, caridzem 240mg, seroquel - ASA 325mg PO daily as per cardiology recommendations - the pt is clinically stable for discharge at this time - pt will be discharged with face mask to [facility] due to consistent refusal of bipap leading to chronic hypercapnia and hypoxemia Discharge discussed with: nurse, social work - Time Spent with Patient Total time spent providing and/or coordinating discharge services: - Discharge Medications Prescriptions: Diltiazem CD (24hr) [Cardizem CD] 240 mg PO DAILY 30 Days #30 cap.er.24h Furosemide [Lasix] 20 mg PO BID 30 Days #60 tablet Lisinopril [Zestril] 5 mg PO DAILY 30 Days #30 tablet Metoprolol XL (24 HR) Succ [Toprol Xl] 50 mg PO DAILY 30 Days #30 tab.er.24h Quetiapine Fumarate [Seroquel] 25 mg PO BID 30 Days #60 tablet Home Medications: Aspirin 81 mg PO DAILY 04/09/17 [History] Cholecalciferol (D-3) [Vitamin D] 1,000 unit PO DAILY 04/09/17 [History] Cyanocobalamin (B-12) [Vitamin B12] 1,000 mcg PO DAILY 04/09/17 [History] Donepezil [Aricept] 5 mg PO DAILY 04/09/17 [History] Albuterol Sulfate [Albuterol Inhaler] 2 puff IH QID PRN 11/09/17 [History] Budesonide/Formoterol 160/4.5 [Symbicort 160/4.5] 2 puff IH BIDR #1 inhaler 11/14/17 [Rx] Ipratropium/Albuterol Neb [Duoneb] 3 ml IH Q6HR PRN 04/29/18 [History] Isosorbide MONOnitrate (24 HR) [Imdur] 30 mg PO DAILY 04/29/18 [History] Melatonin [Melatin] 9 mg PO HS 04/29/18 [History] Terazosin [Hytrin] 1 mg PO HS 04/29/18 [History] Diltiazem CD (24hr) [Cardizem CD] 240 mg PO DAILY 30 Days #30 cap.er.24h 05/05/18 [Rx] Furosemide [Lasix] 20 mg PO BID 30 Days #60 tablet 05/05/18 [Rx] Lisinopril [Zestril] 5 mg PO DAILY 30 Days #30 tablet 05/05/18 [Rx] Metoprolol XL (24 HR) Succ [Toprol Xl] 50 mg PO DAILY 30 Days #30 tab.er.24h 05/05/18 [Rx] Quetiapine Fumarate [Seroquel] 25 mg PO BID 30 Days #60 tablet 05/05/18 [Rx] Allergies/Adverse Reactions: Allergy/AdvReac Type Severity Reaction Status Date / Time No Known Allergies Allergy Verified 04/29/18 13:33 Date of admission: 05/02/18 16:34 [facility] physician: [facility] Consults: 04/29/18 10:22 Consult to Palliative Care [CONS] Routine Comment: Consulting Provider: Palliative Care [place] Reason for Consult: goals of care Call Completed: No 04/29/18 11:50 Consult to Cardiology [CONS] Routine Comment: Consulting Provider: Cardiology Sherrie Reason for Consult: tachycardia, HFpef, elevated troponins Call Completed: No 04/29/18 15:24 Consult to Portfolio Director [CONS] Routine Reason for SW Consult: discharge needs, poss lacement 04/30/18 11:08 Consult to Speech Therapy [CONS] Routine Comment: Evaluate, develop and implement POC Reason for Consult: swallow eval Call Completed: No 05/02/18 13:40 Consult to Occupational Therapy [CONS] Routine Comment: Evaluate, develop and implement POC Reason for Consult: PTOT eval Does patient have active BEDREST order?: No Is patient medically & hemodynamically stable?: Yes Patient assessed for mobility or mobilized this visit?: No Consult to Physical Therapy [CONS] Routine Comment: Evaluate, develop and implement POC Reason for Consult: ptot eval Does patient have active BEDREST order?: No Is patient medically & hemodynamically stable?: Yes Patient assessed for mobility or mobilized this visit?: No 05/06/18 08:16 Consult to Interventional Radiology [CONS] Routine Consulting Provider: Radiology Jessica Barth Reason for Consult: bilateral therapeutic thoracentesis Call Completed: No Discharging clinician: Etta Fischer Anticipated date of discharge: 05/07/18 - Constitutional Vitals: Temp Pulse Resp BP Pulse Ox 97.7 F 111 24 119/75 92 05/07/18 12:30 05/07/18 12:30 05/07/18 12:30 05/07/18 12:30 05/07/18 12:30 General appearance: Present: A&O X 1, pleasant, no acute distress Exam: GEN: AOx1, NAD HEENT: Atraumatic, Normocephalic, EOMI CARDIO: RRR, No murmurs, rubs, gallups PULM: CTAB, no wheezes, rales, rhonchi ABD: Soft, non-tender, non-distended NEURO: CN 2-12; No focal deficits EXT: No lower ext edema b/l - Patient Status Disposition: Transfer SNF Condition: Fair Functional capacity at discharge: uses cane/walker Overall status at discharge: patient is progressing back to baseline - Discharge Instructions Instructions: Metoprolol (By mouth), Diltiazem (By mouth), Quetiapine (By mouth), Heart Failure (DC), Atrial Fibrillation (DC), Acute Respiratory Distress Syndrome (DC), Acute Kidney Injury (DC), Chronic Obstructive Pulmonary Disease (DC), Sepsis (DC), Chronic Hypertension (DC), Pneumonia (DC) Follow [facility] With: [facility] [Primary Care Provider[facility] - - Diet and Activity Activity: as per physical therapy, increase activity as tolerated, wear oxygen at all times Diet: advance to your usual diet <Maida Moore - Last Filed: 05/07/18 19:03> Orders not resulted at time of discharge: Pending orders 04/29/18 08:49 Culture,Sputum with Gram Stain [RM] Stat 04/29/18 09:13 Culture,Sputum with Gram Stain [RM] Stat Date of Encounter: 05/07/18 - Discharge Diagnosis (1) Acute and chronic respiratory failure with hypoxia Status: Resolved (2) CAP (community acquired pneumonia) Status: Acute Qualifiers: Laterality: unspecified laterality Qualified Code(s): J18.9 - Pneumonia, unspecified organism (3) Acute renal failure (ARF) Status: Resolved Qualifiers: Acute renal failure type: unspecified Qualified Code(s): N17.9 - Acute kidney failure, unspecified (4) COPD (chronic obstructive pulmonary disease) Status: Acute Qualifiers: Emphysema type: unspecified Qualified Code(s): J43.9 - Emphysema, unspecified (5) DVT prophylaxis Status: Acute (6) Dementia Status: Chronic Qualifiers: Dementia type: Alzheimer's disease Alzheimer's disease onset: unspecified onset Dementia behavioral disturbance: without behavioral disturbance Qualified Code(s): G30.9 - Alzheimer's disease, unspecified; F02.80 - Dementia in other diseases classified elsewhere without behavioral disturbance (7) Elevated troponin Status: Acute (8) Hypertension Status: Chronic Qualifiers: Hypertension type: essential hypertension Qualified Code(s): I10 - Essential (primary) hypertension (9) GERD (gastroesophageal reflux disease) Status: Chronic Qualifiers: Esophagitis presence: esophagitis presence not specified Qualified Code(s): K21.9 - Gastro-esophageal reflux disease without esophagitis (10) BPH (benign prostatic hyperplasia) Status: Chronic Qualifiers: Lower urinary tract symptom presence: unspecified whether lower urinary tract symptoms present Qualified Code(s): N40.0 - Benign prostatic hyperplasia without lower urinary tract symptoms (11) Tachycardia Status: Resolved (12) Atrial fibrillation with RVR Status: Resolved (13) Agitation Status: Acute Hospital course: Mr. Doran is a 87 year old male - Time Spent with Patient Total time spent providing and/or coordinating discharge services: Date of admission: 05/02/18 16:34 [facility] care physician: [facility] Consults: 04/29/18 10:22 Consult to Palliative Care [CONS] Routine Comment: Consulting Provider: Palliative Care [facility] Reason for Consult: goals of care Call Completed: No 04/29/18 11:50 Consult to Cardiology [CONS] Routine Comment: Consulting Provider: Cardiology Sherrie Reason for Consult: tachycardia, HFpef, elevated troponins Call Completed: No 04/29/18 15:24 Consult to Portfolio Director [CONS] Routine Reason for SW Consult: discharge needs, poss lacement 04/30/18 11:08 Consult to Speech Therapy [CONS] Routine Comment: Evaluate, develop and implement POC Reason for Consult: swallow eval Call Completed: No 05/02/18 13:40 Consult to Occupational Therapy [CONS] Routine Comment: Evaluate, develop and implement POC Reason for Consult: PTOT eval Does patient have active BEDREST order?: No Is patient medically & hemodynamically stable?: Yes Patient assessed for mobility or mobilized this visit?: No Consult to Physical Therapy [CONS] Routine Comment: Evaluate, develop and implement POC Reason for Consult: ptot eval Does patient have active BEDREST order?: No Is patient medically & hemodynamically stable?: Yes Patient assessed for mobility or mobilized this visit?: No 05/06/18 08:16 Consult to Interventional Radiology [CONS] Routine Consulting Provider: Radiology Interventional Cols Reason for Consult: bilateral therapeutic thoracentesis Call Completed: No - Constitutional Vitals: Temp Pulse Resp BP Pulse Ox 97.7 F 111 24 119/75 92 05/07/18 12:30 05/07/18 12:30 05/07/18 12:30 05/07/18 12:30 05/07/18 12:30 - Attending Attestation I saw and assessed this patient and agree with discharge summary per resident as above Exam Resp. mildly decreased breath sounds. Stable Plan Acute hypoxic respiratory failure likely 2/2 to community acquired pneumonia, worsening COPD and acute worsening of chronic diastolic CHF. Pt desaturating on ambulating on 4L nasal cannula. Continue IV lasix. Continue antibiotics. Continue oxygen supplementation. Round the clock nebs. Patient refusing BIPAP even though he has significant CO2 retention. Discharged on 4L oxygen via facemask Afib with RVR. Rate control. continue cardizem and beta blockers. On aspirin for anticoagulation DIsposition. awaiting discharge to rehab
--- NOTE | 2018-05-07 14:34 | Physician Discharge Referral ---
ExtendedCare Referral Info Transfer To: [facility] Provider in Charge after Transfer: PCP Institutional Level of Care: Skilled - Diagnosis (1) Acute and chronic respiratory failure with hypercapnia Priority: Primary Status: Acute (2) Tachycardia Priority: Secondary Status: Resolved (3) CAP (community acquired pneumonia) Priority: Secondary Status: Resolved (4) Acute renal failure (ARF) Priority: Secondary Status: Resolved (5) COPD (chronic obstructive pulmonary disease) Priority: Secondary Status: Acute (6) DVT prophylaxis Priority: Secondary Status: Acute (7) Dementia Priority: Secondary Status: Chronic (8) Elevated troponin Priority: Secondary Status: Acute (9) Hypertension Priority: Secondary Status: Chronic (10) GERD (gastroesophageal reflux disease) Priority: Secondary Status: Chronic (11) BPH (benign prostatic hyperplasia) Priority: Secondary Status: Chronic (12) Atrial fibrillation with RVR Priority: Secondary Status: Resolved (13) Agitation Priority: Secondary Status: Acute Prognosis: Good Aware of Diagnosis: Family Aware of Prognosis: Family - Transfer Medications Prescriptions: Diltiazem CD (24hr) [Cardizem CD] 240 mg PO DAILY 30 Days #30 cap.er.24h Furosemide [Lasix] 20 mg PO BID 30 Days #60 tablet Lisinopril [Zestril] 5 mg PO DAILY 30 Days #30 tablet Metoprolol XL (24 HR) Succ [Toprol Xl] 50 mg PO DAILY 30 Days #30 tab.er.24h Quetiapine Fumarate [Seroquel] 25 mg PO BID 30 Days #60 tablet Home Medications: Aspirin 81 mg PO DAILY 04/09/17 [History] Cholecalciferol (D-3) [Vitamin D] 1,000 unit PO DAILY 04/09/17 [History] Cyanocobalamin (B-12) [Vitamin B12] 1,000 mcg PO DAILY 04/09/17 [History] Donepezil [Aricept] 5 mg PO DAILY 04/09/17 [History] Albuterol Sulfate [Albuterol Inhaler] 2 puff IH QID PRN 11/09/17 [History] Budesonide/Formoterol 160/4.5 [Symbicort 160/4.5] 2 puff IH BIDR #1 inhaler 11/14/17 [Rx] Ipratropium/Albuterol Neb [Duoneb] 3 ml IH Q6HR PRN 04/29/18 [History] Isosorbide MONOnitrate (24 HR) [Imdur] 30 mg PO DAILY 04/29/18 [History] Melatonin [Melatin] 9 mg PO HS 04/29/18 [History] Terazosin [Hytrin] 1 mg PO HS 04/29/18 [History] Diltiazem CD (24hr) [Cardizem CD] 240 mg PO DAILY 30 Days #30 cap.er.24h 05/05/18 [Rx] Furosemide [Lasix] 20 mg PO BID 30 Days #60 tablet 05/05/18 [Rx] Lisinopril [Zestril] 5 mg PO DAILY 30 Days #30 tablet 05/05/18 [Rx] Metoprolol XL (24 HR) Succ [Toprol Xl] 50 mg PO DAILY 30 Days #30 tab.er.24h 05/05/18 [Rx] Quetiapine Fumarate [Seroquel] 25 mg PO BID 30 Days #60 tablet 05/05/18 [Rx] Allergies/Adverse Reactions: Allergy/AdvReac Type Severity Reaction Status Date / Time No Known Allergies Allergy Verified 04/29/18 13:33 - Respiratory Orders Smoking Cessation: Smoking cessation has been advised. For more information, call the [place] Tobacco Quit Line at 3-376-MVJR-NOW. - Ancillary Orders May use pressure relief devices daily prn - Advance Directives Code Status: Full Code - Mobility Orders Chair - Rehabiliation Orders Rehab Potential: Fair Rehab Orders: ROM Exercises, Evaluation for Physical Therapy, Evaluation for Occupational Therapy - Diet Orders Cardiac CERTIFICATION: I certify that the transfer of the above named patient to an Extended Care Facility is necessary for the continuing treatment of the diagnosis listed. The above information is true and accurate reflection of patient's current condition. Confidential - Redisclosure prohibited without a patient's written consent.
--- NOTE | 2018-05-07 17:32 | Electrocardiograph Report ---
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
== END 2018-05-07 14:23 | DRG 193 ==
LOC: 3BNU 22:04 → EMEROOARM 22:04 → SUATTDRO 04-29 06:16 → 3BNU 04-29 06:35 → 2NENU 04-29 22:29 → SUATTDRO 05-02 16:34
PROVIDERS: ADMIT Pediatrics; ATTEND Student in an Organized Health Care Education/Training Program

== ENCOUNTER 2018-05-09 01:10 | Inpatient (IN) ==
[2018-05-09] MEDS ORDERED: 0.9 % Sodium Chloride 1,000 ML IVC ONE ×2 (01:39→02:38)
[2018-05-09 02:36] LABS: Albumin 3.4 g/dL (3.5-5.7); Albumin/Globulin Ratio 1.5 (1.1-2.2); Bilirubin,Total 0.3 mg/dL (0.3-1.0); Calcium 8.8 mg/dL (8.6-10.3); Globulin 2.3 g/dL (2.4-3.5); Potassium 4.6 mEq/L (3.5-5.1); Total Protein 5.7 g/dL (6.4-8.9)
[2018-05-09 02:46] LABS: Basophils % 0.2 %; Eosinophils % 0.5 %; Hematocrit 34.7 % (37.5-50.1); Hemoglobin 10.2 g/dL (12.9-16.9); Immature Granulocytes % 0.5 % (0-4); Lymphocytes # 0.6 K/mcL (0.6-4.6); Lymphocytes % 6.8 %; Mean Corpuscular HGB Conc 29.4 g/dL (31.6-35.5); Mean Corpuscular Hemoglobin 29.2 pg (28.0-33.3); Mean Corpuscular Volume 99.4 fL (83.0-100.0); Mean Platelet Volume 11.6 fL (9.4-12.4); Monocytes # 0.6 K/mcL (0.0-1.3); Neutrophils # 7.2 K/mcL (1.6-8.9); Platelet Count 190 K/mcL (140-400); Red Blood Count 3.49 M/mcL (4.19-5.50); Red Cell Distribution Width 14.2 % (11.5-14.5)
[2018-05-09 02:54] LABS: Prothrombin Time 10.9 Seconds (9.4-12.1)
[2018-05-09 02:57] LABS: Activated Partial Thrombo Time 23.8 Seconds (26.0-36.0)
[2018-05-09 03:57] LABS: Bilirubin,Urine Moderate (Negative); Blood,Urine Negative (Negative); Clarity,Urine Turbid (Clear); Color,Urine Dark Yellow (Yellow); Glucose,Urine (UA) Normal (Normal); Ketones,Urine Trace mg/dL (Negative); Leukocyte Esterase,Urine Trace (Negative); Nitrite,Urine Positive (Negative); Protein,Urine 30 mg/dL (Neg-Trace); Specific Gravity,Urine > 1.030 (1.010-1.025); Urobilinogen,Urine Normal (Normal)
[2018-05-09 03:59] LABS: Squamous Epithelial Cell,Urine Many per lpf (None-Few)
[2018-05-09 04:03] LABS: Hyaline Casts,Urine None Seen per lpf (None-Few)
[2018-05-09 04:04] LABS: Bacteria,Urine Moderate per hpf (None-Few); Mucus,Urine Few (Few); Yeast,Urine Few per hpf (None Seen)
[2018-05-09 04:06] LABS: Amphetamine Screen,Urine Negative ng/mL (Cutoff=1000); Barbiturate Screen,Urine Negative ng/mL (Cutoff=200); Benzodiazepines Screen,Urine Negative ng/mL (Cutoff=200); Cannabinoid Screen,Urine Negative ng/mL (Cutoff = 50); Cocaine Screen,Urine Negative ng/mL (Cutoff= 300); Opiate Screen,Urine Negative ng/mL (Cutoff=300); Phencyclidine Screen,Urine Negative ng/mL (Cutoff=25)
--- NOTE | 2018-05-09 05:07 | Internal Med History&Physical ---
Date of Encounter: 05/09/18 Time of Encounter: 05:07 Internal Medicine - H&P: HPI History of present illness: Mr. Dorna is a 87 year old male Past Med Surg Social Fam HX - Past Medical History Medical history: CHF, CVA, dementia, hypertension Psychiatric history: no psych history - Past Surgical History Surgical History: no surgical history - Social History Smoking Status: Former smoker Smokeless Tobacco Status: No Alcohol use: none Drug use: none Internal Medicine - H&P: Meds Aspirin 81 mg PO DAILY 04/09/17 [History] Cholecalciferol (D-3) [Vitamin D] 1,000 unit PO DAILY 04/09/17 [History] Cyanocobalamin (B-12) [Vitamin B12] 1,000 mcg PO DAILY 04/09/17 [History] Donepezil [Aricept] 5 mg PO DAILY 04/09/17 [History] Albuterol Sulfate [Albuterol Inhaler] 2 puff IH QID PRN 11/09/17 [History] Budesonide/Formoterol 160/4.5 [Symbicort 160/4.5] 2 puff IH BIDR #1 inhaler 11/14/17 [Rx] Ipratropium/Albuterol Neb [Duoneb] 3 ml IH Q6HR PRN 04/29/18 [History] Isosorbide MONOnitrate (24 HR) [Imdur] 30 mg PO DAILY 04/29/18 [History] Melatonin [Melatin] 9 mg PO HS 04/29/18 [History] Terazosin [Hytrin] 1 mg PO HS 04/29/18 [History] Diltiazem CD (24hr) [Cardizem CD] 240 mg PO DAILY 30 Days #30 cap.er.24h [Rx] Furosemide [Lasix] 20 mg PO BID 30 Days #60 tablet 05/05/18 [Rx] Lisinopril [Zestril] 5 mg PO DAILY 30 Days #30 tablet 05/05/18 [Rx] Metoprolol XL (24 HR) Succ [Toprol Xl] 50 mg PO DAILY 30 Days #30 tab.er.24h 05/05/18 [Rx] Quetiapine Fumarate [Seroquel] 25 mg PO BID 30 Days #60 tablet 05/05/18 [Rx] Allergy/AdvReac Type Severity Reaction Status Date / Time No Known Allergies Allergy Verified 04/29/18 13:33 All Systems PM: A 10-system review of systems was performed and is negative for pertinent findings except as documented above in the HPI. - Constitutional Vitals: Temp Pulse Resp BP Pulse Ox 98.7 F 134 24 76/52 97 05/09/18 01:46 05/09/18 04:06 05/09/18 04:06 05/09/18 04:06 05/09/18 04:06 Internal Med - H&P Results - Labs CBC & Chem 7: 05/09/18 02:02 05/09/18 02:02 Labs: Short CBC 05/09/18 Range/Units 02:02 WBC 8.5 D (4.3-11.1) K/mcL Hgb 10.2 L (12.9-16.9) g/dL Hct 34.7 L (37.5-50.1) % Plt Count 190 (140-400) K/mcL Neutrophils # 7.2 (1.6-8.9) K/mcL BMP 05/09/18 02:02 Sodium 144 Potassium 4.6 Chloride 99 Carbon Dioxide 38 H BUN 51 H Creatinine 2.91 H Glucose 139 H Calcium 8.8 Liver Function 05/09/18 Range/Units 02:02 Total Bilirubin 0.3 (0.3-1.0) mg/dL AST 162 H (13-39) Units/L ALT 110 H (7-52) Units/L Alkaline Phosphatase 76 (34-104) Units/L Albumin 3.4 L (3.5-5.7) g/dL Urine 05/09/18 Range/Units 03:31 Urine Color Dark Yellow (Yellow) Urine Clarity Turbid A (Clear) Urine pH 5.0 (5.0-8.0) pH Units Ur Specific [place] > 1.030 H (1.010-1.025) Urine Protein 30 H (Neg-Trace) mg/dL Urine Glucose (UA) Normal (Normal) mg/dL - Impressions ITS Impressions Head CT 05/09/18 01:37 IMPRESSION: No acute intracranial abnormality. Senescent changes. D/ / Jevon Serrano MD / Jevon Serrano MD Interpreting Provider: Jevon Serrano MD Chest X-Ray 05/09/18 01:38 IMPRESSION: Improving bibasilar atelectasis or pneumonia. D/ / Graeme Tirado MD / Graeme Tirado MD Interpreting Provider: Graeme Tirado MD Abdomen/Pelvis CT 05/09/18 01:39 IMPRESSION: Gallbladder wall thickening/edema with trace pericholecystic fluid. If there is high clinical concern for cholecystitis and gallbladder ultrasound may be helpful for further evaluation. Normal caliber bowel and normal appendix. Sigmoid colon diverticulosis without acute diverticulitis. Small bilateral pleural effusions with associated airspace disease. Cardiomegaly. Atherosclerosis. D/ / Bony Sessions / Bony Sessions Interpreting Provider: Bony Sessions Cervical Spine CT 05/09/18 02:13 IMPRESSION: Spondylosis with no definite fracture. D/ / Graeme Tirado MD / Graeme Tirado MD Interpreting Provider: Graeme Tirado MD - Time Spent With Patient Total time spent is greater than 50% in coordination of care (as documented) at patient's floor/unit and/or counseling patient:
--- NOTE | 2018-05-09 05:12 | Emergency Department Note ---
Disposition Clinical Impression: Seizure, Tachycardia, GALINDO (acute kidney injury), Elevated troponin Altered mental status Qualifiers: Altered mental status type: unspecified Qualified Code(s): R41.82 - Altered mental status, unspecified Disposition: Admitted As Inpatient Condition: Fair General Adult HPI - General Chief complaint: ED Altered Mental Status Stated complaint: seizure Time Seen by Provider: 05/09/18 01:20 Source: EMS Mode of arrival: EMS Limitations: altered mental status, age Nursing Notes Reviewed: Yes Vital Signs Reviewed: Yes - History of Present Illness Pain Scale: 0 - Related Data Home Medications Medication Instructions Recorded Confirmed Aspirin 81 mg PO DAILY 04/09/17 04/29/18 Cholecalciferol (D-3) [Vitamin D] 1,000 unit PO DAILY 04/09/17 04/29/18 Cyanocobalamin (B-12) [Vitamin B12] 1,000 mcg PO DAILY 04/09/17 04/29/18 Donepezil [Aricept] 5 mg PO DAILY 04/09/17 04/29/18 Albuterol Sulfate [Albuterol 2 puff IH QID PRN 11/09/17 04/29/18 Inhaler] Ipratropium/Albuterol Neb [Duoneb] 3 ml IH Q6HR PRN 04/29/18 04/29/18 Isosorbide MONOnitrate (24 HR) 30 mg PO DAILY 04/29/18 04/29/18 [Imdur] Melatonin [Melatin] 9 mg PO HS 04/29/18 04/29/18 Terazosin [Hytrin] 1 mg PO HS 04/29/18 04/29/18 Previous Rx's Medication Instructions Recorded Budesonide/Formoterol 160/4.5 2 puff IH BIDR #1 inhaler 11/14/17 [Symbicort 160/4.5] Diltiazem CD (24hr) [Cardizem CD] 240 mg PO DAILY 30 Days #30 05/05/18 cap.er.24h Furosemide [Lasix] 20 mg PO BID 30 Days #60 tablet 05/05/18 Lisinopril [Zestril] 5 mg PO DAILY 30 Days #30 tablet 05/05/18 Metoprolol XL (24 HR) Succ [Toprol 50 mg PO DAILY 30 Days #30 05/05/18 Xl] tab.er.24h Quetiapine Fumarate [Seroquel] 25 mg PO BID 30 Days #60 tablet 05/05/18 Allergies Allergy/AdvReac Type Severity Reaction Status Date / Time No Known Allergies Allergy Verified 04/29/18 13:33 Past Medical History - Past Medical History Medical history: Reports: CHF, CVA, dementia, hypertension Surgical history: Reports: no surgical history Psychiatric history: Reports: no psych history - Social History Smoking Status: Former smoker Smokeless Tobacco Status: No Alcohol use: Reports: none Drug use: Reports: none Physical Exam - General Limitations: altered mental status, age General appearance: lethargic Course Vital Signs Temperature 98.7 F 05/09/18 01:46 Pulse Rate 131 05/09/18 01:46 Respiratory Rate 29 05/09/18 01:46 Blood Pressure 68/36 05/09/18 01:46 O2 Sat by Pulse Oximetry 100 05/09/18 01:46 Temperature 98.7 F 05/09/18 01:46 Pulse Rate 134 05/09/18 04:06 Respiratory Rate 24 05/09/18 04:06 Blood Pressure 76/52 05/09/18 04:06 O2 Sat by Pulse Oximetry 97 05/09/18 04:06 Oxygen Delivery Oxygen Delivery Oximizer Procedures - Central Line Placement Right IJ Central Line Inserted*: Yes Central Line Catheter Replacement*: No Central Line Insertion: emergent Consent Obtained: verbal consent Procedural Pause: verify patient name and date of , timeout performed per policy, kayla and assess the site, assemble equipment and verify supplies, perform hand hygiene Patient Placed on Monitor/Pulse Ox: Yes During the Procedure: clinician is wearing sterile gloves, cap, mask,& gown during insertion, sterile field and sterile technique are maintained, patient's face is covered with drape or mask and wearing a cap, everyone in room is wearing a mask Central Line Prep: Chlorhexidine scrub Prep the Procedure Site: apply chloraprep to the skin using a back and forth scrubbing motion, apply chloraprep for 30 seconds (upper body), 1-2 min (femoral sites), allow prep to dry, drape the patient with a full body drape Local Anesthetic: lidocaine 1% Amount of anesthesia used (mL): 2 Ultrasound Used for Placement: Yes Central Line Lumen Inserted: triple Post Procedure: sutured in place, good blood return, all ports aspirated, flushed, capped, sterile dressing applied, guide wire removed and visualized, dressing is dated Post Procedure X-Ray: tip of catheter in good position, no pneumothorax seen Patient Tolerated Procedure: well Complications: none Medical Decision Making - Lab Data Result diagrams: 05/09/18 02:02 05/09/18 02:02 Lab Results 05/09/18 05/09/18 05/09/18 Range/Units 02:02 02:02 02:02 WBC 8.5 D (4.3-11.1) K/mcL RBC 3.49 L (4.19-5.50) M/mcL Hgb 10.2 L (12.9-16.9) g/dL Hct 34.7 L (37.5-50.1) % MCV 99.4 (83.0-100.0) fL MCH 29.2 (28.0-33.3) pg MCHC 29.4 L (31.6-35.5) g/dL RDW 14.2 (11.5-14.5) % Plt Count 190 (140-400) K/mcL MPV 11.6 (9.4-12.4) fL Immature Gran % 0.5 (0-4) % Seg Neutrophils % 85.0 % Lymphocytes % 6.8 % Monocytes % 7.0 % Eosinophils % 0.5 % Basophils % 0.2 % Neutrophils # 7.2 (1.6-8.9) K/mcL Lymphocytes # 0.6 (0.6-4.6) K/mcL Monocytes # 0.6 (0.0-1.3) K/mcL Eosinophils # 0.0 (0.0-0.6) K/mcL Basophils # 0.0 (0.0-0.2) K/mcL PT 10.9 (9.4-12.1) Seconds INR 1.0 APTT 23.8 L (26.0-36.0) Seconds Sodium 144 (136-145) mEq/L Potassium 4.6 (3.5-5.1) mEq/L Chloride 99 (98-107) mEq/L Carbon Dioxide 38 H (23-29) mEq/L BUN 51 H (8-23) mg/dL Creatinine 2.91 H (0.70-1.30) mg/dL Est GFR ( Amer) 25 L (> 60) Est GFR (Non-Af Amer) 21 L (> 60) BUN/Creatinine Ratio 18 (6-26) Glucose 139 H (70-105) mg/dL Calculated Osmolality 314 H (280-300) Calcium 8.8 (8.6-10.3) mg/dL Total Bilirubin 0.3 (0.3-1.0) mg/dL AST 162 H (13-39) Units/L ALT 110 H (7-52) Units/L Alkaline Phosphatase 76 (34-104) Units/L Troponin I 0.06 H* (< 0.04) ng/mL Serum Total Protein 5.7 L (6.4-8.9) g/dL Albumin 3.4 L (3.5-5.7) g/dL Globulin 2.3 L (2.4-3.5) g/dL Albumin/Globulin Ratio 1.5 (1.1-2.2) Urine Color (Yellow) Urine Clarity (Clear) Urine pH (5.0-8.0) pH Units Ur Specific [place] (1.010-1.025) Urine Protein (Neg-Trace) mg/dL Urine Glucose (UA) (Normal) mg/dL Urine Ketones (Negative) mg/dL Urine Blood (Negative) Urine Nitrite (Negative) Urine Bilirubin (Negative) Urine Urobilinogen (Normal) mg/dL Ur Leukocyte Esterase (Negative) Urine Microscopic RBC (0-3) per hpf Urine Microscopic WBC (0-3) per hpf Ur Squamous Epith Cells (None-Few) per lpf Urine Bacteria (None-Few) per hpf Hyaline Casts (None-Few) per lpf Urine Mucus (Few) Urine Yeast (None Seen) per hpf Urine Opiates Screen (Wgwtms=458) ng/mL Ur Barbiturates Screen (Spfope=924) ng/mL Ur Phencyclidine Scrn (Cutoff=25) ng/mL Ur Amphetamines Screen (Nbnfbq=8449) ng/mL U Benzodiazepines Scrn (Pqfbti=893) ng/mL Urine Cocaine Screen (Cutoff= 300) ng/mL U Marijuana (THC) Screen (Cutoff = 50) ng/mL Ur Drug Screen Interp 05/09/18 05/09/18 Range/Units 03:31 03:31 WBC (4.3-11.1) K/mcL RBC (4.19-5.50) M/mcL Hgb (12.9-16.9) g/dL Hct (37.5-50.1) % MCV (83.0-100.0) fL MCH (28.0-33.3) pg MCHC (31.6-35.5) g/dL RDW (11.5-14.5) % Plt Count (140-400) K/mcL MPV (9.4-12.4) fL Immature Gran % (0-4) % Seg Neutrophils % % Lymphocytes % % Monocytes % % Eosinophils % % Basophils % % Neutrophils # (1.6-8.9) K/mcL Lymphocytes # (0.6-4.6) K/mcL Monocytes # (0.0-1.3) K/mcL Eosinophils # (0.0-0.6) K/mcL Basophils # (0.0-0.2) K/mcL PT (9.4-12.1) Seconds INR APTT (26.0-36.0) Seconds Sodium (136-145) mEq/L Potassium (3.5-5.1) mEq/L Chloride (98-107) mEq/L Carbon Dioxide (23-29) mEq/L BUN (8-23) mg/dL Creatinine (0.70-1.30) mg/dL Est GFR ( Amer) (> 60) Est GFR (Non-Af Amer) (> 60) BUN/Creatinine Ratio (6-26) Glucose (70-105) mg/dL Calculated Osmolality (280-300) Calcium (8.6-10.3) mg/dL Total Bilirubin (0.3-1.0) mg/dL AST (13-39) Units/L ALT (7-52) Units/L Alkaline Phosphatase (34-104) Units/L Troponin I (< 0.04) ng/mL Serum Total Protein (6.4-8.9) g/dL Albumin (3.5-5.7) g/dL Globulin (2.4-3.5) g/dL Albumin/Globulin Ratio (1.1-2.2) Urine Color Dark Yellow (Yellow) Urine Clarity Turbid A (Clear) Urine pH 5.0 (5.0-8.0) pH Units Ur Specific [place] > 1.030 H (1.010-1.025) Urine Protein 30 H (Neg-Trace) mg/dL Urine Glucose (UA) Normal (Normal) mg/dL Urine Ketones Trace H (Negative) mg/dL Urine Blood Negative (Negative) Urine Nitrite Positive A (Negative) Urine Bilirubin Moderate H (Negative) Urine Urobilinogen Normal (Normal) mg/dL Ur Leukocyte Esterase Trace H (Negative) Urine Microscopic RBC 3-5 H (0-3) per hpf Urine Microscopic WBC 5-15 H (0-3) per hpf Ur Squamous Epith Cells Many H (None-Few) per lpf Urine Bacteria Moderate H (None-Few) per hpf Hyaline Casts None Seen (None-Few) per lpf Urine Mucus Few (Few) Urine Yeast Few H (None Seen) per hpf Urine Opiates Screen Negative (Aodpio=579) ng/mL Ur Barbiturates Screen Negative (Nbtbvb=315) ng/mL Ur Phencyclidine Scrn Negative (Cutoff=25) ng/mL Ur Amphetamines Screen Negative (Jakutx=6186) ng/mL U Benzodiazepines Scrn Negative (Iqbmch=141) ng/mL Urine Cocaine Screen Negative (Cutoff= 300) ng/mL U Marijuana (THC) Screen Negative (Cutoff = 50) ng/mL Ur Drug Screen Interp See Below
[2018-05-09 05:18] LABS: Troponin I 0.06 ng/mL (< 0.04)
--- NOTE | 2018-05-09 05:57 | Internal Med History&Physical ---
<Carlos Davenport - Last Filed: 05/09/18 06:33> Date of Encounter: 05/09/18 Time of Encounter: 05:47 Internal Medicine - H&P: HPI Chief complaint: seizure like activity Admitted From: Emergency Dept Plans for Post Hospital Care: Home History of present illness: Mr. Doran is a 87 year old male diastolic CHF, COPD, dementia, GRD, BPH, atrial fibrillation. Of note, patient was recently hospitalized from 04/29-05/07 after being treated for pneumonia, atrial fibrillation with RVR. He was discharged to [facility] for rehabilitation. At [facility], staff members report that they witnessed seizure like activity from the patient. Patient does not have a history of seizures. Seizure activity was not witnessed by EMS members, or ED staff. Patient does have history of dementia, so he is a poor historian. After arrival to the emergency department, he was tachycardic with heart rate in 130s, tachypnic, and hypotensive with blood pressure 70s/60s. He was saturating at 97% on 5L oxygen. There were no family members present during evaluation. Patient denies nausea, vomiting, diarrhea, fever, chills, chest pain, shortness of breath. Past Med Surg Social Fam HX - Past Medical History Medical history: CHF, CVA, dementia, hypertension Psychiatric history: no psych history - Past Surgical History Surgical History: no surgical history - Social History Smoking Status: Former smoker Smokeless Tobacco Status: No Alcohol use: none Drug use: none Internal Medicine - H&P: Meds Aspirin 81 mg PO DAILY 04/09/17 [History] Cholecalciferol (D-3) [Vitamin D] 1,000 unit PO DAILY 04/09/17 [History] Cyanocobalamin (B-12) [Vitamin B12] 1,000 mcg PO DAILY 04/09/17 [History] Donepezil [Aricept] 5 mg PO DAILY 04/09/17 [History] Albuterol Sulfate [Albuterol Inhaler] 2 puff IH QID PRN 11/09/17 [History] Budesonide/Formoterol 160/4.5 [Symbicort 160/4.5] 2 puff IH BIDR #1 inhaler 11/14/17 [Rx] Ipratropium/Albuterol Neb [Duoneb] 3 ml IH Q6HR PRN 04/29/18 [History] Isosorbide MONOnitrate (24 HR) [Imdur] 30 mg PO DAILY 04/29/18 [History] Melatonin [Melatin] 9 mg PO HS 04/29/18 [History] Terazosin [Hytrin] 1 mg PO HS 04/29/18 [History] Diltiazem CD (24hr) [Cardizem CD] 240 mg PO DAILY 30 Days #30 cap.er.24h 05/05/18 [Rx] Furosemide [Lasix] 20 mg PO BID 30 Days #60 tablet 05/05/18 [Rx] Lisinopril [Zestril] 5 mg PO DAILY 30 Days #30 tablet 05/05/18 [Rx] Metoprolol XL (24 HR) Succ [Toprol Xl] 50 mg PO DAILY 30 Days #30 tab.er.24h 05/05/18 [Rx] Quetiapine Fumarate [Seroquel] 25 mg PO BID 30 Days #60 tablet 05/05/18 [Rx] Allergy/AdvReac Type Severity Reaction Status Date / Time No Known Allergies Allergy Verified 04/29/18 13:33 ROS unobtainable: due to mental status All Systems PM: A 10-system review of systems was performed and is negative for pertinent findings except as documented above in the HPI. - Constitutional Constitutional: as per HPI - EENT Eyes: as per HPI Ears: as per HPI Nose, mouth and throat: as per HPI - Breasts Breasts: as per HPI - Cardiovascular Cardiovascular ROS IM: as per HPI - Respiratory Respiratory: as per HPI - Gastrointestinal Gastrointestinal: as per HPI - Genitourinary Genitourinary ROS male: as per HPI - Musculoskeletal Musculoskeletal ROS IM: as per HPI - Integumentary Integumentary IM: as per HPI - Neurological Neurological ROS: as per HPI - Psychiatric Psychiatric: as per HPI - Endocrine Endocrine IM: as per HPI - Hematologic/Lymphatic Hematologic/Lymphatic: as per HPI - Allergic/Immunologic Allergic/Immunologic: as per HPI - Constitutional Vitals: Temp Pulse Resp BP Pulse Ox 98.7 F 134 24 76/52 97 05/09/18 01:46 05/09/18 04:06 05/09/18 04:06 05/09/18 04:06 05/09/18 04:06 General appearance: Present: A&O X 2 Exam: Patient sitting up in bed comfortably, he is alert and oriented X2, he appears to be in no acute distress. Overall, he is very emaciated looking. - Head Head exam: Present: atraumatic, normocephalic - ENT ENT exam: Present: mucous membranes dry - Neck Neck exam general surgery: Present: supple, trachea midline - Respiratory Respiratory exam: Present: rales, rhonchi, wheezes Additional comments: Course breath sounds appreciated in all lung griffin with wheezing. - Cardiovascular Cardiovascular exam: Present: +S1, +S2, tachycardia - GI/Abdominal GI/Abdominal exam: Present: normal bowel sounds, soft. Absent: distended, tenderness Additional comments: no abdominal tenderness to palpation appreciated. - Extremities Exam Extremities exam: Absent: cyanotic, pedal edema Additional comments: +2 pulses palpable in all four extremities. slightly delayed capillary refill appreciated. - Neurological Exam Neurological exam: Present: alert, CN II-XII intact, no focal deficits. Absent: pronater drift, facial droop, speech deficit - Psychiatric Psychiatric exam: Present: normal affect, normal mood - Skin Additional comments: bruising present on extremities. skin appears thin and dry. no rashes appreciated Internal Med - H&P Results - Labs CBC & Chem 7: 05/09/18 02:02 05/09/18 02:02 Labs: Short CBC 05/09/18 Range/Units 02:02 WBC 8.5 D (4.3-11.1) K/mcL Hgb 10.2 L (12.9-16.9) g/dL Hct 34.7 L (37.5-50.1) % Plt Count 190 (140-400) K/mcL Neutrophils # 7.2 (1.6-8.9) K/mcL BMP 05/09/18 02:02 Sodium 144 Potassium 4.6 Chloride 99 Carbon Dioxide 38 H BUN 51 H Creatinine 2.91 H Glucose 139 H Calcium 8.8 Cardiac Enzymes 05/09/18 Range/Units 02:02 Troponin I 0.06 H* (< 0.04) ng/mL Liver Function 05/09/18 Range/Units 02:02 Total Bilirubin 0.3 (0.3-1.0) mg/dL AST 162 H (13-39) Units/L ALT 110 H (7-52) Units/L Alkaline Phosphatase 76 (34-104) Units/L Albumin 3.4 L (3.5-5.7) g/dL Urine 05/09/18 Range/Units 03:31 Urine Color Dark Yellow (Yellow) Urine Clarity Turbid A (Clear) Urine pH 5.0 (5.0-8.0) pH Units Ur Specific [place] > 1.030 H (1.010-1.025) Urine Protein 30 H (Neg-Trace) mg/dL Urine Glucose (UA) Normal (Normal) mg/dL - Impressions ITS Impressions Head CT 05/09/18 01:37 IMPRESSION: No acute intracranial abnormality. Senescent changes. D/ / Jevon Serrano MD / Jevon Serrano MD Interpreting Provider: Jevon Serrano MD Chest X-Ray 05/09/18 01:38 IMPRESSION: Improving bibasilar atelectasis or pneumonia. D/ / Graeme Tirado MD / Graeme Tirado MD Interpreting Provider: Graeme Tirado MD Abdomen/Pelvis CT 05/09/18 01:39 IMPRESSION: Gallbladder wall thickening/edema with trace pericholecystic fluid. If there is high clinical concern for cholecystitis and gallbladder ultrasound may be helpful for further evaluation. Normal caliber bowel and normal appendix. Sigmoid colon diverticulosis without acute diverticulitis. Small bilateral pleural effusions with associated airspace disease. Cardiomegaly. Atherosclerosis. D/ / Bony Sessions / Bony Sessions Interpreting Provider: Bony Sessions Cervical Spine CT 05/09/18 02:13 IMPRESSION: Spondylosis with no definite fracture. D/ / Graeme Tirado MD / Graeme Tirado MD Interpreting Provider: Graeme Tirado MD - Assessment and plan (1) Septic shock Current Visit: Yes Status: Acute Assessment and plan: 87-year-old male recently admitted for treatment of pneumonia, Afib with RVR. Patient was discharged to [facility] for rehab. Earlier this evening, ECF staff report patient had seizure like activity. Seizure activity was not witnessed by EMS staff for ED staff. Head CT, cervical spine CT unremarkable. Chest x-ray shows interval improvement and by basilar airspace disease and trace left sided pleural effusion. CT of the abdomen/pelvis shows gallbladder wall thickening/edema with trace Pericholecystic fluid, sigmoid diverticulitis. Emergency department, patient was tachycardic, tachypneic, hypotensive despite 2L fluid boluses. EKG reviewed, showing multifocal atrial tachycardia. Source of infection not fully clear at this time. However, suspect abdominal source of infection, as patient did have gallbladder wall thickening. He also has evidence of UTI. To not suspected pulmonary source of infection, as imaging to show interval improvement in his pneumonia. plan: NPO, consult to critical care team. blood culture x2, urine culture, lactic acid pending. Also check CPK levels. gallbladder ultrasound pending. if concern for cholecystitis, will consult surgery start amiodarone gtt for tachyarrhythmia in setting of hypotension. Central line inserted in ED. Plan for A-line insertion as well. Levophed ordered in case patient remains hypotensive. Titrate to maintain MAP>65. zosyn day 1 EEG ordered for possible seizure like activity in [facility]. (2) COPD (chronic obstructive pulmonary disease) Current Visit: No Status: Acute Assessment and plan: Xopenex for shortness of breath/wheezing Qualifiers: Emphysema type: unspecified Qualified Code(s): J43.9 - Emphysema, unspecified (3) Tachycardia Current Visit: No Status: Resolved Assessment and plan: Plan as above (4) Elevated troponin Current Visit: No Status: Acute Assessment and plan: Troponin 0.06. Suspect multifactorial etiology secondary to demand ischemia in setting of septic shock, tachyarrhythmia. Patient currently denies any chest pain. Continue to trend (5) GALINDO (acute kidney injury) Current Visit: No Status: Acute Assessment and plan: GALINDO on CKD stage III, likely secondary to septic shock. Plan: CPK pending patient received 2 fluid boluses and emergency department hold Lasix and lisinopril. Follow renal protective strategy, avoid nephrotoxic agents. (6) Dementia Current Visit: No Status: Acute Qualifiers: Dementia type: unspecified type Dementia behavioral disturbance: without behavioral disturbance Qualified Code(s): F03.90 - Unspecified dementia without behavioral disturbance (7) GERD (gastroesophageal reflux disease) Current Visit: No Status: Chronic Qualifiers: Esophagitis presence: esophagitis presence not specified Qualified Code(s): K21.9 - Gastro-esophageal reflux disease without esophagitis (8) BPH (benign prostatic hyperplasia) Current Visit: No Status: Chronic Assessment and plan: Continue home medication when home med list verified Qualifiers: Lower urinary tract symptom presence: unspecified whether lower urinary tract symptoms present Qualified Code(s): N40.0 - Benign prostatic hyperplasia without lower urinary tract symptoms (9) Transaminitis Current Visit: Yes Status: Acute Assessment and plan: Suspect secondary to septic shock. Continue to monitor. (10) DVT prophylaxis Current Visit: No Status: Acute Assessment and plan: Heparin SQ - Time Spent With Patient Total time spent is greater than 50% in coordination of care (as documented) at patient's floor/unit and/or counseling patient: <Murali Parikh - Last Filed: 05/09/18 06:37> Date of Encounter: 05/09/18 All Systems PM: A 10-system review of systems was performed and is negative for pertinent findings except as documented above in the HPI. - Constitutional Vitals: Temp Pulse Resp BP Pulse Ox 98.7 F 134 24 76/52 97 05/09/18 01:46 05/09/18 04:06 05/09/18 04:06 05/09/18 04:06 05/09/18 04:06 Internal Med - H&P Results - Labs CBC & Chem 7: 05/09/18 02:02 05/09/18 02:02 Labs: Short CBC 05/09/18 Range/Units 02:02 WBC 8.5 D (4.3-11.1) K/mcL Hgb 10.2 L (12.9-16.9) g/dL Hct 34.7 L (37.5-50.1) % Plt Count 190 (140-400) K/mcL Neutrophils # 7.2 (1.6-8.9) K/mcL BMP 05/09/18 02:02 Sodium 144 Potassium 4.6 Chloride 99 Carbon Dioxide 38 H BUN 51 H Creatinine 2.91 H Glucose 139 H Calcium 8.8 Cardiac Enzymes 05/09/18 Range/Units 02:02 Troponin I 0.06 H* (< 0.04) ng/mL Liver Function 05/09/18 Range/Units 02:02 Total Bilirubin 0.3 (0.3-1.0) mg/dL AST 162 H (13-39) Units/L ALT 110 H (7-52) Units/L Alkaline Phosphatase 76 (34-104) Units/L Albumin 3.4 L (3.5-5.7) g/dL Urine 05/09/18 Range/Units 03:31 Urine Color Dark Yellow (Yellow) Urine Clarity Turbid A (Clear) Urine pH 5.0 (5.0-8.0) pH Units Ur Specific [place] > 1.030 H (1.010-1.025) Urine Protein 30 H (Neg-Trace) mg/dL Urine Glucose (UA) Normal (Normal) mg/dL - Impressions ITS Impressions Head CT 05/09/18 01:37 IMPRESSION: No acute intracranial abnormality. Senescent changes. D/ / Jevon Serrano MD / Jevon Serrano MD Interpreting Provider: Jevon Serrano MD Chest X-Ray 05/09/18 01:38 IMPRESSION: Improving bibasilar atelectasis or pneumonia. D/ / Graeme Tirado MD / Graeme Tirado MD Interpreting Provider: Graeme Tirado MD Abdomen/Pelvis CT 05/09/18 01:39 IMPRESSION: Gallbladder wall thickening/edema with trace pericholecystic fluid. If there is high clinical concern for cholecystitis and gallbladder ultrasound may be helpful for further evaluation. Normal caliber bowel and normal appendix. Sigmoid colon diverticulosis without acute diverticulitis. Small bilateral pleural effusions with associated airspace disease. Cardiomegaly. Atherosclerosis. D/ / Bony Spence / Bony Spence Interpreting Provider: Bony Spence Cervical Spine CT 05/09/18 02:13 IMPRESSION: Spondylosis with no definite fracture. D/ / Graeme Tirado MD / Graeme Tirado MD Interpreting Provider: Graeme Tirado MD - Time Spent With Patient Total time spent is greater than 50% in coordination of care (as documented) at patient's floor/unit and/or counseling patient: - Attending Attestation I performed a history and physical exam of the patient and discussed management with the resident. I reviewed the resident's note and agree with the documented findings and plan of care. Fred Doran is an 87-year-old man who was just discharged from here less than 48 hours ago after being admitted for acute respiratory failure suspected due to pneumonia and A. fib with RVR. It appears at the time of his last admission he was found down at home covered in feces and in the highly unkempt state and was thus discharged to a nursing facility. It is reported out while there tonight he felt down and it is reported that he had 2 seizure episodes however this has not been witnessed by medical personnel. As per EMS he was somnolent on route and appeared perhaps post ictal and on arrival to the ER he was a bit confused however his mental status likely picked up and he became AAO 3. He has been persistently hypotensive since coming as well as tachycardic with EKG showing signs of a multifocal atrial tachycardia with underlying right bundle branch block which is not a new finding. He offers no complaints whatsoever. Head and neck CT were unremarkable. Abdomen CT shows signs of gallbladder distention and wall thickening. At the time of my assessment he had received 3 L of fluids and remained tachycardic and hypotensive. There was a concern that it may be cuff dependent and therefore the read was inaccurate due to fluctuations however all reads remained with a systolic below 90. Central line was placed in the ER for the possibility of vasopressor needs and will be managed in the ICU with concern for septic shock posisbly due to biliary disease, acute liver injury as evidenced by elevated LFTs, stage III acute kidney injury and new onset seizures. He will need an arterial line for more accurate measurement of his blood pressure. Obtain la ctate level and blood cultures. Start empiric antibiotics with PipTazo due to concern for acute cholecystitis in a patient with recent healthcare contact. Keep nothing by mouth and obtain abdomen ultrasound. Neurological observations, aspiration and seizure precautions. Consider EEG. Chest x-ray shows resolving pneumonia. Although the patient has a persistent productive cough was witnessed by me it seems he has already completed a course of abx for this; in any case the antibiotics being given will cover this as well. Seems to have received diltiazem drip on his last admission due to rapid ventricular rate however at this time his blood pressure likely cannot tolerate this and consideration should be given to amiodarone in the interim. Troponin elevation likely secondary to the atrial tachycardia and appears to not be in new elevation. Continue fluid resuscitation noting his urine specific gravity is greater than 1.030 and has a high serum osmolality with clinical signs of dehydration. Monitor urine output. DVT prophylaxis with subcutaneous heparin. Will need palliative care re-evaluation to discuss goals of care as it seems family members were not on the same page during his last admission. CCT 70 mins. SAMIA COSTA.
[2018-05-09] MEDS ORDERED: Naloxone 0.4 MG/ML INJ IVP PRN (05:58)
[2018-05-09] MEDS ORDERED: Ondansetron 4 MG/2 ML VIAL IVP PRN (06:02)
[2018-05-09] MEDS ORDERED: Amiodarone Premix 150 MG/100 ML BAG IVPB ONE (06:08)
[2018-05-09] MEDS ORDERED: Amiodarone Premix 360 MG/200 ML BAG IVC ONE (06:08)
--- NOTE | 2018-05-09 06:10 | Emergency Department Note ---
Disposition Clinical Impression: Seizure, Tachycardia, GALINDO (acute kidney injury), Elevated troponin Altered mental status Qualifiers: Altered mental status type: unspecified Qualified Code(s): R41.82 - Altered mental status, unspecified Disposition: Admitted As Inpatient Condition: Fair General Adult HPI - General Chief complaint: ED Altered Mental Status Stated complaint: seizure Time Seen by Provider: 05/09/18 01:20 Source: EMS Mode of arrival: EMS Limitations: altered mental status, age Nursing Notes Reviewed: Yes Vital Signs Reviewed: Yes - History of Present Illness HPI Narrative: 87-year-old male with unknown past medical history presenting to the emergency department for altered mental status and seizure-like activity. Patient was recently admitted and treated for pneumonia. At discharge patient was sent to [facility]. Has been there for 1 day. According to EMS [facility] facility called them for a two-minute generalized tonic-clonic seizure. They were concerned as patient did fall twice out of bed today. When they arrived patient was post ictal. Patient did have an episode of 1 minute of staring off and being unresponsive. When patient arrived he is alert. Patient denies any pain. Denies shortness of breath. Patient has history of dementia and unable to provide any history of present illness. Pain Scale: 0 - Related Data Home Medications Medication Instructions Recorded Confirmed Aspirin 81 mg PO DAILY 04/09/17 04/29/18 Cholecalciferol (D-3) [Vitamin D] 1,000 unit PO DAILY 04/09/17 04/29/18 Cyanocobalamin (B-12) [Vitamin B12] 1,000 mcg PO DAILY 04/09/17 04/29/18 Donepezil [Aricept] 5 mg PO DAILY 04/09/17 04/29/18 Albuterol Sulfate [Albuterol 2 puff IH QID PRN 11/09/17 04/29/18 Inhaler] Ipratropium/Albuterol Neb [Duoneb] 3 ml IH Q6HR PRN 04/29/18 04/29/18 Isosorbide MONOnitrate (24 HR) 30 mg PO DAILY 04/29/18 04/29/18 [Imdur] Melatonin [Melatin] 9 mg PO HS 04/29/18 04/29/18 Terazosin [Hytrin] 1 mg PO HS 04/29/18 04/29/18 Previous Rx's Medication Instructions Recorded Budesonide/Formoterol 160/4.5 2 puff IH BIDR #1 inhaler 11/14/17 [Symbicort 160/4.5] Diltiazem CD (24hr) [Cardizem CD] 240 mg PO DAILY 30 Days #30 05/05/18 cap.er.24h Furosemide [Lasix] 20 mg PO BID 30 Days #60 tablet 05/05/18 Lisinopril [Zestril] 5 mg PO DAILY 30 Days #30 tablet 05/05/18 Metoprolol XL (24 HR) Succ [Toprol 50 mg PO DAILY 30 Days #30 05/05/18 Xl] tab.er.24h Quetiapine Fumarate [Seroquel] 25 mg PO BID 30 Days #60 tablet 05/05/18 Allergies Allergy/AdvReac Type Severity Reaction Status Date / Time No Known Allergies Allergy Verified 04/29/18 13:33 Limitations: ROS unobtainable due to patients medical condition Past Medical History - Past Medical History Source: nursing notes reviewed Medical history: Reports: CHF, CVA, dementia, hypertension Surgical history: Reports: no surgical history Psychiatric history: Reports: no psych history - Social History Smoking Status: Former smoker Smokeless Tobacco Status: No Alcohol use: Reports: none Drug use: Reports: none Physical Exam - General Limitations: altered mental status, age General appearance: lethargic - Head Head exam: atraumatic, normocephalic, normal inspection - Eye Eye exam: Absent: scleral icterus, conjunctival injection - ENT ENT exam: mucous membranes dry - Neck Neck exam: Absent: tenderness, meningismus - Chest Chest inspection: Present: normal inspection, symmetric chest wall rise. Absent: rash - Respiratory Respiratory exam: Present: other (Coarse breath sounds throughout) - Cardiovascular Cardiovascular exam: Present: normal rhythm, tachycardia, normal heart sounds - Abdominal Exam Abdominal exam: Present: soft, tenderness. Absent: distention, guarding, rebound Abdominal tenderness: Present: diffuse, mild - Extremities Exam Extremities exam: Present: normal inspection, full ROM - Neurological Exam Neurological exam: Present: alert - Skin Skin exam: Present: warm Course Course Narrative: 87-year-old male presenting with altered mental status after new onset seizure. In the room patient is alert. Unknown what his regular baseline is. He is h ypotensive with a systolic between 65 and 75. He is also tachycardic at approximately 130 bpm. Concern for sepsis due to patient's recent admission for pneumonia. At this time will obtain basic laboratory analysis provide patient with fluid resuscitation. Patient's physical exam shows mild diffuse abdominal tenderness. Due to patient's recent falls and tenderness on exam we will obtain a CT of the head and cervical spine along with a CT of the abdomen and pelvis. Disposition most likely admission the pending results. Patient agrees with this plan. - Reevaluation(s) Reevaluation #1: Patient's laboratory analysis shows acute kidney injury with elevated creatinine. Also mildly elevated troponin. Chronic anemia. Urine analysis concerning for urinary tract infection as it is positive nitrite. CT of the head and cervical spine shows no acute abnormality. CT of the abdomen and pelvis shows gallbladder wall thickening up possible trace cholecystic fluid. Chest x-ray shows resolving pneumonia. Patient's mental status has gotten better throughout his stay in the emergency department. Blood pressure still soft with systolic between 80 and 90. Due to patient's unknown cause of altered mental status and possible new onset seizure we will plan to admit the patient for further evaluation. I spoke with the hospitalist weight control engineer Dr. Parikh who feels the patient is in need of ICU due to his blood pressure. We will place a central line and admit the patient to the ICU. Patient remains alert. Blood pressure with systolic in the 80s to 90s. Heart rate remains in the the 130s. I spoke with the hospitalist about possible antibiotic use due to patient's urinary tract infection and confusion. Hospitalist will defer until he examines the patient. Vital Signs Temperature 98.7 F 05/09/18 01:46 Pulse Rate 131 05/09/18 01:46 Respiratory Rate 29 05/09/18 01:46 Blood Pressure 68/36 05/09/18 01:46 O2 Sat by Pulse Oximetry 100 05/09/18 01:46 Temperature 98.7 F 05/09/18 01:46 Pulse Rate 134 05/09/18 04:06 Respiratory Rate 24 05/09/18 04:06 Blood Pressure 76/52 05/09/18 04:06 O2 Sat by Pulse Oximetry 97 05/09/18 04:06 Oxygen Delivery Oxygen Delivery Oximizer Medical Decision Making - Medical Records Medical records reviewed: Yes I reviewed the patient's medical records. - Lab Data Lab results reviewed: Yes I reviewed the patient's lab results. Result diagrams: 05/09/18 02:02 05/09/18 02:02 Lab Results 05/09/18 05/09/18 05/09/18 Range/Units 02:02 02:02 02:02 WBC 8.5 D (4.3-11.1) K/mcL RBC 3.49 L (4.19-5.50) M/mcL Hgb 10.2 L (12.9-16.9) g/dL Hct 34.7 L (37.5-50.1) % MCV 99.4 (83.0-100.0) fL MCH 29.2 (28.0-33.3) pg MCHC 29.4 L (31.6-35.5) g/dL RDW 14.2 (11.5-14.5) % Plt Count 190 (140-400) K/mcL MPV 11.6 (9.4-12.4) fL Immature Gran % 0.5 (0-4) % Seg Neutrophils % 85.0 % Lymphocytes % 6.8 % Monocytes % 7.0 % Eosinophils % 0.5 % Basophils % 0.2 % Neutrophils # 7.2 (1.6-8.9) K/mcL Lymphocytes # 0.6 (0.6-4.6) K/mcL Monocytes # 0.6 (0.0-1.3) K/mcL Eosinophils # 0.0 (0.0-0.6) K/mcL Basophils # 0.0 (0.0-0.2) K/mcL PT 10.9 (9.4-12.1) Seconds INR 1.0 APTT 23.8 L (26.0-36.0) Seconds Sodium 144 (136-145) mEq/L Potassium 4.6 (3.5-5.1) mEq/L Chloride 99 (98-107) mEq/L Carbon Dioxide 38 H (23-29) mEq/L BUN 51 H (8-23) mg/dL Creatinine 2.91 H (0.70-1.30) mg/dL Est GFR ( Amer) 25 L (> 60) Est GFR (Non-Af Amer) 21 L (> 60) BUN/Creatinine Ratio 18 (6-26) Glucose 139 H (70-105) mg/dL Calculated Osmolality 314 H (280-300) Calcium 8.8 (8.6-10.3) mg/dL Total Bilirubin 0.3 (0.3-1.0) mg/dL AST 162 H (13-39) Units/L ALT 110 H (7-52) Units/L Alkaline Phosphatase 76 (34-104) Units/L Troponin I 0.06 H* (< 0.04) ng/mL Serum Total Protein 5.7 L (6.4-8.9) g/dL Albumin 3.4 L (3.5-5.7) g/dL Globulin 2.3 L (2.4-3.5) g/dL Albumin/Globulin Ratio 1.5 (1.1-2.2) Urine Color (Yellow) Urine Clarity (Clear) Urine pH (5.0-8.0) pH Units Ur Specific [place] (1.010-1.025) Urine Protein (Neg-Trace) mg/dL Urine Glucose (UA) (Normal) mg/dL Urine Ketones (Negative) mg/dL Urine Blood (Negative) Urine Nitrite (Negative) Urine Bilirubin (Negative) Urine Urobilinogen (Normal) mg/dL Ur Leukocyte Esterase (Negative) Urine Microscopic RBC (0-3) per hpf Urine Microscopic WBC (0-3) per hpf Ur Squamous Epith Cells (None-Few) per lpf Urine Bacteria (None-Few) per hpf Hyaline Casts (None-Few) per lpf Urine Mucus (Few) Urine Yeast (None Seen) per hpf Urine Opiates Screen (Agvmml=132) ng/mL Ur Barbiturates Screen (Hxftrn=365) ng/mL Ur Phencyclidine Scrn (Cutoff=25) ng/mL Ur Amphetamines Screen (Zpmvip=7877) ng/mL U Benzodiazepines Scrn (Nxacju=844) ng/mL Urine Cocaine Screen (Cutoff= 300) ng/mL U Marijuana (THC) Screen (Cutoff = 50) ng/mL Ur Drug Screen Interp 05/09/18 05/09/18 Range/Units 03:31 03:31 WBC (4.3-11.1) K/mcL RBC (4.19-5.50) M/mcL Hgb (12.9-16.9) g/dL Hct (37.5-50.1) % MCV (83.0-100.0) fL MCH (28.0-33.3) pg MCHC (31.6-35.5) g/dL RDW (11.5-14.5) % Plt Count (140-400) K/mcL MPV (9.4-12.4) fL Immature Gran % (0-4) % Seg Neutrophils % % Lymphocytes % % Monocytes % % Eosinophils % % Basophils % % Neutrophils # (1.6-8.9) K/mcL Lymphocytes # (0.6-4.6) K/mcL Monocytes # (0.0-1.3) K/mcL Eosinophils # (0.0-0.6) K/mcL Basophils # (0.0-0.2) K/mcL PT (9.4-12.1) Seconds INR APTT (26.0-36.0) Seconds Sodium (136-145) mEq/L Potassium (3.5-5.1) mEq/L Chloride (98-107) mEq/L Carbon Dioxide (23-29) mEq/L BUN (8-23) mg/dL Creatinine (0.70-1.30) mg/dL Est GFR ( Amer) (> 60) Est GFR (Non-Af Amer) (> 60) BUN/Creatinine Ratio (6-26) Glucose (70-105) mg/dL Calculated Osmolality (280-300) Calcium (8.6-10.3) mg/dL Total Bilirubin (0.3-1.0) mg/dL AST (13-39) Units/L ALT (7-52) Units/L Alkaline Phosphatase (34-104) Units/L Troponin I (< 0.04) ng/mL Serum Total Protein (6.4-8.9) g/dL Albumin (3.5-5.7) g/dL Globulin (2.4-3.5) g/dL Albumin/Globulin Ratio (1.1-2.2) Urine Color Dark Yellow (Yellow) Urine Clarity Turbid A (Clear) Urine pH 5.0 (5.0-8.0) pH Units Ur Specific [place] > 1.030 H (1.010-1.025) Urine Protein 30 H (Neg-Trace) mg/dL Urine Glucose (UA) Normal (Normal) mg/dL Urine Ketones Trace H (Negative) mg/dL Urine Blood Negative (Negative) Urine Nitrite Positive A (Negative) Urine Bilirubin Moderate H (Negative) Urine Urobilinogen Normal (Normal) mg/dL Ur Leukocyte Esterase Trace H (Negative) Urine Microscopic RBC 3-5 H (0-3) per hpf Urine Microscopic WBC 5-15 H (0-3) per hpf Ur Squamous Epith Cells Many H (None-Few) per lpf Urine Bacteria Moderate H (None-Few) per hpf Hyaline Casts None Seen (None-Few) per lpf Urine Mucus Few (Few) Urine Yeast Few H (None Seen) per hpf Urine Opiates Screen Negative (Ziyper=362) ng/mL Ur Barbiturates Screen Negative (Vvzjli=526) ng/mL Ur Phencyclidine Scrn Negative (Cutoff=25) ng/mL Ur Amphetamines Screen Negative (Jivrcg=2626) ng/mL U Benzodiazepines Scrn Negative (Xxhlfs=005) ng/mL Urine Cocaine Screen Negative (Cutoff= 300) ng/mL U Marijuana (THC) Screen Negative (Cutoff = 50) ng/mL Ur Drug Screen Interp See Below - Radiology Data Radiology results reviewed: Yes I reviewed the patient's radiology results. Head CT 05/09/18 01:37 IMPRESSION: No acute intracranial abnormality. Senescent changes. D/ / Jevon Serrano MD / Jevon Serrano MD Interpreting Provider: Jevon Serrano MD Chest X-Ray 05/09/18 01:38 IMPRESSION: Improving bibasilar atelectasis or pneumonia. D/ / Graeme Tirado MD / Graeme Tirado MD Interpreting Provider: Graeme Tirado MD Abdomen/Pelvis CT 05/09/18 01:39 IMPRESSION: Gallbladder wall thickening/edema with trace pericholecystic fluid. If there is high clinical concern for cholecystitis and gallbladder ultrasound may be helpful for further evaluation. Normal caliber bowel and normal appendix. Sigmoid colon diverticulosis without acute diverticulitis. Small bilateral pleural effusions with associated airspace disease. Cardiomegaly. Atherosclerosis. D/ / Bony Spence / Bony Spence Interpreting Provider: Bony Sessions Cervical Spine CT 05/09/18 02:13 IMPRESSION: Spondylosis with no definite fracture. D/ / Graeme Tirado MD / Graeme Tirado MD Interpreting Provider: Graeme Tirado MD - EKG Data EKG #1 EKG attestation: Yes I reviewed and interpreted this EKG. EKG results narrative: EKG shows an ectopic atrial tachycardia with ventricular rate of 133. Right bundle branch block. Critical Care Time Critical Care Time: Yes Total Critical Care Time: 45 Attestation: Critical care performed: Time is exclusive of separately billable procedures. Time includes: direct patient care, patient reassessment, coordination of patient care, interpretation of data (laboratory data, radiology data, and respiratory data), review of patient's medical records, medical consultation and documentation of patient care. Procedures included in critical care time: Procedures excluded from critical care time: Right IJ central line placement Attestation Statement - Attestation Attestation: I, Maximiliano Ontiveros MD, personally evaluated this patient and discussed their management with the resident physician. I reviewed the resident's note and agree with the documented findings, medical decision making, and plan of care. 87-year-old male presents to the emergency department by EMS from a local [facility] with a reported history that he fell out of bed twice and then apparently had a witnessed seizure at the [facility]. No known history of seizure disorder. EMS reports that on their arrival patient did appear to be postictal and was unresponsive. On arrival here the emergency department the p atient is responsive and talking. He is oriented to person and place but not time. He denies any chest pain or difficulty breathing. He denies any pain in his head or neck. He does complain of some generalized abdominal pain. Patient apparently has a history of dementia but until recently lived at home with his . He was just released from the hospital here yesterday and transferred to the extended care facility. On examination patient is a well-developed well-nourished elderly male in no acute distress. He is alert. There is no cyanosis or diaphoresis. He does seem somewhat confused and mildly disoriented. There is an occasional moist cough noted. Breath sounds are decreased but equal bilaterally. Some bibasilar rales. A few scattered wheezes. Heart tachycardic and regular. Abdomen soft with normal bowel sounds. Mild diffuse tenderness with no guarding or rebound tenderness. No pedal edema. No fecal impaction on rectal exam. No gross focal neurological deficits. Labs reviewed. CT the head and neck was negative. Chest x-ray shows some bibasilar airspace disease which is improved from his recent admission. EKG shows a ectopic atrial tachycardia with a rate of 133. Right bundle branch block. Patient received IV fluids but remained tachycardic with a heart rate in the mid 130s. He also was relatively hypotensive with blood pressures intermittently down into the 80s systolic but then other times around 110 systolic. He maintained a good radial pulse and became more alert while here in the emergency department. A Garcia catheter was inserted. A right IJ central line was placed by Dr. Ricketts under my direct supervision. X-ray postprocedure showed good placement of the central line. The hospitalist, Dr. Parikh, was consulted and accepted admission of the patient to ICU.
[2018-05-09] MEDS ORDERED: Norepinephrine 4 MG in D5% in Water 250 ML IVC SCH (06:36)
[2018-05-09] MEDS: *HR* Heparin 5,000 UNIT/ML VIAL SQ SCH ×2 (06:40→17:25)
[2018-05-09] MEDS: Levalbuterol Neb 1.25 MG/3 ML IH SCH ×4 (07:45→22:13)
[2018-05-09 07:55] LABS: Magnesium 2.4 mg/dL (1.6-2.6); Phosphorous 5.1 mg/dL (2.7-4.5)
[2018-05-09] MEDS ORDERED: MethylPREDNISolone 40 MG/ML VIAL IVP SCH (08:00)
[2018-05-09] MEDS: Piperacillin/Tazobactam 3.375 GM in 0.9 % Sodium Chloride Mini Bag 100 ML IVPB SCH ×2 (08:00→19:24)
[2018-05-09 08:21] LABS: Prealbumin 17.3 mg/dL (17.0-34.0)
[2018-05-09 09:05] LABS: Adenovirus Not Detected (Not Detect); Bordetella Pertussis Not Detected (Not Detect); Chlamydophila pneumoniae Not Detected (Not Detect); Coronavirus 229E Not Detected (Not Detect); Coronavirus HKU1 Not Detected (Not Detect); Coronavirus NL63 Not Detected (Not Detect); Coronavirus OC43 Not Detected (Not Detect); Human Metapneumovirus Not Detected (Not Detect); Human Rhinovirus/Enterovirus Not Detected (Not Detect); Influenza A Subtype 2009 H1 Not Detected (Not Detect); Influenza A Untypeable Not Detected (Not Detect); Influenza B Not Detected (Not Detect); Mycoplasma pneumoniae Not Detected (Not Detect); Parainfluenza Virus 1 Not Detected (Not Detect); Parainfluenza Virus 2 Not Detected (Not Detect); Parainfluenza Virus 3 Not Detected (Not Detect); Parainfluenza Virus 4 Not Detected (Not Detect); Respiratory Syncytial Virus Not Detected (Not Detect)
--- NOTE | 2018-05-09 09:33 | Pulmonology Consult Note ---
<Eber Jiménez W - Last Filed: 05/09/18 16:23> Date of Encounter: 05/09/18 Time of Encounter: 09:33 Assessment and Plan (1) Septic shock Current Visit: Yes Status: Acute 87-year-old male recently admitted for treatment of pneumonia, Afib with RVR. Patient was discharged to [facility] for rehab. Earlier this evening, ECF staff report patient had seizure like activity. Seizure activity was not witnessed by EMS staff for ED staff. Head CT, cervical spine CT unremarkable. Chest x-ray shows interval improvement and by basilar airspace disease and trace left sided pleural effusion. CT of the abdomen/pelvis shows gallbladder wall thickening/edema with trace Pericholecystic fluid, sigmoid diverticulitis. lactic acid 0.5 Emergency department, patient was tachycardic, tachypneic, hypotensive despite 2L fluid boluses. EKG showing atrial flutter Source of infection not fully clear at this time. However, suspect abdominal source of infection, as patient did have gallbladder wall thickening. He also has evidence of UTI. To not suspected pulmonary source of infection, as imaging to show interval improvement in his pneumonia. plan: gallbladder ultrasound pending. if concern for cholecystitis, will consult surgery continue amiodarone gtt for tachyarrhythmia in setting of hypotension. Central line inserted in ED. Phenylephrine MAP goal of 65 zosyn day 2 EEG ordered for possible seizure like activity in senior care. (2) Atrial flutter Current Visit: Yes Status: Acute Atrial flutter seen on EKG likely from sepsis Continue amiodarone drip rest of plan above Qualifiers: Atrial flutter type: unspecified Qualified Code(s): I48.92 - Unspecified atrial flutter (3) Elevated troponin Current Visit: No Status: Acute Troponin 0.06. Suspect multifactorial etiology secondary to demand ischemia in setting of septic shock, tachyarrhythmia. Patient currently denies any chest pain. Continue to trend (4) GALINDO (acute kidney injury) Current Visit: Yes Status: Acute GALINDO on CKD stage III, likely secondary to septic shock. Scr 2.91 Plan: patient received 2 fluid boluses and emergency department hold Lasix and lisinopril. Follow renal protective strategy, avoid nephrotoxic agents. (5) Dementia Current Visit: No Status: Chronic Per family report the patient does not tolerate any central acting achetylcholinergic medications hold any [facility] treatment for dementia family agreeable fro antipsychotics short term if needed for aggitation Qualifiers: Dementia type: Alzheimer's disease Alzheimer's disease onset: unspecified onset Dementia behavioral disturbance: without behavioral disturbance Q ualified Code(s): G30.9 - Alzheimer's disease, unspecified; F02.80 - Dementia in other diseases classified elsewhere without behavioral disturbance (6) Transaminitis Current Visit: Yes Status: Acute Suspect secondary to septic shock. Continue to monitor. (7) BPH (benign prostatic hyperplasia) Current Visit: No Status: Chronic continue home meds Qualifiers: Lower urinary tract symptom presence: unspecified whether lower urinary tract symptoms present Qualified Code(s): N40.0 - Benign prostatic hyperplasia without lower urinary tract symptoms (8) DVT prophylaxis Current Visit: No Status: Acute Heparin subq History of Present Illness Consult date: 05/09/18 Requesting physician: Murali Parikh Chief complaint: septic shock History of present illness: Mr. Doran is a 87 year old male diastolic CHF, COPD, dementia, GRD, BPH, atrial fibrillation. Of note, patient was recently hospitalized from 04/29-05/07 after being treated for pneumonia, atrial fibrillation with RVR. He was discharged to [facility] for rehabilitation. At [facility], staff members report that they witnessed seizure like activity from the patient. Patient does not have a history of seizures. Seizure activity was not witnessed by EMS members, or ED staff. Patient does have history of dementia, so he is a poor historian. After arrival to the emergency department, he was tachycardic with heart rate in 130s, tachypnic, and hypotensive with blood pressure 70s/60s. He was saturating at 97% on 5L oxygen. Family was present and bedside. States patient has dementia but they state "dementia meds make his heart worse". Spoke with family and patient desires to be DRN-arrest Past Med Surg Social Fam HX - Past Medical History Medical history: CHF, CVA, dementia, hypertension Psychiatric history: no psych history - Past Surgical History Surgical History: no surgical history - Social History Smoking Status: Former smoker Smokeless Tobacco Status: No Alcohol use: none Drug use: none Medications and Allergies Cholecalciferol (D-3) [Vitamin D] 1,000 unit PO DAILY 04/09/17 [History] Cyanocobalamin (B-12) [Vitamin B12] 1,000 mcg PO DAILY 04/09/17 [History] Donepezil [Aricept] 5 mg PO DAILY 04/09/17 [History] Albuterol Sulfate [Albuterol Inhaler] 2 puff IH QID PRN 11/09/17 [History] Budesonide/Formoterol 160/4.5 [Symbicort 160/4.5] 2 puff IH BIDR #1 inhaler 11/14/17 [Rx] Ipratropium/Albuterol Neb [Duoneb] 3 ml IH Q6HR PRN 04/29/18 [History] Isosorbide MONOnitrate (24 HR) [Imdur] 30 mg PO DAILY 04/29/18 [History] Melatonin [Melatin] 9 mg PO HS 04/29/18 [History] Terazosin [Hytrin] 1 mg PO HS 04/29/18 [History] Diltiazem CD (24hr) [Cardizem CD] 240 mg PO DAILY 30 Days #30 cap.er.24h 05/05/18 [Rx] Furosemide [Lasix] 20 mg PO BID 30 Days #60 tablet 05/05/18 [Rx] Lisinopril [Zestril] 5 mg PO DAILY 30 Days #30 tablet 05/05/18 [Rx] Metoprolol XL (24 HR) Succ [Toprol Xl] 50 mg PO DAILY 30 Days #30 tab.er.24h 05/05/18 [Rx] Aspirin 325 mg PO DAILY 05/09/18 [History] Allergy/AdvReac Type Severity Reaction Status Date / Time No Known Allergies Allergy Verified 04/29/18 13:33 All Systems: The remainder of the systems were reviewed and are negative - Constitutional Constitutional: as per HPI - Cardiovascular Cardiovascular: as per HPI, rapid heart rate - Respiratory Respiratory: as per HPI - Genitourinary Genitourinary: difficulty urinating - Neurological Neurological: as per HPI Physical Examination Vital Signs: Vital Signs, Last 4 Hours Temp Pulse Resp BP Pulse Ox 05/09/18 09:00 98.0 F 88 17 78/47 96 05/09/18 08:00 133 17 75/52 97 05/09/18 07:52 130 16 79/49 97 05/09/18 06:55 99 05/09/18 06:45 97.9 F 137 18 79/45 99 General appearance: other (shaking in bed) Eyes: nonicteric ENT: oropharynx moist Neck: supple Auscultation: bilateral: clear Cardiovascular: irregular rhythm Gastrointestinal: normoactive bowel sounds, hypoactive bowel sounds, soft, non- tender normal mental status mood appropriate, affect normal Results - Laboratory Findings CBC and BMP: 05/09/18 02:02 05/09/18 02:02 PT/INR, D-dimer PT 10.9 Seconds (9.4-12.1) 05/09/18 02:02 Abnormal lab findings: Abnormal lab results RBC 3.49 M/mcL (4.19-5.50) L 05/09/18 02:02 Hgb 10.2 g/dL (12.9-16.9) L 05/09/18 02:02 Hct 34.7 % (37.5-50.1) L 05/09/18 02:02 MCHC 29.4 g/dL (31.6-35.5) L 05/09/18 02:02 APTT 23.8 Seconds (26.0-36.0) L 05/09/18 02:02 Carbon Dioxide 38 mEq/L (23-29) H 05/09/18 02:02 BUN 51 mg/dL (8-23) H 05/09/18 02:02 Creatinine 2.91 mg/dL (0.70-1.30) H 05/09/18 02:02 Est GFR ( Amer) 25 (> 60) L 05/09/18 02:02 Est GFR (Non-Af Amer) 21 (> 60) L 05/09/18 02:02 Glucose 139 mg/dL (70-105) H 05/09/18 02:02 Calculated Osmolality 314 (280-300) H 05/09/18 02:02 Phosphorus 5.1 mg/dL (2.7-4.5) H 05/09/18 02:02 AST 162 Units/L (13-39) H 05/09/18 02:02 ALT 110 Units/L (7-52) H 05/09/18 02:02 Troponin I 0.27 ng/mL (< 0.04) H* 05/09/18 07:45 Serum Total Protein 5.7 g/dL (6.4-8.9) L 05/09/18 02:02 Albumin 3.4 g/dL (3.5-5.7) L 05/09/18 02:02 Globulin 2.3 g/dL (2.4-3.5) L 05/09/18 02:02 Urine Clarity Turbid (Clear) A 05/09/18 03:31 Ur Specific [place] > 1.030 (1.010-1.025) H 05/09/18 03:31 Urine Protein 30 mg/dL (Neg-Trace) H 05/09/18 03:31 Urine Ketones Trace mg/dL (Negative) H 05/09/18 03:31 Urine Nitrite Positive (Negative) A 05/09/18 03:31 Urine Bilirubin Moderate (Negative) H 05/09/18 03:31 Ur Leukocyte Esterase Trace (Negative) H 05/09/18 03:31 Urine Microscopic RBC 3-5 per hpf (0-3) H 05/09/18 03:31 Urine Microscopic WBC 5-15 per hpf (0-3) H 05/09/18 03:31 Ur Squamous Epith Cells Many per lpf (None-Few) H 05/09/18 03:31 Urine Bacteria Moderate per hpf (None-Few) H 05/09/18 03:31 Urine Yeast Few per hpf (None Seen) H 05/09/18 03:31 - Clinical Findings Intake & Output: Intake & Output 05/08/18 05/09/18 05/09/18 23:59 07:59 15:59 Intake Total 1000 / 1000 Balance 1000 / 1000 Weight 66.1 kg Consult Discharge Plan - Plan [facility] Care Provider[facility] - <Ailyn Barboza - Last Filed: 05/09/18 18:21> Date of Encounter: 05/09/18 All Systems: The remainder of the systems were reviewed and are negative Physical Examination Vital Signs: Vital Signs, Last 4 Hours Temp Pulse Resp BP Pulse Ox 05/09/18 18:00 77 20 105/70 98 05/09/18 17:00 92 24 115/99 95 05/09/18 16:34 19 97 05/09/18 16:00 87 13 94/63 97 05/09/18 15:00 97.7 F 89 22 95/86 94 Results - Laboratory Findings CBC and BMP: 05/09/18 02:02 05/09/18 02:02 PT/INR, D-dimer PT 10.9 Seconds (9.4-12.1) 05/09/18 10:40 Abnormal lab findings: Abnormal lab results RBC 3.49 M/mcL (4.19-5.50) L 05/09/18 02:02 Hgb 10.2 g/dL (12.9-16.9) L 05/09/18 02:02 Hct 34.7 % (37.5-50.1) L 05/09/18 02:02 MCHC 29.4 g/dL (31.6-35.5) L 05/09/18 02:02 APTT 23.8 Seconds (26.0-36.0) L 05/09/18 02:02 Carbon Dioxide 38 mEq/L (23-29) H 05/09/18 02:02 BUN 51 mg/dL (8-23) H 05/09/18 02:02 Creatinine 2.91 mg/dL (0.70-1.30) H 05/09/18 02:02 Est GFR ( Amer) 25 (> 60) L 05/09/18 02:02 Est GFR (Non-Af Amer) 21 (> 60) L 05/09/18 02:02 Glucose 139 mg/dL (70-105) H 05/09/18 02:02 Calculated Osmolality 314 (280-300) H 05/09/18 02:02 Phosphorus 5.1 mg/dL (2.7-4.5) H 05/09/18 02:02 AST 162 Units/L (13-39) H 05/09/18 02:02 ALT 110 Units/L (7-52) H 05/09/18 02:02 Troponin I 0.52 ng/mL (< 0.04) H* 05/09/18 13:55 Serum Total Protein 5.7 g/dL (6.4-8.9) L 05/09/18 02:02 Albumin 3.4 g/dL (3.5-5.7) L 05/09/18 02:02 Globulin 2.3 g/dL (2.4-3.5) L 05/09/18 02:02 Vitamin B12 > 1500 pg/mL (250-1100) H 05/09/18 07:45 Urine Clarity Turbid (Clear) A 05/09/18 03:31 Ur Specific [place] > 1.030 (1.010-1.025) H 05/09/18 03:31 Urine Protein 30 mg/dL (Neg-Trace) H 05/09/18 03:31 Urine Ketones Trace mg/dL (Negative) H 05/09/18 03:31 Urine Nitrite Positive (Negative) A 05/09/18 03:31 Urine Bilirubin Moderate (Negative) H 05/09/18 03:31 Ur Leukocyte Esterase Trace (Negative) H 05/09/18 03:31 Urine Microscopic RBC 3-5 per hpf (0-3) H 05/09/18 03:31 Urine Microscopic WBC 5-15 per hpf (0-3) H 05/09/18 03:31 Ur Squamous Epith Cells Many per lpf (None-Few) H 05/09/18 03:31 Urine Bacteria Moderate per hpf (None-Few) H 05/09/18 03:31 Urine Yeast Few per hpf (None Seen) H 05/09/18 03:31 - Microbiology Findings Microbiology Findings: Microbiology, Last 48 Hours 05/09/18 06:56 Blood Culture - Preliminary Peripheral Venipuncture Culture is incubating and being continuously monitored for growth. Final report to follow. 05/09/18 06:46 Blood Culture - Preliminary Peripheral Venipuncture Culture is incubating and being continuously monitored for growth. Final report to follow. - Clinical Findings Intake & Output: Intake & Output 05/09/18 05/09/18 05/09/18 07:59 15:59 23:59 Intake Total 1000 / 1000 1402 / 1402 Output Total 200 / 200 Balance 1000 / 1000 1202 / 1202 Weight 66.1 kg - Attending Attestation I saw and evaluated this patient and my medical decision-making was reviewed with the Resident Physician. I agree with the documented findings, disposition and treatment plan as described except to the extent set forth below. We independently had [id number] contact with the patient I spent 40 minutes of Critical Care time with this patient. It involved decision making of high complexity to assess, manipulate, and support vital organ system failure and/or to prevent further life threatening deterioration of the patient's condition. The time involved in the performance of separately reportable procedures was not counted toward critical care time. Patient seen and examined at bedside Labs, radiology, chart personally reviewed. Management was reviewed during multidisciplinary critical care rounds. PATIENT RELATIONS REPRESENTATIVE: Patient presented with seizure-like activity adopted this is seizure urology was consulted appreciate the recommendations CT head is negative EEG ordered will hold off antipsychotics as he might have some extrapyramidal side effects already. We will do nonpharmacological strategies like sitter, family presence constant re-orientation Pulm: Shortness acceptable oxygenation and ventilation patient has evidence of bibasilar as based disease can be chronic because he was recently treated for pneumonia and will cover with broad-spectrum antibiotics. Cards: Patient presenting with septic shock complicated by atrial flutter started on amiodarone drip and phenylephrine instead off levo fed patient has some type DME we will trend troponins will get an echo tomorrow the troponins is trending up more than expected we will consult cardiology at that time. FEN-GI: NPO for now Renal: Acute on chronic kidney injury will monitor serum creatinine ID: likely sources UTI and pneumonia to cover with broad-spectrum antibiotics Heme/Onc: thromboprophylaxis if he gets worse to sinus rhythm will need to consider anticoagulation at the moment we will hold off therapeutic anticoagulation for atrial flutter since he is acutely ill Endo: Glucose Monitored Integ/MSK: Skin Care per routine ICU Nursing Protocol to prevent ulcers. Lines: All lines examined without evidence of infection : Dispo: critically ill CODE: [id number]
[2018-05-09] MEDS: Phenylephrine 10 MG in D5% in Water 250 ML IVC SCH ×2 (09:55→11:29)
[2018-05-09 11:01] LABS: Prothrombin Time 10.9 Seconds (9.4-12.1)
[2018-05-09] MEDS: Phenylephrine 20 MG in D5% in Water 500 ML IVC SCH ×3 (13:00→19:27)
[2018-05-09] MEDS: Amiodarone Premix 360 MG/200 ML BAG IVC SCH ×2 (13:00→19:26)
--- NOTE | 2018-05-09 15:52 | Neurology - Consult Note ---
Date of Encounter: 05/09/18 Time of Encounter: 13:51 Assessment and Plan (1) Witnessed seizure-like activity Current Visit: Yes Status: Acute This patient who has a history of dementia recently been treated for pneumonia currently is in a different environment noted to be having sundowning and delirium at night with this recent hospitalization he was tried on several: According to the family was not able to tolerated and he got more agitated and upset with the medication. Later on after discontinued the medication he has improved but then in the [facility] he may have received the medication again and that might have prompted this recent event. Though there is a concern and there was a witnessed seizure type of activity but in this current context of recent illness and also with the being on these neuroleptic medication I would not recommend starting him on any anti-seizure medication. He is also having some myoclonic activity and just jerking which could be extrapyramidal effects from the use of the neuroleptics especially in this age group we have to be very careful with these medication as they may cause significant side effects. No evidence of acute stroke on exam now he is alert awake and oriented he is able to follow simple commands and able to have a conversation Do not think that he would require any MRI at this time we could do an EEG to exclude any interictal abnormality. High risk for sundowning he may get delirious again overnight considering that he has not done very well with the cervical I would recommend that we should do white those neuroleptics perhaps could use low-dose of Ativan or melatonin per family he has done well with the sitter probably that be our best choice to ovoid neuroleptic related sideaffects Discussed with the family in detail at the bedside (2) History of dementia Current Visit: Yes Status: Acute History of Present Illness HPI: Mr. Doran is a 87 year old male 7-year-old male presented to the emergency department for altered mental status and seizure-like activity. Patient was recently admitted and treated for pneumonia. At discharge patient was sent to [facility]. Has been there for 1 day. According to EMS [facility] facility called them for a two-minute generalized tonic-clonic seizure. They were concerned as patient did fall twice out of bed today. When patient arrived in ER he was alert. Patient has history of dementia but no history of seizures, and unable to provide any history of present illness. According to the daughter who provided the history that patient was in the [facility] is recently discharged from the hospital when he was admitted with the pneumonia and in the hospital he was getting sundowning and was getting delirious so he was started on Seroquel and apparently from it he got more confused and agitated and did not work very well for him later on when it was discontinued he is started getting back to his baseline but then in the [facility] they may have given her same medication again and her concern is that the it may have brought this seizure-like of activity that he has experienced. He is also having some jerking of his left upper extremity and upper body often on imaging today. There is no history of stroke or seizures initial CT scan did not show any evidence of bleed or infarct. Baseline he has a history of dementia but able to recognize the family members and able to have a conversation but requires some help in daily activities Past Med Surg Social Fam HX - Past Medical History Medical history: CHF, CVA, dementia, hypertension Psychiatric history: no psych history - Past Surgical History Surgical History: no surgical history - Social History Smoking Status: Former smoker Smokeless Tobacco Status: No Alcohol use: none Drug use: none Medications and Allergies Cholecalciferol (D-3) [Vitamin D] 1,000 unit PO DAILY 04/09/17 [History] Cyanocobalamin (B-12) [Vitamin B12] 1,000 mcg PO DAILY 04/09/17 [History] Donepezil [Aricept] 5 mg PO DAILY 04/09/17 [History] Albuterol Sulfate [Albuterol Inhaler] 2 puff IH QID PRN 11/09/17 [History] Budesonide/Formoterol 160/4.5 [Symbicort 160/4.5] 2 puff IH BIDR #1 inhaler 11/14/17 [Rx] Ipratropium/Albuterol Neb [Duoneb] 3 ml IH Q6HR PRN 04/29/18 [History] Isosorbide MONOnitrate (24 HR) [Imdur] 30 mg PO DAILY 04/29/18 [History] Melatonin [Melatin] 9 mg PO HS 04/29/18 [History] Terazosin [Hytrin] 1 mg PO HS 04/29/18 [History] Diltiazem CD (24hr) [Cardizem CD] 240 mg PO DAILY 30 Days #30 cap.er.24h 11/07/18 [Rx] Furosemide [Lasix] 20 mg PO BID 30 Days #60 tablet 05/05/18 [Rx] Lisinopril [Zestril] 5 mg PO DAILY 30 Days #30 tablet 05/05/18 [Rx] Metoprolol XL (24 HR) Succ [Toprol Xl] 50 mg PO DAILY 30 Days #30 tab.er.24h 05/05/18 [Rx] Aspirin 325 mg PO DAILY 05/09/18 [History] Allergy/AdvReac Type Severity Reaction Status Date / Time No Known Allergies Allergy Verified 04/29/18 13:33 All Systems: The remainder of the systems were reviewed and are negative Physical Examination - Vital Signs Vital Signs: Initial Vital Signs Temp Pulse Resp BP Pulse Ox 98.7 F 131 29 68/36 100 05/09/18 01:46 05/09/18 01:46 05/09/18 01:46 05/09/18 01:46 05/09/18 01:46 - Exam Exam: GENERAL: Comfortable in no acute distress, with BiPAP on HEENT: Normal LUNGS: CTA HEART: RRR, S1 S2 Audible, no murmur EXTREMITIES: No Pedal edema. DETAILED NEUROLOGICAL EXAMINATION: MENTAL STATUS: Oriented to person, place, Memory: Aware of recent events, Attention span is normal Cranial Nerve Examination: CN - II: Visual Acuity, Field of Vision Normal, Fundus examination: No disk edema, Pupils- size shape reaction to light and accommodation: All normal. CN III, IV, : External ocular movements were intact, Pupils were reactive, Nodrooping of the eyelids CN V: Sensation over the face to light touch and pinprick all normal. Corneal reflexes not tested, jaw jerk normal. CN VII: No facial asymmetry, no flattening of nasolabial folds, no difficulty in closing the eyes, no loss of forehead wrinkles, no difficulty in eye-closure, frowning raising eyebrows. CNVIII: No significant hearing loss CN IX, X: Uvula centralized not deviated, Gag reflex: Not tested CN X1: Sternocleidomastoid, trapezius, normal or evidence of any weakness. CN X11: No Dysarthria, no wasting or fibrilation f tongue muscles, no deviation, tongue muscle strength normal. Motor examination: No hypertrophy, tone was normal, power grade 0-5 Upper limbs Proximal- No difficulty in lifting the arms above the head. Distal- No weakness in distal muscles On formal testing 4/4 all over Lower limbs On formal testing 4/4 all over Coordination: [id number] normal. Target pursuit normal finger tapping normal, Rapid alternating moment of wrist normal Sensory system: Superficial sensations- Touch normal. Pain- Pinprick, Temperature all inconsistent Deep sensation normal, Joint position sense normal. Cortical sensation, Tactile discrimination, localization and extinction all normal. Deep tendon reflexes. Symmetrical bilateral, No evidence of Babinski. No sign of meningeal irritation Gait Examination: Deferred - Constitutional General appearance: comfortable Results - Laboratory Findings CBC and BMP: 05/09/18 02:02 05/09/18 02:02 Abnormal lab findings: Abnormal lab results RBC 3.49 M/mcL (4.19-5.50) L 05/09/18 02:02 Hgb 10.2 g/dL (12.9-16.9) L 05/09/18 02:02 Hct 34.7 % (37.5-50.1) L 05/09/18 02:02 MCHC 29.4 g/dL (31.6-35.5) L 05/09/18 02:02 APTT 23.8 Seconds (26.0-36.0) L 05/09/18 02:02 Carbon Dioxide 38 mEq/L (23-29) H 05/09/18 02:02 BUN 51 mg/dL (8-23) H 05/09/18 02:02 Creatinine 2.91 mg/dL (0.70-1.30) H 05/09/18 02:02 Est GFR ( Amer) 25 (> 60) L 05/09/18 02:02 Est GFR (Non-Af Amer) 21 (> 60) L 05/09/18 02:02 Glucose 139 mg/dL (70-105) H 05/09/18 02:02 Calculated Osmolality 314 (280-300) H 05/09/18 02:02 Phosphorus 5.1 mg/dL (2.7-4.5) H 05/09/18 02:02 AST 162 Units/L (13-39) H 05/09/18 02:02 ALT 110 Units/L (7-52) H 05/09/18 02:02 Troponin I 0.52 ng/mL (< 0.04) H* 05/09/18 13:55 Serum Total Protein 5.7 g/dL (6.4-8.9) L 05/09/18 02:02 Albumin 3.4 g/dL (3.5-5.7) L 05/09/18 02:02 Globulin 2.3 g/dL (2.4-3.5) L 05/09/18 02:02 Urine Clarity Turbid (Clear) A 05/09/18 03:31 Ur Specific [place] > 1.030 (1.010-1.025) H 05/09/18 03:31 Urine Protein 30 mg/dL (Neg-Trace) H 05/09/18 03:31 Urine Ketones Trace mg/dL (Negative) H 05/09/18 03:31 Urine Nitrite Positive (Negative) A 05/09/18 03:31 Urine Bilirubin Moderate (Negative) H 05/09/18 03:31 Ur Leukocyte Esterase Trace (Negative) H 05/09/18 03:31 Urine Microscopic RBC 3-5 per hpf (0-3) H 05/09/18 03:31 Urine Microscopic WBC 5-15 per hpf (0-3) H 05/09/18 03:31 Ur Squamous Epith Cells Many per lpf (None-Few) H 05/09/18 03:31 Urine Bacteria Moderate per hpf (None-Few) H 05/09/18 03:31 Urine Yeast Few per hpf (None Seen) H 05/09/18 03:31 - Diagnostic Findings Additional findings: CT of the head was negative Consult Discharge Plan - Plan [facility]errals: [facility] [Primary Care Provider[facility] -
[2018-05-09 16:54] LABS: Folate 8.2 ng/mL (3.0-16.0)
[2018-05-09 17:05] LABS: Vitamin B12 > 1500 pg/mL (250-1100)
[2018-05-10] MEDS ORDERED: Haloperidol Lactate 5 MG/ML VIAL ONE (01:22)
[2018-05-10] MEDS: Haloperidol Lactate 5 MG/ML VIAL IVP PRN ×2 (01:25→04:54)
[2018-05-10] MEDS: Levalbuterol Neb 1.25 MG/3 ML IH SCH ×4 (03:41→21:16)
[2018-05-10 03:55] LABS: VBG Ionized Calcium 1.17 mmol/L (1.15-1.35)
[2018-05-10 03:56] LABS: Basophils % 0.3 %; Eosinophils # 0.4 K/mcL (0.0-0.6); Eosinophils % 4.2 %; Hematocrit 33.1 % (37.5-50.1); Immature Granulocytes % 0.5 % (0-4); Lymphocytes # 0.9 K/mcL (0.6-4.6); Lymphocytes % 9.2 %; Mean Corpuscular HGB Conc 30.2 g/dL (31.6-35.5); Mean Corpuscular Hemoglobin 29.2 pg (28.0-33.3); Mean Corpuscular Volume 96.5 fL (83.0-100.0); Mean Platelet Volume 10.8 fL (9.4-12.4); Monocytes # 0.8 K/mcL (0.0-1.3); Monocytes % 8.8 %; Neutrophils # 7.3 K/mcL (1.6-8.9); Platelet Count 158 K/mcL (140-400); Red Blood Count 3.43 M/mcL (4.19-5.50); Red Cell Distribution Width 14.3 % (11.5-14.5)
[2018-05-10 04:12] LABS: Calcium 8.9 mg/dL (8.6-10.3); Phosphorous 3.4 mg/dL (2.7-4.5)
[2018-05-10 04:13] LABS: Albumin 3.7 g/dL (3.5-5.7); Albumin/Globulin Ratio 1.7 (1.1-2.2); Bilirubin,Total 0.3 mg/dL (0.3-1.0); Globulin 2.2 g/dL (2.4-3.5); Total Protein 5.9 g/dL (6.4-8.9)
[2018-05-10] MEDS: *HR* Heparin 5,000 UNIT/ML VIAL SQ SCH ×2 (04:56→17:35)
--- NOTE | 2018-05-10 06:38 | Pulmonology Progress Note ---
<NonaPaul W - Last Filed: 05/10/18 10:31> Date of Encounter: 05/10/18 Objective PUL Vital signs: Last Vital Signs Temp 98.6 F 05/10/18 07:00 Pulse 115 05/10/18 07:00 Resp 21 05/10/18 07:00 BP 126/85 05/10/18 07:00 Pulse Ox 92 05/10/18 07:00 Results - Laboratory Findings CBC and BMP: 05/10/18 03:40 05/10/18 03:40 PT/INR, D-dimer PT 10.9 Seconds (9.4-12.1) 05/09/18 10:40 Abnormal lab findings: Abnormal lab results RBC 3.43 M/mcL (4.19-5.50) L 05/10/18 03:40 Hgb 10.0 g/dL (12.9-16.9) L 05/10/18 03:40 Hct 33.1 % (37.5-50.1) L 05/10/18 03:40 MCHC 30.2 g/dL (31.6-35.5) L 05/10/18 03:40 APTT 23.8 Seconds (26.0-36.0) L 05/09/18 02:02 Carbon Dioxide 35 mEq/L (23-29) H 05/10/18 03:40 BUN 42 mg/dL (8-23) H 05/10/18 03:40 Creatinine 1.97 mg/dL (0.70-1.30) H 05/10/18 03:40 Est GFR ( Amer) 39 (> 60) L 05/10/18 03:40 Est GFR (Non-Af Amer) 32 (> 60) L 05/10/18 03:40 Glucose 108 mg/dL (70-105) H 05/10/18 03:40 POC Glucose 143 mg/dL (70-99) H 05/09/18 11:26 AST 62 Units/L (13-39) H 05/10/18 03:40 ALT 83 Units/L (7-52) H 05/10/18 03:40 Troponin I 0.78 ng/mL (< 0.04) H* 05/09/18 22:15 Serum Total Protein 5.9 g/dL (6.4-8.9) L 05/10/18 03:40 Globulin 2.2 g/dL (2.4-3.5) L 05/10/18 03:40 Vitamin B12 > 1500 pg/mL (250-1100) H 05/09/18 07:45 Urine Clarity Turbid (Clear) A 05/09/18 03:31 Ur Specific [place] > 1.030 (1.010-1.025) H 05/09/18 03:31 Urine Protein 30 mg/dL (Neg-Trace) H 05/09/18 03:31 Urine Ketones Trace mg/dL (Negative) H 05/09/18 03:31 Urine Nitrite Positive (Negative) A 05/09/18 03:31 Urine Bilirubin Moderate (Negative) H 05/09/18 03:31 Ur Leukocyte Esterase Trace (Negative) H 05/09/18 03:31 Urine Microscopic RBC 3-5 per hpf (0-3) H 05/09/18 03:31 Urine Microscopic WBC 5-15 per hpf (0-3) H 05/09/18 03:31 Ur Squamous Epith Cells Many per lpf (None-Few) H 05/09/18 03:31 Urine Bacteria Moderate per hpf (None-Few) H 05/09/18 03:31 Urine Yeast Few per hpf (None Seen) H 05/09/18 03:31 - Microbiology Findings Microbiology Findings: Microbiology, Last 48 Hours 05/09/18 06:56 Blood Culture - Preliminary Peripheral Venipuncture Culture is incubating and being continuously monitored for growth. Final report to follow. 05/09/18 06:46 Blood Culture - Preliminary Peripheral Venipuncture Culture is incubating and being continuously monit ored for growth. Final report to follow. - Clinical Findings Intake & Output: Intake & Output 05/09/18 05/09/18 05/10/18 15:59 23:59 07:59 Intake Total 1904 / 1904 1304 / 1304 60 / 60 Output Total 200 / 200 325 / 325 400 / 400 Balance 1704 / 1704 979 / 979 -340 / -340 Weight 66.1 kg 66.1 kg Consult Discharge Plan - Plan [facility]Primary Care Provider[facility] - - Attending Attestation I examined this patient and my medical decision-making was reviewed with the Resident Physician. I agree with the documented findings, disposition and brody atment plan as described except to the extent set forth below. We independently had [id number] contact with the patient Patient seen and examined at bedside Labs, radiology, chart personally reviewed. Management was reviewed during multidisciplinary critical care rounds. CLINICAL AUDIOLOGIST: ?Seziure but no activity noted. Neuro following. Plan for EEG today. Appears Baseline Dementia with periods of agitation. Focus on sleep wake cycle samaritan and avoidance of CLINICAL AUDIOLOGIST depressants as able. Pulm: Stable oxygenation on nasal cannula o2 Cards: NSTEMI likely demand ischemia. AFIB with RVR cont Amiodarone.. Blood pressure more stable today off of vasopressor but borderline low. Consider Cardiology Consult GI: ? Cholecystitis but clinically low suspicion Formal Speech/swallow eval today Nutrition: NPO pending speech eval Renal: UOP Monitored, Cont to Trend sCr and monitor Electrolytes. ID: Sepsis likely UTI vs PNA. ON ABx culttuers negative at this time. Heme/Onc: DVT prophylaxis given Endo: Glucose Monitored Integ/MSK: Skin Care per routine ICU Nursing Protocol to prevent ulcers. Lines: All lines examined without evidence of infection : Dispo: Stable for Step Down. CODE: Full. <Cassie Roth R - Last Filed: 05/10/18 13:38> Date of Encounter: 05/10/18 Time of Encounter: 06:38 Assessment and Plan (1) Septic shock Current Visit: Yes Status: Acute 87-year-old male recently admitted for treatment of pneumonia, Afib with RVR. Patient was discharged to ECF for rehab. Earlier this evening, ECF staff report patient had seizure like activity. Seizure activity was not witnessed by EMS staff for ED staff. Head CT, cervical spine CT unremarkable. Chest x-ray shows interval improvement and by basilar airspace disease and trace left sided pleural effusion. CT of the abdomen/pelvis shows gallbladder wall thickening/edema with trace Pericholecystic fluid, sigmoid diverticulitis. GB US not convincing for cholecystitis. lactic acid 0.5 Emergency department, patient was tachycardic, tachypneic, hypotensive despite 2L fluid boluses. EKG showing atrial flutter Source of infection not fully clear at this time. He also has evidence of UTI. Also suspected pulmonary source of infection, but imaging shows interval improvement in his pneumonia. plan: continue amiodarone gtt for tachyarrhythmia in setting of hypotension. Central line inserted in ED. Phenylephrine MAP goal of 65 - now DC'd due to normotension zosyn day 2 (2) Witnessed seizure-like activity Current Visit: Yes Status: Acute Pt transferred here from extended care facility with witness seizure-like activity Admitting labs were unconvincing for seizure with normal lactic acid Neurology was consulted and do not recommend starting anti-epileptics on this patient Pt has not had any witnessed seizures since admission to the ICU (3) Atrial fibrillation with RVR Current Visit: Yes Status: Acute Pt HR irregular and in the 130s - likely secondary to sepsis and not being on his home Beta-serge Continue amiodarone drip Switch t home medication Cardizem PO 60 q6H rest of plan above (4) GALINDO (acute kidney injury) Current Visit: Yes Status: Acute GALINDO on CKD stage III, likely secondary to septic shock. Cre 2.91 on admission Cre 1.97 today Plan: patient received 2 fluid boluses and emergency department hold Lasix and lisinopril. Follow renal protective strategy, avoid nephrotoxic agents. (5) Dementia Current Visit: No Status: Chronic Per family report the patient does not tolerate any central acting acetylcholinergic medications hold any long term care administrator treatment for dementia family agreeable fro antipsychotics short term if needed for agitation Qualifiers: Dementia type: Alzheimer's disease Alzheimer's disease onset: unspecified onset Dementia behavioral disturbance: without behavioral disturbance Qualified Code(s): G30.9 - Alzheimer's disease, unspecified; F02.80 - Dementia in other diseases classified elsewhere without behavioral disturbance (6) Transaminitis Current Visit: Yes Status: Acute Suspect secondary to septic shock. Labs trending downward Continue to monitor. (7) Elevated troponin Current Visit: No Status: Acute Trop 0.06 in ED Has increased steadily to 0.78 - likely secondary to septic shock Repeat this am pending (8) DVT prophylaxis Current Visit: No Status: Acute Heparin SQ Subjective Principal diagnosis: UTI Interval history: Pt no longer hypotensive. Has not needed vasopressors since last night. Still tachycardic with amiodarone, IV Lopressor ordered and will start home Cardizem PO. Neurology was consulted and they do not recommend any anti-seizure medications at this time. Pt was stable overnight. Pt transferred to the floor today - Dr. Wall accepted the patient at 1200. Objective PUL Vital signs: Last Vital Signs Temp 96.9 F L 05/10/18 03:58 Pulse 133 05/10/18 06:00 Resp 28 05/10/18 06:00 BP 123/74 05/10/18 06:00 Pulse Ox 96 05/10/18 06:00 General appearance: no acute distress, alert Eyes: nonicteric ENT: oropharynx moist Neck: supple Auscultation: right: rhonchi, bilateral: diminished breath sounds Cardiovascular: irregular rhythm, other (tachycardic) Gastrointestinal: soft, non-tender, non-distended Integumentary: normal Extremities: no cyanosis, no edema, pulses normal pupils equal and round mood appropriate Results - Laboratory Findings CBC and BMP: 05/10/18 03:40 05/10/18 03:40 PT/INR, D-dimer PT 10.9 Seconds (9.4-12.1) 05/09/18 10:40 Abnormal lab findings: Abnormal lab results RBC 3.43 M/mcL (4.19-5.50) L 05/10/18 03:40 Hgb 10.0 g/dL (12.9-16.9) L 05/10/18 03:40 Hct 33.1 % (37.5-50.1) L 05/10/18 03:40 MCHC 30.2 g/dL (31.6-35.5) L 05/10/18 03:40 APTT 23.8 Seconds (26.0-36.0) L 05/09/18 02:02 Carbon Dioxide 35 mEq/L (23-29) H 05/10/18 03:40 BUN 42 mg/dL (8-23) H 05/10/18 03:40 Creatinine 1.97 mg/dL (0.70-1.30) H 05/10/18 03:40 Est GFR ( Amer) 39 (> 60) L 05/10/18 03:40 Est GFR (Non-Af Amer) 32 (> 60) L 05/10/18 03:40 Glucose 108 mg/dL (70-105) H 05/10/18 03:40 POC Glucose 143 mg/dL (70-99) H 05/09/18 11:26 AST 62 Units/L (13-39) H 05/10/18 03:40 ALT 83 Units/L (7-52) H 05/10/18 03:40 Troponin I 0.78 ng/mL (< 0.04) H* 05/09/18 22:15 Serum Total Protein 5.9 g/dL (6.4-8.9) L 05/10/18 03:40 Globulin 2.2 g/dL (2.4-3.5) L 05/10/18 03:40 Vitamin B12 > 1500 pg/mL (250-1100) H 05/09/18 07:45 Urine Clarity Turbid (Clear) A 05/09/18 03:31 Ur Specific [place] > 1.030 (1.010-1.025) H 05/09/18 03:31 Urine Protein 30 mg/dL (Neg-Trace) H 05/09/18 03:31 Urine Ketones Trace mg/dL (Negative) H 05/09/18 03:31 Urine Nitrite Positive (Negative) A 05/09/18 03:31 Urine Bilirubin Moderate (Negative) H 05/09/18 03:31 Ur Leukocyte Esterase Trace (Negative) H 05/09/18 03:31 Urine Microscopic RBC 3-5 per hpf (0-3) H 05/09/18 03:31 Urine Microscopic WBC 5-15 per hpf (0-3) H 05/09/18 03:31 Ur Squamous Epith Cells Many per lpf (None-Few) H 05/09/18 03:31 Urine Bacteria Moderate per hpf (None-Few) H 05/09/18 03:31 Urine Yeast Few per hpf (None Seen) H 05/09/18 03:31 - Microbiology Findings Microbiology Findings: Microbiology, Last 48 Hours 05/09/18 06:56 Blood Culture - Preliminary Peripheral Venipuncture Culture is incubating and being continuously monitored for growth. Final report to follow. 05/09/18 06:46 Blood Culture - Preliminary Peripheral Venipuncture Culture is incubating and being continuously monitored for growth. Final report to follow. - Clinical Findings Intake & Output: Intake & Output 05/09/18 05/09/18 05/10/18 15:59 23:59 07:59 Intake Total 1904 / 1904 1304 / 1304 60 / 60 Output Total 200 / 200 325 / 325 200 / 200 Balance 1704 / 1704 979 / 979 -140 / -140 Weight 66.1 kg 66.1 kg
[2018-05-10] MEDS: Piperacillin/Tazobactam 3.375 GM in 0.9 % Sodium Chloride Mini Bag 100 ML IVPB SCH ×3 (07:59→23:48)
[2018-05-10] MEDS: Amiodarone Premix 360 MG/200 ML BAG IVC SCH (08:00)
[2018-05-10] MEDS ORDERED: *HR* Metoprolol 5 MG/5 ML VIAL IVP ONE (09:09)
--- NOTE | 2018-05-10 10:17 | Neurology Progress Note ---
<lE Pryor - Last Filed: 05/10/18 10:53> Date of Encounter: 05/10/18 Time of Encounter: 10:53 Assessment and Plan (1) Witnessed seizure-like activity Current Visit: Yes Status: Acute obtaining EEG today patient was treated with seroquel at half-way which will cause extrapyramidal effects including myoclonic activity. we will not start on anti- epliletics. Subjective Principal diagnosis: UTI Interval history: patient was agitated and confused this morning pulling at his workman catheter. During my examination he is plesant and conversational, does handshake and follows command. He is alert to self only. He is seen to have myoclnic jerking activity at rest. Objective - Constitutional Vitals: Temp Pulse Resp BP Pulse Ox 98.6 F 130 16 127/83 96 05/10/18 07:00 05/10/18 09:00 05/10/18 09:00 05/10/18 09:00 05/10/18 09:00 Exam: General: pleasant, without distress HEENT: Head atraumatic, normocephalic, absent ear discharge or trauma, Moist Mucous Membranes, uvula midline Neck: nontender to palpation, absent lymphadenopathy, Cardiovascualr: afib rvr, absent gallops or rubs, absent pedal edema, radial pulses 2 out of 4 Lungs: Clear to auscultation bilaterally, not in respiratory distress Abdomen: Soft nontender, nondistended positive bowel sounds, absent hepatomegaly Skin: warm and dry, absent rash, absent open wounds and nodules MSK: absent clubbing, cyanosis, joints without swelling Psych: confused - Neurological Exam Motor Examination: Present: grossly full strength in all extremities Sensation intact: Present: other (cannot be tested due to confusion) Reflex and gait examination: other (not tested) Reflexes: Biceps: 2+, Triceps: 2+, Brachioradialis: 2+, Patella: 2+, Achilles: 2+ Mental Status Examination: Present: awake, alert, oriented to person, follows commands appropriately, delerious, impaired memory, impaired cognition, not reliable historian. Absent: answers questions appropriately Cranial nerve examination: Present: PERRL, EOMI, visual griffin intact, no facial asymmetry is present, no dysarthria, soft palate elevates bilaterally upon phonation, flexes SCM and trapezius muscles symmetrically with full power Results - Laboratory Findings CBC and BMP: 05/10/18 03:40 05/10/18 03:40 Abnormal lab findings: Abnormal lab results RBC 3.43 M/mcL (4.19-5.50) L 05/10/18 03:40 Hgb 10.0 g/dL (12.9-16.9) L 05/10/18 03:40 Hct 33.1 % (37.5-50.1) L 05/10/18 03:40 MCHC 30.2 g/dL (31.6-35.5) L 05/10/18 03:40 APTT 23.8 Seconds (26.0-36.0) L 05/09/18 02:02 Carbon Dioxide 35 mEq/L (23-29) H 05/10/18 03:40 BUN 42 mg/dL (8-23) H 05/10/18 03:40 Creatinine 1.97 mg/dL (0.70-1.30) H 05/10/18 03:40 Est GFR ( Amer) 39 (> 60) L 05/10/18 03:40 Est GFR (Non-Af Amer) 32 (> 60) L 05/10/18 03:40 Glucose 108 mg/dL (70-105) H 05/10/18 03:40 POC Glucose 143 mg/dL (70-99) H 05/09/18 11:26 AST 62 Units/L (13-39) H 05/10/18 03:40 ALT 83 Units/L (7-52) H 05/10/18 03:40 Troponin I 0.41 ng/mL (< 0.04) H* 05/10/18 09:35 Serum Total Protein 5.9 g/dL (6.4-8.9) L 05/10/18 03:40 Globulin 2.2 g/dL (2.4-3.5) L 05/10/18 03:40 Vitamin B12 > 1500 pg/mL (250-1100) H 05/09/18 07:45 Urine Clarity Turbid (Clear) A 05/09/18 03:31 Ur Specific [place] > 1.030 (1.010-1.025) H 05/09/18 03:31 Urine Protein 30 mg/dL (Neg-Trace) H 05/09/18 03:31 Urine Ketones Trace mg/dL (Negative) H 05/09/18 03:31 Urine Nitrite Positive (Negative) A 05/09/18 03:31 Urine Bilirubin Moderate (Negative) H 05/09/18 03:31 Ur Leukocyte Esterase Trace (Negative) H 05/09/18 03:31 Urine Microscopic RBC 3-5 per hpf (0-3) H 05/09/18 03:31 Urine Microscopic WBC 5-15 per hpf (0-3) H 05/09/18 03:31 Ur Squamous Epith Cells Many per lpf (None-Few) H 05/09/18 03:31 Urine Bacteria Moderate per hpf (None-Few) H 05/09/18 03:31 Urine Yeast Few per hpf (None Seen) H 05/09/18 03:31 Consult Discharge Plan - Plan [facility]errals: [facility] [Primary Care Provider[facility] - <Nancy Quinn I - Last Filed: 05/10/18 15:20> Date of Encounter: 05/10/18 Assessment and Plan (1) Witnessed seizure-like activity Current Visit: Yes Status: Acute Pt was seen and examined, my medical decision was reviewed with the Resident Physician, I agree with the documented findings, disposition and treatment plas as described except to the extent set forth below EEG did not show any abnormal activities generalized slowing which is a nonspecific pattern. Patient with the dementia continue to treat symptomatically avoid any neuroleptics that could make his symptoms worse high risk for delirium especially in the ICU setting no evidence of stroke on exam or off any seizure activity on EEG No indication to start any antiepileptic medication at this time Nancy Quinn MD (2) History of dementia Current Visit: Yes Status: Acute Objective - Constitutional Vitals: Temp Pulse Resp BP Pulse Ox 97.7 F 113 24 126/68 91 05/10/18 11:00 05/10/18 14:00 05/10/18 14:00 05/10/18 14:00 05/10/18 14:00 Results - Laboratory Findings CBC and BMP: 05/10/18 03:40 05/10/18 03:40 Abnormal lab findings: Abnormal lab results RBC 3.43 M/mcL (4.19-5.50) L 05/10/18 03:40 Hgb 10.0 g/dL (12.9-16.9) L 05/10/18 03:40 Hct 33.1 % (37.5-50.1) L 05/10/18 03:40 MCHC 30.2 g/dL (31.6-35.5) L 05/10/18 03:40 APTT 23.8 Seconds (26.0-36.0) L 05/09/18 02:02 Carbon Dioxide 35 mEq/L (23-29) H 05/10/18 03:40 BUN 42 mg/dL (8-23) H 05/10/18 03:40 Creatinine 1.97 mg/dL (0.70-1.30) H 05/10/18 03:40 Est GFR ( Amer) 39 (> 60) L 05/10/18 03:40 Est GFR (Non-Af Amer) 32 (> 60) L 05/10/18 03:40 Glucose 108 mg/dL (70-105) H 05/10/18 03:40 POC Glucose 143 mg/dL (70-99) H 05/09/18 11:26 AST 62 Units/L (13-39) H 05/10/18 03:40 ALT 83 Units/L (7-52) H 05/10/18 03:40 Troponin I 0.41 ng/mL (< 0.04) H* 05/10/18 09:35 Serum Total Protein 5.9 g/dL (6.4-8.9) L 05/10/18 03:40 Globulin 2.2 g/dL (2.4-3.5) L 05/10/18 03:40 Vitamin B12 > 1500 pg/mL (250-1100) H 05/09/18 07:45 Urine Clarity Turbid (Clear) A 05/09/18 03:31 Ur Specific [place] > 1.030 (1.010-1.025) H 05/09/18 03:31 Urine Protein 30 mg/dL (Neg-Trace) H 05/09/18 03:31 Urine Ketones Trace mg/dL (Negative) H 05/09/18 03:31 Urine Nitrite Positive (Negative) A 05/09/18 03:31 Urine Bilirubin Moderate (Negative) H 05/09/18 03:31 Ur Leukocyte Esterase Trace (Negative) H 05/09/18 03:31 Urine Microscopic RBC 3-5 per hpf (0-3) H 05/09/18 03:31 Urine Microscopic WBC 5-15 per hpf (0-3) H 05/09/18 03:31 Ur Squamous Epith Cells Many per lpf (None-Few) H 05/09/18 03:31 Urine Bacteria Moderate per hpf (None-Few) H 05/09/18 03:31 Urine Yeast Few per hpf (None Seen) H 05/09/18 03:31
[2018-05-10] MEDS: dilTIAZem HCl 60 MG TABLET PO SCH ×3 (12:10→23:48)
--- NOTE | 2018-05-10 13:50 | Palliative - Consult Note ---
Date of Encounter: 05/10/18 Time of Encounter: 13:50 - Assessment and Plan (1) Dyspnea Current Visit: No Status: Acute Assessment and plan: Continues with oxygen 4LPM, which is what he is continuously on at home, as well as bronchodilators and IV atb. Qualifiers: Dyspnea type: unspecified Qualified Code(s): R06.00 - Dyspnea, unspecified (2) GALINDO (acute kidney injury) Current Visit: Yes Status: Acute Assessment and plan: Improving with IV fluids. Monitor (3) Altered mental status Current Visit: Yes Status: Acute Assessment and plan: h/o dementia. Currently pleasantly confused - most likely baseline. Alert and can follow commands. Qualifiers: Altered mental status type: unspecified Qualified Code(s): R41.82 - Altered mental status, unspecified (4) Goals of care, counseling/discussion Current Visit: Yes Status: Acute Assessment and plan: Patient current code status is DNR-CCA. Palliative was consulted today to follow up on this and assist with other goals of care, symptom management, and discharge planning. Patient was in the hospital last spring and his at that time was also a patient in the hospital. He had dementia at that time and was unable to participate with any goals of care discussion. With the information on his health at that time, the changed his code status to DNRCC-Arrest. She has and their is no designated power of emery grinder. 3 daughters (Christal, Mary, and Jessica) agree that they want to honor their late mothers decision and keep his code status DNRCC-A. One daughter Abigail does not agree and believes that all should be done to keep him alive. Patients cardiac status has continued to be unstable, and continues with medication adjustments to control his atrial fibrillation. He is advanced in age with frequent bouts of pneumonia over the past year. He likely would not survive a code blue to be discharged from the hospital. I spoke with Erma Morales, and legal, who concurs that the late 's decision should be honored, as the 3 daughters have done. I spoke with Mary via telephone and let her know of the above. Also, she does not desire patient to go to [facility] upon discharge and desires to take him home with [facility] [employer] [facility] health/PT/OT. She was upset he was on medication (Seroquel) at the ECF that he does not tolerate, and that they did not notify family that he fell. She states that her and her daughter Dory can assume care on discharge. (5) Atrial fibrillation with RVR Current Visit: Yes Status: Acute (6) History of dementia Current Visit: Yes Status: Acute (7) Agitation Current Visit: No Status: Acute Palliative-CN HPI - Data of Consult Consult date: 05/10/18 Requesting Physician: Murali Parikh MD [facility] - Consult Narrative History of present illness: Mr. Doran is a 87 year old male known to the palliative care team from a previous visit, who was admitted from [facility], where he had only been for 2 days after discharged from hospital for pneumonia. Patient has history of dementia, and was previously cared for by his daughter and granddaughter. His last spring. He is pleasantly confused and not able to participate in decision making. According to chart review and discussion with daughter, maria ines ent had fallen at [facility], and also had some witnessed seizure like activity. He was admitted and has been treated in ICU, continuing treatment for pneumonia, and has been in afib/RVR. According to daughter, Seroquel was started here prior to last discharge and continued at [facility]. She states that that medication severely alters his mental status, and he could not stay awake there. Neurology was consulted here. EEG negative for seizure activity. Patient has 4 daughters, Mary (caregiver), Christal, Abigail, and Jessica. There is no designated POA. During last admission, daughters were not in consensus for code status and he remained a full code. To note, pt had made him DNR- Arrest during hospital stay last spring, but she has since then. CC: Murali Parikh MD - Time Spent with Patient Time: Total time spent is greater than 50% in coordination of care (as documented) at patient's floor/unit and/or counseling patient: Time with patient: 45 minutes Past Med Surg Social Fam HX - Past Medical History Medical history: CHF, CVA, dementia, hypertension Psychiatric history: no psych history - Past Surgical History Surgical History: no surgical history - Social History Smoking Status: Former smoker Smokeless Tobacco Status: No Alcohol use: none Drug use: none Medications and Allergies Cholecalciferol (D-3) [Vitamin D] 1,000 unit PO DAILY 04/09/17 [History] Cyanocobalamin (B-12) [Vitamin B12] 1,000 mcg PO DAILY 04/09/17 [History] Donepezil [Aricept] 5 mg PO DAILY 04/09/17 [History] Albuterol Sulfate [Albuterol Inhaler] 2 puff IH QID PRN 11/09/17 [History] Budesonide/Formoterol 160/4.5 [Symbicort 160/4.5] 2 puff IH BIDR #1 inhaler 11/14/17 [Rx] Ipratropium/Albuterol Neb [Duoneb] 3 ml IH Q6HR PRN 04/29/18 [History] Isosorbide MONOnitrate (24 HR) [Imdur] 30 mg PO DAILY 04/29/18 [History] Melatonin [Melatin] 9 mg PO HS 04/29/18 [History] Terazosin [Hytrin] 1 mg PO HS 04/29/18 [History] Diltiazem CD (24hr) [Cardizem CD] 240 mg PO DAILY 30 Days #30 cap.er.24h 05/05/18 [Rx] Furosemide [Lasix] 20 mg PO BID 30 Days #60 tablet 05/05/18 [Rx] Lisinopril [Zestril] 5 mg PO DAILY 30 Days #30 tablet 05/05/18 [Rx] Metoprolol XL (24 HR) Succ [Toprol Xl] 50 mg PO DAILY 30 Days #30 tab.er.24h 05/05/18 [Rx] Aspirin 325 mg PO DAILY 05/09/18 [History] Allergy/AdvReac Type Severity Reaction Status Date / Time No Known Allergies Allergy Verified 04/29/18 13:33 ROS unobtainable: due to mental status Palliative Care-Exam - Constitutional Vitals: Temp Pulse Resp BP Pulse Ox 97.7 F 104 18 106/66 97 05/10/18 11:00 05/10/18 13:00 05/10/18 13:00 05/10/18 13:00 05/10/18 13:00 General appearance: Present: no acute distress - Head Head Exam: Present: normal inspection, normocephalic - Eye Eye exam: Present: normal appearance, PERRL - Respiratory Additional comments: Expiratory wheezes throughout. Scattered occasional rhonchi - Cardiovascular Cardiovascular exam: Present: irregular rhythm, tachycardia - GI/Abdominal Exam GI/Abdominal exam: Present: normal bowel sounds, soft - Extremities Exam Extremities exam: Present: normal capillary refill, normal inspection - Neurological Exam Neurological exam: Present: alert Additional comments: Follows simple one step commands. Strength equal bilaterally upper and lower extremities. Oriented to name only. - Psychiatric Psychiatric exam: Present: anxious - Skin Skin exam: Present: dry, pallor, warm Internal Medicine - CN: Reslt - Labs CBC & Chem 7: 05/10/18 03:40 05/10/18 03:40 Labs: Short CBC 05/10/18 Range/Units 03:40 WBC 9.5 (4.3-11.1) K/mcL Hgb 10.0 L (12.9-16.9) g/dL Hct 33.1 L (37.5-50.1) % Plt Count 158 (140-400) K/mcL Neutrophils # 7.3 (1.6-8.9) K/mcL BMP 05/10/18 05/10/18 03:40 03:40 Sodium 139 139 Potassium 4.0 4.0 Chloride 100 100 Carbon Dioxide 35 H 35 H BUN 42 H 42 H Creatinine 1.96 H 1.97 H Glucose 109 H 108 H Calcium 8.9 9.0 Cardiac Enzymes 05/09/18 05/09/18 05/10/18 Range/Units 13:55 22:15 09:35 Troponin I 0.52 H* 0.78 H* 0.41 H* (< 0.04) ng/mL Liver Function 05/10/18 Range/Units 03:40 Total Bilirubin 0.3 (0.3-1.0) mg/dL AST 62 H (13-39) Units/L ALT 83 H (7-52) Units/L Alkaline Phosphatase 63 (34-104) Units/L Albumin 3.7 (3.5-5.7) g/dL - ABG Interpretation ABG results: PT/INR, D-dimer PT 10.9 Seconds (9.4-12.1) 05/09/18 10:40 - Impressions Impressions Chest X-Ray 05/10/18 09:10 IMPRESSION: Small bilateral pleural effusions which is new on the right Stable prominence of interstitial markings suspicious for interstitial edema Stable right lower lobe infiltrate which may represent atelectasis versus mild airspace disease D/ / 05/10/2018 09:43:14 Khurram Tripp MD / emilio Interpreting Provider: Khurram Tripp MD Consult Discharge Plan - Plan [facility]errals: [facility] [Primary Care Provider] - Palliative Quality Palliative Quality: Screen for Code Status: Yes, Screen for Goals of Care: Yes, Screen for Pain: Yes, If Pain Regimen Started, Initiate Bowel Regimen: NA, Screen for Nausea/Vomitting: Yes Code Status: 05/09/18 05:58 Resuscitation Status: Active [RES] Routine Comment: Resuscitation Status: Full Code 05/09/18 11:00 CODE [Resuscitation Status: Active] [RES] Routine Comment: Resuscitation Status: DNR-Comfort Care-Arrest
--- NOTE | 2018-05-10 15:19 | EEG/EMG/Oth Biometrics Report ---
EEG Procedure Report EEG Procedure: Routine EEG Procedure Note: This is a routine 21 channel digital EEG performed utilizing 10- 20 international electrode placement system. FINDINGS: Patient has a predominant waking background frequency that is average voltage 4/6 hertz delta activity in the posterior region, normal amplitude symmetrical over the both hemispheres reactive to eyes opening and closing record continued to show alpha activity intermixed with some theta off and on, no abnormal activity recorded, predominantly no evidence of any spike wave discharges or any lateralizing abnormalities, Photic stimulation and hyperventilation did not produce any convulsive response. Intermittent EMG artifacts were noted. Stage II sleep was not achieved. Impression: Generalized slowing is a nonspecific pattern usually seen in patient with metabolic toxic encephalopathy could be seen in the patient with dementia or in the postictal state, . No epileptiform discharges or any other paroxysmal activities noted.
[2018-05-10] MEDS ORDERED: Diltiazem SR (12hr) 60 MG CAPSULE PO SCH (21:00)
[2018-05-11] MEDS ORDERED: Ondansetron 4 MG/2 ML VIAL IVP PRN (01:40)
[2018-05-11] MEDS ORDERED: Haloperidol Lactate 5 MG/ML VIAL IVP PRN (01:40)
[2018-05-11] MEDS ORDERED: Naloxone 0.4 MG/ML INJ IVP PRN (01:40)
[2018-05-11] MEDS: Levalbuterol Neb 1.25 MG/3 ML IH SCH ×4 (03:25→22:27)
[2018-05-11] MEDS: dilTIAZem HCl 60 MG TABLET PO SCH ×4 (05:20→23:31)
[2018-05-11] MEDS: *HR* Heparin 5,000 UNIT/ML VIAL SQ SCH ×2 (05:20→16:35)
[2018-05-11] MEDS: Piperacillin/Tazobactam 3.375 GM in 0.9 % Sodium Chloride Mini Bag 100 ML IVPB SCH ×3 (07:21→23:31)
--- NOTE | 2018-05-11 09:05 | Neurology Progress Note ---
Date of Encounter: 05/11/18 Time of Encounter: 09:04 Assessment and Plan (1) Witnessed seizure-like activity Current Visit: Yes Status: Acute No further seizures or seizure type of activity still having some shaking and jerking sundowning confused at night history of dementia. No evidence of any acute stroke or seizures on EEG. No indication to start on anticonvulsive medication. High risk for delirium Continue to have sundowning Ovoid neuroleptics may use Ativan or anxiolytic agent as needed. May improve when he is back to his home environment. Stable from neurology standpoint okay to discharge Call us if needed (2) History of dementia Current Visit: Yes Status: Acute Subjective Principal diagnosis: UTI Interval history: It is alert awake and oriented continued to have confusion at nighttime requiring a sitter otherwise no other jerking or shaking or convulsive activity report Objective - Constitutional Vitals: Temp Pulse Resp BP Pulse Ox 97.8 F 108 30 116/60 90 05/11/18 04:03 05/11/18 04:03 05/11/18 04:03 05/11/18 04:03 05/11/18 04:03 - Neurological Exam Motor Examination: Present: grossly full strength in all extremities Sensation intact: Present: other (cannot be tested due to confusion) Reflex and gait examination: other (not tested) Mental Status Examination: Present: awake, alert, oriented to person, follows commands appropriately, delerious, impaired memory, impaired cognition, not reliable historian. Absent: answers questions appropriately Cranial nerve examination: Present: PERRL, EOMI, visual griffin intact, no facial asymmetry is present, no dysarthria, soft palate elevates bilaterally upon phonation, flexes SCM and trapezius muscles symmetrically with full power Results - Laboratory Findings CBC and BMP: 05/10/18 03:40 05/10/18 03:40 Abnormal lab findings: Abnormal lab results RBC 3.43 M/mcL (4.19-5.50) L 05/10/18 03:40 Hgb 10.0 g/dL (12.9-16.9) L 05/10/18 03:40 Hct 33.1 % (37.5-50.1) L 05/10/18 03:40 MCHC 30.2 g/dL (31.6-35.5) L 05/10/18 03:40 APTT 23.8 Seconds (26.0-36.0) L 05/09/18 02:02 Carbon Dioxide 35 mEq/L (23-29) H 05/10/18 03:40 BUN 42 mg/dL (8-23) H 05/10/18 03:40 Creatinine 1.97 mg/dL (0.70-1.30) H 05/10/18 03:40 Est GFR ( Amer) 39 (> 60) L 05/10/18 03:40 Est GFR (Non-Af Amer) 32 (> 60) L 05/10/18 03:40 Glucose 108 mg/dL (70-105) H 05/10/18 03:40 POC Glucose 143 mg/dL (70-99) H 05/09/18 11:26 AST 62 Units/L (13-39) H 05/10/18 03:40 ALT 83 Units/L (7-52) H 05/10/18 03:40 Troponin I 0.41 ng/mL (< 0.04) H* 05/10/18 09:35 Serum Total Protein 5.9 g/dL (6.4-8.9) L 05/10/18 03:40 Globulin 2.2 g/dL (2.4-3.5) L 05/10/18 03:40 Vitamin B12 > 1500 pg/mL (250-1100) H 05/09/18 07:45 Urine Clarity Turbid (Clear) A 05/09/18 03:31 Ur Specific [place] > 1.030 (1.010-1.025) H 05/09/18 03:31 Urine Protein 30 mg/dL (Neg-Trace) H 05/09/18 03:31 Urine Ketones Trace mg/dL (Negative) H 05/09/18 03:31 Urine Nitrite Positive (Negative) A 05/09/18 03:31 Urine Bilirubin Moderate (Negative) H 05/09/18 03:31 Ur Leukocyte Esterase Trace (Negative) H 05/09/18 03:31 Urine Microscopic RBC 3-5 per hpf (0-3) H 05/09/18 03:31 Urine Microscopic WBC 5-15 per hpf (0-3) H 05/09/18 03:31 Ur Squamous Epith Cells Many per lpf (None-Few) H 05/09/18 03:31 Urine Bacteria Moderate per hpf (None-Few) H 05/09/18 03:31 Urine Yeast Few per hpf (None Seen) H 05/09/18 03:31 Consult Discharge Plan - Plan [facility]errals: [facility] [Primary Care Provider] -
--- NOTE | 2018-05-11 11:12 | Event Note ---
Date of Encounter: 05/11/18 Time of Encounter: 10:00 Patient awake and alert, remains pleasantly confused. Oxygen at 4LPM - did require higher flow last pm. Moist cough noted. EAting well. Voids per urinal. Sitter at bedside. Follows commands. Spoke with daughter Mary and granddaughter Dory by phone this am. They do insist on taking patient home after discharge and not returning to ECF. D/W patient case manager Rosanne Mario, who will make home health referral. Code status remains DNRCC-Arrest - short term intubation is ok. DNR-Arrest state form completed, and copies made for patient's daughter. Palliative currently not managing any symptoms. Will follow at a distance.
--- NOTE | 2018-05-11 12:51 | Cardiology Consult Note ---
<DavidYuko J - Last Filed: 05/11/18 13:39> Date of Encounter: 05/11/18 Time of Encounter: 11:00 Assessment and Plan (1) Atrial flutter Current Visit: Yes Status: Acute Per cardiology: -Recently diagnosed a.flutter during previous hospital stay. -Currently on cardizem 60mg Q6 hours. HR controlled. -Not on anticoagulation due to high falls risk, as noted during previous hospital stay. -HR controlled, will switch to long acting cardizem in am. Qualifiers: Atrial flutter type: unspecified Qualified Code(s): I48.92 - Unspecified atrial flutter (2) CHF (congestive heart failure) Current Visit: Yes Status: Acute Per cardiology: -Chest x-ray reviewed from yesterday with bilateral pleural effusions, int erstitial edema noted. -Lung sounds with crackles throughout. -Known moderate TR, indeterminate diastolic function due to a.futter. -Of note, GALINDO noted on admission. -Suspect cardio-renal component, Will give lasix IV x1 now. If improvement of creatinine with IV lasix, will give scheduled lasix. -Recommend strict i/so, fluid restriction, daily weights. -Will continue to monitor. Qualifiers: Heart failure type: diastolic Heart failure chronicity: acute on chronic Qualified Code(s): I50.33 - Acute on chronic diastolic (congestive) heart failure (3) Elevated troponin Current Visit: No Status: Acute Per cardiology: -Troponin peak at 0.78, down trended in the setting of GALINDO, a.flutter RVR. -Denies chest pain. -No acute ischmemic ECG changes noted. -Recent TTE 04/29 with LVEF preserved, no segmental wall motion abnormalities noted. -Demand ischemia in the setting of above. No cardiac rehab consult warranted. (4) GALINDO (acute kidney injury) Current Visit: Yes Status: Acute Per cardiology: -Creatinine 2.91 admission, imrpoved today. -Baseline normal. -management per priamry service. Discussion w patient/family: The assessment and plan as outlined above was discussed with the patient who expressed understanding and agreement. All questions were answered. Thank you for involving us in the care of your patient. Please call with any questions. Discussed and reviewed with History of Present Illness Consult date: 05/11/18 Requesting physician: Mae Kathleen Consult reason: a.fib RVR, elevated troponin Chief complaint: seizure like activity at snf History of present illness: Mr. Doran is a 87 year old male with a relevant past medical history of demen tia, CHF, COPD, CVA, HTN, chronic respiratory failure, a.fib, valvular heart disease who presented to [facility] due to seziure like activity at snf. Cardiology has been consulted for elevated troponins and a.fib RVR. At bedside this morning, patient is pleasantly confused. No family at bedside. Patient denies chest pain. Reports breathing is improved. Denies palpitations or fluttering. Patient is alert, oriented to person only. Past Med Surg Social Fam HX - Past Medical History Attestation: Yes The following information was validated with the patient. Source: patient, old records reviewed Medical history: atrial fibrillation, CHF, CVA, dementia, hypertension Psychiatric history: no psych history - Past Surgical History Surgical History: no surgical history - Social History Smoking Status: Former smoker Smokeless Tobacco Status: No Alcohol use: none Drug use: none Medications and Allergies Cholecalciferol (D-3) [Vitamin D] 1,000 unit PO DAILY 04/09/17 [History] Cyanocobalamin (B-12) [Vitamin B12] 1,000 mcg PO DAILY 04/09/17 [History] Donepezil [Aricept] 5 mg PO DAILY 04/09/17 [History] Albuterol Sulfate [Albuterol Inhaler] 2 puff IH QID PRN 11/09/17 [History] Budesonide/Formoterol 160/4.5 [Symbicort 160/4.5] 2 puff IH BIDR #1 inhaler 11/14/17 [Rx] Ipratropium/Albuterol Neb [Duoneb] 3 ml IH Q6HR PRN 04/29/18 [History] Isosorbide MONOnitrate (24 HR) [Imdur] 30 mg PO DAILY 04/29/18 [History] Melatonin [Melatin] 9 mg PO HS 04/29/18 [History] Terazosin [Hytrin] 1 mg PO HS 04/29/18 [History] Diltiazem CD (24hr) [Cardizem CD] 240 mg PO DAILY 30 Days #30 cap.er.24h 05/05/18 [Rx] Furosemide [Lasix] 20 mg PO BID 30 Days #60 tablet 05/05/18 [Rx] Lisinopril [Zestril] 5 mg PO DAILY 30 Days #30 tablet 05/05/18 [Rx] Metoprolol XL (24 HR) Succ [Toprol Xl] 50 mg PO DAILY 30 Days #30 tab.er.24h 05/05/18 [Rx] Aspirin 325 mg PO DAILY 05/09/18 [History] Allergy/AdvReac Type Severity Reaction Status Date / Time No Known Allergies Allergy Verified 04/29/18 13:33 All Systems Review: The remainder of the systems were reviewed and are negative - Cardiovascular Cardiovascular: as per HPI - Neurological Neurological: other (seizure) Physical Examination Vital Signs, Last 4 Hours Resp Pulse Ox 05/11/18 10:56 17 98 Vital Signs Temperature 98.7 F 05/09/18 01:46 Pulse Rate 131 05/09/18 01:46 Respiratory Rate 29 05/09/18 01:46 Blood Pressure 68/36 05/09/18 01:46 O2 Sat by Pulse Oximetry 100 05/09/18 01:46 Temperature 97.8 F 05/11/18 04:03 Pulse Rate 108 05/11/18 04:03 Respiratory Rate 17 05/11/18 10:56 Blood Pressure 116/60 05/11/18 04:03 O2 Sat by Pulse Oximetry 98 05/11/18 10:56 Oxygen Delivery Oxygen Delivery Oximizer General: Conversant, No Apparent Distress HEENT: Atraumatic, Normocephaly, Mucus Membranes Moist Neck: No JVD, Normal carotid pulses Cardiac: Normal S1 and S2, No Murmur, Other (Irregularly irregular) Lungs: Other (Lung sounds with crackles throughout) Neuro: Alert and responsive, Other (Oriented to person only. ) Abdomen: Soft, Non-Tender Skin: No rashes noted on visualized skin Musculoskeletal: No Chest Wall Tenderness Extremities: No Clubbing, No Cyanosis, No Edema, Normal Pulses Results 05/10/18 03:40 05/10/18 03:40 Impressions Gallbladder Ultrasound 05/09/18 06:03 IMPRESSION: 1. Nonspecific gallbladder wall thickening. No other sonographic findings for acute cholecystitis. Recommend HIDA scan for confirmation if there remains suspicion for acute cholecystitis. 2. Coarse liver echotexture, nonspecific. 3. Trace perihepatic ascites and right pleural effusion. 4. Single Doppler review of the main portal vein demonstrates reversal of flow. Recommend correlation with any history of portal hypertension. D/ / 05/09/2018 11:53:43 Aliza Rogers MD / monster Interpreting Provider: Aliza Rogers MD Active Medications Diltiazem HCl (Cardizem) 60 mg PO Q6H ANDREA Stop: 11/09/18 11:01 Last Admin: 05/11/18 11:44 Dose: 60 mg Furosemide (Lasix) 40 mg IVP ONCE ONE Stop: 05/11/18 13:28 Haloperidol Lactate (Haldol) 1 mg IVP Q4HR PRN PRN Reason: Delerium Stop: 11/09/18 01:18 Heparin Sodium (Porcine) (Heparin) 5,000 unit SQ Q12HCO [facility] Stop: 11/08/18 06:16 Last Admin: 05/11/18 05:20 Dose: 5,000 unit Piperacillin Sod/Tazobactam (Sod 3.375 gm/ Sodium Chloride) 100 mls @ 25 mls/hr IVPB Q8H [facility] Stop: 11/08/18 08:01 Last Infusion: 05/11/18 11:22 Dose: Infused Levalbuterol HCl (Xopenex) 1.25 mg IH [id number] ANDREA Stop: 11/08/18 06:16 Last Admin: 05/11/18 10:56 Dose: 1.25 mg Naloxone HCl (Narcan) 0.4 mg IVP Q2MIN PRN PRN Reason: SEE COMMENTS Stop: 11/08/18 05:59 Ondansetron HCl (Zofran) 4 mg IVP Q6HR PRN; Protocol PRN Reason: nausea/vomiting Stop: 11/08/18 06:03 Laboratory Tests 05/09/18 05/09/18 05/09/18 02:02 07:45 13:55 Hgb Potassium Creatinine 2.91 H Troponin I 0.06 H* 0.27 H* 0.52 H* 05/09/18 05/10/18 05/10/18 22:15 03:40 03:40 Hgb 10.0 L Potassium 4.0 Creatinine 1.96 H Troponin I 0.78 H* 05/10/18 05/10/18 03:40 09:35 Hgb Potassium Creatinine 1.97 H Troponin I 0.41 H* - Imaging and Cardiology Chest Xray: report reviewed Echo: report reviewed - EKG Interpretation EKG results cardiology: personally reviewed (ECG with a.flutter RVR, HR 121.), other (Telemetry reviewed with average HR previous 12 hours noted to be 90, a.flutter.) Consult Discharge Plan - Plan Referrals: [facility] [Primary Care Provider] - <Zuhair Dasilva - Last Filed: 05/11/18 14:36> Date of Encounter: 05/11/18 - Attending Attestation I have personally performed a face to face evaluation on this patient. I have reviewed and agree with the documented findings and care plan as documented by the FREELANCE DISPLAYER. History and Exam by me shows: 87-year-old male with atrial flutter and CHF exacerbation and cardiorenal syndrome. In addition to rate control and anticoagulation for atrial flutter, he needs adequate diuresis. I agree with IV Lasix 40 mg stat, and reevaluate renal function. Strict inputs and outputs. Thanks, Zuhair Dasilva MD Assessment and Plan Discussion w patient/family: The assessment and plan as outlined above was discussed with the patient and/or family members who expressed understanding and agreement. All questions were answered. Thank you for involving us in the care of your patient. Please call with any questions. History of Present Illness History of present illness: Mr. Doran is a 87 year old male All Systems Review: The remainder of the systems were reviewed and are negative Physical Examination Vital Signs, Last 4 Hours Resp Pulse Ox 05/11/18 10:56 17 98 Results 05/10/18 03:40 05/10/18 03:40
[2018-05-11] MEDS ORDERED: Furosemide 40 MG/4 ML VIAL IVP ONE (13:27)
--- NOTE | 2018-05-11 15:10 | Internal Med Progress Note ---
Hospitalist Progress Note - Encounter Date of Encounter: 05/11/18 Time of Encounter: 07:45 - Subjective Interval History: patient was seen adn examiend at bedside Axox to self ( baseline). has no complaints he denies fever, chills, CP, SOB, cough, palpitations, N/v/D - Exam Vitals: Temp Pulse Resp BP Pulse Ox 97.8 F 108 17 116/60 98 05/11/18 04:03 05/11/18 04:03 05/11/18 10:56 05/11/18 04:03 05/11/18 10:56 Exam: General: Patient is alert, oriented, no acute distress, underweight Head: atraumatic, normocephalic, Eye: normal appearance, PERRL, no scleral icterus, no conjunctival injection ENT: mucous membranes moist, normal external ear exam, edentolous Neck: normal inspection, trachea midline, full ROM, no carotid bruits Chest: normal inspection, symmetric chest rise Respiratory: Good respiratory effort. decreased breath sounds bilaterarily with bilateral crackles at the MAL Cardiovascular: tachycardic . s1 and s2 No clicks, rubs, gallops, or murmors. Abdomen: Bowel sounds present normoactive x-4 quadrants. Abdomen is soft, nondistended. no Epigastric tenderness. No guarding or rebound. No organomegaly noted musculoskeletal: Spontaneously moving all extremities. no edema, no calf tenderness Skin: warm, dry, intact. Neuro: Alert and oriented x1 ( self) baseline, has tremor on outstretched hands, moving all extremities Psych: Patient's affect is normal - Assessment and Plan (1) Witnessed seizure-like activity Current Visit: Yes Status: Acute Assessment and Plan: neurology on board- recommendations as below No further seizures or seizure type of activity still having some shaking and jerking sundowning confused at night history of dementia. No evidence of any acute stroke or seizures on EEG. No indication to start on anticonvulsive medication. High risk for delirium Continue to have sundowning Ovoid neuroleptics may use Ativan or anxiolytic agent as needed. (2) Acute renal failure Current Visit: Yes Status: Acute Assessment and Plan: ARF on CKD 3 most likely secondary to septic shock and hypotension and possibly ATN Creatinine currently trending down - does have CHF ( ?cardiorenal) received one dose of lasix Avoid temperature toxic medications Strict intake and output CT A/P ruled out hydronephrosis or obstruction on admission bladder scan PRN CT A/P IMPRESSION: Gallbladder wall thickening/edema with trace pericholecystic fluid. If there is high clinical concern for cholecystitis and gallbladder ultrasound may be helpful for further evaluation. Normal caliber bowel and normal appendix. Sigmoid colon diverticulosis without acute diverticulitis. Small bilateral pleural effusions with associated airspace disease. Cardiomegaly. Atherosclerosis. (3) Complicated UTI (urinary tract infection) Current Visit: Yes Status: Acute Assessment and Plan: Ucx no growth bcx NGTD UA positive on admission on IV zosyn (4) Septic shock Current Visit: Yes Status: Resolved Assessment and Plan: Emergency department, patient was tachycardic, tachypneic, hypotensive despite 2L fluid boluses. resolved BCx NGTD Ucx no growth on Iv zosyn (5) Atrial flutter Current Visit: Yes Status: Acute Assessment and Plan: recently diagnosed not on OAC secondary to multiple falls cardizem restarted by the cardiology team - continue to monitor HR (6) CHF (congestive heart failure) Current Visit: Yes Status: Acute Assessment and Plan: recieved one dose of lasix IV on 05/11 continue to monitor I/O cardiology on baord will follow recommendations TTE on 04/29- Impressions: LVEF 55%. Normal LV chamber size, wall thickness and function. Atypical septal motion consistent with bundle branch block. Indeterminate diastolic function. Dilated right ventricle with normal function. Severely dilated right atrium. Moderate tricuspid regurgitation. Severe pulmonary hypertension. Estimated RVSP is 74 mmHg. (7) Elevated troponin Current Visit: Yes Status: Acute Assessment and Plan: most likely secondary to supply vs demand mismatch (Aflutter) cannot rule out underlying CAD no acute ischemic changes on EKG will continue following cardiology recommendations recent TTE LVEF preserved, no segmental wall motion abnormalities noted (8) History of dementia Current Visit: Yes Status: Acute Assessment and Plan: pleasantly confused Axox1 at baseline continue redirection avoid anticholinergics (9) Goals of care, counseling/discussion Current Visit: Yes Status: Acute Assessment and Plan: palliative on board DNRCCA short term intubation is ok. (10) DVT prophylaxis Current Visit: Yes Status: Acute Assessment and Plan: heparin sc - Time Spent with Patient Total time spent is greater than 50% in coordination of care (as documented) at patient's floor/unit and/or counseling patient: Internal Medicine: Result - Labs CBC & Chem 7: 05/10/18 03:40 05/10/18 03:40 - ABG Interpretation ABG results: PT/INR, D-dimer PT 10.9 Seconds (9.4-12.1) 05/09/18 10:40 - Impressions Impressions Gallbladder Ultrasound 05/09/18 06:03 IMPRESSION: 1. Nonspecific gallbladder wall thickening. No other sonographic findings for acute cholecystitis. Recommend HIDA scan for confirmation if there remains suspicion for acute cholecystitis. 2. Coarse liver echotexture, nonspecific. 3. Trace perihepatic ascites and right pleural effusion. 4. Single Doppler review of the main portal vein demonstrates reversal of flow. Recommend correlation with any history of portal hypertension. D/ / 05/09/2018 11:53:43 Aliza Rogers MD / monster Interpreting Provider: Aliza Rogers MD Consult Discharge Plan - Plan [facility]errals: [facility] [Primary Care Provider[facility] - (2) Acute renal failure Qualifiers: Acute renal failure type: unspecified Qualified Code(s): N17.9 - Acute kidney failure, unspecified (5) Atrial flutter Qualifiers: Atrial flutter type: unspecified Qualified Code(s): I48.92 - Unspecified atrial flutter (6) CHF (congestive heart failure) Qualifiers: Heart failure type: diastolic Heart failure chronicity: acute on chronic Qualified Code(s): I50.33 - Acute on chronic diastolic (congestive) heart failure
--- NOTE | 2018-05-11 19:54 | Electrocardiograph Report ---
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
--- NOTE | 2018-05-11 22:12 | Electrocardiograph Report ---
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
[2018-05-11] MEDS: Budesonide/Formoterol 160/4.5 1 PUFF INH IH SCH (22:27)
[2018-05-12 04:43] LABS: Hemoglobin 9.3 g/dL (12.9-16.9); Mean Corpuscular Hemoglobin 28.8 pg (28.0-33.3); Mean Platelet Volume 11.6 fL (9.4-12.4); Platelet Count 166 K/mcL (140-400); Red Blood Count 3.23 M/mcL (4.19-5.50); Red Cell Distribution Width 13.9 % (11.5-14.5)
[2018-05-12] MEDS: Levalbuterol Neb 1.25 MG/3 ML IH SCH ×4 (04:46→21:06)
[2018-05-12 05:00] LABS: BUN/Creatinine Ratio 18 (6-26); Blood Urea Nitrogen 21 mg/dL (8-23); Calcium 9.3 mg/dL (8.6-10.3); Carbon Dioxide 42 mEq/L (23-29); Chloride 99 mEq/L (98-107); Glucose 97 mg/dL (70-105); Osmolality,Calculated 301 (280-300); Sodium 144 mEq/L (136-145); eGFR For Non-African Americans 58 (> 60)
[2018-05-12] MEDS: *HR* Heparin 5,000 UNIT/ML VIAL SQ SCH ×2 (05:25→18:26)
[2018-05-12] MEDS: Cholecalciferol (D-3) 1,000 UNIT TABLET PO SCH (08:20)
[2018-05-12] MEDS: Piperacillin/Tazobactam 3.375 GM in 0.9 % Sodium Chloride Mini Bag 100 ML IVPB SCH (08:20)
[2018-05-12] MEDS: Cyanocobalamin (B-12) 1,000 MCG TABLET PO SCH (08:20)
[2018-05-12] MEDS: Diltiazem CD (24hr) 240 MG CAPSULE PO SCH (08:20)
[2018-05-12] MEDS ORDERED: Metoprolol XL (24 HR) Succ 25 MG TAB.ER.24H PO SCH (09:00)
--- NOTE | 2018-05-12 09:02 | Internal Med Progress Note ---
Hospitalist Progress Note - Encounter Date of Encounter: 05/12/18 Time of Encounter: 07:45 - Subjective Interval History: patient was seen and examiend at bedside Axox to self ( baseline). has no complaints, sitting in chair he denies fever, chills, CP, SOB, cough, palpitations, N/v/D - Exam Vitals: Temp Pulse Resp BP Pulse Ox 98.3 F 124 20 113/72 98 05/12/18 06:59 05/12/18 06:59 05/12/18 06:59 05/12/18 06:59 05/12/18 06:59 Exam: General: Patient is alert, oriented, no acute distress, thin Head: atraumatic, normocephalic, Eye: normal appearance, PERRL, no scleral icterus, no conjunctival injection ENT: mucous membranes moist, normal external ear exam, edentolous Neck: normal inspection, trachea midline, full ROM, no carotid bruits Chest: normal inspection, symmetric chest rise Respiratory: Good respiratory effort. decreased breath sounds bilaterarily with bilateral crackles at the MAL Cardiovascular: tachycardic . s1 and s2 No clicks, rubs, gallops, or murmors. Abdomen: Bowel sounds present normoactive x-4 quadrants. Abdomen is soft, nondistended. no Epigastric tenderness. No guarding or rebound. No organomegaly noted musculoskeletal: Spontaneously moving all extremities. no edema, no calf tenderness Skin: warm, dry, intact. Neuro: Alert and oriented x1 ( self) baseline, has tremor on outstretched hands, moving all extremities Psych: Patient's affect is normal - Assessment and Plan (1) Witnessed seizure-like activity Current Visit: Yes Status: Acute Assessment and Plan: neurology on board- recommendations as below No further seizures or seizure type of activity still having some shaking and jerking sundowning confused at night history of dementia. No evidence of any acute stroke or seizures on EEG. No indication to start on anticonvulsive medication. High risk for delirium Continue to have sundowning Ovoid neuroleptics may use Ativan or anxiolytic agent as needed. (2) Acute renal failure Current Visit: Yes Status: Acute Assessment and Plan: ARF on CKD 3 most likely secondary to septic shock and hypotension and possibly ATN Creatinine currently trending down - does have CHF ( ?cardiorenal) received one dose of lasix - with improvement of his Creatinine 1.20 GFR now 58 pst lasix bicard increased to 42 - will hold off of diuretics Avoid nephrotoxic medications Strict intake and output CT A/P ruled out hydronephrosis or obstruction on admission bladder scan PRN CT A/P IMPRESSION: Gallbladder wall thickening/edema with trace pericholecystic fluid. If there is high clinical concern for cholecystitis and gallbladder ultrasound may be helpful for further evaluation. Normal caliber bowel and normal appendix. Sigmoid colon diverticulosis without acute diverticulitis. Small bilateral pleural effusions with associated airspace disease. Cardiomegaly. Atherosclerosis. (3) Complicated UTI (urinary tract infection) Current Visit: Yes Status: Acute Assessment and Plan: Ucx no growth bcx NGTD UA positive on admission was treated with zosyn since 05/09- as Ucx negative and assumptomatic ( no pelvic pain or complaint of dysuria ) will switch him to omnicef to complete a 10 day course (4) Septic shock Current Visit: Yes Status: Resolved Assessment and Plan: Emergency department, patient was tachycardic, tachypneic, hypotensive despite 2L fluid boluses. resolved BCx NGTD Ucx no growth on Iv zosyn (5) Atrial flutter Current Visit: Yes Status: Acute Assessment and Plan: recently diagnosed not on OAC secondary to multiple falls cardizem restarted by the cardiology team on 05/12- continue to monitor HR - currently in 120s- once hR controlled will consider DC with [employer] (6) CHF (congestive heart failure) Current Visit: Yes Status: Acute Assessment and Plan: recieved one dose of lasix IV on 05/11 bicarb increased to 42- hold off of diuretics for now will follow BMP in AM continue to monitor I/O cardiology on baord will follow recommendations fluid restriction CXR: IMPRESSION: Small bilateral pleural effusions which is new on the right Stable prominence of interstitial markings suspicious for interstitial edema Stable right lower lobe infiltrate which may represent atelectasis versus mild airspace disease TTE on 04/29- Impressions: LVEF 55%. Normal LV chamber size, wall thickness and function. Atypical septal motion consistent with bundle branch block. Indeterminate diastolic function. Dilated right ventricle with normal function. Severely dilated right atrium. Moderate tricuspid regurgitation. Severe pulmonary hypertension. Estimated RVSP is 74 mmHg. (7) Elevated troponin Current Visit: Yes Status: Acute Assessment and Plan: most likely secondary to supply vs demand mismatch (Aflutter) cannot rule out underlying CAD no acute ischemic changes on EKG will continue following cardiology recommendations recent TTE LVEF preserved, no segmental wall motion abnormalities noted (8) History of dementia Current Visit: Yes Status: Acute Assessment and Plan: pleasantly confused Axox1 at baseline continue redirection avoid anticholinergics (9) Goals of care, counseling/discussion Current Visit: Yes Status: Acute Assessment and Plan: palliative on board DNRCCA short term intubation is ok. (10) DVT prophylaxis Current Visit: Yes Status: Acute Assessment and Plan: heparin sc - Time Spent with Patient Total time spent is greater than 50% in coordination of care (as documented) at patient's floor/unit and/or counseling patient: Internal Medicine: Result - Labs CBC & Chem 7: 05/12/18 03:28 05/12/18 03:28 Labs: Short CBC 05/12/18 Range/Units 03:28 WBC 5.0 (4.3-11.1) K/mcL Hgb 9.3 L (12.9-16.9) g/dL Hct 31.0 L (37.5-50.1) % Plt Count 166 (140-400) K/mcL BMP 05/12/18 03:28 Sodium 144 Potassium 4.0 Chloride 99 Carbon Dioxide 42 H* BUN 21 Creatinine 1.20 Glucose 97 Calcium 9.3 - ABG Interpretation ABG results: PT/INR, D-dimer PT 10.9 Seconds (9.4-12.1) 05/09/18 10:40 Consult Discharge Plan - Plan [facility]errals: [facility] [Primary Care Provider] - ___ (2) Acute renal failure Qualifiers: Acute renal failure type: unspecified Qualified Code(s): N17.9 - Acute kidney failure, unspecified (5) Atrial flutter Qualifiers: Atrial flutter type: unspecified Qualified Code(s): I48.92 - Unspecified atrial flutter (6) CHF (congestive heart failure) Qualifiers: Heart failure type: diastolic Heart failure chronicity: acute on chronic Qualified Code(s): I50.33 - Acute on chronic diastolic (congestive) heart failure
[2018-05-12] MEDS: Cefdinir 300 MG CAPSULE PO SCH ×2 (10:22→21:49)
[2018-05-12] MEDS: Budesonide/Formoterol 160/4.5 1 PUFF INH IH SCH ×2 (11:43→21:06)
--- NOTE | 2018-05-12 14:29 | Cardiology Progress Note ---
Date of Encounter: 05/12/18 Time of Encounter: 13:00 Assessment and Plan (1) Atrial flutter Current Visit: Yes Status: Acute Per cardiology: -Recently diagnosed a.flutter during previous hospital stay. -Currently on cardizem CD 240mg. -This am was RVR. -Not on anticoagulation due to high falls risk, as noted during previous hospital stay. -Family at bedside. discussed risks versus benefits of anticoagulation with family. Family agree to no anticoagulation due to unsteady on feet and falls. Family aware of increased risk of CVA/embolic event without anticoagulation. -Toprol added this am. -HRs current 70s per tele after toprol. -Will continue to monitor. Qualifiers: Atrial flutter type: unspecified Qualified Code(s): I48.92 - Unspecified atrial flutter (2) CHF (congestive heart failure) Current Visit: Yes Status: Acute Per cardiology: -Chest x-ray reviewed from yesterday with bilateral pleural effusions, interstitial edema noted. -Lung sounds with rhonchi throughout. -Known moderate TR, indeterminate diastolic function due to a.futter. -Of note, GALINDO noted on admission. -S/p IV lasix yesterday, respiratory status improved and renal function normalized. -Suspect cardio-renal component, will order daily IV lasix. -Recommend strict i/so, fluid restriction, daily weights. -Will continue to monitor. Qualifiers: Heart failure type: diastolic Heart failure chronicity: acute on chronic Qualified Code(s): I50.33 - Acute on chronic diastolic (congestive) heart failure (3) Elevated troponin Current Visit: No Status: Acute Per cardiology: -Troponin peak at 0.78, down trended in the setting of GALINDO, a.flutter RVR. -Denies chest pain. -No acute ischmemic ECG changes noted. -Recent TTE 04/29 with LVEF preserved, no segmental wall motion abnormalities noted. -Demand ischemia in the setting of above. No cardiac rehab consult warranted. (4) GALINDO (acute kidney injury) Current Visit: Yes Status: Acute Per cardiology: -Creatinine 2.91 admission, imrpoved today. -Baseline normal. -management per [facility]. Discussion w patient/family: The assessment and plan as outlined above was discussed with the patient and family who expressed understanding and agreement. All questions were answered. Thank you for involving us in the care of your patient. Please call with any questions. Discussed and reviewed with Subjective Principal diagnosis: UTI Interval history: Patient sitting in chair. Family at bedside. Denies complaints. Objective Vital Signs, Last 4 Hours Resp Pulse Ox 05/12/18 11:43 18 99 Vital Signs Temperature 98.7 F 05/09/18 01:46 Pulse Rate 131 05/09/18 01:46 Respiratory Rate 29 05/09/18 01:46 Blood Pressure 68/36 05/09/18 01:46 O2 Sat by Pulse Oximetry 100 05/09/18 01:46 Temperature 98.3 F 05/12/18 06:59 Pulse Rate 124 05/12/18 06:59 Respiratory Rate 18 05/12/18 11:43 Blood Pressure 113/72 05/12/18 06:59 O2 Sat by Pulse Oximetry 99 05/12/18 11:43 Oxygen Delivery Oxygen Delivery Oximizer General: Conversant, No Apparent Distress HEENT: Atraumatic, Normocephaly, Mucus Membranes Moist Neck: No JVD, Normal carotid pulses Cardiac: Normal S1 and S2, No Murmur, Other (Regularly irregular) Lungs: Other (Rhonchi noted throughout) Neuro: Alert and responsive, Other (Oriented to person only. ) Abdomen: Soft, Non-Tender Skin: No rashes noted on visualized skin Musculoskeletal: No Chest Wall Tenderness Extremities: No Clubbing, No Cyanosis, No Edema, Normal Pulses Results 05/12/18 03:28 05/12/18 03:28 Lab Results Active Medications Budesonide/Formoterol Fumarate (Symbicort) 2 puff IH BIDR [facility]; Protocol Stop: 11/10/18 22:01 Last Admin: 05/12/18 11:43 Dose: 2 puff Cefdinir (Omnicef) 300 mg PO BID [facility]; Protocol Stop: 11/11/18 09:16 Last Admin: 05/12/18 10:22 Dose: 300 mg Cyanocobalamin (Vitamin B12) 1,000 mcg PO DAILY [facility] Stop: 11/11/18 09:01 Last Admin: 05/12/18 08:20 Dose: 1,000 mcg Diltiazem HCl (Cardizem Cd) 240 mg PO DAILY [facility] Stop: 11/11/18 09:01 Last Admin: 05/12/18 08:20 Dose: 240 mg Furosemide (Lasix) 40 mg IVP DAILY [facility] Stop: 11/11/18 12:31 Haloperidol Lactate (Haldol) 1 mg IVP Q4HR PRN PRN Reason: Delerium Stop: 11/09/18 01:18 Heparin Sodium (Porcine) (Heparin) 5,000 unit SQ Q12HCO [facility] Stop: 11/08/18 06:16 Last Admin: 05/12/18 05:25 Dose: 5,000 unit Levalbuterol HCl (Xopenex) 1.25 mg IH [id number] [facility] Stop: 11/08/18 06:16 Last Admin: 05/12/18 11:43 Dose: 1.25 mg Metoprolol Succinate (Toprol Xl) 25 mg PO DAILY [facility] Stop: 11/11/18 09:01 Last Admin: 05/12/18 10:22 Dose: 25 mg Naloxone HCl (Narcan) 0.4 mg IVP Q2MIN PRN PRN Reason: SEE COMMENTS Stop: 11/08/18 05:59 Ondansetron HCl (Zofran) 4 mg IVP Q6HR PRN; Protocol PRN Reason: nausea/vomiting Stop: 11/08/18 06:03 Sodium Chloride (Sodium Chloride) 1 gm PO DAILY [facility] Stop: 11/11/18 09:16 Last Admin: 05/12/18 10:22 Dose: 1 gm Vitamin D (Vitamin D) 1,000 unit PO DAILY [facility] Stop: 11/11/18 09:01 Last Admin: 05/12/18 08:20 Dose: 1,000 unit Laboratory Tests 05/09/18 05/12/18 05/12/18 02:02 03:28 03:28 Hgb 9.3 L Creatinine 2.91 H 1.20 - Imaging and Cardiology Chest Xray: report reviewed Echo: report reviewed - EKG Interpretation EKG results cardiology: other (Telemetry reviewed with average HR previous 12 hours noted to be 122, a.flutter. PVCs noted.) Consult Discharge Plan - Plan Additional Instructions: Call Sherrie MOFFETT when you get home to have Bedside Commode delivered. The number is [phone]. Referrals: [facility] [Primary Care Provider] - 05/18/18 12:45 pm
[2018-05-12] MEDS: Furosemide 40 MG/4 ML VIAL IVP SCH (18:26)
[2018-05-13] MEDS: Levalbuterol Neb 1.25 MG/3 ML IH SCH ×4 (03:46→21:22)
[2018-05-13 05:04] LABS: Hematocrit 32.1 % (37.5-50.1); Hemoglobin 9.9 g/dL (12.9-16.9); Mean Corpuscular HGB Conc 30.8 g/dL (31.6-35.5); Mean Corpuscular Hemoglobin 29.1 pg (28.0-33.3); Mean Corpuscular Volume 94.4 fL (83.0-100.0); Mean Platelet Volume 11.8 fL (9.4-12.4); Platelet Count 187 K/mcL (140-400); Red Cell Distribution Width 13.9 % (11.5-14.5)
[2018-05-13 05:31] LABS: BUN/Creatinine Ratio 19 (6-26); Blood Urea Nitrogen 22 mg/dL (8-23); Calcium 9.9 mg/dL (8.6-10.3); Carbon Dioxide 43 mEq/L (23-29); Chloride 97 mEq/L (98-107); Glucose 90 mg/dL (70-105); Osmolality,Calculated 301 (280-300); Potassium 3.9 mEq/L (3.5-5.1); Sodium 144 mEq/L (136-145); eGFR For Non-African Americans > 60 (> 60)
[2018-05-13] MEDS: *HR* Heparin 5,000 UNIT/ML VIAL SQ SCH ×2 (06:00→18:03)
--- NOTE | 2018-05-13 09:46 | Event Note ---
Date of Encounter: 05/13/18 Time of Encounter: 09:40 Patient status unchanged, pleasantly disoriented. Eating well, No complaints of pain or discomfort. Discharge plan in place and code status established. Palliative will sign off. Please call if needed.
--- NOTE | 2018-05-13 10:22 | Cardiology Progress Note ---
Date of Encounter: 05/13/18 Time of Encounter: 09:45 Assessment and Plan (1) Atrial flutter Current Visit: Yes Status: Acute Per cardiology: -Recently diagnosed a.flutter during previous hospital stay. -Currently on cardizem CD 240mg and toprol 25mg daily. -This am was RVR. -Not on anticoagulation due to high falls risk, as noted during previous [facility] stay. -Family at bedside. discussed risks versus benefits of anticoagulation with family. Family agree to no anticoagulation due to unsteady on feet and falls. Family aware of increased risk of CVA/embolic event without anticoagulation. -Toprol increased this am to 50mg daily. -Will continue to monitor. Qualifiers: Atrial flutter type: unspecified Qualified Code(s): I48.92 - Unspecified atrial flutter (2) CHF (congestive heart failure) Current Visit: Yes Status: Acute Per cardiology: -Chest x-ray reviewed with bilateral pleural effusions, interstitial edema noted. -Lung sounds diminished throughout. -Known moderate TR, indeterminate diastolic function due to a.futter. -Of note, GALINDO noted on admission. -S/p IV lasix, respiratory status improved and renal function normalized. -remains net positive ~4L this admission. -Suspect cardio-renal component, will order daily IV lasix. Will continue IV lasix until euvolemic or renal function bumps. -Recommend strict i/so, fluid restriction, daily weights. -Will continue to monitor. Qualifiers: Heart failure type: diastolic Heart failure chronicity: acute on chronic Qualified Code(s): I50.33 - Acute on chronic diastolic (congestive) heart failure (3) Elevated troponin Current Visit: No Status: Acute Per cardiology: -Troponin peak at 0.78, down trended in the setting of GALINDO, a.flutter RVR. -Denies chest pain. -No acute ischmemic ECG changes noted. -Recent TTE 04/29 with LVEF preserved, no segmental wall motion abnormalities noted. -Demand ischemia in the setting of above. No cardiac rehab consult warranted. (4) GALINDO (acute kidney injury) Current Visit: Yes Status: Acute Per cardiology: -Creatinine 2.91 admission, imrpoved today. -Baseline normal. -management per priry service. Discussion w patient/family: The assessment and plan as outlined above was discussed with the patient and family who expressed understanding and agreement. All questions were answered. Thank you for involving us in the care of your patient. Please call with any questions. Discussed and reviewed with Subjective Principal diagnosis: UTI Interval history: Patient laying in bed. Pleasantly confused. Family at bedside. Objective Vital Signs, Last 4 Hours Temp Pulse Resp BP Pulse Ox 05/13/18 08:39 98.5 F 102 20 150/78 96 General: Conversant, No Apparent Distress HEENT: Atraumatic, Normocephaly, Mucus Membranes Moist Neck: No JVD, Normal carotid pulses Cardiac: Normal S1 and S2, No Murmur, Other (Regularly irregular) Lungs: Normal Breath Sounds, Other (Lung sounds diminished throughout. ) Neuro: Alert and responsive, Other (Oriented to person only. ) Abdomen: Soft, Non-Tender Skin: No rashes noted on visualized skin Musculoskeletal: No Chest Wall Tenderness Extremities: No Clubbing, No Cyanosis, No Edema, Normal Pulses Results 05/13/18 03:20 05/13/18 03:20 Lab Results Active Medications Budesonide/Formoterol Fumarate (Symbicort) 2 puff IH BIDR [facility]; Protocol Stop: 11/10/18 22:01 Last Admin: 05/12/18 21:06 Dose: 2 puff Cefdinir (Omnicef) 300 mg PO BID [facility]; Protocol Stop: 11/11/18 09:16 Last Admin: 05/12/18 21:49 Dose: 300 mg Cyanocobalamin (Vitamin B12) 1,000 mcg PO DAILY [facility] Stop: 11/11/18 09:01 Last Admin: 05/12/18 08:20 Dose: 1,000 mcg Diltiazem HCl (Cardizem Cd) 240 mg PO DAILY [facility] Stop: 11/11/18 09:01 Last Admin: 05/12/18 08:20 Dose: 240 mg Furosemide (Lasix) 40 mg IVP DAILY [facility] Stop: 11/11/18 12:31 Last Admin: 05/12/18 18:26 Dose: 40 mg Haloperidol Lactate (Haldol) 1 mg IVP Q4HR PRN PRN Reason: Delerium Stop: 11/09/18 01:18 Last Admin: 05/12/18 22:27 Dose: 1 mg Heparin Sodium (Porcine) (Heparin) 5,000 unit SQ Q12HCO [facility] Stop: 11/08/18 06:16 Last Admin: 05/13/18 06:00 Dose: Not Given Levalbuterol HCl (Xopenex) 1.25 mg IH [id number] [facility] Stop: 11/08/18 06:16 Last Admin: 05/13/18 03:46 Dose: 1.25 mg Metoprolol Succinate (Toprol Xl) 50 mg PO DAILY [facility] Stop: 11/12/18 09:01 Naloxone HCl (Narcan) 0.4 mg IVP Q2MIN PRN PRN Reason: SEE COMMENTS Stop: 11/08/18 05:59 Ondansetron HCl (Zofran) 4 mg IVP Q6HR PRN; Protocol PRN Reason: nausea/vomiting Stop: 11/08/18 06:03 Sodium Chloride (Sodium Chloride) 1 gm PO DAILY [facility] Stop: 11/11/18 09:16 Last Admin: 05/12/18 10:22 Dose: 1 gm Vitamin D (Vitamin D) 1,000 unit PO DAILY [facility] Stop: 11/11/18 09:01 Last Admin: 05/12/18 08:20 Dose: 1,000 unit Laboratory Tests 05/13/18 05/13/18 03:20 03:20 Hgb 9.9 L Creatinine 1.13 - Imaging and Cardiology Chest Xray: report reviewed Echo: report reviewed - EKG Interpretation EKG results cardiology: other (Telemetry reviewed with average HR previous 12 hours noted to be 116, a.fib. PVCS noted.) Consult Discharge Plan - Plan Additional Instructions: Call Sherrie MOFFETT when you get home to have Bedside Commode delivered. The number is [phone]. [facility]: [facility] Provider[facility] - 05/18/18 12:45 pm
[2018-05-13] MEDS: Budesonide/Formoterol 160/4.5 1 PUFF INH IH SCH ×2 (11:15→21:22)
[2018-05-13] MEDS: Metoprolol XL (24 HR) Succ 50 MG TAB.ER.24H PO SCH (11:47)
[2018-05-13] MEDS: Furosemide 40 MG/4 ML VIAL IVP SCH (11:47)
[2018-05-13] MEDS: Cefdinir 300 MG CAPSULE PO SCH ×2 (11:47→21:02)
[2018-05-13] MEDS: Cholecalciferol (D-3) 1,000 UNIT TABLET PO SCH (11:47)
[2018-05-13] MEDS: Diltiazem CD (24hr) 240 MG CAPSULE PO SCH (11:47)
[2018-05-13] MEDS: Cyanocobalamin (B-12) 1,000 MCG TABLET PO SCH (11:50)
--- NOTE | 2018-05-13 15:30 | Internal Med Progress Note ---
Hospitalist Progress Note - Encounter Date of Encounter: 05/13/18 Time of Encounter: 07:45 - Subjective Interval History: patient was seen and examiend at bedside Axox to self ( baseline). has no complaints, laying in bed he denies fever, chills, CP, SOB, cough, palpitations, N/v/D - Exam Vitals: Temp Pulse Resp BP Pulse Ox 97.6 F 115 18 134/76 95 05/13/18 12:25 05/13/18 12:25 05/13/18 12:25 05/13/18 12:25 05/13/18 12:25 Exam: General: Patient is alert, oriented, no acute distress, thin Head: atraumatic, normocephalic, Eye: normal appearance, PERRL, no scleral icterus, no conjunctival injection ENT: mucous membranes moist, normal external ear exam, edentolous Neck: normal inspection, trachea midline, full ROM, no carotid bruits Chest: normal inspection, symmetric chest rise Respiratory: Good respiratory effort. decreased breath sounds bilaterarily with bilateral crackles at the MAL Cardiovascular: tachycardic . s1 and s2 No clicks, rubs, gallops, or murmors. Abdomen: Bowel sounds present normoactive x-4 quadrants. Abdomen is soft, nondistended. no Epigastric tenderness. No guarding or rebound. No organomegaly noted musculoskeletal: Spontaneously moving all extremities. no edema, no calf tenderness Skin: warm, dry, intact. Neuro: Alert and oriented x1 ( self) baseline, has tremor on outstretched hands, moving all extremities Psych: Patient's affect is normal - Assessment and Plan (1) Witnessed seizure-like activity Current Visit: Yes Status: Acute Assessment and Plan: neurology on board- recommendations as below No further seizures or seizure type of activity still having some shaking and je rking sundowning confused at night history of dementia. No evidence of any acute stroke or seizures on EEG. No indication to start on anticonvulsive medication. High risk for delirium Continue to have sundowning Ovoid neuroleptics may use Ativan or anxiolytic agent as needed. (2) Acute renal failure Current Visit: Yes Status: Acute Assessment and Plan: ARF on CKD 3 most likely secondary to septic shock and hypotension and possibly ATN Creatinine currently trending down - does have CHF ( ?cardiorenal) received two doses of lasix - with improvement of his Creatinine 1.13 GFR now >60 post lasix bicard increased to 43 - will hold off of diuretics Avoid nephrotoxic medications Strict intake and output CT A/P ruled out hydronephrosis or obstruction on admission bladder scan PRN CT A/P IMPRESSION: Gallbladder wall thickening/edema with trace pericholecystic fluid. If there is high clinical concern for cholecystitis and gallbladder ultrasound may be helpful for further evaluation. Normal caliber bowel and normal appendix. Sigmoid colon diverticulosis without acute diverticulitis. Small bilateral pleural effusions with associated airspace disease. Cardiomegaly. Atherosclerosis. (3) Complicated UTI (urinary tract infection) Current Visit: Yes Status: Acute Assessment and Plan: Ucx no growth bcx NGTD UA positive on admission was treated with zosyn since 05/09- as Ucx negative and assumptomatic ( no pelvic pain or complaint of dysuria ) will switch him to omnicef to complete a 10 day course (4) Septic shock Current Visit: Yes Status: Resolved Assessment and Plan: Emergency department, patient was tachycardic, tachypneic, hypotensive despite 2L fluid boluses. resolved BCx NGTD Ucx no growth on Iv zosyn (5) Atrial flutter Current Visit: Yes Status: Acute Assessment and Plan: recently diagnosed not on OAC secondary to multiple falls cardizem restarted by the cardiology team on 05/12- continue to monitor HR - currently in 120s cardiology also added Metoprolol with minimally improvement in HR. 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 Normal LV chamber size, wall thickness and function. Atypical septal motion consistent with bundle branch block. Indeterminate diastolic function. Dilated right ventricle with normal function. Severely dilated right atrium. Moderate tricuspid regurgitation. Severe pulmonary hypertension. Estimated RVSP is 74 mmHg. (7) Elevated troponin Current Visit: Yes Status: Acute Assessment and Plan: most likely secondary to supply vs demand mismatch (Aflutter) cannot rule out underlying CAD no acute ischemic changes on EKG will continue following cardiology recommendations recent TTE LVEF preserved, no segmental wall motion abnormalities noted (8) History of dementia Current Visit: Yes Status: Acute Assessment and Plan: pleasantly confused Axox1 at baseline continue redirection avoid anticholinergics (9) Goals of care, counseling/discussion Current Visit: Yes Status: Acute Assessment and Plan: palliative on board DNRCCA short term intubation is ok. (10) DVT prophylaxis Current Visit: Yes Status: Acute Assessment and Plan: heparin sc - Time Spent with Patient Total time spent is greater than 50% in coordination of care (as documented) at patient's floor/unit and/or counseling patient: Internal Medicine: Result - Labs CBC & Chem 7: 05/13/18 03:20 05/13/18 03:20 Labs: Short CBC 05/13/18 Range/Units 03:20 WBC 6.6 (4.3-11.1) K/mcL Hgb 9.9 L (12.9-16.9) g/dL Hct 32.1 L (37.5-50.1) % Plt Count 187 (140-400) K/mcL BMP 05/13/18 03:20 Sodium 144 Potassium 3.9 Chloride 97 L Carbon Dioxide 43 H* BUN 22 Creatinine 1.13 Glucose 90 Calcium 9.9 - ABG Interpretation ABG results: PT/INR, D-dimer PT 10.9 Seconds (9.4-12.1) 05/09/18 10:40 Consult Discharge Plan - Plan Additional Instructions: Call Sherrie MOFFETT when you get home to have Bedside Commode delivered. The number is [phone]. [facility]errals: [facility]Primary Care Provider[facility] - 05/18/18 12:45 pm (2) Acute renal failure Qualifiers: Acute renal failure type: unspecified Qualified Code(s): N17.9 - Acute kidney failure, unspecified (5) Atrial flutter Qualifiers: Atrial flutter type: unspecified Qualified Code(s): I48.92 - Unspecified atrial flutter (6) CHF (congestive heart failure) Qualifiers: Heart failure type: diastolic Heart failure chronicity: acute on chronic Qualified Code(s): I50.33 - Acute on chronic diastolic (congestive) heart failure
[2018-05-14 03:51] LABS: Hematocrit 33.3 % (37.5-50.1); Hemoglobin 9.9 g/dL (12.9-16.9); Mean Corpuscular HGB Conc 29.7 g/dL (31.6-35.5); Mean Corpuscular Hemoglobin 29.2 pg (28.0-33.3); Mean Corpuscular Volume 98.2 fL (83.0-100.0); Mean Platelet Volume 11.5 fL (9.4-12.4); Platelet Count 176 K/mcL (140-400); Red Blood Count 3.39 M/mcL (4.19-5.50); Red Cell Distribution Width 13.9 % (11.5-14.5)
[2018-05-14] MEDS: Levalbuterol Neb 1.25 MG/3 ML IH SCH ×4 (04:15→22:20)
[2018-05-14 04:18] LABS: BUN/Creatinine Ratio 20 (6-26); Blood Urea Nitrogen 22 mg/dL (8-23); Calcium 9.4 mg/dL (8.6-10.3); Carbon Dioxide 42 mEq/L (23-29); Chloride 98 mEq/L (98-107); Glucose 101 mg/dL (70-105); Osmolality,Calculated 301 (280-300); Potassium 4.1 mEq/L (3.5-5.1); Sodium 144 mEq/L (136-145); eGFR For Non-African Americans > 60 (> 60)
[2018-05-14] MEDS: *HR* Heparin 5,000 UNIT/ML VIAL SQ SCH ×2 (05:41→17:47)
[2018-05-14] MEDS: Budesonide/Formoterol 160/4.5 1 PUFF INH IH SCH ×2 (10:30→22:20)
[2018-05-14] MEDS ORDERED: 0.9 % Sodium Chloride 250 ML ONE (12:00)
[2018-05-14] MEDS: Diltiazem CD (24hr) 240 MG CAPSULE PO SCH (12:17)
[2018-05-14] MEDS: Cefdinir 300 MG CAPSULE PO SCH ×2 (12:17→19:42)
[2018-05-14] MEDS: Cholecalciferol (D-3) 1,000 UNIT TABLET PO SCH (12:17)
[2018-05-14] MEDS: Cyanocobalamin (B-12) 1,000 MCG TABLET PO SCH (12:17)
[2018-05-14] MEDS: Metoprolol XL (24 HR) Succ 50 MG TAB.ER.24H PO SCH (12:17)
--- NOTE | 2018-05-14 13:42 | Internal Med Progress Note ---
Hospitalist Progress Note - Encounter Date of Encounter: 05/14/18 Time of Encounter: 11:20 - Subjective Interval History: Pt was seen and assessed at bedside at 1120. Sitter with patient at all times. He is drowsy, but arouses easily to verbal. Nurse reports that he has been awake for 2 days due to sundowners and agitation, today he is drowsy. He doesn't answer questions, he kept repeating my name. He has a moist cough and denies that it is productive. He answers no when asked if he has a headache, chest pain, shortness of breath, abdominal pain, or back pain. - Exam Vitals: Temp Pulse Resp BP Pulse Ox 97.9 F 74 18 130/70 93 05/14/18 11:47 05/14/18 11:47 05/14/18 11:47 05/14/18 11:47 05/14/18 11:47 Exam: General: Pt resting quietly on bed, no distress, drowsy Skin: pwd, no rashes, lesions, redness Neurological: Pt is drowsy, arouseable, not oriented, HEENT: mucous mumbranes moist, no conjuctival pallor Neck: supple, no tracheal deviation, no lymphadenopathy, tenderness, no thyromegaly Heart: S1S2 heard without gallops, clicks, murmurs, no bradycardia or tachycardia, pt has no peripheral edema, pedal and radial pulses palpable bilaterally. Lungs: clear throughout without wheezing, rales, or ronchi, respirations are unlabored Abdomen: soft and non tender with bowel sound present, no hepatomegaly. Psych: Normal affect with good eye contact - Assessment and Plan (1) Elevated troponin Current Visit: Yes Status: Acute Assessment and Plan: most likely secondary to supply vs demand mismatch (Aflutter) cannot rule out underlying CAD Was trending down no acute ischemic changes on EKG will continue following cardiology recommendations. Toprol was increased and HR was controlled. Cardiology has signed off. Per cardiology note: recent TTE LVEF preserved, no segmental wall motion abnormalities noted (2) Septic shock Current Visit: Yes Status: Resolved Assessment and Plan: Emergency department, patient was tachycardic, tachypneic, hypotensive despite 2L fluid boluses. Resolved Blood cultures NGTD Urine cultures no growth Pt was on IV Zosyn, was changed to Omnicef, however today he is drowsy, will restart when pt is more alert. (3) Atrial flutter Current Visit: Yes Status: Acute Assessment and Plan: recently diagnosed not on OAC secondary to multiple falls cardizem restarted by the cardiology team on 05/12- continue to monitor HR - rate in 70s cardiology also added Metoprolol, rate controlled now. (4) Witnessed seizure-like activity Current Visit: Yes Status: Acute Assessment and Plan: neurology on board- recommendations as below No further seizures or seizure type of activity still having some shaking and jerking sundowning confused at night history of dementia. No evidence of any acute stroke or seizures on EEG. No indication to start on anticonvulsive medication. High risk for delirium Continue to have sundowning, today pt is drowsy and has been awake for 2 days per primary RN. Avoid neuroleptics may use Ativan or anxiolytic agents prn. (5) History of dementia Current Visit: Yes Status: Acute Assessment and Plan: pleasantly confused drowsy, arouseable continue redirection avoid anticholinergics (6) Goals of care, counseling/discussion Current Visit: Yes Status: Acute Assessment and Plan: Pt is DNRCCA Palliative care following Short term intubation is ok (7) CHF (congestive heart failure) Current Visit: Yes Status: Acute Assessment and Plan: recieved two doses of lasix IV on 05/11 and 07/12 bicarb increased to 43- hold off of diuretics for now Continue to trend labs continue to monitor I/O cardiology has signed off and will follow outpatient fluid restriction 05/14, pt is drowsy and not eating or drinking, KVO IVF ordered for today. Pt with -3.4 liter fluid deficit. I don't feel that weights are accurate. CXR: IMPRESSION: Small bilateral pleural effusions which is new on the right Stable prominence of interstitial markings suspicious for interstitial edema Stable right lower lobe infiltrate which may represent atelectasis versus mild airspace disease TTE on 04/29- Impressions: LVEF 55%. Normal LV chamber size, wall thickness and function. Atypical septal motion consistent with bundle branch block. Indeterminate diastolic function. Dilated right ventricle with normal function. Severely dilated right atrium. Moderate tricuspid regurgitation. Severe pulmonary hypertension. Estimated RVSP is 74 mmHg. (8) Acute renal failure Current Visit: Yes Status: Acute Assessment and Plan: ARF on CKD 3 most likely secondary to septic shock and hypotension and possibly ATN Creatinine normal post lasix bicard increased to 43 - will hold off of diuretics Avoid nephrotoxins Strict intake and output CT A/P ruled out hydronephrosis or obstruction on admission CT A/P IMPRESSION: Gallbladder wall thickening/edema with trace pericholecystic fluid. If there is high clinical concern for cholecystitis and gallbladder ultrasound may be helpful for further evaluation. Normal caliber bowel and normal appendix. Sigmoid colon diverticulosis without acute diverticulitis. Small bilateral pleural effusions with associated airspace disease. Cardiomegaly. Atherosclerosis. (9) Complicated UTI (urinary tract infection) Current Visit: Yes Status: Acute Assessment and Plan: Ucx no growth bcx NGTD UA positive on admission was treated with zosyn since 05/09- as Ucx negative and assumptomatic ( no pelvic pain or complaint of dysuria ) Pt was switched to Omnicef for 10 day course, pt has not had po medications, will continue when he is more alert, see dementia above. (10) DVT prophylaxis Current Visit: Yes Status: Acute Assessment and Plan: Heparin SQ DVT Prophylaxis: above - Time Spent with Patient Total time spent is greater than 50% in coordination of care (as documented) at patient's floor/unit and/or counseling patient: less than 15 minutes Plan of Care Discussed with: patient Internal Medicine: Result - Labs CBC & Chem 7: 05/14/18 03:16 05/14/18 03:16 Labs: Short CBC 05/14/18 Range/Units 03:16 WBC 7.1 (4.3-11.1) K/mcL Hgb 9.9 L (12.9-16.9) g/dL Hct 33.3 L (37.5-50.1) % Plt Count 176 (140-400) K/mcL BMP 05/14/18 03:16 Sodium 144 Potassium 4.1 Chloride 98 Carbon Dioxide 42 H* BUN 22 Creatinine 1.12 Glucose 101 Calcium 9.4 - ABG Interpretation ABG results: PT/INR, D-dimer PT 10.9 Seconds (9.4-12.1) 05/09/18 10:40 Consult Discharge Plan - Plan Additional Instructions: Call Sherrie MOFFETT when you get home to have Bedside Commode delivered. The number is [phone]. [facility]errals: [facility] [Primary Care Provider[facility] - 11/20/18 12:45 pm (3) Atrial flutter Qualifiers: Atrial flutter type: unspecified Qualified Code(s): I48.92 - Unspecified atrial flutter (7) CHF (congestive heart failure) Qualifiers: Heart failure type: diastolic Heart failure chronicity: acute on chronic Qualified Code(s): I50.33 - Acute on chronic diastolic (congestive) heart failure (8) Acute renal failure Qualifiers: Acute renal failure type: unspecified Qualified Code(s): N17.9 - Acute kidney failure, unspecified
[2018-05-14] MEDS: 0.9 % Sodium Chloride 250 ML IVC SCH (19:50)
[2018-05-15] MEDS: Levalbuterol Neb 1.25 MG/3 ML IH SCH ×4 (03:48→22:37)
[2018-05-15] MEDS: 0.9 % Sodium Chloride 250 ML IVC SCH ×2 (04:16→20:58)
[2018-05-15 04:39] LABS: Mean Platelet Volume 11.5 fL (9.4-12.4)
[2018-05-15 04:41] LABS: Basophils % 0.4 %; Eosinophils # 0.4 K/mcL (0.0-0.6); Eosinophils % 5.5 %; Hematocrit 32.3 % (37.5-50.1); Hemoglobin 9.5 g/dL (12.9-16.9); Immature Granulocytes % 0.4 % (0-4); Lymphocytes # 0.7 K/mcL (0.6-4.6); Lymphocytes % 9.2 %; Mean Corpuscular HGB Conc 29.4 g/dL (31.6-35.5); Mean Corpuscular Hemoglobin 29.2 pg (28.0-33.3); Mean Corpuscular Volume 99.4 fL (83.0-100.0); Monocytes # 0.6 K/mcL (0.0-1.3); Neutrophils # 5.4 K/mcL (1.6-8.9); Platelet Count 189 K/mcL (140-400); Red Blood Count 3.25 M/mcL (4.19-5.50); Red Cell Distribution Width 13.9 % (11.5-14.5); Segmented Neutrophils % 75.5 %
[2018-05-15 04:49] LABS: BUN/Creatinine Ratio 23 (6-26); Blood Urea Nitrogen 25 mg/dL (8-23); Calcium 9.4 mg/dL (8.6-10.3); Carbon Dioxide 44 mEq/L (23-29); Chloride 99 mEq/L (98-107); Glucose 104 mg/dL (70-105); Osmolality,Calculated 305 (280-300); Potassium 4.4 mEq/L (3.5-5.1); Sodium 145 mEq/L (136-145); eGFR For Non-African Americans > 60 (> 60)
[2018-05-15] MEDS: *HR* Heparin 5,000 UNIT/ML VIAL SQ SCH ×2 (05:39→18:16)
[2018-05-15] MEDS: Diltiazem CD (24hr) 240 MG CAPSULE PO SCH (09:44)
[2018-05-15] MEDS: Cholecalciferol (D-3) 1,000 UNIT TABLET PO SCH (09:44)
[2018-05-15] MEDS: Cyanocobalamin (B-12) 1,000 MCG TABLET PO SCH (09:44)
[2018-05-15] MEDS: Cefdinir 300 MG CAPSULE PO SCH ×2 (09:44→20:56)
[2018-05-15] MEDS: Metoprolol XL (24 HR) Succ 50 MG TAB.ER.24H PO SCH (09:44)
[2018-05-15] MEDS: Budesonide/Formoterol 160/4.5 1 PUFF INH IH SCH ×2 (10:03→22:37)
--- NOTE | 2018-05-15 10:33 | Internal Med Progress Note ---
Hospitalist Progress Note - Encounter Date of Encounter: 05/15/18 Time of Encounter: 10:31 - Subjective Interval History: Seen and examined at bedside. Patient is new to me, information obtained from chart review as patient is alert to self only and poor historian. No family at bedside for collateral. Laying in bed, appears controlled. Says he feels fine and he has no complaints. One-to-one sitter at bedside. - Exam Vitals: Temp Pulse Resp BP Pulse Ox 98.5 F 71 20 122/49 92 05/15/18 10:20 05/15/18 10:20 05/15/18 10:20 05/15/18 10:20 05/15/18 10:20 Exam: General appearance: Present: pleasant, no acute distress - Head Head exam: Present: atraumatic, normocephalic - Eye Eye exam: Present: PERRL, conjuntiva pink, sclera anicteric Pupils: Present: PERRL - Neck Neck exam general surgery: Present: supple, trachea midline. Absent: lymphadenopathy - Respiratory Respiratory exam: Present: chest wall tenderness, CTAB. Absent: accessory muscle use, rales, rhonchi, wheezes - Cardiovascular Cardiovascular exam: Present: RRR, +S1, +S2. Absent: diastolic murmur, gallop, rubs, systolic murmur - GI/Abdominal GI/Abdominal exam: Present: normal bowel sounds, soft, no peritoneal signs. Absent: distended, tenderness - Extremities Exam Extremities exam: Present: warm, radial pulses palpable and symmetrical. Absent: calf tenderness, cyanotic, pedal edema - Neurological Exam Neurological exam: Present: CN II-XII intact, alert to self only, no focal deficits. Absent: pronater drift, facial droop, speech deficit - Skin Skin exam: Present: dry, intact - Assessment and Plan (1) Complicated UTI (urinary tract infection) Current Visit: Yes Status: Acute Assessment and Plan: UA concerning for UTI. Urine culture unremarkable. Initially treated with IV Zosyn. ATB now switched to Omnicef to complete a ten-day course. (2) Septic shock Current Visit: Yes Status: Resolved Assessment and Plan: was tachycardic, tachypneic, hypotensive despite 2L fluid boluses. Now resolved. Suspect secondary complicated UTI. (3) Elevated troponin Current Visit: Yes Status: Acute Assessment and Plan: troponin peaked at .78 and trended down. EKG without acute ST changes. Recent TTE with LVEF preserved and no wall motion abnormalities. Evaluated by cardi ology who suspected most likely secondary to demand ischemia with a flutter and AK I. BB increased per cardiology recommendations. No further cardiac workup indicated at this time. (4) Atrial flutter Current Visit: Yes Status: Acute Assessment and Plan: recently diagnosed. Intermittently and RVR. No oral anticoagulation due to high falls risk. HR now controlled. Continue CCB, BB. Cardiology followed (5) Witnessed seizure-like activity Current Visit: Yes Status: Acute Assessment and Plan: presented with reported seizure activity from ECF. EEG without evidence of seizure activity. No further seizure-like activity noted while inpatient. By neurology who did not recommend initiating AEDs at this time. Cont to monitor. Seizure precautions. (6) History of dementia Current Visit: Yes Status: Acute Assessment and Plan: pleasantly confused. High risk for sundowning with delirium given advanced age, history of dementia and prolonged hospitalization. Avoid neuroleptics may use Ativan or anxiolytic agents prn. (7) Goals of care, counseling/discussion Current Visit: Yes Status: Acute Assessment and Plan: Pt is DNRCCA. Palliative care followed. Short term intubation is ok (8) CHF (congestive heart failure) Current Visit: Yes Status: Acute Assessment and Plan: CXR showed possible vascular edema. Recieved two doses of lasix IV on 05/11 and 05/12. Now appears euvolemic. IV Lasix stopped. Monitor fluid status. (9) Acute renal failure Current Visit: Yes Status: Acute Assessment and Plan: ARF on CKD 3 most likely secondary to septic shock and hypotension and possibly ATN. ABVD CT without obstruction. Renal function normalized with stopping IV lasix DVT Prophylaxis: heparin - Time Spent with Patient Total time spent is greater than 50% in coordination of care (as documented) at patient's floor/unit and/or counseling patient: Internal Medicine: Result - Labs CBC & Chem 7: 05/15/18 03:23 05/15/18 03:23 Labs: Short CBC 05/15/18 Range/Units 03:23 WBC 7.1 (4.3-11.1) K/mcL Hgb 9.5 L (12.9-16.9) g/dL Hct 32.3 L (37.5-50.1) % Plt Count 189 (140-400) K/mcL Neutrophils # 5.4 (1.6-8.9) K/mcL BMP 05/15/18 03:23 Sodium 145 Potassium 4.4 Chloride 99 Carbon Dioxide 44 H* BUN 25 H Creatinine 1.07 Glucose 104 Calcium 9.4 - ABG Interpretation ABG results: PT/INR, D-dimer PT 10.9 Seconds (9.4-12.1) 05/09/18 10:40 Consult Discharge Plan - Plan Additional Instructions: Call Sherrie MOFFETT when you get home to have Bedside Commode delivered. The number is [phone]. [facility] Provider[facility] - 05/18/18 12:45 pm (4) Atrial flutter Qualifiers: Atrial flutter type: unspecified Qualified Code(s): I48.92 - Unspecified atrial flutter (8) CHF (congestive heart failure) Qualifiers: Heart failure type: diastolic Heart failure chronicity: acute on chronic Qualified Code(s): I50.33 - Acute on chronic diastolic (congestive) heart failure (9) Acute renal failure Qualifiers: Acute renal failure type: unspecified Qualified Code(s): N17.9 - Acute kidney failure, unspecified
[2018-05-15] MEDS ORDERED: Ibuprofen 400 MG TABLET PO ONE (21:03)
[2018-05-16] MEDS: Levalbuterol Neb 1.25 MG/3 ML IH SCH ×4 (04:19→22:38)
[2018-05-16] MEDS: *HR* Heparin 5,000 UNIT/ML VIAL SQ SCH ×2 (05:24→18:25)
[2018-05-16] MEDS: 0.9 % Sodium Chloride 250 ML IVC SCH (08:07)
[2018-05-16] MEDS: Cefdinir 300 MG CAPSULE PO SCH ×2 (08:13→22:03)
[2018-05-16] MEDS: Diltiazem CD (24hr) 240 MG CAPSULE PO SCH (08:13)
[2018-05-16] MEDS: Cyanocobalamin (B-12) 1,000 MCG TABLET PO SCH (08:13)
[2018-05-16] MEDS: Cholecalciferol (D-3) 1,000 UNIT TABLET PO SCH (08:13)
[2018-05-16] MEDS: Metoprolol XL (24 HR) Succ 50 MG TAB.ER.24H PO SCH (08:13)
[2018-05-16] MEDS: Budesonide/Formoterol 160/4.5 1 PUFF INH IH SCH ×2 (10:27→22:38)
--- NOTE | 2018-05-16 13:27 | Discharge Summary ---
Orders not resulted at time of discharge: Pending orders 05/10/18 08:30 Bedside Swallowing Evaluation [EVAL] Stat Date of Encounter: 05/16/18 Time of Encounter: 13:24 - Discharge Diagnosis (1) Complicated UTI (urinary tract infection) Priority: Primary Status: Acute Assessment and Plan: UA concerning for UTI. Urine culture unremarkable. Initially treated with IV Zosyn. ATB now switched to Omnicef (to complete a ten-day course). (2) Septic shock Priority: Primary Status: Resolved Assessment and Plan: was tachycardic, tachypneic, hypotensive despite 2L fluid boluses. Secondary complicated UTI. Sepsis resolved at time of discharge (3) Elevated troponin Priority: Primary Status: Acute Assessment and Plan: troponin peaked at .78 and trended down. EKG without acute ST changes. Recent TTE with LVEF preserved and no wall motion abnormalities. Evaluated by cardiology who suspected most likely secondary to demand ischemia with a flutter and AK I. BB increased per cardiology recommendations. No further cardiac workup indicated (4) Atrial flutter Priority: Primary Status: Acute Assessment and Plan: recently diagnosed. Intermittently and RVR. No oral anticoagulation due to high falls risk. HR now controlled. Continue CCB, BB. Cardiology followed Qualifiers: Atrial flutter type: unspecified Qualified Code(s): I48.92 - Unspecified atrial flutter (5) Witnessed seizure-like activity Priority: Primary Status: Acute Assessment and Plan: presented with reported seizure activity from ECF. EEG without evidence of seizure activity. No further seizure-like activity noted while inpatient. By neurology who did not recommend initiating AEDs at this time. Cont to monitor. Seizure precautions. (6) History of dementia Priority: Primary Status: Acute Assessment and Plan: pleasantly confused. High risk for sundowning with delirium given advanced age, history of dementia and prolonged hospitalization. Avoid neuroleptics may use Ativan or anxiolytic agents prn. (7) Goals of care, counseling/discussion Priority: Primary Status: Acute Assessment and Plan: Pt is DNRCCA. Palliative care followed. Short term intubation is ok (8) CHF (congestive heart failure) Priority: Primary Status: Acute Assessment and Plan: CXR showed possible vascular edema. Recieved two doses of lasix IV on 05/11 and 05/12. Now appears euvolemic. IV Lasix stopped. Monitor fluid status. Qualifiers: Heart failure type: diastolic Heart failure chronicity: acute on chronic Qualified Code(s): I50.33 - Acute on chronic diastolic (congestive) heart failure (9) Acute renal failure Priority: Primary Status: Acute Assessment and Plan: ARF on CKD 3 most likely secondary to septic shock and hypotension and possibly ATN. ABVD CT without obstruction. Renal function normalized with stopping IV lasix Qualifiers: Acute renal failure type: unspecified Qualified Code(s): N17.9 - Acute kidney failure, unspecified Hospital course: See assessment and plan for hospital course - Time Spent with Patient Total time spent providing and/or coordinating discharge services: - Discharge Medications Prescriptions: Cefdinir [Omnicef] 300 mg PO BID #16 capsule Home Medications: Cholecalciferol (D-3) [Vitamin D] 1,000 unit PO DAILY 04/09/17 [History] Cyanocobalamin (B-12) [Vitamin B12] 1,000 mcg PO DAILY 04/09/17 [History] Donepezil [Aricept] 5 mg PO DAILY 04/09/17 [History] Albuterol Sulfate [Albuterol Inhaler] 2 puff IH QID PRN 11/09/17 [History] Budesonide/Formoterol 160/4.5 [Symbicort 160/4.5] 2 puff IH BIDR #1 inhaler 11/14/17 [Rx] Ipratropium/Albuterol Neb [Duoneb] 3 ml IH Q6HR PRN 04/29/18 [History] Isosorbide MONOnitrate (24 HR) [Imdur] 30 mg PO DAILY 04/29/18 [History] Melatonin [Melatin] 9 mg PO HS 04/29/18 [History] Terazosin [Hytrin] 1 mg PO HS 04/29/18 [History] Diltiazem CD (24hr) [Cardizem CD] 240 mg PO DAILY 30 Days #30 cap.er.24h 05/05/18 [Rx] Furosemide [Lasix] 20 mg PO BID 30 Days #60 tablet 05/05/18 [Rx] Lisinopril [Zestril] 5 mg PO DAILY 30 Days #30 tablet 05/05/18 [Rx] Metoprolol XL (24 HR) Succ [Toprol Xl] 50 mg PO DAILY 30 Days #30 tab.er.24h 05/05/18 [Rx] Aspirin 325 mg PO DAILY 05/09/18 [History] Cefdinir [Omnicef] 300 mg PO BID #16 capsule 05/16/18 [Rx] Allergies/Adverse Reactions: Allergy/AdvReac Type Severity Reaction Status Date / Time No Known Allergies Allergy Verified 04/29/18 13:33 Date of admission: 05/09/18 05:59 [facility] care physician: [facility] Consults: 05/09/18 06:04 Consult to Critical Care [CONS] Stat Consulting Provider: [facility] [place] Reason for Consult: septic shock, likely secondary to abodminal source of infection Call Completed: Yes 05/09/18 17:52 Consult to Director Of Bands [CONS] Routine Reason for SW Consult: came from [facility]. 05/10/18 08:45 Consult to Speech Therapy [CONS] Routine Comment: Evaluate, develop and implement POC Reason for Consult: mumbled/slurred speech, swallow eval Call Completed: No 05/10/18 10:43 Consult to Palliative Care [CONS] Stat Comment: Consulting Provider: Palliative Care Sherrie Reason for Consult: end of treatment goals Call Completed: Yes 05/11/18 07:36 Consult to Cardiology [CONS] Routine Comment: Consulting Provider: Cardiology Sherrie Reason for Consult: Afib with rve, elevated troponin Call Completed: No Discharging clinician: Debbie Morales Anticipated date of discharge: 05/17/18 - Constitutional Vitals: Temp Pulse Resp BP Pulse Ox 97.4 F L 66 19 128/68 95 05/16/18 11:05 05/16/18 11:05 05/16/18 11:05 05/16/18 11:05 05/16/18 11:05 General appearance: Present: A&O X 1 Exam: . - Head Head exam: Present: atraumatic, normocephalic - Eye Eye exam: Present: PERRL, conjuntiva pink, sclera anicteric Pupils: Present: PERRL - Neck Neck exam general surgery: Present: supple, trachea midline. Absent: lymphadenopathy - Respiratory Respiratory exam: Present: rhonchi (Scattered coarse rhonchi that clears with cough). Absent: accessory muscle use, rales, wheezes - Cardiovascular Cardiovascular exam: Present: RRR, +S1, +S2. Absent: diastolic murmur, gallop, rubs, systolic murmur - GI/Abdominal GI/Abdominal exam: Present: normal bowel sounds, soft, no peritoneal signs. Absent: distended, tenderness - Extremities Exam Extremities exam: Present: warm, radial pulses palpable and symmetrical. Absent: calf tenderness, cyanotic, pedal edema - Neurological Exam Neurological exam: Present: CN II-XII intact, no focal deficits. Absent: pronater drift, facial droop, speech deficit Additional comments: Alert to self only. Pleasantly confused - Skin Skin exam: Present: dry, intact - Patient Status Disposition: Home Health Service Condition: Fair Functional capacity at discharge: uses cane/walker Overall status at discharge: patient is back to baseline - Discharge Instructions Instructions: Urinary Tract Infection in Men (DC), Cefdinir (By mouth) [facility] - 05/18/18 12:45 pm Additional Instructions: Call Sherrie MOFFETT when you get home to have Bedside Commode delivered. The number is [phone]. - Diet and Activity Activity: ambulate only with your walker, as per physical therapy Diet: advance to your usual diet
--- NOTE | 2018-05-16 15:11 | Event Note ---
Date of Encounter: 05/16/18 Time of Encounter: 15:10 Patient medically stable for discharge; discussed with patient's daughter Mary on 05/15/2018 and the reason patient is unable to be discharged until Thursday05/17/2018 is because [facility] and [facility]. Discharge summary is completed and discharge order placed.
[2018-05-17] MEDS: Levalbuterol Neb 1.25 MG/3 ML IH SCH ×3 (03:43→11:08)
[2018-05-17] MEDS: *HR* Heparin 5,000 UNIT/ML VIAL SQ SCH (06:19)
[2018-05-17] MEDS: Cholecalciferol (D-3) 1,000 UNIT TABLET PO SCH (08:51)
[2018-05-17] MEDS: Diltiazem CD (24hr) 240 MG CAPSULE PO SCH (08:51)
[2018-05-17] MEDS: Cyanocobalamin (B-12) 1,000 MCG TABLET PO SCH (08:51)
[2018-05-17] MEDS: Cefdinir 300 MG CAPSULE PO SCH (08:51)
[2018-05-17] MEDS: Metoprolol XL (24 HR) Succ 50 MG TAB.ER.24H PO SCH (08:51)
[2018-05-17 10:44] VITALS: BP 143/69
[2018-05-17] MEDS: Budesonide/Formoterol 160/4.5 1 PUFF INH IH SCH (11:07)
== END 2018-05-17 14:37 | disposition home health service (06) | DRG 871 ==
LOC: EMEROOARM 01:10 → ICNU 01:10 → SUATTDRO 05:59 → ICNU 06:58 → 3BNU 05-11 01:06 → 2ANU 05-16 00:01
PROVIDERS: ADMIT Internal Medicine; ATTEND Internal Medicine